=== PATIENT | female | born 1980 | race Caucasian/White ===

== ENCOUNTER 2016-09-07 13:48 | Outpatient (CLI) | payer BC, OTHER ==
[2016-09-07] VITALS (7 sets, daily range): BP systolic 140–147; BP diastolic 76–93
[~2016-09-07] VITALS: Ht 160 cm; Wt 82.0 kg
[~2016-09-07 13:48] MED LIST: BUSP10TA PO; CLAR10CA3 PO; FLON1SPR; FLUO40CA PO; MELO15TA4 PO; MINO50TA PO; MIRA3350 PO; MULT1TAB10 PO; OMEP40CA2 PO; ZOFR4TAB3 PO
[2016-09-07] MEDS ORDERED: PROT1TAB2 PO (13:59)
[2016-09-07] MEDS ORDERED: UNIS25TA2 PO (13:59)
[2016-09-07] MEDS ORDERED: BENT10CA PO (13:59)
[2016-09-07 16:31] LABS: MEAN CORPUSCULAR HEMOGLOBIN 29.3 pg (27.0-33.0); MEAN CORPUSCULAR HGB CONC 33.9 g/dl (32.0-36.5); MEAN CORPUSCULAR VOLUME 86.4 fl (80.0-96.0); RED CELL DISTRIBUTION WIDTH 13.1 % (11.5-14.5); WHITE BLOOD COUNT 10.4 K/mm3 (4.0-10.0)
[2016-09-07 16:55] LABS: ALT/SGPT 21 U/L (12-78); AST/SGOT 17 U/L (15-37); BILIRUBIN,TOTAL 0.3 MG/DL (0.2-1.0); CREATININE FOR GFR 0.52 MG/DL (0.55-1.02); GLOMERULAR FILTRATION RATE > 60.0 (>60); URIC ACID 4.6 MG/DL (2.6-6.0)
--- NOTE | 2016-09-07 21:02 | IPN ---
DATE: 09/07/2016 REASON FOR VISIT: Cramping and rash. HISTORY OF PRESENT ILLNESS: Ms. Hernandez is a 35-year-old 1 who presents at 32 weeks and two days estimated gestational age by mid-trimester ultrasound, as an unregistered patient. She [facility] at [facility] and has an estimated date of confinement (EDC) based on the 19-week ultrasound of 11/05/2016. She presents with complaints of cramping as well as a rash that she has had for several weeks now. course has been unremarkable. She appears to have initiated care in the first trimester. PAST MEDICAL HISTORY: History of gastroesophageal reflux, irritable bowel. PAST SURGICAL HISTORY: She has had oral surgery, bunionectomy, as well as cholecystectomy. MEDICATIONS: vitamins, Protonix, Unisom, and Claritin. ALLERGIES: SULFA MEDICATION. OBSTETRICAL HISTORY: She is 1. SOCIAL HISTORY: Denies any alcohol, tobacco or drug use during the . PHYSICAL EXAMINATION: She has an elevated blood pressure with serial repeats ranging 140s systolic and diastolic of 90s. She has category one heart tracing with irregular contractions on tocometer. GENERAL APPEARANCE: Is well appearing, no acute distress. LUNGS: Clear to auscultation bilaterally. CARDIOVASCULAR: Heart regular rate and rhythm. ABDOMEN: Soft, gravid, nontender. CERVICAL EXAM: Cervix is long and closed posterior. NEUROLOGIC: She is grossly intact. REVIEW OF SYSTEMS: She reports active movement. Denies any vagina bleed or leakage of fluid. Also denies any persistent headaches, severe pain, or visual changes. Routine and pre-eclamptic blood work showed platelets of 198. Hemoglobin and hematocrit 11.7 and 34.5. She had AST of 17, ALT 21. She had a creatinine of 0.5. Uric acid 4.6. Her spot urine protein-creatinine ratio is 0.167 equivocal. ASSESSMENT: 1. She is a 35-year-old 1 who presents at 32 weeks one day estimated gestational age with regular contractions on labor. 2. Reassuring status. 3. Gestational hypertension based on her current visit today. PLAN: 1. The patient was discharged home with strict cautions for labor, pre-eclampsia, and is also instructed on kick counts. 2. 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
== END 2016-09-07 17:55 | disposition home or self-care (01) ==
LOC: M LDO 13:48
PROVIDERS: ATTEND Obstetrics & Gynecology
DX: O47.03 False labor before 37 completed weeks of gestation, third trimester (principal); O13.3 Gestational [pregnancy-induced] hypertension without significant proteinuria, third trimester; O99.89 Other specified diseases and conditions complicating pregnancy, childbirth and the puerperium; R21 Rash and other nonspecific skin eruption; Z3A.32 32 weeks gestation of pregnancy

== ENCOUNTER → 2018-05-18 | Outpatient (REF) | payer BC, MEDICAID | LOC: M SFHCPLAZ 16:38 | DX: Z00.00 Encounter for general adult medical examination without abnormal findings (principal); E78.5 Hyperlipidemia, unspecified ==

== ENCOUNTER → 2018-12-07 | Outpatient (REF) | payer OTHER ==
[~2018-12-07] MED LIST changes: +BENT10CA PO; +MELO15TA28 PO; -MELO15TA4 PO; +PROT1TAB2 PO; +UNIS25TA3 PO; +ZOFR4TAB14 PO; -ZOFR4TAB3 PO
[2018-12-07 13:40] LABS: ALBUMIN 3.4 GM/DL (3.2-5.2); ALT/SGPT 37 U/L (12-78); BILIRUBIN,TOTAL 0.2 MG/DL (0.2-1.0); BLOOD UREA NITROGEN 8 MG/DL (7-18); CALCIUM LEVEL 8.7 MG/DL (8.5-10.1); CARBON DIOXIDE LEVEL 28 MEQ/L (21-32); CHLORIDE LEVEL 104 MEQ/L (98-107); CHOLESTEROL LEVEL 225 MG/DL (<200); CHOLESTEROL RISK RATIO 5.769 (<5); CREATININE FOR GFR 0.78 MG/DL (0.55-1.30); GLOMERULAR FILTRATION RATE > 60.0 (>60); GLUCOSE, FASTING 89 MG/DL (70-100); HDL CHOLESTEROL 39 MG/DL (>40); LDL CHOLESTEROL 150 MG/DL (<100); NON-HDL-C 186 MG/DL; POTASSIUM SERUM 3.8 MEQ/L (3.5-5.1); SODIUM LEVEL 139 MEQ/L (136-145); TOTAL PROTEIN 7.7 GM/DL (6.4-8.2); TRIGLYCERIDES LEVEL 180 MG/DL (<150)
== END ==
LOC: M SFHCPLAZ 10:53
PROVIDERS: ATTEND Nurse Practitioner Family
DX: Z00.00 Encounter for general adult medical examination without abnormal findings (principal); E78.5 Hyperlipidemia, unspecified

== ENCOUNTER → 2019-02-26 | Outpatient (REF) | payer OTHER | LOC: M SFHCPLAZ 10:21 | PROVIDERS: ATTEND Family Medicine | DX: L72.0 Epidermal cyst (principal) ==

== ENCOUNTER → 2019-09-21 | Outpatient (REF) | payer BC ==
[~2019-09-21] MED LIST changes: -OMEP40CA2 PO; +OMEP40CA97 PO
[2019-09-21 12:17] LABS: ALBUMIN 3.8 GM/DL (3.2-5.2); ALT/SGPT 25 U/L (12-78); BILIRUBIN,TOTAL 0.2 MG/DL (0.2-1.0); BLOOD UREA NITROGEN 17 MG/DL (7-18); CALCIUM LEVEL 9.3 MG/DL (8.5-10.1); CARBON DIOXIDE LEVEL 29 MEQ/L (21-32); CHLORIDE LEVEL 107 MEQ/L (98-107); CHOLESTEROL LEVEL 190 MG/DL (<200); CREATININE FOR GFR 0.75 MG/DL (0.55-1.30); FOLLICLE STIMULATING HORMONE 3.3 mIU/mL; FREE T4 0.87 NG/DL (0.76-1.46); GLOMERULAR FILTRATION RATE > 60.0 (>60); GLUCOSE, FASTING 85 MG/DL (70-100); HDL CHOLESTEROL 38 MG/DL (>40); LDL CHOLESTEROL 131 MG/DL (<100); LUTEINIZING HORMONE 3.5 mIU/mL; NON-HDL-C 152 MG/DL; POTASSIUM SERUM 4.7 MEQ/L (3.5-5.1); SODIUM LEVEL 139 MEQ/L (136-145); TESTOSTERONE 14 NG/DL (14-76); THYROID STIMULATING HORMONE 0.948 uIU/ML (0.358-3.740); TOTAL PROTEIN 7.8 GM/DL (6.4-8.2); TRIGLYCERIDES LEVEL 106 MG/DL (<150)
== END ==
LOC: M SFHCPLAZ 09:57
PROVIDERS: ATTEND Physician Assistant
DX: R68.82 Decreased libido (principal); K21.9 Gastro-esophageal reflux disease without esophagitis; E78.5 Hyperlipidemia, unspecified

== ENCOUNTER → 2020-03-15 | Outpatient (CLI) | payer BC ==
--- NOTE | 2020-03-31 07:33 | REP ---
RIGHT KNEE RADIOGRAPH SERIES CLINICAL: Right knee pain. TECHNIQUE: AP, lateral, bilateral oblique, and sunrise views of the right knee. FINDINGS: Osseous structures, joint spaces, and surrounding soft tissues appear normal. No acute fracture or dislocation. No arthritic changes. No definite effusion. IMPRESSION: Normal age appropriate right knee radiograph series. MTDD
== END ==
LOC: M WUC 13:25
PROVIDERS: ATTEND Physician Assistant
DX: M25.561 Pain in right knee (principal)

== ENCOUNTER → 2020-05-31 | Outpatient (CLI) | payer BC | LOC: M LABSMTC 10:54 | PROVIDERS: ATTEND Family Medicine | DX: Z20.828 Contact with and (suspected) exposure to other viral communicable diseases (principal) ==

== ENCOUNTER → 2020-07-11 | Outpatient (CLI) | payer OTHER | LOC: M LABSMTC 09:58 | PROVIDERS: ATTEND Family Medicine | DX: Z20.822 Contact with and (suspected) exposure to COVID-19 (principal) ==

== ENCOUNTER → 2020-07-31 | Outpatient (REF) | payer OTHER ==
[2020-07-31 12:27] LABS: HEMATOCRIT 44.3 % (36.0-47.0); HEMOGLOBIN 13.5 g/dl (12.0-15.5); MEAN CORPUSCULAR HEMOGLOBIN 26.3 pg (27.0-33.0); MEAN CORPUSCULAR HGB CONC 30.5 g/dl (32.0-36.5); MEAN CORPUSCULAR VOLUME 86.2 fl (80.0-96.0); PLATELET COUNT, AUTOMATED 212 10^3/uL (150-450); RED BLOOD COUNT 5.14 10^6/uL (4.00-5.40); WHITE BLOOD COUNT 6.8 10^3/uL (4.0-10.0)
[2020-07-31 13:15] LABS: ALBUMIN 3.7 GM/DL (3.2-5.2); ALT/SGPT 17 U/L (12-78); BILIRUBIN,TOTAL 0.1 MG/DL (0.2-1.0); BLOOD UREA NITROGEN 10 MG/DL (7-18); CALCIUM LEVEL 9.4 MG/DL (8.5-10.1); CARBON DIOXIDE LEVEL 30 MEQ/L (21-32); CHLORIDE LEVEL 107 MEQ/L (98-107); CHOLESTEROL LEVEL 205 MG/DL (<200); CHOLESTEROL RISK RATIO 6.833 (<5); CREATININE FOR GFR 0.77 MG/DL (0.55-1.30); FREE T4 0.79 NG/DL (0.76-1.46); GLOMERULAR FILTRATION RATE > 60.0 (>60); GLUCOSE, FASTING 91 MG/DL (70-100); HDL CHOLESTEROL 30 MG/DL (>40); LDL CHOLESTEROL 116 MG/DL (<100); NON-HDL-C 175 MG/DL; POTASSIUM SERUM 4.3 MEQ/L (3.5-5.1); SODIUM LEVEL 142 MEQ/L (136-145); TOTAL PROTEIN 7.4 GM/DL (6.4-8.2); TRIGLYCERIDES LEVEL 297 MG/DL (<150)
[2020-07-31 18:11] LABS: HEMOGLOBIN A1c 5.4 %
[2020-08-02 16:08] LABS: H PYLORI SERUM QUANT IGM <9.0 units (0.0-8.9); H PYLORI SERUM QUANT IgG ABY 0.79 (0.00-0.79)
== END ==
LOC: M SFHCPLAZ 10:13
PROVIDERS: ATTEND Physician Assistant
DX: K21.9 Gastro-esophageal reflux disease without esophagitis (principal); F41.9 Anxiety disorder, unspecified; R11.2 Nausea with vomiting, unspecified; R10.13 Epigastric pain; E78.5 Hyperlipidemia, unspecified

== ENCOUNTER → 2020-08-21 | Outpatient (CLI) | payer SELFPAY | LOC: M LABSMTC 10:58 | PROVIDERS: ATTEND Pediatrics | DX: Z20.828 Contact with and (suspected) exposure to other viral communicable diseases (principal) ==

== ENCOUNTER → 2020-08-31 | Outpatient (CLI) | payer SELFPAY | LOC: M LABSMTC 10:33 | PROVIDERS: ATTEND Pediatrics | DX: Z11.52 Encounter for screening for COVID-19 (principal) ==

== ENCOUNTER 2020-09-11 09:39 | Emergency (ER) | payer OTHER ==
[~2020-09-11] VITALS: Ht 160 cm; Wt 79.1 kg
[2020-09-11] MEDS ORDERED: CARV3.12 PO (09:57)
[2020-09-11] MEDS ORDERED: OMEP40CA97 PO (09:57)
[2020-09-11] MEDS ORDERED: PAXI30TA11 PO (09:57)
[2020-09-11] MEDS ORDERED: ONDA-83 PO (09:57)
[2020-09-11] MEDS ORDERED: GI COCKTAIL 50ML BTL(HYOSCYAMINE/MAALOX/LIDOCAINE VISCOUS)(1:3:1) PO ONE (10:50)
[2020-09-11] MEDS ORDERED: NS 1,000 ML IV ONE (10:50)
[2020-09-11 11:18] LABS: BILIRUBIN,DIRECT 0.1 MG/DL (0.0-0.2); BILIRUBIN,TOTAL 0.3 MG/DL (0.2-1.0); TOTAL PROTEIN 7.7 GM/DL (6.4-8.2)
[2020-09-11] MEDS ORDERED: REGL5TAB2 PO (12:09)
[2020-09-11 12:51] VITALS: BP 116/79
== END 2020-09-11 13:04 | disposition home or self-care (01) ==
LOC: M ED 09:39
DX: K29.70 Gastritis, unspecified, without bleeding (principal); K31.84 Gastroparesis; F41.9 Anxiety disorder, unspecified; K58.9 Irritable bowel syndrome, unspecified; K21.9 Gastro-esophageal reflux disease without esophagitis; Z79.899 Other long term (current) drug therapy; Z88.1 Allergy status to other antibiotic agents; Z87.891 Personal history of nicotine dependence; F12.20 Cannabis dependence, uncomplicated

== ENCOUNTER 2020-10-03 10:54 | Emergency (ER) | payer OTHER ==
[~2020-10-03] VITALS: Ht 160 cm; Wt 81.8 kg
[~2020-10-03 10:54] MED LIST changes: +CARV3.12 PO; +ONDA-83 PO; +PAXI30TA11 PO; +REGL5TAB2 PO
[2020-10-03] MEDS ORDERED: NS 1,000 ML IV ONE (11:15)
[2020-10-03] MEDS ORDERED: PROMETHAZINE INJ 25 MG/ML VIAL (J2550) IV ONE (11:35)
[2020-10-03] MEDS ORDERED: ONDANSETRON 4MG/2ML VIAL IV ONE (11:35)
[2020-10-03 11:41] LABS: BASO # 0.1 10^3/uL (0.0-0.2); BASO % 0.6 % (0.0-1.0); EOS # 0.1 10^3/uL (0.0-0.5); EOS % 0.6 % (0.0-3.0); HEMOGLOBIN 14.8 g/dl (12.0-15.5); LYMPH # 1.9 10^3/uL (1.5-5.0); LYMPH % 14.1 % (24.0-44.0); MEAN CORPUSCULAR HEMOGLOBIN 27.1 pg (27.0-33.0); MEAN CORPUSCULAR HGB CONC 32.2 g/dl (32.0-36.5); MEAN CORPUSCULAR VOLUME 84.2 fl (80.0-96.0); MONO # 0.4 10^3/uL (0.0-0.8); MONO % 2.8 % (2.0-8.0); NEUTROPHILS # 10.7 10^3/uL (1.5-8.5); NEUTROPHILS % 81.5 % (36.0-66.0); PLATELET COUNT, AUTOMATED 298 10^3/uL (150-450); RED BLOOD COUNT 5.46 10^6/uL (4.00-5.40); WHITE BLOOD COUNT 13.1 10^3/uL (4.0-10.0)
[2020-10-03] MEDS ORDERED: ISOVUE-370 76% 100ML VIAL As Ordered ONE (12:06)
[2020-10-03 12:09] LABS: ALBUMIN 4.5 GM/DL (3.2-5.2); BILIRUBIN,DIRECT 0.1 MG/DL (0.0-0.2); BILIRUBIN,TOTAL 0.4 MG/DL (0.2-1.0); TOTAL PROTEIN 8.6 GM/DL (6.4-8.2)
--- NOTE | 2020-10-03 12:48 | REP ---
INDICATION: abd pain COMPARISON: None. TECHNIQUE: CT Scan of the abdomen and pelvis was performed with intravenous administration of 100 cc of Isovue 370, without oral contrast. Sagittal and coronal reconstruction images are performed. FINDINGS: Lung bases: Unremarkable. Liver: Normal Gallbladder: Prior cholecystectomy. Spleen: Normal. Adrenals: Normal. Pancreas: Normal. Kidneys: Normal. Small and large bowel: Unremarkable. There is no free air or obstruction. Free fluid: None. Abdominal aorta: No aneurysm or dissection. Adenopathy: None. Appendix: Not inflamed. Osseous structures: Unremarkable. Pelvis: There is a right ovarian cyst approximately 4 cm in maximum diameter.. There is a bilobed umbilical hernia containing inflamed fat. The aperture of the hernia at this portion of the anterior abdominal wall is approximately 3.0 x 3.3 cm. IMPRESSION: There is a right ovarian cyst approximately 4 cm in maximum diameter.. No free fluid. No free air or obstruction. There is a bilobed umbilical hernia containing inflamed fat. The aperture of the hernia in the anterior abdominal wall is approximately 3.0 x 3.3 cm. No bowel loops within the hernia sac. Clinical evaluation necessary to evaluate for incarceration and strangulation. <Electronically signed by Clarke Mckeon > 10/03/20 [id number]
[2020-10-03] MEDS ORDERED: KETOROLAC 30 MG/ML 1ML VIAL IV ONE (13:50)
[2020-10-03] MEDS ORDERED: METOCLOPRAMIDE INJ 10MG/2ML VIAL (J2765 PER 1) IV ONE (14:00)
[2020-10-03] MEDS ORDERED: SUCRALFATE SUSP 1GM/10ML UD PO ONE (14:40)
[2020-10-03] MEDS ORDERED: GI COCKTAIL 50ML BTL(HYOSCYAMINE/MAALOX/LIDOCAINE VISCOUS)(1:3:1) PO ONE (15:35)
[2020-10-03 16:15] VITALS: BP 141/87
[2020-10-03] MEDS ORDERED: REGL10TA6 PO (16:25)
--- NOTE | 2020-10-04 17:49 | ED PDOC ---
Post-Departure Follow-Up mikel johnson faxed formal report of ct abd/p for fu Jose Miguel Nicolas MD Oct 04, 2020 17:49
== END 2020-10-03 16:36 | disposition home or self-care (01) ==
LOC: M ED 10:54 → EDBD 10:54 → M ED 16:36
DX: N83.201 Unspecified ovarian cyst, right side (principal); R11.10 Vomiting, unspecified; E78.5 Hyperlipidemia, unspecified; K21.9 Gastro-esophageal reflux disease without esophagitis; J45.909 Unspecified asthma, uncomplicated; F41.9 Anxiety disorder, unspecified; F32.9 Major depressive disorder, single episode, unspecified; Z87.891 Personal history of nicotine dependence; Z88.2 Allergy status to sulfonamides; Z88.8 Allergy status to other drugs, medicaments and biological substances; Z79.899 Other long term (current) drug therapy
CPT/HCPCS: 74177; 80047; 80076; 83690; 84702; 85025; 96361; 96374; 96375; 99285; J1885; J2405; J2765; Q9967

== ENCOUNTER 2020-10-05 01:54 | Emergency (ER) | payer OTHER ==
[~2020-10-05] VITALS: Ht 160 cm; Wt 77.8 kg
[~2020-10-05 01:54] MED LIST changes: +REGL10TA6 PO
[2020-10-05] MEDS ORDERED: BUSP1TAB (02:06)
[2020-10-05 04:15] VITALS: BP 167/89
== END 2020-10-05 05:00 | disposition left against medical advice (07) ==
LOC: M ED 01:54
DX: Z53.21 Procedure and treatment not carried out due to patient leaving prior to being seen by health care provider (principal)

== ENCOUNTER → 2020-11-16 | Outpatient (CLI) | payer OTHER ==
[~2020-11-16] MED LIST changes: +BUSP1TAB PO; +DICY20TA11 PO; +LISI-898 PO; +MM S100C PO
== END ==
LOC: M LABSMTC 11:25
PROVIDERS: ATTEND Anesthesiology
DX: Z01.818 Encounter for other preprocedural examination (principal); Z11.52 Encounter for screening for COVID-19

== ENCOUNTER → 2020-11-21 | Day surgery (SDC) | payer OTHER ==
[~2020-11-21] VITALS: Ht 160 cm; Wt 76.7 kg
[~2020-11-21] MED LIST changes: +LIDOCAINE 2% 100MG/5ML SDV (FOR ANES.) As Ordered ONE; +NS 1,000 ML IV ONE; +fentaNYL 100 MCG/2 ML INJECTION (J3010) As Ordered ONE; +propofoL 200 MG/20 ML VIAL As Ordered ONE
--- NOTE | 2020-11-21 14:20 | ROOR ---
Patient Name: Marika Hay Procedure Date: 11/21/2020 1:33 PM Date of : 1980 Age: 40 Room: [facility] Gender: Female Note Status: Finalized Procedure: Upper GI endoscopy Indications: Nausea with vomiting Providers: Jian Mckeon MD Referring MD: Maral Miguel Requesting Provider: Medicines: Monitored Anesthesia Care Complications: No immediate complications. Procedure: Pre-Anesthesia Assessment: - Prior to the procedure, a History and Physical was performed, and patient medications and allergies were reviewed. The patient is competent. The risks and benefits of the procedure and the sedation options and risks were discussed with the patient. All questions were answered and informed consent was obtained. Patient identification and proposed procedure were verified by the physician, the nurse and the anesthesiologist in the procedure room. Mental Status Examination: normal. Airway Examination: normal oropharyngeal airway and neck mobility. Respiratory Examination: clear to auscultation. CV Examination: normal. Prophylactic Antibiotics: The patient does not require prophylactic antibiotics. Prior Anticoagulants: The patient has taken no previous anticoagulant or antiplatelet agents. ASA Grade Assessment: II - A patient with mild systemic disease. After reviewing the risks and benefits, the patient was deemed in satisfactory condition to undergo the procedure. The anesthesia plan was to use monitored anesthesia care (MAC). Immediately prior to administration of medications, the patient was re-assessed for adequacy to receive sedatives. The heart rate, respiratory rate, oxygen saturations, blood pressure, adequacy of pulmonary ventilation, and response to care were monitored throughout the procedure. The physical status of the patient was re-assessed after the procedure. The Endoscope was introduced through the mouth, and advanced to the second part of duodenum. The upper GI endoscopy was accomplished without difficulty. The patient tolerated the procedure well. Findings: The examined esophagus was normal. Scattered mild inflammation characterized by erythema and granularity was found in the gastric antrum. Biopsies were taken with a cold forceps for Helicobacter pylori testing. Verification of patient identification for the specimen was done by the physician and nurse using the patient's name, date and medical record number. Estimated blood loss was minimal. The duodenal bulb and second portion of the duodenum were normal. Biopsies for histology were taken with a cold forceps for evaluation of celiac disease. Impression: - Normal esophagus. - Gastritis. Biopsied. - Normal duodenal bulb and second portion of the duodenum. Biopsied. Recommendation: - Patient has a contact number available for emergencies. The signs and symptoms of potential delayed complications were discussed with the patient. Return to normal activities tomorrow. Written discharge instructions were provided to the patient. - High fiber diet. - Continue present medications. - Await pathology results. - Telephone GI clinic for pathology results in 2 weeks. - Return to GI clinic if persistent symptoms or new symptoms. - Return to primary care physician. Procedure Code(s): --- Professional --- 71991, Esophagogastroduodenoscopy, flexible, transoral; with biopsy, single or multiple Diagnosis Code(s): --- Professional --- K29.70, Gastritis, unspecified, without bleeding R11.2, Nausea with vomiting, unspecified CPT copyright 2019 [employer]. All rights reserved. The codes documented in this report are preliminary and upon security associate review may be revised to meet current compliance requirements. Jian Mckeon MD Jian Mckeon MD 11/21/2020 2:19:48 PM Electronically signed by Jian Mckeon MD Number of Addenda: 0 Note Initiated On: 11/21/2020 1:33 PM Estimated Blood Loss: Estimated blood loss was minimal.
[2020-11-21 14:31] VITALS: BP 128/83
== END | disposition home or self-care (01) ==
LOC: M OPP 12:05
PROVIDERS: ATTEND Internal Medicine Gastroenterology
DX: K29.70 Gastritis, unspecified, without bleeding (principal); R11.2 Nausea with vomiting, unspecified; Z79.899 Other long term (current) drug therapy; Z88.2 Allergy status to sulfonamides; Z88.8 Allergy status to other drugs, medicaments and biological substances
CPT/HCPCS: 43239; 88305; J3010

== ENCOUNTER → 2020-12-25 | Outpatient (REF) | payer OTHER ==
[~2020-12-25] MED LIST changes: -LIDOCAINE 2% 100MG/5ML SDV (FOR ANES.) As Ordered ONE; -NS 1,000 ML IV ONE; +OMEP40CA4 PO; -OMEP40CA97 PO; -fentaNYL 100 MCG/2 ML INJECTION (J3010) As Ordered ONE; -propofoL 200 MG/20 ML VIAL As Ordered ONE
== END ==
LOC: M SFHCPLAZ 16:44
PROVIDERS: ATTEND Physician Assistant
DX: R09.81 Nasal congestion (principal)

== ENCOUNTER 2021-02-19 15:51 | Emergency (ER) | payer OTHER ==
[~2021-02-19] VITALS: Ht 160 cm; Wt 72.8 kg
[2021-02-19 15:52] VITALS: BP 122/79
[2021-02-19] MEDS ORDERED: KETOROLAC 30 MG/ML 1ML VIAL IV ONE (18:05)
[2021-02-19] MEDS ORDERED: NS 1,000 ML IV ONE (18:05)
[2021-02-19] MEDS ORDERED: FAMOTIDINE INJ 20MG/2ML VIAL (S0028 PER 1) IVP ONE (18:05)
[2021-02-19] MEDS ORDERED: METOCLOPRAMIDE INJ 10MG/2ML VIAL (J2765 PER 1) IV ONE (18:05)
[2021-02-19 18:52] LABS: BASO # 0.1 10^3/uL (0.0-0.2); BASO % 0.6 % (0.0-1.0); EOS # 0.1 10^3/uL (0.0-0.5); EOS % 1.1 % (0.0-3.0); HEMATOCRIT 40.2 % (36.0-47.0); HEMOGLOBIN 12.9 g/dl (12.0-15.5); LYMPH # 2.7 10^3/uL (1.5-5.0); LYMPH % 30.6 % (24.0-44.0); MEAN CORPUSCULAR HGB CONC 32.1 g/dl (32.0-36.5); MEAN CORPUSCULAR VOLUME 84.1 fl (80.0-96.0); MONO # 0.5 10^3/uL (0.0-0.8); MONO % 5.3 % (2.0-8.0); NEUTROPHILS # 5.4 10^3/uL (1.5-8.5); NEUTROPHILS % 62.2 % (36.0-66.0); PLATELET COUNT, AUTOMATED 207 10^3/uL (150-450); RED BLOOD COUNT 4.78 10^6/uL (4.00-5.40); WHITE BLOOD COUNT 8.8 10^3/uL (4.0-10.0)
[2021-02-19 19:17] LABS: ALBUMIN 3.7 GM/DL (3.2-5.2); ALT/SGPT 17 U/L (12-78); BILIRUBIN,DIRECT < 0.1 MG/DL (0.0-0.2); BILIRUBIN,TOTAL 0.3 MG/DL (0.2-1.0); LIPASE 570 U/L (73-393); TOTAL PROTEIN 7.4 GM/DL (6.4-8.2)
[2021-02-19] MEDS ORDERED: ISOVUE-370 76% 100ML VIAL As Ordered ONE (19:48)
--- NOTE | 2021-02-19 21:22 | REPVR ---
PROCEDURE INFORMATION: Exam: CT Abdomen And Pelvis With Contrast Exam date and time: 02/19/2021 7:57 PM Age: 40 years old Clinical indication: Abdominal pain; Localized; Upper; Additional info: Upper abd pain TECHNIQUE: Imaging protocol: Computed tomography of the abdomen and pelvis with contrast. Radiation optimization: All CT scans at this facility use at least one of these dose optimization techniques: automated exposure control; mA and/or kV adjustment per patient size (includes targeted exams where dose is matched to clinical indication); or iterative reconstruction. Contrast material: ISOVUE 370; Contrast volume: 100 ml; Contrast route: INTRAVENOUS (IV); COMPARISON: 1. CT ABD/PEL W/IV CONTRAST ONLY 10/03/2020 12:15 PM (The report from this study was not available for review at the time of this interpretation.) 2. CT ABD PELVIS W/O FOL BY WIT 09/22/2015 3:21:12 PM FINDINGS: Lungs: There is a 3 mm solid pulmonary nodule in the left lower lobe (image 14 of the axial series 204), which is unchanged compared to the CT abdomen and pelvis on 10/03/2020 and 09/22/2015 and for which follow-up imaging is not necessary. The lungs were not fully imaged. Heart: No cardiomegaly or pericardial effusion. Liver: The attenuation of the liver is more than 40 Hounsfield units lower in attenuation compared to the spleen, which is compatible with fatty liver infiltration. The contour of the liver is smooth. No hepatomegaly is noted. No liver lesion is identified. Gallbladder and bile ducts: There are calcified stones in the contracted or remnant gallbladder (images 32 and 33 of the coronal series 202). No dilation of bile ducts is noted. There are no calcified stones in the common bile duct. Pancreas: Normal. No dilation of the main pancreatic duct is noted. Spleen: There is a 3 mm low-attenuation lesion in the superior aspect of the spleen (image 50 of the coronal series 202), which is too small to characterize. No splenomegaly is noted. Adrenal glands: Normal. No adrenal mass is noted. Kidneys and ureters: The kidneys are normal in appearance. No renal lesion is noted. No stones are noted in the kidneys or ureters. There is no hydronephrosis or hydroureter. There are no wedge-shaped areas of low attenuation in the kidneys to suggest pyelonephritis. There is no renal abscess or perinephric fluid collection. Stomach and bowel: There is thickening of the wall of the stomach, which may be secondary to its decompressed state versus gastritis. There is thickening of the wall of the distal transverse colon, descending colon, and sigmoid colon, which may be secondary to the decompressed state of this portion of the bowel versus a colitis. No pericolonic inflammatory fat stranding is noted. There is liquid feces in the colon, which will lead to diarrhea. The small bowel is unremarkable. Appendix: Normal. There is no evidence for appendicitis. Intraperitoneal space: No free air. No ascites. No abscess. Retroperitoneal space: No fluid collection. No mass. Vasculature: The abdominal aorta is patent, normal in caliber, and there is no dissection. The iliac arteries, common femoral arteries, renal arteries, celiac artery, superior mesenteric artery, and inferior mesenteric artery are patent. Lymph nodes: No enlarged lymph nodes. Urinary bladder: The partially distended urinary bladder is unremarkable. No stones or masses are seen in the bladder. Reproductive: The uterus is unremarkable. There is a 3.2 cm right ovarian cyst with simple characteristics and a 1.9 cm left ovarian cyst with simple characteristics, which are stable compared to the CT abdomen and pelvis on 10/03/2020 and for which no further imaging is recommended. Bones/joints: There is no fracture or dislocation. No suspicious osteolytic or osteoblastic lesion. There are degenerative changes involving the lower lumbar spine. Soft tissues: There is a large fat containing periumbilical hernia that is similar in size compared to the CT abdomen and pelvis on 10/03/2020. There is mildly increased attenuation of the fat within the hernia and near the entrance to the hernia. IMPRESSION: 1. Large fat containing periumbilical hernia that is similar in size compared to the CT abdomen and pelvis on 10/03/2020 and there is mildly increased attenuation of the fat within the hernia and near the entrance to the hernia, which may indicate ischemia or inflammation of the omental fat. 2. Calcified stones in the contracted or remnant gallbladder. 3. Thickening of the wall of the stomach, which may be secondary to its decompressed state versus gastritis. 4. Thickening of the wall of the distal transverse colon, descending colon, and sigmoid colon, which may be secondary to the decompressed state of this portion of the bowel versus a colitis. 5. Liquid feces in the colon, which will lead to diarrhea. 6. Fatty liver. 7. 3.2 cm right ovarian cyst with simple characteristics and a 1.9 cm left ovarian cyst with simple characteristics, which are stable compared to the CT abdomen and pelvis on 10/03/2020 and for which no further imaging is recommended. Electronically signed by: Gerald Donald On 02/19/2021 21:22:01 PM
[2021-02-19] MEDS ORDERED: ONDANSETRON 4MG/2ML VIAL IV ONE (21:40)
[2021-02-19] MEDS ORDERED: metroNIDAZOLE (FLAGYL) 500MG TABLET PO ONE (21:40)
[2021-02-19] MEDS ORDERED: PANT40TA29 PO (21:42)
[2021-02-19] MEDS ORDERED: CARA1TAB6 PO (21:42)
[2021-02-19] MEDS ORDERED: PROM25TA12 PO (21:42)
[2021-02-19] MEDS ORDERED: CIPROFLOXACIN 500MG TABLET PO ONE (22:00)
== END 2021-02-20 02:37 | disposition home or self-care (01) ==
LOC: M ED 15:51
DX: K52.9 Noninfective gastroenteritis and colitis, unspecified (principal); K29.70 Gastritis, unspecified, without bleeding; K85.90 Acute pancreatitis without necrosis or infection, unspecified; K80.20 Calculus of gallbladder without cholecystitis without obstruction; K76.0 Fatty (change of) liver, not elsewhere classified; N83.291 Other ovarian cyst, right side; N83.292 Other ovarian cyst, left side; K42.9 Umbilical hernia without obstruction or gangrene; I10 Essential (primary) hypertension; K21.9 Gastro-esophageal reflux disease without esophagitis; F41.9 Anxiety disorder, unspecified; F32.9 Major depressive disorder, single episode, unspecified; Z88.2 Allergy status to sulfonamides; Z88.8 Allergy status to other drugs, medicaments and biological substances; Z79.899 Other long term (current) drug therapy
CPT/HCPCS: 74177; 80047; 80076; 81001; 83690; 84702; 85025; 96374; 96375; 99283; J1885; J2405; J2765; Q9967

== ENCOUNTER 2021-04-11 13:47 | Emergency (ER) | payer OTHER ==
[~2021-04-11] VITALS: Ht 160 cm; Wt 68.2 kg
[~2021-04-11 13:47] MED LIST changes: +CARA1TAB6 PO; +PANT40TA29 PO; +PROM25TA12 PO
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
--- OUTSIDE RECORDS SUMMARY | 2021-04-11 13:55 | CCD ---
Author Author [facility] Organization [facility] Address Unknown Phone Unavailable Care Team Providers Care Laborer [employer] Name Role Phone Maral Miguel Unavailable PROBLEMS Type Condition ICD9-CM Code [id number] Code Onset Dates Condition S tatus W/U Status Risk SNOMED Code Notes Problem Chronic allergic rhinitis J30.9 Active confirmed 92331392 Problem Non-seasonal allergic rhinitis, unspecified trigger J30.89 Active confirmed 33350781 Problem Hypertensive heart disease without congestive heart failur e I11.9 Active confirmed 60371388 Problem Hypertensive heart disease without heart failure I 11.9 Active confirmed 90816959 Problem Gastroesophageal reflux disease without esophagitis K21.9 Active confirmed 523743612 Problem Irritable bowel syndrome with both constipation and diarrh ea K58.2 Active confirmed 81128572 Problem Hyperlipidemia, unspecified hyperlipidemia type E7 8.5 Active confirmed 52252746 Problem Anxiety disorder, unspecified F41.9 Active confirm ed 200880066 ALLERGIES Allergen (clinical drug ingredient) Drug/Non Drug Allergy do cumented on EMR Reaction Allergy Type Onset Date Status miralax Nausea/Vomiting diarhea Non Drug Allergy Active sulfacetamide Sulfacetamide Sodium([facility] Code:[address]-19) Rash Drug Allergy Active BACTRIM RASH Non Drug Allergy Active Pumpkin Pumpkin Rash Non Drug Allergy Active Parsley Parsley Swelling Non Drug Allergy Active ENCOUNTERS from 1981 to 2021-03-23 Encounter Location Date Provider Diagnosis [address] [phone] [place] [address] Jan, Maral Lamont Gastroesophageal reflux dise ase without esophagitis K21.9 and Irritable bowel syndrome with both constipation and diarrhea K58.2 IMMUNIZATIONS Vaccine Route Administration Date Status COVID-19 dose #1 given elsewhere Unspecified Unknown Mar 2020 Administered SOCIAL HISTORY Tobacco Use: Social History Observation Description Date Details (start date - stop date) Former Smoker Sex Assigned At : Social History Observation Description Sex Assigned At Unknown Audit Question Answer Notes Total Score: 0 Interpretation: Alcohol Education Language: Question Answer Notes Languages spoken: Turkmen Mormon: Question Answer Notes Mormon 34 None Sexual Hx: Question Answer Notes [...] 5-10 years quit 2012 REASON FOR REFERRAL from 1981 to 2021-03-23 Reason 40y/o female with refractory GERD, upper abdominal pain, nausea and vomiting, please eval and treat Diagnosis 1 Gastroesophageal reflux dise ase without esophagitis (K21.9) Referral Organization [facility] [place] Referring Provider First Name Maral Referring Provider Last Name Lamont Referring Provider Specialty Family Medicine Referred Provider KARMEN BAH Referred Provider Specialty Gastroenterology Referral Priority Routine General Notes Angelina Moncada 03/23/2021 2:49:27 PM > referral was faxed to [phone] to [facility] SIGNS No information MEDICATIONS Medication SIG (Take, Route, Frequency, Duration) [...] for 30 Active PROCEDURES No Information RESULTS No Results REASON FOR VISIT Referral MEDICAL (GENERAL) HISTORY Type Description Date Medical [...] hammert oe repair 06/07/15 Surgical History Gall qqckxce-gdihlgrwuey[facility] Surgical History #2 - c sections, tubal /, 11/26/2017 Surgical History cyst on neck excision 2018 Surgical History endoscopy 11/21/2020 Hospitalization History childbirth Hospitalization History [facility] 1999 Hospitalization History severe abdominal pain/low potassium 10/07/20-10/09/20 Goals Section No Information Health Concerns No Information MEDICAL EQUIPMENT No Information MENTAL STATUS No Information FUNCTIONAL STATUS No Information ASSESSMENTS Encounter Date Diagnosis Assessment Notes Treatment Notes Treatm ent Clinical Notes Jan, Gastroesophageal reflux dise ase without esophagitis (ICD-10 - K21.9) Jan, Irritable bowel syndrome wit h both constipation and diarrhea (ICD- 10 - K58.2) PLAN OF TREATMENT Medication Medication Name Sig Start Date Stop Date busPIRone HCl 7.5 MG 1 tablet Orally Twice a day for 30 Referrals Referral Date Details 40y/o female with refractory GERD, upper abdominal pain, nausea and vomiting, please eval and treat Insurance Providers Payer Name Payer Address Payer Phone Insured Name Patient Relati onship to Insured Coverage Start Date Coverage End Date [employer] [address] [facility] [id number] [employer] [id number]
--- OUTSIDE RECORDS SUMMARY | 2021-04-11 13:55 | CCD ---
Author Author [facility] Organization [facility] Address Unknown Phone Unavailable Care Team Providers Care Interior Design Consultant Name Role Phone Maral Miguel Unavailable PROBLEMS Type Condition ICD9-CM Code RPE15-AH Code Onset Dates Condition S tatus W/U Status Risk SNOMED Code Notes Problem Chronic allergic rhinitis J30.9 Active confirmed 53122032 Problem Non-seasonal allergic rhinitis, unspecified trigger J30.89 Active confirmed 61194084 Problem Hypertensive heart disease without congestive heart failur e I11.9 Active confirmed 72244081 Problem Hypertensive heart disease without heart failure I 11.9 Active confirmed 62328082 Problem Gastroesophageal reflux disease without esophagitis K21.9 Active confirmed 468127682 Problem Irritable bowel syndrome with both constipation and diarrh ea K58.2 Active confirmed 42459337 Problem Hyperlipidemia, unspecified hyperlipidemia type E7 8.5 Active confirmed 23105633 Problem Anxiety disorder, unspecified F41.9 Active confirm ed 515625049 ALLERGIES Allergen (clinical drug ingredient) Drug/Non Drug Allergy do cumented on EMR Reaction Allergy Type Onset Date Status miralax Nausea/Vomiting diarhea Non Drug Allergy Active sulfacetamide Sulfacetamide Sodium([facility] Code:[address]-80) Rash Drug Allergy Active BACTRIM RASH Non Drug Allergy Active Pumpkin Pumpkin Rash Non Drug Allergy Active Parsley Parsley Swelling Non Drug Allergy Active ENCOUNTERS from 1981 to 2021-03-23 Encounter Location Date Provider Diagnosis [address] [phone] [place] [address] Nov, Maralrafaela Lipscombon IMMUNIZATIONS Vaccine Route Administration Date Status COVID-19 dose #1 given elsewhere Unspecified Unknown Aug Administered SOCIAL HISTORY Tobacco Use: Social History Observation Description Date Details (start date - stop date) Former Smoker Sex Assigned At : Social History Observation Description Sex Assigned At Unknown Audit Question Answer Notes Total Score: 0 Interpretation: Alcohol Education Language: Question Answer Notes Languages spoken: Korean Rastafarian: Question Answer Notes Rastafarian 34 None Sexual Hx: Question Answer Notes [...] REASON FOR REFERRAL No Information VITAL SIGNS No information MEDICATIONS Medication SIG (Take, [...] RESULTS No Results REASON FOR VISIT Referral to [facility] MEDICAL (GENERAL) HISTORY Type Description Date Medical [...] hammert oe repair 06/07/15 Surgical History Gall ftnkujw-gzlhgoghsqb[facility] Surgical History #2 - c sections, tubal , 11/26/2017 Surgical History cyst on neck excision 2018 Surgical History endoscopy 11/21/2020 Hospitalization History childbirth Hospitalization History [facility] 1999 Hospitalization History severe abdominal pain/low potassium 10/07/20-10/09/20 Goals Section No Information Health Concerns No Information MEDICAL EQUIPMENT No Information MENTAL STATUS No Information FUNCTIONAL STATUS No Information ASSESSMENTS No Information PLAN OF TREATMENT Medication Medication Name Sig Start Date Stop Date busPIRone HCl 7.5 MG 1 tablet Orally Twice a day for 30 Insurance Providers Payer Name Payer Address Payer Phone Insured Name Patient Relati onship to Insured Coverage Start Date Coverage End Date [facility] [address] [place] [address] [employer] [id number]
--- OUTSIDE RECORDS SUMMARY | 2021-04-11 13:57 | CCD ---
Author Author [facility] Address Unknown Phone Unavailable Care Team Providers Care Pool Table Operator Name Role Phone Brijesh Constantino Unavailable JENI MCDOWELL MD Unavailable Unavailable JENI MCDOWELL MD Unavailable Unavailable JENI MCDOWELL MD Unavailable Unavailable JENI MCDOWELL MD Unavailable Unavailable MCDOWELL, JENI MD Unavailable Unavailable MCDOWELL, JENI MD Unavailable Unavailable MCDOWELL, JENI MD Unavailable Unavailable MCDOWELL, JENI MD Unavailable Unavailable MCDOWELL, JENI MD Unavailable Unavailable MCDOWELL, JENI MD Unavailable Unavailable MCDOWELL, JENI MD Unavailable Unavailable MCDOWELL, JENI MD Unavailable Unavailable MCDOWELL, JENI MD Unavailable Unavailable MCDOWELL, JENI MD Unavailable Unavailable MCDOWELL, JENI MD Unavailable Unavailable MCDOWELL, JENI MD Unavailable Unavailable MCDOWELL, JENI MD Unavailable Unavailable MCDOWELL, JENI MD Unavailable Unavailable MCDOWELL, JENI MD Unavailable Unavailable MCDOWELL, JENI MD Unavailable Unavailable MCDOWELL, JENI MD Unavailable Unavailable MCDOWELL, JENI MD Unavailable Unavailable MCDOWELL, JENI MD Unavailable Unavailable MCDOWELL, JENI MD Unavailable Unavailable MCDOWELL, JENI MD Unavailable Unavailable MCDOWELL, JENI MD Unavailable Unavailable MCDOWELL, JENI MD Unavailable Unavailable MCDOWELL, JENI MD Unavailable Unavailable MCDOWELL, JENI MD Unavailable Unavailable MCDOWELL, JENI MD Unavailable Unavailable MCDOWELL, JENI MD Unavailable Unavailable MCDOWELL, JENI MD Unavailable Unavailable MCDOWELL, JENI MD Unavailable Unavailable MCDOWELL, JENI MD Unavailable Unavailable MCDOWELL, JENI MD Unavailable Unavailable MCDOWELL, JENI MD Unavailable Unavailable MCDOWELL, JENI MD Unavailable Unavailable MCDOWELL, JENI MD Unavailable Unavailable MCDOWELL, JENI MD Unavailable Unavailable MCDOWELL, JENI MD Unavailable Unavailable MCDOWELL, JENI MD Unavailable Unavailable MCDOWELL, JENI MD Unavailable Unavailable MCDOWELL, JENI MD Unavailable Unavailable MCDOWELL, JENI MD Unavailable Unavailable MCDOWELL, JENI MD Unavailable Unavailable MCDOWELL, JENI MD Unavailable Unavailable MCDOWELL, JENI MD Unavailable Unavailable MCDOWELL, JENI MD Unavailable Unavailable MCDOWELL, JENI MD Unavailable Unavailable MCDOWELL, JENI MD Unavailable Unavailable MCDOWELL, JENI MD Unavailable Unavailable MCDOWELL, JENI MD Unavailable Unavailable MCDOWELL, JENI MD Unavailable Unavailable MCDOWELL, JENI MD Unavailable Unavailable MCDOWELL, JENI MD Unavailable Unavailable MCDOWELL, JENI MD Unavailable Unavailable MCDOWELL, JENI MD Unavailable Unavailable MCDOWELL, JENI MD Unavailable Unavailable MCDOWELL, JENI MD Unavailable Unavailable MCDOWELL, JENI MD Unavailable Unavailable MCDOWELL, JENI MD Unavailable Unavailable MCDOWELL, JENI MD Unavailable Unavailable MCDOWELL, JENI MD Unavailable Unavailable MCDOWELL, JENI MD Unavailable Unavailable MCDOWELL, JENI MD Unavailable Unavailable MCDOWELL, JENI MD Unavailable Unavailable MCDOWELL, JENI MD Unavailable Unavailable MCDOWELL, JENI MD Unavailable Unavailable MCDOWELL, JENI MD Unavailable Unavailable JENI MCDOWELL MD Unavailable Unavailable JACQUIE, HEIKE PA Unavailable Unavailable JACQUIE, HEIKE PA Unavailable Unavailable JACQUIE, HEIKE PA Unavailable Unavailable JACQUIE, HEIKE PA Unavailable Unavailable JACQUIE, HEIKE PA Unavailable Unavailable JACQUIE, HEIKE PA Unavailable Unavailable JACQUIE, HEIKE PA Unavailable Unavailable JACQUIE, HEIKE PA Unavailable Unavailable JACQUIE, HEIKE PA Unavailable Unavailable JACQUIE, HEIKE PA Unavailable Unavailable JACQUIE, HEIKE PA Unavailable Unavailable JACQUIE, HEIKE PA Unavailable Unavailable JACQUIE, HEIKE PA Unavailable Unavailable JACQUIE, HEIKE PA Unavailable Unavailable JACQUIE, HEIKE PA Unavailable Unavailable JACQUIE, HEIKE PA Unavailable Unavailable JACQUIE, HEIKE PA Unavailable Unavailable JACQUIE, HEIKE PA Unavailable Unavailable JACQUIE, HEIKE PA Unavailable Unavailable JACQUIE, HEIKE PA Unavailable Unavailable JACQUIE, HEIKE PA Unavailable Unavailable JACQUIE, HEIKE PA Unavailable Unavailable JACQUIE, HEIKE PA Unavailable Unavailable JACQUIE, HEIKE PA Unavailable Unavailable JACQUIE, HEIKE PA Unavailable Unavailable JACQUIE, HEIKE PA Unavailable Unavailable JACQUIE, HEIKE PA Unavailable Unavailable JACQUIE, HEIKE PA Unavailable Unavailable JACQUIE, HEIKE PA Unavailable Unavailable JACQUIE, HEIKE PA Unavailable Unavailable JACQUIE, HEIKE PA Unavailable Unavailable JACQUIE, HEIKE PA Unavailable Unavailable JACQUIE, HEIKE PA Unavailable Unavailable JACQUIE, HEIKE PA Unavailable Unavailable JACQUIE, HEIKE PA Unavailable Unavailable JACQUIE, HEIKE PA Unavailable Unavailable Nino WEAVER MD Unavailable Unavailable Nino WEAVER MD Unavailable Unavailable Nino WEAVER MD Unavailable Unavailable Nino WEAVER MD Unavailable Unavailable Nino WEAVER MD Unavailable Unavailable Nino WEAVER MD Unavailable Unavailable Nino WEAVER MD Unavailable Unavailable Nino WEAVER MD Unavailable Unavailable Nino WEAVER MD Unavailable Unavailable Nino WEAVER MD Unavailable Unavailable Nino WEAVER MD Unavailable Unavailable Nino WEAVER MD Unavailable Unavailable Nino WEAVER MD Unavailable Unavailable Nino WEAVER MD Unavailable Unavailable Nino WEAVER MD Unavailable Unavailable Nino WEAVER MD Unavailable Unavailable Nino WEAVER MD Unavailable Unavailable Nino WEAVER MD Unavailable Unavailable Nino WEAVER MD Unavailable Unavailable Nino WEAVER MD Unavailable Unavailable Nino WEAVER MD Unavailable Unavailable Nino WEAVER MD Unavailable Unavailable Nino WEAVER MD Unavailable Unavailable Nino WEAVER MD Unavailable Unavailable Nino WEAVER MD Unavailable Unavailable Nino WEAVER MD Unavailable Unavailable Nino WEAVER MD Unavailable Unavailable Nino WEAVER MD Unavailable Unavailable Nino WEAVER MD Unavailable Unavailable Nino WEAVER MD Unavailable Unavailable Nino WEAVER MD Unavailable Unavailable Nino WEAVER MD Unavailable Unavailable Nino WEAVER MD Unavailable Unavailable Kamran Falanga, A Anahi SOLAR ENERGY INSTALLATION MANAGER Unavailable Unavailable Gloster Falanga, A Anahi SOLAR ENERGY INSTALLATION MANAGER Unavailable Unavailable Kamran Falanga, A Anahi SOLAR ENERGY INSTALLATION MANAGER Unavailable Unavailable Kamran Falanga, A Anahi SOLAR ENERGY INSTALLATION MANAGER Unavailable Unavailable Kamran Falanga, A Anahi SOLAR ENERGY INSTALLATION MANAGER Unavailable Unavailable Kamran Falanga, A Anahi SOLAR ENERGY INSTALLATION MANAGER Unavailable Unavailable Gloster Falanga, A Anahi SOLAR ENERGY INSTALLATION MANAGER Unavailable Unavailable Gloster Falanga, A Anahi SOLAR ENERGY INSTALLATION MANAGER Unavailable Unavailable Gloster Falanga, A Anahi SOLAR ENERGY INSTALLATION MANAGER Unavailable Unavailable Gloster Falanga, A Anahi SOLAR ENERGY INSTALLATION MANAGER Unavailable Unavailable Gloster Falanga, A Anahi SOLAR ENERGY INSTALLATION MANAGER Unavailable Unavailable Gloster Falanga, A Anahi SOLAR ENERGY INSTALLATION MANAGER Unavailable Unavailable Kamran Falanga, A Anahi SOLAR ENERGY INSTALLATION MANAGER Unavailable Unavailable Gloster Falanga, A Anahi SOLAR ENERGY INSTALLATION MANAGER Unavailable Unavailable Kamran Falanga, A Anahi SOLAR ENERGY INSTALLATION MANAGER Unavailable Unavailable Gloster Falanga, A Anahi SOLAR ENERGY INSTALLATION MANAGER Unavailable Unavailable Kamran Falanga, A Anahi SOLAR ENERGY INSTALLATION MANAGER Unavailable Unavailable Gloster Falanga, A Anahi SOLAR ENERGY INSTALLATION MANAGER Unavailable Unavailable Kamran Falanga, A Anahi SOLAR ENERGY INSTALLATION MANAGER Unavailable Unavailable Kamran Falanga, A Anahi SOLAR ENERGY INSTALLATION MANAGER Unavailable Unavailable Gloster Falanga, A Anahi SOLAR ENERGY INSTALLATION MANAGER Unavailable Unavailable Gloster Falanga, A Anahi SOLAR ENERGY INSTALLATION MANAGER Unavailable Unavailable Gloster Faljosea, A Anahi SOLAR ENERGY INSTALLATION MANAGER Unavailable Unavailable Gloster Faljosea, A Anahi SOLAR ENERGY INSTALLATION MANAGER Unavailable Unavailable Gloster Faljosea, A Anahi SOLAR ENERGY INSTALLATION MANAGER Unavailable Unavailable Gloster Faljosea, A Anahi SOLAR ENERGY INSTALLATION MANAGER Unavailable Unavailable Gloster Falsid, A Anahi SOLAR ENERGY INSTALLATION MANAGER Unavailable Unavailable Gloster Krzysztof, A Anahi SOLAR ENERGY INSTALLATION MANAGER Unavailable Unavailable Gloster Faljosea, A Anahi SOLAR ENERGY INSTALLATION MANAGER Unavailable [facility]available [facility] [place] Unavailable Unavailable Stefany Rosas PA Unavailable Unavailable YU PA-C, [id number]. GRACE PA Unavailable Unava ilable YU PA-C, [id number] A. GRACE PA Unavailable Unava ilable YU PA-C, [id number] A. GRACE PA Unavailable Unava ilable YU PA-C, [id number] A. GRACE PA Unavailable Unava ilable YU PA-C, [id number]. GRACE PA Unavailable Unava ilable YU PA-C, [id number] A. GRACE PA Unavailable Unava ilable YU PA-C, [id number]. GRACE PA Unavailable Unava ilable Brijesh CONSTANTINO Unavailable Unavailable Feola, T Deonna PA Unavailable Unavailable Feola, T Deonna PA Unavailable Unavailable Feola, T Deonna PA Unavailable Unavailable Feola, T Deonna PA Unavailable Unavailable Feola, T Deonna PA Unavailable Unavailable Feola, T Deonna PA Unavailable Unavailable Feola, T Deonna PA Unavailable Unavailable Feola, T Deonna PA Unavailable Unavailable Feola, T Deonna PA Unavailable Unavailable Feola, T Deonna PA Unavailable Unavailable Feola, T Deonna PA Unavailable Unavailable Feola, T Deonna PA Unavailable Unavailable Feola, T Deonna PA Unavailable Unavailable Feola, T Deonna PA Unavailable Unavailable Feola, T Deonna PA Unavailable Unavailable Feola, T Deonna PA Unavailable Unavailable Feola, T Deonna PA Unavailable Unavailable Feola, T Deonna PA Unavailable Unavailable Feola, T Deonna PA Unavailable Unavailable Feola, T Deonna PA Unavailable Unavailable Feola, T Deonna PA Unavailable Unavailable Feola, T Deonna PA Unavailable Unavailable Feola, T Deonna PA Unavailable Unavailable Feola, T Deonna PA Unavailable Unavailable Feola, T Deonna PA Unavailable Unavailable Feola, T Deonna PA Unavailable Unavailable Feola, T Deonna PA Unavailable Unavailable Feola, T Deonna PA Unavailable Unavailable Feola, T Deonna PA Unavailable Unavailable Feola, T Deonna PA Unavailable Unavailable Feola, T Deonna PA Unavailable Unavailable Feola, T Deonna PA Unavailable Unavailable Feola, T Deonna PA Unavailable Unavailable Feola, T Deonna PA Unavailable Unavailable Feola, T Deonna PA Unavailable Unavailable Feola, T Deonna PA Unavailable Unavailable Feola, T Deonna PA Unavailable Unavailable Feola, T Deonna PA Unavailable Unavailable Feola, T Deonna PA Unavailable Unavailable Feola, T Deonna PA Unavailable Unavailable Feola, T Deonna PA Unavailable Unavailable TERE KATZ MD Unavailable Unavailable TERE KATZ MD Unavailable Unavailable TERE KATZ MD Unavailable Unavailable TERE KATZ MD Unavailable Unavailable TERE KATZ MD Unavailable Unavailable TERE KATZ MD Unavailable Unavailable TERE KATZ MD Unavailable Unavailable TERE KATZ MD Unavailable Unavailable TERE KATZ MD Unavailable Unavailable TERE KATZ MD Unavailable Unavailable TERE KATZ MD Unavailable Unavailable TERE KATZ MD Unavailable Unavailable TERE KATZ MD Unavailable Unavailable TERE KATZ MD Unavailable Unavailable TERE KATZ MD Unavailable Unavailable TERE KAZT MD Unavailable Unavailable TERE KATZ MD Unavailable Unavailable TERE KATZ MD Unavailable Unavailable TERE KATZ MD Unavailable Unavailable TERE KATZ MD Unavailable Unavailable TERE KATZ MD Unavailable Unavailable TERE KATZ MD Unavailable Unavailable TERE KATZ MD Unavailable Unavailable TERE KATZ MD Unavailable Unavailable TERE KATZ MD Unavailable Unavailable TERE KATZ MD Unavailable Unavailable TERE KATZ MD Unavailable Unavailable TERE KATZ MD Unavailable Unavailable TERE KATZ MD Unavailable Unavailable TERE KATZ MD Unavailable Unavailable TERE KATZ MD Unavailable Unavailable TERE KATZ MD Unavailable Unavailable TERE KATZ MD Unavailable Unavailable TURRIN, DINESH Unavailable Unavailable TURRIN, DINESH Unavailable Unavailable TURRIN, DINESH Unavailable Unavailable SHAMARRIN, DINESH Unavailable Unavailable Marnie OTTO MD Unavailable Unavailable Marnie OTTO MD Unavailable Unavailable Marnie OTTO MD Unavailable Unavailable Marnie OTTO MD Unavailable Unavailable CLARITAMarnie Rangel MD Unavailable Unavailable CLARITA, F SIMRAN Unavailable Unavailable CLARITA, F SIMRAN Unavailable Unavailable CLARITA, F SIMRAN Unavailable Unavailable CLARITA, F SIMRAN Unavailable Unavailable CLARITA, F SIMRAN MD Unavailable Unavailable CLARITA, F SIMRAN MD Unavailable Unavailable CLARITA, F SIMRAN MD Unavailable Unavailable CLARITA, F SIMRAN Unavailable Unavailable CLARITA, F SIMRAN MD Unavailable Unavailable CLARITA, F SIMRAN Unavailable Unavailable CLARITA, F SIMRAN MD Unavailable Unavailable CLARITA, F SIMRAN MD Unavailable Unavailable CLARITA, F SIMRAN MD Unavailable Unavailable CLARITA, F SIMRAN MD Unavailable Unavailable CLARITA, F SIMRAN MD Unavailable Unavailable CLARITA, F SIMRAN Unavailable Unavailable CLARITA, F SIMRAN MD Unavailable Unavailable CLARITA, F SIMRAN Unavailable Unavailable CLARITA, F SIMRAN MD Unavailable Unavailable CLARITA, F SIMRAN Unavailable Unavailable CLARITA, F SIMRAN Unavailable Unavailable CLARITA, F SIMRAN MD Unavailable Unavailable CLARITA, F SIMRAN Unavailable Unavailable CLARITA, F SIMRAN MD Unavailable Unavailable CLARITA, F SIMRAN MD Unavailable Unavailable FONS, TIFFANY Unavailable Unavailable Aaron, RENAN STEFANY SOLAR ENERGY INSTALLATION MANAGER Unavailable Unavailabl e [place], RENAN STEFANY SOLAR ENERGY INSTALLATION MANAGER Unavailable Unavailabl e [place], RENAN STEFANY SOLAR ENERGY INSTALLATION MANAGER Unavailable Unavailabl e [place], RENAN STEFANY SOLAR ENERGY INSTALLATION MANAGER Unavailable Unavailabl e Aaron, RENAN STEFANY SOLAR ENERGY INSTALLATION MANAGER Unavailable Unavailabl e [place], RENAN STEFANY SOLAR ENERGY INSTALLATION MANAGER Unavailable Unavailabl e Aaron, RENAN STEFANY SOLAR ENERGY INSTALLATION MANAGER Unavailable Unavailabl e Aaron, RENAN STEFANY SOLAR ENERGY INSTALLATION MANAGER Unavailable Unavailabl e [place], RENAN STEFANY SOLAR ENERGY INSTALLATION MANAGER Unavailable Unavailabl e [place], RENAN STEFANY SOLAR ENERGY INSTALLATION MANAGER Unavailable Unavailabl e [place], RENAN STEFANY SOLAR ENERGY INSTALLATION MANAGER Unavailable Unavailabl e Aaron, RENAN STEFANY SOLAR ENERGY INSTALLATION MANAGER Unavailable Unavailabl e Aaron, RENAN STEFANY SOLAR ENERGY INSTALLATION MANAGER Unavailable Unavailabl e [place], RENAN STEFANY SOLAR ENERGY INSTALLATION MANAGER Unavailable Unavailabl e Aaron, RENAN STEFANY SOLAR ENERGY INSTALLATION MANAGER Unavailable Unavailabl e Aaron, RENAN STEFANY SOLAR ENERGY INSTALLATION MANAGER Unavailable Unavailabl e [place], RENAN STEFANY SOLAR ENERGY INSTALLATION MANAGER Unavailable Unavailabl e [place], RENAN SALAMANCA SOLAR ENERGY INSTALLATION MANAGER Unavailable Unavailabl e Rosario, M Christopher PA-C Unavailable Unavailable Rosario, M Christopher PA-C Unavailable Unavailable Rosario, M Christopher PA-C Unavailable Unavailable Rosario, M Christopher PA-C Unavailable Unavailable Rosario, M Christopher PA-C Unavailable Unavailable Rosario, M Christopher PA-C Unavailable Unavailable Rosario, M Christopher PA-C Unavailable Unavailable Rosario, M Christopher PA-C Unavailable Unavailable Rosario, M Christopher PA-C Unavailable Unavailable Rosario, M Christopher PA-C Unavailable Unavailable Rosario, M Christopher PA-C Unavailable Unavailable Rosario, M Christopher PA-C Unavailable Unavailable Rosario, M Christopher PA-C Unavailable Unavailable Rosario, M Christopher PA-C Unavailable Unavailable Rosario, M Christopher PA-C Unavailable Unavailable Rosario, M Christopher PA-C Unavailable Unavailable Rosario, M Christopher PA-C Unavailable Unavailable Rosario, M Christopher PA-C Unavailable Unavailable Rosario, M Christopher PA-C Unavailable Unavailable Rosario, M Christopher PA-C Unavailable Unavailable Rosario, M Christopher PA-C Unavailable Unavailable Rosario, M Christopher PA-C Unavailable Unavailable Rosario, M Christopher PA-C Unavailable Unavailable Rosario, M Christopher PA-C Unavailable Unavailable Rosario, M Christopher PA-C Unavailable Unavailable Rosario, M Christopher PA-C Unavailable Unavailable Gurjit ZAPIEN MD Unavailable Unavailable CHANLIECGABINO, Gurjit WITT MD Unavailable Unavailable CHANLIECGABINO, Gurjit WITT MD Unavailable Unavailable CHANLIECGABINO, Gurjit WITT MD Unavailable Unavailable CHANLIECCO, Gurjit WITT MD Unavailable Unavailable CHANLIECCO, Gurjit WITT MD Unavailable Unavailable CHANLIECGABINO, Gurjit WITT MD Unavailable Unavailable CHANLIECGABINO, Gurjit WITT MD Unavailable Unavailable CHANLIECGABINO, C EDUAR GARCIA Unavailable Unavailable CHANLIECGABINO, C EDUAR GARCIA Unavailable Unavailable CHANLIECCO, C EDUAR GARCIA Unavailable Unavailable Re-disclosure Warning The records that you are about to access may contain information from federally-assisted alcohol or drug abuse programs. If such information is present, then the following federally mandated warning applies: This information has been disclosed to you from records protected by federal confidentiality rules (42 CFR part 2). The federal rules prohibit you from making any further disclosure of this information unless further disclosure is expressly permitted by the written consent of the person to whom it pertains or as otherwise permitted by 42 CFR part 2. A general authorization for the release of medical or other information is NOT sufficient for this purpose. The Federal rules restrict any use of the information to criminally investigate or prosecute any alcohol or drug abuse patient.The records that you are about to access may contain highly sensitive health information, the redisclosure of which is protected by Article 27-F of the [facility] Public Health law. If you continue you may have access to information: Regarding HIV / AIDS; Provided by facilities licensed or operated by the [facility] Office of Mental Health; or Provided by the [facility] Office for People With Developmental Disabilities. If such information is present, then the following [facility] mandated warning applies: This information has been disclosed to you from confidential records which are protected by state law. State law prohibits you from making any further disclosure of this information without the specific written consent of the person to whom it pertains, or as otherwise permitted by law. Any unauthorized further disclosure in violation of state law may result in a fine or custodial sentence or both. A general authorization for the release of medical or other information is NOT sufficient authorization for further disc losure. Allergies and Adverse Reactions Type Description Substance Reaction Status Data Source(s ) Propensity to adverse reactions MIRALAX MIRALAX DIZZINESS [facility] Food allergy PARSLEY LEAF PARSLEY LEAF ITCHING; SWELLING [facility] Food allergy PUMPKIN SEED PUMPKIN SEED ITCHING; SWELLING [facility] Propensity to adverse reactions SULFA (sulfonamide) SULFA (sulfo namide) ABD PAIN; HIVES [facility] Family History Family Member Name Family Member Gender Family Member Status Date o f Status Description Data Source(s) Unknown Male Problem [facility]ENT ([facility]) () Encounters Encounter Providers Location Date Indications Data Source(s ) Emergency Attender: Heike Terry kaylyn: HEIKE CONSTANTINOReferrer: HEIKE CONSTANTINO [facility] 04/08/2021 03:15:00 PM EDT - 04/08/2021 05:50:00 PM EDT Stomach Pain, Chest Pain [facility] Stomach Pain, Chest Pain Patient discharged. Outpatient Attender: STEFANY Banuelos FNPAttender: DINESH ROMAConsultant: [id number] GRACE NICHOLAS PA-C 04/04/2021 01:05:00 PM EDT - 04/06/2021 12:30:[address] [facility] Patient discharged. Outpatient Attender: Ministerio LOVINGCAttender: Stefany Rosas PAAttender: Deonna ANDERS 02/19/2021 01:46:45 PM EDT - 02/19/2021 03:26:54 PM EDT [facility] ([facility] ) Unknown [address] [facility] [address] 02/01/2021 12:00:00 AM EDT eCW1 ([facility]) Outpatient [address] [facility] [address] 12/25/2020 12:00:00 AM EDT eCW1 ([facility]) Unknown [address] [facility] [address] 12/25/2020 12:00:00 AM EDT eCW1 ([facility]) Unknown [address] [facility] [address] 12/21/2020 12:00:00 AM EDT eCW1 ([facility]) Unknown [address] [facility] [address] 12/07/2020 12:00:00 AM EDT eCW1 ([facility]) Outpatient [address] [facility] [address] 12/05/2020 12:00:00 AM EDT eCW1 ([facility]) Unknown [address] [facility] [address] 11/30/2020 12:00:00 AM EDT eCW1 ([facility]) Outpatient Attender: SIMRAN OTTO MD 09/29 01:14:00 PM EDT - 10/26/2020 01:14:[address] [facility] Unknown [address] [facility] [address] 10/23/2020 12:00:00 AM EDT eCW1 ([facility]) Unknown [address] [facility] [address] 10/20/2020 12:00:00 AM EDT eCW1 ([facility]) Unknown [address] [facility] [address] 10/18/2020 12:00:00 AM EDT eCW1 ([facility]) Outpatient Attender: VICKEY Ansari/Harman/Jose anne/Reindl 10/16/2020 01:50:00 PM EDT [facility] ([facility]) Outpatient Attender: Ministerio Rosario PA-C 10/13/2020 05:18:33 PM EDT - 10/13/2020 06:23:56 PM EDT Luc[facility] ([facility]) Outpatient Attender: [facility] 10/07/2020 07:3 8:00 PM EDT [facility] Inpatient Attender: Anahi cam FNPAttender: JENI MCDOWELL MDAttender: EDUAR ZAPIEN MDConsultant: [id number] GRACE NICHOLAS PA-C 10/07/2020 12:46:00 PM EDT - 10/10/2020 12:35:[address] [facility] Patient discharged. Emergency Attender: DINESH Maher sultant: [phone] GRACE LOVING CConsultant: TIFFANY GARCIA 10/05/2020 05:16:00 AM EDT - 10:53:[address] [facility] Patient discharged. [place] [address] [facility] [address] 10/05/2020 12:00:00 AM EDT eCW1 ([facility]) Unknown [address] [facility] [address] 10/04/2020 12:00:00 AM EDT eCW1 ([facility]) Unknown [address] [facility] [address] 10/04/2020 12:00:00 AM EDT eCW1 ([facility]) Unknown [address] [facility] [place] [address] 10/04/2020 12:00:00 AM EDT eCW1 ([facility]) Unknown [address] [facility] [place] [address] 10/04/2020 12:00:00 AM EDT eCW1 ([facility]) Outpatient [address] [facility] [address] 09/12/2020 12:00:00 AM EDT eCW1 ([facility]) Outpatient [address] [facility] [address] 09/05/2020 12:00:00 AM EST eCW1 ([facility]) Unknown [address] [facility] [address] 08/20/2020 12:00:00 AM EST eCW1 ([facility]) Unknown [address] [facility] [place] [address] 08/06/2020 12:00:00 AM EST eCW1 ([facility]) Unknown [address] [facility] [place] [address] 08/01/2020 12:00:00 AM EST eCW1 ([facility]) Outpatient [address] [facility] [place] [address] 07/31/2020 12:00:00 AM EST eCW1 ([facility]) Unknown [address] [facility] [place] [address] 07/26/2020 12:00:00 AM EST eCW1 ([facility]) Outpatient [address] [place] [address] 07/19/2020 12:00:00 AM EST eCW1 ([facility]) Unknown [address] [place] [address] 07/11/2020 12:00:00 AM EST eCW1 ([facility]) Unknown [address] [facility] [place] [address] 07/10/2020 12:00:00 AM EST eCW1 ([facility]) Unknown [address] [facility] [place] [address] 07/10/2020 12:00:00 AM EST eCW1 ([facility]) Outpatient [address] [facility] [place] [address] 06/26/2020 12:00:00 AM EST eCW1 ([facility]) Unknown [address] [facility] [place] [address] 06/26/2020 12:00:00 AM EST eCW1 ([facility]) Outpatient Attender: TERE KATZ MD Physical Therapy 07:00:00 AM EST MEDENT ([facility]) Unknown [address] [facility] [place] [address] 05/01/2020 12:00:00 AM EST eCW1 ([facility]) [facility] [place] [address] [facility] [place] [address] 05/01/2020 12:00:00 AM EST eCW1 ([facility]) Outpatient Attender: TERE KATZ MD Physical Therapy 08:45:00 AM EDT MEDENT ([facility]) Outpatient Attender: HEIKE alex 03/15/2020 02:15:00 PM EDT MEDENT ([facility]) Outpatient Attender: SIMRAN OTTO [facility] onsultant: [phone] GRACE ANDERS- CConsultant: TIFFANY GARCIA 01/23/2018 02:49:[address] [facility] Immunizations Vaccine Date Status Description Data Source(s) COVID-19 dose #1 given elsewhere Unspecified 09/21/2020 03:5 0:00 PM EDT completed eCW1 ([facility]) COVID-19 dose #1 given elsewhere Unspecified 09/21/2020 03:5 0:00 PM EDT completed eCW1 ([facility]) COVID-19 dose #1 given elsewhere Unspecified 09/21/2020 03:5 0:00 PM EDT completed eCW1 ([facility]) COVID-19 dose #1 given elsewhere Unspecified 09/21/2020 03:5 0:00 PM EDT completed eCW1 ([facility]) COVID-19 dose #1 given elsewhere Unspecified 09/21/2020 03:5 0:00 PM EDT completed eCW1 ([facility]) COVID-19 dose #1 given elsewhere Unspecified 09/21/2020 03:5 0:00 PM EDT completed eCW1 ([facility]) COVID-19 VACCINE Moderna 09/21/2020 12:00:00 AM EDT completed NYSIIS Vaccine Series Complete: NOThis Data was Submitted to [facility] Via [email or web address]. Medications Medication Brand Name Start Date Product Form Dose Route Admi nistrative Instructions Pharmacy Instructions Status Indications Reaction Description Data Source(s) Ondansetron 4 MG Disintegrating Oral Tablet Ondansetron 10/16/2020 12:00:00 AM EDT ORAL active MEDENT ([facility]) carvedilol 3.125 MG Oral Tablet [Coreg] Coreg 3.125mg Coreg 3.125mg 09/05/2020 12:00:00 AM EST active Coreg 3. 125mg eCW1 (Counts Include [address] [facility]) carvedilol 3.125 MG Oral Tablet [Coreg] Coreg 3.125mg Coreg 3.125mg 09/05/2020 12:00:00 AM EST active Coreg 3. 125mg eCW1 (Counts Include [address] [facility]) carvedilol 3.125 MG Oral Tablet [Coreg] Coreg 3.125mg Coreg 3.125mg 09/05/2020 12:00:00 AM EST active Coreg 3. 125mg eCW1 (Counts Include [address] [facility]) carvedilol 3.125 MG Oral Tablet [Coreg] Coreg 3.125mg Coreg 3.125mg 09/05/2020 12:00:00 AM EST active Coreg 3. 125mg eCW1 (Counts Include [address] [facility]) carvedilol 3.125 MG Oral Tablet [Coreg] Coreg 3.125mg Coreg 3.125mg 09/05/2020 12:00:00 AM EST suspended Coreg 3.125mg eCW1 (Counts Include [address] [facility]) carvedilol 3.125 MG Oral Tablet [Coreg] Coreg 3.125mg Coreg 3.125mg 09/05/2020 12:00:00 AM EST active Coreg 3. 125mg eCW1 (Counts Include [address] [facility]) carvedilol 3.125 MG Oral Tablet [Coreg] Coreg 3.125mg Coreg 3.125mg 09/05/2020 12:00:00 AM EST active Coreg 3. 125mg eCW1 (Counts Include [address] [facility]) carvedilol 3.125 MG Oral Tablet [Coreg] Coreg 3.125mg Coreg 3.125mg 09/05/2020 12:00:00 AM EST active Coreg 3. 125mg eCW1 (Counts Include [address] [facility]) carvedilol 3.125 MG Oral Tablet [Coreg] Coreg 3.125mg Coreg 3.125mg 09/05/2020 12:00:00 AM EST active Coreg 3. 125mg eCW1 (Counts Include [address] [facility]) carvedilol 3.125 MG Oral Tablet [Coreg] Coreg 3.125mg Coreg 3.125mg 09/05/2020 12:00:00 AM EST active Coreg 3. 125mg eCW1 (Counts Include [address] [facility]) carvedilol 3.125 MG Oral Tablet [Coreg] Coreg 3.125mg Coreg 3.125mg 09/05/2020 12:00:00 AM EST suspended Coreg 3.125mg eCW1 (Counts Include [address] [facility]) carvedilol 3.125 MG Oral Tablet [Coreg] Coreg 3.125mg Coreg 3.125mg 09/05/2020 12:00:00 AM EST suspended Coreg 3.125mg eCW1 (Counts Include [address] [facility]) carvedilol 3.125 MG Oral Tablet [Coreg] Coreg 3.125mg Coreg 3.125mg 09/05/2020 12:00:00 AM EST suspended Coreg 3.125mg eCW1 (Counts Include [address] [facility]) carvedilol 3.125 MG Oral Tablet [Coreg] Coreg 3.125mg Coreg 3.125mg 09/05/2020 12:00:00 AM EST suspended Coreg 3.125mg eCW1 (Counts Include [address] [facility]) carvedilol 3.125 MG Oral Tablet [Coreg] Coreg 3.125mg Coreg 3.125mg 09/05/2020 12:00:00 AM EST suspended Coreg 3.125mg eCW1 (Counts Include [address] [facility]) carvedilol 3.125 MG Oral Tablet [Coreg] Coreg 3.125mg Coreg 3.125mg 09/05/2020 12:00:00 AM EST active Coreg 3. 125mg eCW1 (Counts Include [address] [facility]) carvedilol 3.125 MG Oral Tablet [Coreg] Coreg 3.125mg Coreg 3.125mg 09/05/2020 12:00:00 AM EST active Coreg 3. 125mg eCW1 (Counts Include [address] [facility]) Paroxetine 30 MG Oral Tablet [Paxil] Paxil 30 MG Paxil 30 MG 08/01/2020 12:00:00 AM EST 1.0 {tablet_in_the_morning} active Paxil 30 MG eCW1 (Counts Include [address] [facility]) Paroxetine 30 MG Oral Tablet [Paxil] Paxil 30 MG Paxil 30 MG 08/01/2020 12:00:00 AM EST 1.0 {tablet_in_the_morning} active Paxil 30 MG eCW1 (Counts Include [address] [facility]) Paroxetine 30 MG Oral Tablet [Paxil] Paxil 30 MG Paxil 30 MG 08/01/2020 12:00:00 AM EST 1.0 {tablet_in_the_morning} active Paxil 30 MG eCW1 (Counts Include [address] [facility]) Paroxetine 30 MG Oral Tablet [Paxil] Paxil 30 MG Paxil 30 MG 08/01/2020 12:00:00 AM EST 1.0 {tablet_in_the_morning} active Paxil 30 MG eCW1 (Counts Include [address] [facility]) buspirone hydrochloride 7.5 MG Oral Tablet busPIRone H Cl 7.5 MG busPIRone HCl 7.5 MG 08/01/2020 12:00:00 AM EST 1.0 {tablet} activ e busPIRone HCl 7.5 MG eCW1 (Counts Include [address] [facility]) Paroxetine 30 MG Oral Tablet [Paxil] Paxil 30 MG Paxil 30 MG 08/01/2020 12:00:00 AM EST 1.0 {tablet_in_the_morning} active Paxil 30 MG eCW1 (Counts Include [address] [facility]) Ondansetron 4 MG Oral Tablet [Zofran] Zofran 4 MG Zofran 4 M G 08/01/2020 12:00:00 AM EST 1.0 {tablet} active Zo cameron 4 MG eCW1 (Counts Include [address] [facility]) buspirone hydrochloride 7.5 MG Oral Tablet busPIRone H Cl 7.5 MG busPIRone HCl 7.5 MG 08/01/2020 12:00:00 AM EST 1.0 {tablet} activ e busPIRone HCl 7.5 MG eCW1 (Counts Include [address] [facility]) buspirone hydrochloride 7.5 MG Oral Tablet BusPIRone H Cl 7.5 MG BusPIRone HCl 7.5 MG 08/01/2020 12:00:00 AM EST 1.0 {tablet} activ e BusPIRone HCl 7.5 MG eCW1 (Counts Include [address] [facility]) buspirone hydrochloride 7.5 MG Oral Tablet BusPIRone H Cl 7.5 MG BusPIRone HCl 7.5 MG 08/01/2020 12:00:00 AM EST 1.0 {tablet} activ e BusPIRone HCl 7.5 MG eCW1 (Counts Include [address] [facility]) buspirone hydrochloride 7.5 MG Oral Tablet BusPIRone H Cl 7.5 MG BusPIRone HCl 7.5 MG 08/01/2020 12:00:00 AM EST 1.0 {tablet} activ e BusPIRone HCl 7.5 MG eCW1 (Counts Include [address] [facility]) Ondansetron 4 MG Oral Tablet [Zofran] Zofran 4 MG Zofran 4 M G 08/01/2020 12:00:00 AM EST 1.0 {tablet} active Zo camreon 4 MG eCW1 (Counts Include [address] [facility]) buspirone hydrochloride 7.5 MG Oral Tablet busPIRone H Cl 7.5 MG busPIRone HCl 7.5 MG 08/01/2020 12:00:00 AM EST 1.0 {tablet} activ e busPIRone HCl 7.5 MG eCW1 (Counts Include [address] [facility]) Paroxetine 30 MG Oral Tablet [Paxil] Paxil 30 MG Paxil 30 MG 08/01/2020 12:00:00 AM EST 1.0 {tablet_in_the_morning} active Paxil 30 MG eCW1 (Counts Include [address] [facility]) Paroxetine 20 MG Oral Tablet [Paxil] Paxil 20 MG Paxil 20 MG 08/01/2020 12:00:00 AM EST 1.0 {tablet_in_the_morning} active Paxil 20 MG eCW1 (Counts Include [address] [facility]) Ondansetron 4 MG Oral Tablet [Zofran] Zofran 4 MG Zofran 4 M G 08/01/2020 12:00:00 AM EST 1.0 {tablet} active Zo cameron 4 MG eCW1 (Counts Include [address] [facility]) buspirone hydrochloride 7.5 MG Oral Tablet BusPIRone H Cl 7.5 MG BusPIRone HCl 7.5 MG 08/01/2020 12:00:00 AM EST 1.0 {tablet} activ e BusPIRone HCl 7.5 MG eCW1 (Counts Include [address] [facility]) Ondansetron 4 MG Oral Tablet [Zofran] Zofran 4 MG Zofran 4 M G 08/01/2020 12:00:00 AM EST 1.0 {tablet} active Zo cameorn 4 MG eCW1 (Counts Include [address] [facility]) Paroxetine 20 MG Oral Tablet [Paxil] Paxil 20 MG Paxil 20 MG 08/01/2020 12:00:00 AM EST 1.0 {tablet_in_the_morning} active Paxil 20 MG eCW1 (Counts Include [address] [facility]) buspirone hydrochloride 7.5 MG Oral Tablet BusPIRone H Cl 7.5 MG BusPIRone HCl 7.5 MG 08/01/2020 12:00:00 AM EST 1.0 {tablet} activ e BusPIRone HCl 7.5 MG eCW1 (Counts Include [address] [facility]) Paroxetine 30 MG Oral Tablet [Paxil] Paxil 30 MG Paxil 30 MG 08/01/2020 12:00:00 AM EST 1.0 {tablet_in_the_morning} active Paxil 30 MG eCW1 (Counts Include [address] [facility]) Paroxetine 30 MG Oral Tablet [Paxil] Paxil 30 MG Paxil 30 MG 08/01/2020 12:00:00 AM EST 1.0 {tablet_in_the_morning} active Paxil 30 MG eCW1 (Counts Include [address] [facility]) Ondansetron 4 MG Oral Tablet [Zofran] Zofran 4 MG Zofran 4 M G 08/01/2020 12:00:00 AM EST 1.0 {tablet} active Zo cameron 4 MG eCW1 (Counts Include [address] [facility]) Ondansetron 4 MG Oral Tablet [Zofran] Zofran 4 MG Zofran 4 M G 08/01/2020 12:00:00 AM EST 1.0 {tablet} active Zo cameron 4 MG eCW1 (Counts Include [address] [facility]) buspirone hydrochloride 7.5 MG Oral Tablet BusPIRone H Cl 7.5 MG BusPIRone HCl 7.5 MG 08/01/2020 12:00:00 AM EST 1.0 {tablet} activ e BusPIRone HCl 7.5 MG eCW1 (Counts Include [address] [facility]) Paroxetine 30 MG Oral Tablet [Paxil] Paxil 30 MG Paxil 30 MG 08/01/2020 12:00:00 AM EST 1.0 {tablet_in_the_morning} active Paxil 30 MG eCW1 (Counts Include [address] [facility]) Paroxetine 30 MG Oral Tablet [Paxil] Paxil 30 MG Paxil 30 MG 08/01/2020 12:00:00 AM EST 1.0 {tablet_in_the_morning} active Paxil 30 MG eCW1 (Counts Include [address] [facility]) Paroxetine 20 MG Oral Tablet [Paxil] Paxil 20 MG Paxil 20 MG 08/01/2020 12:00:00 AM EST 1.0 {tablet_in_the_morning} active Paxil 20 MG eCW1 (Counts Include [address] [facility]) Paroxetine 30 MG Oral Tablet [Paxil] Paxil 30 MG Paxil 30 MG 08/01/2020 12:00:00 AM EST 1.0 {tablet_in_the_morning} active Paxil 30 MG eCW1 (Counts Include [address] [facility]) buspirone hydrochloride 7.5 MG Oral Tablet BusPIRone H Cl 7.5 MG BusPIRone HCl 7.5 MG 08/01/2020 12:00:00 AM EST 1.0 {tablet} activ e BusPIRone HCl 7.5 MG eCW1 (Counts Include [address] [facility]) Paroxetine 20 MG Oral Tablet [Paxil] Paxil 20 MG Paxil 20 MG 08/01/2020 12:00:00 AM EST 1.0 {tablet_in_the_morning} active Paxil 20 MG eCW1 (Counts Include [address] [facility]) Paroxetine 30 MG Oral Tablet [Paxil] Paxil 30 MG Paxil 30 MG 08/01/2020 12:00:00 AM EST 1.0 {tablet_in_the_morning} active Paxil 30 MG eCW1 (Counts Include [address] [facility]) Paroxetine 20 MG Oral Tablet [Paxil] Paxil 20 MG Paxil 20 MG 08/01/2020 12:00:00 AM EST 1.0 {tablet_in_the_morning} active Paxil 20 MG eCW1 (Counts Include [address] [facility]) Ondansetron 4 MG Oral Tablet [Zofran] Zofran 4 MG Zofran 4 M G 08/01/2020 12:00:00 AM EST 1.0 {tablet} active Zo cameron 4 MG eCW1 (Counts Include [address] [facility]) Paroxetine 30 MG Oral Tablet [Paxil] Paxil 30 MG Paxil 30 MG 08/01/2020 12:00:00 AM EST 1.0 {tablet_in_the_morning} active Paxil 30 MG eCW1 (Counts Include [address] [facility]) Paroxetine 30 MG Oral Tablet [Paxil] Paxil 30 MG Paxil 30 MG 08/01/2020 12:00:00 AM EST 1.0 {tablet_in_the_morning} active Paxil 30 MG eCW1 (Counts Include [address] [facility]) Paroxetine 30 MG Oral Tablet [Paxil] Paxil 30 MG Paxil 30 MG 08/01/2020 12:00:00 AM EST 1.0 {tablet_in_the_morning} active Paxil 30 MG eCW1 (Counts Include [address] [facility]) buspirone hydrochloride 7.5 MG Oral Tablet BusPIRone H Cl 7.5 MG BusPIRone HCl 7.5 MG 08/01/2020 12:00:00 AM EST 1.0 {tablet} activ e BusPIRone HCl 7.5 MG eCW1 (Counts Include [address] [facility]) Ondansetron 4 MG Oral Tablet [Zofran] Zofran 4 MG Zofran 4 M G 08/01/2020 12:00:00 AM EST 1.0 {tablet} active Zo cameron 4 MG eCW1 (Counts Include [address] [facility]) buspirone hydrochloride 7.5 MG Oral Tablet BusPIRone H Cl 7.5 MG BusPIRone HCl 7.5 MG 08/01/2020 12:00:00 AM EST 1.0 {tablet} activ e BusPIRone HCl 7.5 MG eCW1 (Counts Include [address] [facility]) buspirone hydrochloride 7.5 MG Oral Tablet BusPIRone H Cl 7.5 MG BusPIRone HCl 7.5 MG 08/01/2020 12:00:00 AM EST 1.0 {tablet} activ e BusPIRone HCl 7.5 MG eCW1 (Counts Include [address] [facility]) buspirone hydrochloride 7.5 MG Oral Tablet BusPIRone H Cl 7.5 MG BusPIRone HCl 7.5 MG 08/01/2020 12:00:00 AM EST 1.0 {tablet} activ e BusPIRone HCl 7.5 MG eCW1 (Counts Include [address] [facility]) buspirone hydrochloride 7.5 MG Oral Tablet BusPIRone H Cl 7.5 MG BusPIRone HCl 7.5 MG 08/01/2020 12:00:00 AM EST 1.0 {tablet} activ e BusPIRone HCl 7.5 MG eCW1 (Counts Include [address] [facility]) Ondansetron 4 MG Oral Tablet [Zofran] Zofran 4 MG Zofran 4 M G 08/01/2020 12:00:00 AM EST 1.0 {tablet} active Zo cameron 4 MG eCW1 (Counts Include [address] [facility]) buspirone hydrochloride 7.5 MG Oral Tablet BusPIRone H Cl 7.5 MG BusPIRone HCl 7.5 MG 08/01/2020 12:00:00 AM EST 1.0 {tablet} activ e BusPIRone HCl 7.5 MG eCW1 (Counts Include [address] [facility]) Paroxetine 30 MG Oral Tablet [Paxil] Paxil 30 MG Paxil 30 MG 08/01/2020 12:00:00 AM EST 1.0 {tablet_in_the_morning} active Paxil 30 MG eCW1 (Counts Include [address] [facility]) Ondansetron 4 MG Oral Tablet [Zofran] Zofran 4 MG Zofran 4 M G 08/01/2020 12:00:00 AM EST 1.0 {tablet} active Zo cameron 4 MG eCW1 (Counts Include [address] [facility]) buspirone hydrochloride 7.5 MG Oral Tablet BusPIRone H Cl 7.5 MG BusPIRone HCl 7.5 MG 08/01/2020 12:00:00 AM EST 1.0 {tablet} activ e BusPIRone HCl 7.5 MG eCW1 (Counts Include [address] [facility]) Paroxetine 30 MG Oral Tablet [Paxil] Paxil 30 MG Paxil 30 MG 08/01/2020 12:00:00 AM EST 1.0 {tablet_in_the_morning} active Paxil 30 MG eCW1 (Counts Include [address] [facility]) buspirone hydrochloride 7.5 MG Oral Tablet BusPIRone H Cl 7.5 MG BusPIRone HCl 7.5 MG 08/01/2020 12:00:00 AM EST 1.0 {tablet} activ e BusPIRone HCl 7.5 MG eCW1 (Counts Include [address] [facility]) buspirone hydrochloride 7.5 MG Oral Tablet BusPIRone H Cl 7.5 MG BusPIRone HCl 7.5 MG 08/01/2020 12:00:00 AM EST 1.0 {tablet} activ e BusPIRone HCl 7.5 MG eCW1 (Counts Include [address] [facility]) benzonatate 200 MG Oral Capsule Benzonatate 200 MG Benzonata te 200 MG 07/19/2020 12:00:00 AM EST 1.0 {capsule} suspended Benzonatate 200 MG eCW1 (Counts Include [address] [facility]) Fluconazole 150 MG Oral Tablet [Diflucan] Diflucan 150 MG Di flucan 150 MG 07/19/2020 12:00:00 AM EST 1.0 {tablet} suspended Diflucan 150 MG eCW1 (Counts Include [facility]) 200 ACTUAT Albuterol 0.09 MG/ACTUAT Mete red Dose Inhaler [ProAir] ProAir HFA 108 (90 Base) MCG/ACT ProAir HFA 108 (90 Base) MCG/ACT 07/19/2020 12:00:00 AM EST 2.0 {puffs_as_needed} active Pr oAir HFA 108 (90 Base) MCG/ACT eCW1 (Counts Include [facility]) Augmentin 875-125 MG UNK 07/19/2020 12:00:00 AM EST 1.0 {tab let} suspended Augmentin 875-125 MG eCW1 ([facility]) benzonatate 200 MG Oral Capsule Benzonatate 200 MG Benzonata te 200 MG 07/19/2020 12:00:00 AM EST 1.0 {capsule} suspended Benzonatate 200 MG eCW1 (Counts Include [address] [facility]) Augmentin 875-125 MG UNK 07/19/2020 12:00:00 AM EST 1.0 {tab let} suspended Augmentin 875-125 MG eCW1 ([facility]) benzonatate 200 MG Oral Capsule Benzonatate 200 MG Benzonata te 200 MG 07/19/2020 12:00:00 AM EST 1.0 {capsule} active Benzonatate 200 MG eCW1 (Counts Include [address] [facility]) benzonatate 200 MG Oral Capsule Benzonatate 200 MG Benzonata te 200 MG 07/19/2020 12:00:00 AM EST 1.0 {capsule} suspended Benzonatate 200 MG eCW1 (Counts Include [address] [facility]) 200 ACTUAT Albuterol 0.09 MG/ACTUAT Mete red Dose Inhaler [ProAir] ProAir HFA 108 (90 Base) MCG/ACT ProAir HFA 108 (90 Base) MCG/ACT 07/19/2020 12:00:00 AM EST 2.0 {puffs_as_needed} active Pr oAir HFA 108 (90 Base) MCG/ACT eCW1 (Counts Include [facility]) 200 ACTUAT Albuterol 0.09 MG/ACTUAT Mete red Dose Inhaler [ProAir] ProAir HFA 108 (90 Base) MCG/ACT ProAir HFA 108 (90 Base) MCG/ACT 07/19/2020 12:00:00 AM EST 2.0 {puffs_as_needed} active Pr oAir HFA 108 (90 Base) MCG/ACT eCW1 (Counts Include [facility]) 200 ACTUAT Albuterol 0.09 MG/ACTUAT Mete red Dose Inhaler [ProAir] ProAir HFA 108 (90 Base) MCG/ACT ProAir HFA 108 (90 Base) MCG/ACT 07/19/2020 12:00:00 AM EST 2.0 {puffs_as_needed} active Pr oAir HFA 108 (90 Base) MCG/ACT eCW1 (Counts Include [facility]) benzonatate 200 MG Oral Capsule Benzonatate 200 MG Benzonata te 200 MG 07/19/2020 12:00:00 AM EST 1.0 {capsule} suspended Benzonatate 200 MG eCW1 (Counts Include [address] [facility]) 200 ACTUAT Albuterol 0.09 MG/ACTUAT Mete red Dose Inhaler [ProAir] ProAir HFA 108 (90 Base) MCG/ACT ProAir HFA 108 (90 Base) MCG/ACT 07/19/2020 12:00:00 AM EST 2.0 {puffs_as_needed} active Pr oAir HFA 108 (90 Base) MCG/ACT eCW1 (Counts Include [address] [facility]) Augmentin 875-125 MG UNK 07/19/2020 12:00:00 AM EST 1.0 {tablet } active Augmentin 875-125 MG eCW1 ([facility]) Fluconazole 150 MG Oral Tablet [Diflucan] Diflucan 150 MG Di flucan 150 MG 07/19/2020 12:00:00 AM EST 1.0 {tablet} suspended Diflucan 150 MG eCW1 (Counts Include [address] [facility]) benzonatate 200 MG Oral Capsule Benzonatate 200 MG Benzonata te 200 MG 07/19/2020 12:00:00 AM EST 1.0 {capsule} suspended Benzonatate 200 MG eCW1 (Counts Include [address] [facility]) Augmentin 875-125 MG UNK 07/19/2020 12:00:00 AM EST 1.0 {tab let} suspended Augmentin 875-125 MG eCW1 ([facility]) Fluconazole 150 MG Oral Tablet [Diflucan] Diflucan 150 MG Di flucan 150 MG 07/19/2020 12:00:00 AM EST 1.0 {tablet} suspended Diflucan 150 MG eCW1 (Counts Include [address] [facility]) Fluconazole 150 MG Oral Tablet [Diflucan] Diflucan 150 MG Di flucan 150 MG 07/19/2020 12:00:00 AM EST 1.0 {tablet} suspended Diflucan 150 MG eCW1 (Counts Include [address] [facility]) Fluconazole 150 MG Oral Tablet [Diflucan] Diflucan 150 MG Di flucan 150 MG 07/19/2020 12:00:00 AM EST 1.0 {tablet} suspended Diflucan 150 MG eCW1 (Counts Include [address] [facility]) 200 ACTUAT Albuterol 0.09 MG/ACTUAT Mete red Dose Inhaler [ProAir] ProAir HFA 108 (90 Base) MCG/ACT ProAir HFA 108 (90 Base) MCG/ACT 07/19/2020 12:00:00 AM EST 2.0 {puffs_as_needed} active Pr oAir HFA 108 (90 Base) MCG/ACT eCW1 (Counts Include [facility]) Augmentin 875-125 MG UNK 07/19/2020 12:00:00 AM EST 1.0 {tab let} suspended Augmentin 875-125 MG eCW1 ([facility]) Augmentin 875-125 MG UNK 07/19/2020 12:00:00 AM EST 1.0 {tab let} suspended Augmentin 875-125 MG eCW1 ([facility]) 200 ACTUAT Albuterol 0.09 MG/ACTUAT Mete red Dose Inhaler [ProAir] ProAir HFA 108 (90 Base) MCG/ACT ProAir HFA 108 (90 Base) MCG/ACT 07/19/2020 12:00:00 AM EST 2.0 {puffs_as_needed} active Pr oAir HFA 108 (90 Base) MCG/ACT eCW1 (Counts Include [facility]) Fluconazole 150 MG Oral Tablet [Diflucan] Diflucan 150 MG Di flucan 150 MG 07/19/2020 12:00:00 AM EST 1.0 {tablet} active Diflucan 150 MG eCW1 (Counts Include [facility]) benzonatate 200 MG Oral Capsule Benzonatate 200 MG Benzonata te 200 MG 07/19/2020 12:00:00 AM EST 1.0 {capsule} suspended Benzonatate 200 MG eCW1 (Counts Include 234 Beds At [facility]) 200 ACTUAT Albuterol 0.09 MG/ACTUAT Mete red Dose Inhaler [ProAir] ProAir HFA 108 (90 Base) MCG/ACT ProAir HFA 108 (90 Base) MCG/ACT 07/19/2020 12:00:00 AM EST 2.0 {puffs_as_needed} active Pr oAir HFA 108 (90 Base) MCG/ACT eCW1 (Counts Include 234 Beds At [facility]) 200 ACTUAT Albuterol 0.09 MG/ACTUAT Mete red Dose Inhaler [ProAir] ProAir HFA 108 (90 Base) MCG/ACT ProAir HFA 108 (90 Base) MCG/ACT 07/19/2020 12:00:00 AM EST 2.0 {puffs_as_needed} active Pr oAir HFA 108 (90 Base) MCG/ACT eCW1 (Counts Include 234 Beds At [facility]) 200 ACTUAT Albuterol 0.09 MG/ACTUAT Mete red Dose Inhaler [ProAir] ProAir HFA 108 (90 Base) MCG/ACT ProAir HFA 108 (90 Base) MCG/ACT 07/19/2020 12:00:00 AM EST 2.0 {puffs_as_needed} active Pr oAir HFA 108 (90 Base) MCG/ACT eCW1 (Counts Include 234 Beds At [facility]) 200 ACTUAT Albuterol 0.09 MG/ACTUAT Mete red Dose Inhaler [ProAir] ProAir HFA 108 (90 Base) MCG/ACT ProAir HFA 108 (90 Base) MCG/ACT 07/19/2020 12:00:00 AM EST 2.0 {puffs_as_needed} active Pr oAir HFA 108 (90 Base) MCG/ACT eCW1 (Counts Include 234 Beds At [facility]) 200 ACTUAT Albuterol 0.09 MG/ACTUAT Mete red Dose Inhaler [ProAir] ProAir HFA 108 (90 Base) MCG/ACT ProAir HFA 108 (90 Base) MCG/ACT 07/19/2020 12:00:00 AM EST 2.0 {puffs_as_needed} active Pr oAir HFA 108 (90 Base) MCG/ACT eCW1 ([facility]s Include [facility]) 200 ACTUAT Albuterol 0.09 MG/ACTUAT Mete red Dose Inhaler [ProAir] ProAir HFA 108 (90 Base) MCG/ACT ProAir HFA 108 (90 Base) MCG/ACT 07/19/2020 12:00:00 AM EST 2.0 {puffs_as_needed} active Pr oAir HFA 108 (90 Base) MCG/ACT eCW1 (Counts Include [facility]) Augmentin 875-125 MG UNK 07/19/2020 12:00:00 AM EST 1.0 {tab let} suspended Augmentin 875-125 MG eCW1 ([facility]) Fluconazole 150 MG Oral Tablet [Diflucan] Diflucan 150 MG Di flucan 150 MG 07/19/2020 12:00:00 AM EST 1.0 {tablet} suspended Diflucan 150 MG eCW1 (Counts Include [facility]) Fluconazole 150 MG Oral Tablet [Diflucan] Diflucan 150 MG Di flucan 150 MG 07/19/2020 12:00:00 AM EST 1.0 {tablet} suspended Diflucan 150 MG eCW1 (Counts Include [facility]) Fluconazole 150 MG Oral Tablet [Diflucan] Diflucan 150 MG Di flucan 150 MG 07/19/2020 12:00:00 AM EST 1.0 {tablet} suspended Diflucan 150 MG eCW1 (Counts Include [facility]) 200 ACTUAT Albuterol 0.09 MG/ACTUAT Mete red Dose Inhaler [ProAir] ProAir HFA 108 (90 Base) MCG/ACT ProAir HFA 108 (90 Base) MCG/ACT 07/19/2020 12:00:00 AM EST 2.0 {puffs_as_needed} active Pr oAir HFA 108 (90 Base) MCG/ACT eCW1 (Counts Include [facility]) Augmentin 875-125 MG UNK 07/19/2020 12:00:00 AM EST 1.0 {tab let} suspended Augmentin 875-125 MG eCW1 ([facility]) benzonatate 200 MG Oral Capsule Benzonatate 200 MG Benzonata te 200 MG 07/19/2020 12:00:00 AM EST 1.0 {capsule} suspended Benzonatate 200 MG eCW1 (Counts Include [facility]) 200 ACTUAT Albuterol 0.09 MG/ACTUAT Mete red Dose Inhaler [ProAir] ProAir HFA 108 (90 Base) MCG/ACT ProAir HFA 108 (90 Base) MCG/ACT 07/19/2020 12:00:00 AM EST 2.0 {puffs_as_needed} active Pr oAir HFA 108 (90 Base) MCG/ACT eCW1 (Counts Include [facility]) Augmentin 875-125 MG UNK 07/19/2020 12:00:00 AM EST 1.0 {tab let} suspended Augmentin 875-125 MG eCW1 ([facility]) 200 ACTUAT Albuterol 0.09 MG/ACTUAT Mete red Dose Inhaler [ProAir] ProAir HFA 108 (90 Base) MCG/ACT ProAir HFA 108 (90 Base) MCG/ACT 07/19/2020 12:00:00 AM EST 2.0 {puffs_as_needed} active Pr oAir HFA 108 (90 Base) MCG/ACT eCW1 (Counts Include [facility]) benzonatate 200 MG Oral Capsule Benzonatate 200 MG Benzonata te 200 MG 07/19/2020 12:00:00 AM EST 1.0 {capsule} suspended Benzonatate 200 MG eCW1 (Counts Include [facility]) Fluconazole 150 MG Oral Tablet [Diflucan] Diflucan 150 MG Di flucan 150 MG 07/19/2020 12:00:00 AM EST 1.0 {tablet} suspended Diflucan 150 MG eCW1 (Counts Include [facility]) Fluconazole 150 MG Oral Tablet [Diflucan] Diflucan 150 MG Di flucan 150 MG 07/19/2020 12:00:00 AM EST 1.0 {tablet} suspended Diflucan 150 MG eCW1 (Counts Include [facility]) Fluconazole 150 MG Oral Tablet [Diflucan] Diflucan 150 MG Di flucan 150 MG 07/19/2020 12:00:00 AM EST 1.0 {tablet} suspended Diflucan 150 MG eCW1 (Counts Include [facility]) benzonatate 200 MG Oral Capsule Benzonatate 200 MG Benzonata te 200 MG 07/19/2020 12:00:00 AM EST 1.0 {capsule} suspended Benzonatate 200 MG eCW1 (Counts Include [facility]) Augmentin 875-125 MG UNK 07/19/2020 12:00:00 AM EST 1.0 {tab let} suspended Augmentin 875-125 MG eCW1 ([facility]) benzonatate 200 MG Oral Capsule Benzonatate 200 MG Benzonata te 200 MG 07/19/2020 12:00:00 AM EST 1.0 {capsule} suspended Benzonatate 200 MG eCW1 (Counts Include [facility]) 200 ACTUAT Albuterol 0.09 MG/ACTUAT Mete red Dose Inhaler [ProAir] ProAir HFA 108 (90 Base) MCG/ACT ProAir HFA 108 (90 Base) MCG/ACT 07/19/2020 12:00:00 AM EST 2.0 {puffs_as_needed} active Pr oAir HFA 108 (90 Base) MCG/ACT eCW1 (Counts Include [facility]) Fluconazole 150 MG Oral Tablet [Diflucan] Diflucan 150 MG Di flucan 150 MG 07/19/2020 12:00:00 AM EST 1.0 {tablet} suspended Diflucan 150 MG eCW1 (Counts Include [facility]) Augmentin 875-125 MG UNK 07/19/2020 12:00:00 AM EST 1.0 {tab let} suspended Augmentin 875-125 MG eCW1 ([facility]) Augmentin 875-125 MG UNK 07/19/2020 12:00:00 AM EST 1.0 {tab let} suspended Augmentin 875-125 MG eCW1 ([facility]) Fluconazole 150 MG Oral Tablet [Diflucan] Diflucan 150 MG Di flucan 150 MG 07/19/2020 12:00:00 AM EST 1.0 {tablet} suspended Diflucan 150 MG eCW1 (Counts Include [facility]) Augmentin 875-125 MG UNK 07/19/2020 12:00:00 AM EST 1.0 {tab let} suspended Augmentin 875-125 MG eCW1 ([facility]) benzonatate 200 MG Oral Capsule Benzonatate 200 MG Benzonata te 200 MG 07/19/2020 12:00:00 AM EST 1.0 {capsule} suspended Benzonatate 200 MG eCW1 (Counts Include [facility]) Augmentin 875-125 MG UNK 07/19/2020 12:00:00 AM EST 1.0 {tab let} suspended Augmentin 875-125 MG eCW1 ([facility]) Augmentin 875-125 MG UNK 07/19/2020 12:00:00 AM EST 1.0 {tab let} suspended Augmentin 875-125 MG eCW1 ([facility]) benzonatate 200 MG Oral Capsule Benzonatate 200 MG Benzonata te 200 MG 07/19/2020 12:00:00 AM EST 1.0 {capsule} suspended Benzonatate 200 MG eCW1 (Counts Include [facility]) benzonatate 200 MG Oral Capsule Benzonatate 200 MG Benzonata te 200 MG 07/19/2020 12:00:00 AM EST 1.0 {capsule} suspended Benzonatate 200 MG eCW1 (Counts Include [facility]) 200 ACTUAT Albuterol 0.09 MG/ACTUAT Mete red Dose Inhaler [ProAir] ProAir HFA 108 (90 Base) MCG/ACT ProAir HFA 108 (90 Base) MCG/ACT 07/19/2020 12:00:00 AM EST 2.0 {puffs_as_needed} active Pr oAir HFA 108 (90 Base) MCG/ACT eCW1 (Counts Include [facility]) Augmentin 875-125 MG UNK 07/19/2020 12:00:00 AM EST 1.0 {tab let} suspended Augmentin 875-125 MG eCW1 ([facility]) Fluconazole 150 MG Oral Tablet [Diflucan] Diflucan 150 MG Di flucan 150 MG 07/19/2020 12:00:00 AM EST 1.0 {tablet} suspended Diflucan 150 MG eCW1 (Counts Include [facility]) 200 ACTUAT Albuterol 0.09 MG/ACTUAT Mete red Dose Inhaler [ProAir] ProAir HFA 108 (90 Base) MCG/ACT ProAir HFA 108 (90 Base) MCG/ACT 07/19/2020 12:00:00 AM EST 2.0 {puffs_as_needed} active Pr oAir HFA 108 (90 Base) MCG/ACT eCW1 (Counts Include [facility]) 200 ACTUAT Albuterol 0.09 MG/ACTUAT Mete red Dose Inhaler [ProAir] ProAir HFA 108 (90 Base) MCG/ACT ProAir HFA 108 (90 Base) MCG/ACT 07/19/2020 12:00:00 AM EST 2.0 {puffs_as_needed} active Pr oAir HFA 108 (90 Base) MCG/ACT eCW1 (Counts Include [facility]) 200 ACTUAT Albuterol 0.09 MG/ACTUAT Mete red Dose Inhaler [ProAir] ProAir HFA 108 (90 Base) MCG/ACT ProAir HFA 108 (90 Base) MCG/ACT 07/19/2020 12:00:00 AM EST 2.0 {puffs_as_needed} active Pr oAir HFA 108 (90 Base) MCG/ACT eCW1 (Counts Include [facility]) 200 ACTUAT Albuterol 0.09 MG/ACTUAT Mete red Dose Inhaler [ProAir] ProAir HFA 108 (90 Base) MCG/ACT ProAir HFA 108 (90 Base) MCG/ACT 07/19/2020 12:00:00 AM EST 2.0 {puffs_as_needed} active Pr oAir HFA 108 (90 Base) MCG/ACT eCW1 (Counts Include [facility]) benzonatate 200 MG Oral Capsule Benzonatate 200 MG Benzonata te 200 MG 07/19/2020 12:00:00 AM EST 1.0 {capsule} suspended Benzonatate 200 MG eCW1 (Counts Include [facility]) 200 ACTUAT Albuterol 0.09 MG/ACTUAT Mete red Dose Inhaler [ProAir] ProAir HFA 108 (90 Base) MCG/ACT ProAir HFA 108 (90 Base) MCG/ACT 07/19/2020 12:00:00 AM EST 2.0 {puffs_as_needed} active Pr oAir HFA 108 (90 Base) MCG/ACT eCW1 (Counts Include [facility]) Augmentin 875-125 MG UNK 07/19/2020 12:00:00 AM EST 1.0 {tab let} suspended Augmentin 875-125 MG eCW1 ([facility]) benzonatate 200 MG Oral Capsule Benzonatate 200 MG Benzonata te 200 MG 07/19/2020 12:00:00 AM EST 1.0 {capsule} suspended Benzonatate 200 MG eCW1 (Counts Include [facility]) Fluconazole 150 MG Oral Tablet [Diflucan] Diflucan 150 MG Di flucan 150 MG 07/19/2020 12:00:00 AM EST 1.0 {tablet} suspended Diflucan 150 MG eCW1 (Counts Include [address] [facility]) benzonatate 200 MG Oral Capsule Benzonatate 200 MG Benzonata te 200 MG 07/19/2020 12:00:00 AM EST 1.0 {capsule} suspended Benzonatate 200 MG eCW1 (Counts Include [address] [facility]) Fluconazole 150 MG Oral Tablet [Diflucan] Diflucan 150 MG Di flucan 150 MG 07/19/2020 12:00:00 AM EST 1.0 {tablet} suspended Diflucan 150 MG eCW1 (Counts Include [facility]) valacyclovir 1000 MG Oral Tablet [Valtrex] Valtrex 1 GM Valt césar 1 GM 06/26/2020 12:00:00 AM EST 1.0 {tablet} suspended Valtrex 1 GM eCW1 (Counts Include [facility]) valacyclovir 1000 MG Oral Tablet [Valtrex] Valtrex 1 GM Valt césar 1 GM 06/26/2020 12:00:00 AM EST 1.0 {tablet} suspended Valtrex 1 GM eCW1 (Counts Include [facility]) valacyclovir 1000 MG Oral Tablet [Valtrex] Valtrex 1 GM Valt césar 1 GM 06/26/2020 12:00:00 AM EST 1.0 {tablet} active Va ltrex 1 GM eCW1 (Counts Include [facility]) valacyclovir 1000 MG Oral Tablet [Valtrex] Valtrex 1 GM Valt césar 1 GM 06/26/2020 12:00:00 AM EST 1.0 {tablet} suspended Valtrex 1 GM eCW1 (Counts Include [facility]) valacyclovir 1000 MG Oral Tablet [Valtrex] Valtrex 1 GM Valt césar 1 GM 06/26/2020 12:00:00 AM EST 1.0 {tablet} suspended Valtrex 1 GM eCW1 (Counts Include [facility]) valacyclovir 1000 MG Oral Tablet [Valtrex] Valtrex 1 GM Valt césar 1 GM 06/26/2020 12:00:00 AM EST 1.0 {tablet} suspended Valtrex 1 GM eCW1 (Counts Include [facility]) valacyclovir 1000 MG Oral Tablet [Valtrex] Valtrex 1 GM Valt césar 1 GM 06/26/2020 12:00:00 AM EST 1.0 {tablet} suspended Valtrex 1 GM eCW1 (Counts Include [facility]) valacyclovir 1000 MG Oral Tablet [Valtrex] Valtrex 1 GM Valt césar 1 GM 06/26/2020 12:00:00 AM EST 1.0 {tablet} suspended Valtrex 1 GM eCW1 (Counts Include [facility]) valacyclovir 1000 MG Oral Tablet [Valtrex] Valtrex 1 GM Valt césar 1 GM 06/26/2020 12:00:00 AM EST 1.0 {tablet} suspended Valtrex 1 GM eCW1 (Counts Include [facility]) valacyclovir 1000 MG Oral Tablet [Valtrex] Valtrex 1 GM Valt césar 1 GM 06/26/2020 12:00:00 AM EST 1.0 {tablet} active Va ltrex 1 GM eCW1 (Counts Include [facility]) valacyclovir 1000 MG Oral Tablet [Valtrex] Valtrex 1 GM Valt césar 1 GM 06/26/2020 12:00:00 AM EST 1.0 {tablet} suspended Valtrex 1 GM eCW1 (Counts Include [facility]) valacyclovir 1000 MG Oral Tablet [Valtrex] Valtrex 1 GM Valt césar 1 GM 06/26/2020 12:00:00 AM EST 1.0 {tablet} suspended Valtrex 1 GM eCW1 (Counts Include [facility]) valacyclovir 1000 MG Oral Tablet [Valtrex] Valtrex 1 GM Valt césra 1 GM 06/26/2020 12:00:00 AM EST 1.0 {tablet} suspended Valtrex 1 GM eCW1 (Counts Include [facility]) valacyclovir 1000 MG Oral Tablet [Valtrex] Valtrex 1 GM Valt césar 1 GM 06/26/2020 12:00:00 AM EST 1.0 {tablet} active Va ltrex 1 GM eCW1 (Counts Include [facility]) valacyclovir 1000 MG Oral Tablet [Valtrex] Valtrex 1 GM Valt césar 1 GM 06/26/2020 12:00:00 AM EST 1.0 {tablet} active Va ltrex 1 GM eCW1 (Counts Include [facility]) valacyclovir 1000 MG Oral Tablet [Valtrex] Valtrex 1 GM Valt césar 1 GM 06/26/2020 12:00:00 AM EST 1.0 {tablet} suspended Valtrex 1 GM eCW1 (Counts Include [facility]) valacyclovir 1000 MG Oral Tablet [Valtrex] Valtrex 1 GM Valt césar 1 GM 06/26/2020 12:00:00 AM EST 1.0 {tablet} active Va ltrex 1 GM eCW1 (Counts Include [facility]) valacyclovir 1000 MG Oral Tablet [Valtrex] Valtrex 1 GM Valt césar 1 GM 06/26/2020 12:00:00 AM EST 1.0 {tablet} suspended Valtrex 1 GM eCW1 (Counts Include [facility]) valacyclovir 1000 MG Oral Tablet [Valtrex] Valtrex 1 GM Valt césar 1 GM 06/26/2020 12:00:00 AM EST 1.0 {tablet} suspended Valtrex 1 GM eCW1 (Counts Include [facility]) valacyclovir 1000 MG Oral Tablet [Valtrex] Valtrex 1 GM Valt césar 1 GM 06/26/2020 12:00:00 AM EST 1.0 {tablet} suspended Valtrex 1 GM eCW1 (Counts Include [facility]) valacyclovir 1000 MG Oral Tablet [Valtrex] Valtrex 1 GM Valt césar 1 GM 06/26/2020 12:00:00 AM EST 1.0 {tablet} suspended Valtrex 1 GM eCW1 (Counts Include [address] [facility]) valacyclovir 1000 MG Oral Tablet [Valtrex] Valtrex 1 GM Valt césar 1 GM 06/26/2020 12:00:00 AM EST 1.0 {tablet} suspended Valtrex 1 GM eCW1 (Counts Include [facility]) Naproxen 500 MG Oral Tablet Naproxen 03/15/2020 12:00:00 AM EDT ORAL active MEDENT ([facility], [facility]) Insurance Providers Payer name Policy type / Coverage type Policy ID Covered alliance party ID Covered alliance party's relationship to nettles Policy Nettles Plan Information BCBS [place] PPO 302/307 [id number] SP [id number] [employer] BCBS Health Maintenance Organization (HMO) [id number] Self EXCELLUS H [id number] Self [id number] MVP [place] Maintenance Organization (HMO) [id number] Se lf MVP H [id number] Self [id number] MVP MDCD [id number] 18 [id number] [facility] XIX NA[place] -PHYSICIAN [id number] 18 [id number] MVP [id number] 18 [id number] Blue Cross Blue Shield CL Commercial [id number] Self VY [id number] Blue Cross Blue Shield CL Commercial [id number] Self VY [id number] Blue Cross Blue Shield CL Commercial [id number] Self VY [id number] Blue Cross Blue Shield CL Commercial [id number] Self VY [id number] Blue Cross Blue Shield CL Commercial [id number] Self VY [id number] Blue Cross Blue Shield CL Commercial [id number] Self VY [id number] EXCELLUS C [id number] Self [id number] [facility] Other 0 [id number] Se lf [address] [facility] Other 0 [id number] Se lf 0 BLUE CROSS BLUE SHIELD CL BS [id number] 18 [id number] Blue Cross Blue Shield CL Commercial [id number] Self VY [id number] Blue Cross Blue Shield CL Commercial [id number]9.510.8455.0 Self VY [id number] BLUE CROSS BLUE SHIELD -O/P BS [id number] [id number] [address] [facility] Other 0 [id number] Se lf 0 Blue Cross Blue Shield CL Commercial [id number] 2.840.1.967762.3.227.99.510.8455.0 Self VY [id number] Blue Cross Blue Shield CL Commercial [id number] 2.840.1.849080.3.227.99.510.8455.0 Self VY [id number] Blue Cross Blue Shield CL Commercial [id number] 2.840.1.104697.3.227.99.510.8455.0 Self VY [id number] Blue Cross Blue Shield CL Commercial [id number] 2.840.1.686341.3.227.99.510.8455.0 Self VY [id number] Blue Cross Blue Shield CL Commercial [id number].510.8455.0 Self VY [id number] Blue Cross Blue Shield CL Commercial [id number] 2.16840.1.347466.3.227.99.510.8455.0 Self VY [id number] Blue Cross Blue Shield CL Commercial [id number] 2.840.1.155426.3.227.99.510.8455.0 Self VY [id number] Medicaid [place] Medicaid [id number] 2.16.840.1.792761.3.227.99.510.8455.0 Self [id number] MEDICAID -PHYSICIAN [id number] [place] [id number] 2.16.840.1.218804.3.227.99.510.8455.0 Self [id number] [place] [id number] 2.16.840.1.608419.3.227.99.510.8455.0 Self [id number] [place] [id number] 2.16.840.1.547487.3.227.99.510.8455.0 Self [id number] MEDICAID [place] [id number] Medicaid [place] Medicaid [id number] 2.16.840.1.049172.3.227.99.510.8455.0 Self [id number] Medicaid [place] [id number] 2.16.840.1.195639.3.227.99.510.8455.0 Self [id number] Medicaid [place] [id number] 2.16.840.1.957939.3.227.99.510.8455.0 Self [id number] [place] [id number] 2.16.840.1.967140.3.227.99.510.8455.0 Self [id number] Medicaid [place] [id number] 2.16.840.1.412869.3.227.99.510.8455.0 Self [id number] [place] [id number] 2.16.840.1.370254.3.227.99.510.8455.0 Self [id number] [place] [id number] 2.16.840.1.247569.3.227.99.510.8455.0 Self [id number] [place] [id number] 2.16.840.1.066850.3.227.99.510.8455.0 Self [id number] [place] [id number] 2.16.840.1.889917.3.227.99.510.8455.0 Self [id number] [place] [id number] 2.16.840.1.653286.3.227.99.510.8455.0 Self [id number] [place] [id number] 2.16.840.1.676043.3.227.99.510.8455.0 Self [id number] [place] [id number] 2.16.840.1.448221.3.227.99.510.8455.0 Self [id number] [place] [id number] 2.16.840.1.855583.3.227.99.510.8455.0 Self [id number] [place] [id number] 2.16.840.1.803529.3.227.99.510.8455.0 Self [id number] MEDICAID M [id number] Self [id number] BCBS [place] PPO 302/307 [id number] [facility] H [id number] Self [id number] RPR- Needs Payer Match [id number] Spo use [id number] [facility] Health Care Commercial Insurance Co. [id number] Self [id number] [facility] Health Care Commercial Insurance Co. [id number] Self [id number] [facility] Health Care Commercial Insurance Co. [id number] Self [id number] RPR- Needs Payer Match [id number] Self [id number] BLUE CROSS BLUE SHIELD -I/P [id number] 18 [id number] BLUE CROSS BLUE SHIELD -O/P [id number] 18 [id number] MEDICAID -O/P [id number] 18 [id number] MEDICAID -O/P RAD ONLY [id number] 18 [id number] MEDICAID -PHYSICIAN [id number] Medicaid [facility] Other 0 [id number] Self 0 [facility] MEDICAID HMO -PHYSICIAN [id number] 18 [id number] [facility] [id number] 18 [id number] [facility] Health Maintenance [facility] [place] [id number] 0 2.16.840.1.225181.3.227.99.510.8455.0 Self [id number] [facility] [id number] 1 [id number] [facility] [id number] 0 2.16.840.1.525228.3.227.99.510.8455.0 Self [id number] [facility] [id number] 2.16.840.1.937385.3.227.99.510.8455.0 Self [id number] MEDICAID -I/P [id number] [facility] -O/P [id number] 18 [id number] MVP MEDICAID HMO -O/P [id number] 18 [id number] SELF PAY ONLY UNAVAILABLE UNAV AILABLE BCBS [place] O 302/307 [id number] SP [id number] [facility] [id number] SP [id number] [facility] MEDICAID O - CLINIC [id number] 18 [id number] [facility] HEALTH INSURANCE COMPANY-CLINIC [id number] 18 [id number] [facility] HE[facility] INSURANCE COMPANY-O/P [id number] 18 [id number] [facility] O [id number] S [id number] SELF PAY UNAVAILABLE SP UNAVAILA BLE BCBS [place] O 302/307 [id number] SP [id number] ESURANCE O [id number] S [id number] ESURANCE O [id number] S [id number] EXCELLUS BCBS B [id number] S [id number] ESURANCE [id number] SP [id number] MEDICAID [id number] SP [id number] [facility] [id number] SP [id number] Esurance Workers Compensation [id number] Self ESURANCE NF [id number] S [id number] ESURANCE NF UNAVAILABLE S UNAVAILA BLE [facility] MEDICAID LILY HMO [id number] S [id number] UN COMMUNITY PLAN MCDO [id number] SP [id number] SELF PAY SP [id number] S [id number] BLUE CROSS BLUE SHIELD -PHYSICIAN [id number] 18 [id number] [facility] HE[facility] INSURANCE COMPANY-O/P [id number] 18 [id number] [facility] [id number] HU2 82 [id number] [facility] [id number] SP [id number] [facility] [place] [id number] 01 [id number] [facility] [id number] 18 [id number] [facility] -I/P [id number] 18 [id number] [facility] HEALTH INSURANCE COMPANY-O [id number] 18 [id number] [facility] [place] [id number] 01 [id number] [facility] HEALTH INSURANCE COMPANY-O/P [id number] 18 [id number] [facility] HEALTH INSURANCE COMPANY-O [id number] 18 [id number] [facility] HE[facility] INSURANCE COMPANY-O [id number] 18 [id number] [facility] [id number] SELF PAY ONLY [id number] SP [id number] BCBS [place] PPO 302/307 [id number] [id number] BCBS [place] PPO 302/307 [id number] HU2 [id number] EXCELLUS BCBS B [id number] P [id number] MEDICAID M [id number] S [id number] EXCELLUS BCBS B [id number] S VYS [id number] [facility] [id number] SP [id number] ANSI-Not a Secondary Insurance [id number]-[id number] ANSI-Commercial [id number] ANSI-Medicaid [id number] ANSI-Commercial [id number]-[id number]-[id number]-[id number]-3r0z-[id number] ANSI-Not a Secondary Insurance [id number] ANSI-Medicaid [id number] ANSI-Commercial [id number] [id number] ANSI-Commercial [id number]-[id number] ANSI-Not a Secondary Insurance [id number]-[id number]-[id number] ANSI-Medicaid [id number] ANSI-Not a Secondary Insurance [id number] [id number] ANSI-Medicaid [id number] ANSI-Medicaid [id number] ANSI-Not a Secondary Insurance [id number]-[id number]-5402-[id number] ANSI-Commercial [id number]-238u-[id number]-92td-075d-7u5z-[id number] ANSI-Medicaid [id number] ANSI-Commercial [id number]-[id number]-[id number]-q598-6i61-0tk2-[id number] ANSI-Commercial [id number]-32cu-476n-6fj9-[id number]-85pe-668j-5up5-e74i70nj37c2 ANSI-Not a Secondary Insurance [id number]-8c71-7502-g48e5 [id number]-[id number] ANSI-Commercial [id number]-[id number]-[id number] ANSI-Medicaid [id number] ANSI-Medicaid [id number] [place] [employer]-BS PPO 306 [id number] SP [id number] MEDICAID [id number] ANSI-Commercial [id number]-[id number] ANSI-Not a Secondary Insurance [id number]-64o7-8tm7-z16u-43s6l [id number]-18f7-5up8-z93s-[id number] ANSI-Commercial [id number]-[id number] ANSI-Medicaid [id number] ANSI-Medicaid [id number] Medicaid [facility] Other 0 [id number] Self 0 ANSI-Medicaid [id number] ANSI-Commercial [id number] ANSI-Commercial [id number] ANSI-Not a Secondary Insurance [id number] [facility]-Medicaid [id number] Medicaid of [place] Other 0 [id number] Self 0 [facility] [id number] Problems, Conditions, and Diagnoses Code Display Name Description Problem Type Effective Dates Data Source(s) Stomach Pain, Chest Pain Stomach Pain, Chest Pain Diag nosis 04/08/2021 01:00:00 PM EDT [facility] K5900 Constipation, unspecified Constipation, unspecified Di agnosis 04/04/2021 01:05:[address] [facility] K2950 Unspecified chronic gastritis without bl eeding Unspecified chronic gastritis without bleeding Diagnosis 04/04/2021 01:05:00 PM EDT [facility] E876 Hypokalemia Hypokalemia Diagnosis 04/04/2021 01:05:[address] [facility] F1220 Cannabis dependence, uncomplicated Cannabis depe ndence, uncomplicated Diagnosis 04/04/2021 01:05:[address] [facility] [id number] Personal history of nicotine dependence Personal history of nicotine dependence Diagnosis 04/04/2021 01:05:[address] [facility] F419 Anxiety disorder, unspecified Anxiety disorder, unspec ified Diagnosis 04/04/2021 01:05:[address] [facility] K589 Irritable bowel syndrome without diarrhe a Irritable bowel syndrome without diarrhea Diagnosis 04/04/2021 01:05:[address] [facility] K219 Gastro-esophageal reflux disease without esophagitis Gastro-esophageal reflux disease without esophagitis Diagnosis 04/04/2021 01:05:[address] [facility] I10 Essential (primary) hypertension Essential (primary) h ypertension Diagnosis 04/04/2021 01:05:[address] [facility] [id number] Unspecified ovarian cyst, left side Unspecified ovarian cyst, left side Diagnosis 04/04/2021 01:05:[address] [facility] [id number] Unspecified ovarian cyst, right side Uns pecified ovarian cyst, right side Diagnosis 04/04/2021 01:05:[address] [facility] K429 Umbilical hernia without obstruction or gangrene Umbilical hernia without obstruction or gangrene Diagnosis 04/04/2021 01:05:[address] [facility] R1115 Cyclical vomiting syndrome unrelated to migraine Cyclical vomiting syndrome unrelated to migraine Diagnosis 04/04/2021 01:05:00 PM EDT [facility] Z09 Encounter for follow-up exam ination after completed treatment for conditions other than malignant neoplasm Encounter for follow-up examination afte r completed treatment for conditions other than malignant neoplasm Diagnosis 10/26/2020 01:14:[address] [facility] Z1152 ENCOUNTER FOR SCREENING FOR COVID-19 ENCOUNTER F OR SCREENING FOR COVID-19 Diagnosis [facility] Acquired absence of other specified part s of digestive tract Acquired absence of other specified parts of digestive tract Diagnosis 12:46:[address] [facility] R109 Unspecified abdominal pain Unspecified abdominal pain Diagnosis 10/07/2020 12:46:[address] [facility] R112 Nausea with vomiting, unspecified Nausea with vo miting, unspecified Diagnosis 10/07/2020 12:46:00 PM [facility] Z8719 Personal history of other diseases of th e digestive system Personal history of other diseases of the digestive system Diagnosis 01/2021 05:16:[address] [facility] [id number] Elevated white blood cell count, unspeci fied Elevated white blood cell count, unspecified Diagnosis 10/05/2020 05:16:[address] [facility] R1084 Generalized abdominal pain Generalized abdominal pain Diagnosis 10/05/2020 05:16:00 AM [facility] [id number] Essential hypertension Essential hypertension Problem 10/16/2020 12:00:00 AM EDT [facility] ([facility], ) I11.9 [id number] Hypertensive heart disease without heart failure Problem 09/05/2020 12:00:00 AM EST eCW1 (Counts Include [facility]) I11.9 [id number] Hypertensive heart disease witho ut congestive heart failure Problem 09/05/2020 12:00:00 AM EST eCW1 ([facility]) Surgeries/Procedures Procedure Description Date Indications Data Source(s) Endoscopy Upper GI Biopsy 11/21/2020 12:00:00 AM AYDE PERALES ([facility], ) Computerized Tomography (CT Scan) of Abdomen and Pelvi s using Other Contrast Computerized Tomography (CT Scan) of Abdomen and Pelvis using Other Contrast 10/09/2020 12:00:[address] [facility] Monitoring of Cardiac Electrical Activity, External Ap proach Monitoring of Cardiac Electrical Activity, External Approach 10/09/2020 12:00:[address] [facility] Introduction of Electrolytic and Water B alance Substance into Peripheral Vein, Percutaneous Approach Introduction of Electrolytic and Water B alance Substance into Peripheral Vein, Percutaneous Approach 10/09/2020 12:00:[address] [facility] MRI Lower Extremity Any Joint 04/27/2020 12:00:00 AM Eileen PERALES ([facility] ) Results ID Date Data Source [id number] 04/09/2021 07:55:20 AM EDT [facility] Name Value Range Interpretation Code Description Data Molly rce(s) Supporting Document(s) EKG [facility] AUUSUr4xSfJJBoGgo6TlMjXgQWWlMU6yuyb9R0X1fHNcK8GmmEGus1xkN3DmZ3DvIWVeUTYASU4UiIPj jb2 [file] bZxe2jhjp4LB77BB9HxHT8dB5KrSlSDHtsF1cMDNsKJDtKSylIWkRGSt4ivOtdMnLuYIdD4PeKBm4+LABORATORY MECHANIC HELPER dU8RaDO953UBKnB4LdkQINLPWPQNt1Os4esbgQjx5X7T+lGpiGHrjZP5CTbMPRHQ3PNdn2LULFb1lhtP 9SS4KPfRRRcmTbVhtN3PQCqtViNcdH2KFSskMyUcpT VkLfVPWwYh07w6F+WJRFRbiIYDqC6TpQ/BwsS408l8c+NPV+BETlWyZ03GCyNMuxyycfTjXGbUJqSW8T kMC2ccSunKlsc9CFxi+Rz8xZx+ABSRy3ljNxz9h3He+DTL3v+UTeNZ4dWN+RdTye+pudWcfjWbcex/Fl R72XtDqsDh6oQfEttPotA3Sbz6Gd0izVH0uIIst0wS j86MIM1Xg0CwhJBCYry8tK2euZ/puSqEoZP0+5up5ricSa5JbLPHd6Stj01nKK13eLgi+Qw2gNDxARbe w7XRm3A34ud6skrTvMN+2eEFxtbOh44SKVp53173GBbS2RlPrrUfCLoCmDW8FvPsRfmuFVLLewenUSwE cuFMOggoULgYULgYULgYULgYULgYULgYULgYULgYUL gYULgYULgYULgYULgYULgYULgYULgYULgYULgYULgYULgYULgYULgYULgYULgYULgYULgYULgYULgYUL [file] surgical nurse+NVh+VOFeu3p61xQ9g83RYgAhADT8XEFvC0vQgjxbmdtFtJvd2t4umvG65vC2aSrMvZSbX2hIhcwg uUs15fP+Pd/BhgnOE4b2xeb1n4p5kKD7++nXGwaG0n V875wqhxw1i9fQj67NY5lk0F9pjNd7R16l0sScsD63eDC705s0088/JnY3j7gkJeN4/OzRyEm3r1Q2Gs [file] z/alk4nTm8k5mB13sCdGo0WN5eetc6jiM29wwpnh8C5OZ7YHB5Nct3Kz6D1b+cell pourer+NeFu4qliG4qFK1X EZ9J4b9+1jO+1g4kjg9ZI+GP0239j1yRt0i2+TpvJx /j6lRaLwVnM4+l2qR94l/46mlDn/nY/C5vU6Q3yqe44kbxe9iF/YL+3XqFnwHQV01AKRpGxPUx+dj8b+ Xxov78JD/ysS3/u/Awov07r27BC3Iy1F/o59Gv+OppQy/Ri9cRKErTuSJ+WfFV+YlLC9hoh/1adua9hz IH4izUe/K+Z3yV/SHjq+pz54RBifSP9jODb6DLAvyD fXWc+QUfJx/r8+QhdR3Ya2hG52bknxY3jhn1tVG+ymd/nu99R/7Kkb/afaFwdydgL9jWO+YztIc6MP6o ftAxP+cCI0UIHxdoR0uidytII7i6Ltv6xR8hO+gNeofeoQ/oI/iprqNG76Ds87O56Dl5T/oJ/Rh6DF42 aalNpaQysRdvKLbD5tX96PA45TmlK2HiiA8IpDU7Vr CV0FMYa1ZDLw/KIwS2MfqO6fmfXtctgRknd0Uwhy2FwbT5KuuC3OydK8Yhrq4DmMnkuaJpf3p+bOjPhv 5s6M+G/mzoz4b+pOeXsh3sVF8LizQxze/QD+gD3ZD0zdZHbi86Rfh79Nij77Wqg37PfO65TbN57EPO11 DXYa/UGpf1mwhs0AIqeE/xHM0Pzff6uRc0xf7x5W+B /hzoz4H+EZsXkb7d3J+B/hzoz4H+FArGbn0d3Z+B/hzoz4H+8PF7Izw/Fm4rj50UivTI3ymO52Kfn49L 4diq90eSk5Q72uylYvz35E964N+G+1wqrorhw4n39zi/Haj3a40Dvqdk0pO9i80Ztdzn8ph/Hfe34/52 3N+O+9ucoldpz2y87ns/Nhq58F9R5O+B+tmo39G7Z/ au+IqgCzd6eAf0OovmVdNSShCl1rC/Ye/A/jW2PRB2DEV/EkKpOkUhwyCLzPzcXbDnk62A/kIHHn04i0 yvgsVSfPtiMDfE8iTH4AN3Fs7QxnPw22i21FMWS0L9iGkz/IA3uwtvwgtWte6f72f9Do3yBtxF/W3Xub 2l05gcW/QO/bm/OjZuKj00u7p03G+d2sBr4A/oB/QT +nn0GV/cSrOTxJBd3Ti6v47GP9jLK9p8w45z6SzA+Uh0I5FWN6yF6eyTv0WbvQUpR5c/XfnJ+u/KT67v mAayn95h+eygyfycPPui2H1eng+bb1qP1OYqvrT/UzRd+uw8f9x0vHJ3wmy/uXKSTVd+fe4LdUr+WguU XmgrL2vm4PTguJGjzn/O1N/5yfLPHV/d9TxX+85PWs qcr0RDqGmtoh3uR8nb+Eq75u/v/OS+tjs/OTV/v74HS7/68/oWa3a+e3dg2KpB4BHV+Xq8PsZXgr25+r TcXpw5q28afnY3adut1K0PS+098O81Ot04r4J/G/qzoT87+vBlRoj1o8J/O/qyfc4owEHe6Eh7Um5HL9 Dj+GF8n93q9/S6Bfs93Hxv98QuqM0JrZD9A/YG7A3Y G7A3YG/C3zS5UGqC9oxtJzwmdAywmoY+9m6a0gdLE79KfmJErt47iU4M+UvwyyzVvmeua0r9brS+au3E ta3iFXzBsCO+bO1p9zhT+Bb6o12h6gVeW0sLw/wt5pdr32Z+gbI4HvE6f3c6W17f+f3Wz/x+6wa9Q3/W e7d+5hdaP/O/rZ/9To7pC8tdh/h46KHmwE3kA9mw4H /mAk1eTLvGY+Nzzg/m+aKlH9R5Lnr/3itEC3Jd8tYekAnpXwx/9woYO1Iw1uEm19g9kr62UuMmyYA+Mv UiF6beVg5AC2x49vIug1GVkdzG0rn/8iOUZ5jeYN/V9xS7fskAmVvM5tJXH+U+iLbiqyvffSu+etpLn7 9Z+orcls5rV/nJVSmhrfjqaUPfoe/QD+zE6AT8Ot+K B/gDl0512PZ0IBtdQ58D6+wrvkrb+1nw5rq2XphFza53yH3OR+n/tvIliIw1sKt8jtcIcs50ChbcpCxg nx0hWu8qi6F69C1h1eStxr6GA63+2eXs1+gh6m86Ne874/xgtld/4fn2tS724gt3IGRWcZAc9Eo4O16n y4usi7VgY/Wfpx7x4vpyG47avqVnhqn1Tnm75i450I 8l48osd4s13Mm6Ya/QO/QBfUDfoG/Qd+m74PW3Ud2Q/qzn73a+N3bYDuN7SerL4jycRbrT0Wcj+we7wV 2DwDP4ZdVp3ZHZp0FPQT/EOtL3Fvxt0veryeiY9Ndi87365s90eI/qWH/Vsf6qY/1Vx/qrjvVXHeuvOt Zfday/6lh/1bH+eoX3Slt3h507Oq79W6uaa7ue9Xv6 If6Al2Qa3I29a+hbzw8NhsJP3S4CI+h65B88FJ+Z4wfuQ0m89Hl95q/tgl6gF+hIpeAjcRnnZQwK20Yu k21Q758bcmi8g27DN4Cy6GD7rtar0q44x+P+igrwakrynI718s/H/o53ub05dcg2OL9JR0z91X5qr7Xq Eap55B4af0XxPZvY0X7xt7QuZGky/qpj/VXH+quO9V cd66/9fS5C1m7HR1FknM8Q3r4YC6Ll0uh2vU7FiogrznU1gu7NS/YBfexofkR6ae1WjgrjjtF4ax1G4z x2e285TM0ayt2hcZ18incXRy31siZa3NRa68hqEk3Ik6cyfkzB/c2T53ga6moULETTi+64jD38oc/4/Z n/HRlfzdSf+PwpxkzGformn8NtIcBgJBBT2P/9sCPj z91MIwAT9E/7mea6saIhyw8L3lrQ0HSmm7v06UeCB033YLNbUzTbf5zw1++MEd5Vpw2wmk1G3s6tdb8c ffvA+xzA0m6Q25aG3lkSgW4hCB8+hM18HQ100CC+Z+jZjzOw/mro+o8pvv56Y26Wrts8yIrB3r9m+Cr3 hm3QA7bk40cI6tz2duvptdk0dkp2+RasXyg2vvlrex /3hUsUvh71Fh03jo39jj4q9hc/2srv5W/seH1s228dvpcsXsgj2i/I53GUt5i3oDGPV0Q+yEmlOa8KA9 k1oreLqeXdz6kl/fmab8ceiGKfxi833VFM8hx8adRu84nkE22BseMGxnAubGy+2rbk/tH97UEhp9X92X 27DY1m0dTQdf+R373zy2R3+E6TEAEm/HwvDD/j80B8 FffSl4FCXEt4Kn/guSOtxwjYuxCMj9XBOK/QK/AWbVSp9N/6OwSXsh7MZZ4TjsKjdZ/zKSPOerMRA/oJ /XucIavOAhouQr2ZH8Ri5Ih27Hakop6oIg2O29Rn+W0BfYO+Qd+w42RZ6Wb0O/cpkvKtfbPGqzyOAa6y yjxzMoS1Cin1Mj5oUbn4x8Tt17087F+O+9mmojapg7 t52QndK/pzR3/u6M8d/XmgPw/054H+PNCfB/jlQQ6w3/zeFN8zrS4X0ytW+GqMEz+Ajg1NehbOe+hPvD FBlCsPSYNPKEE6h14a13xqN/Ca20vKX5vJcJ0nVnSyCM7bfog2wfPZXCMhpVCzeZIA2I4w28EoOC/lWJ hxBhX0zDjjihe57Mk4k5v7+7tH5q/eFZXQnhD7dlZE 87qgP+sJZ+aukg8YJ/IFaFRw7C/93fM6+7vnFdDn/u78/QyOMG6gI0s9CZ+G4RB9whjf80ii1O95GW++ 28HQ1DZLHnv/OUWhP/g8zrXe4Axjd/nCOtYH7nyfdYbgupf98WzcmbpDw96xbetU4jgGJ1tJZ4B1+cell plasterer [file] 9PxWTgh8njVUDE2MlVGqTL2ehdqBINT2GBQjDOyIbB0c7U9R+wEL57+scientific illustrator+juM3xbK1HVMubqQkKYTNj [file] DyfeS1cgGxJyUtPEv5PxLhNE6K ID Date Data Source [id number] 04/08/2021 05:21:41 PM EDT [facility] Name Value Range Interpretation Code Description Data Molly rce(s) Supporting Document(s) ED Provider Note [facility] FUXDVy4yLkLRLyDj89/OVWfoJXZio4NaRMugCEq9JGixOIAkY9CeHGV3cU2zRPJ3IKtBXyLzNsDrPIJf lbm [file] LkZeCV4CUe2MNpZ5PCM2oKFxJs2ADOB2WgzRWbTvOX2TVTm= ID Date Data Source [id number] 04/08/2021 04:20:33 PM EDT [facility] Name Value Range Interpretation Code Description Data Molly e(s) Supporting Document(s) Leukocytes [#/volume] in Blood by Automated count 9.5 10*3/uL 4-10 [facility] Erythrocytes [#/volume] in Blood by Automated count 4.56 10*6/uL 4.1- 5.3 [facility] Hemoglobin [Mass/volume] in Blood 12.4 g/dL 11.5-15.5 [facility] Hematocrit [Volume Fraction] of Blood by Automated count 37.8 % 3 6-45 [facility] Erythrocyte mean corpuscular volume [Entitic volume] by Auto mated count 82.8 fL 80-96 [facility] Erythrocyte mean corpuscular hemoglobin [Entitic mass] by Automated count 27.3 pg 27-33 [facility] Erythrocyte mean corpuscular hemoglobin concentration [Mass/volume] by Automated count 32.9 g/dL 32.0-36.0 [facility] Erythrocyte distribution width [Ratio] by Automated count 14.4 % 11.5-14.5 [facility] Platelets [#/volume] in Blood by Automated count 204 10*3/uL 150-400 [facility] Differential cell count method - Blood [facility] Neutrophils/100 leukocytes in Blood by Automated count 72 % [facility] Lymphocytes/100 leukocytes in Blood by Automated count 22 % [facility] Monocytes/100 leukocytes in Blood by Automated count 5 % [facility] Eosinophils/100 leukocytes in Blood by Automated count 0 % [facility] Basophils/100 leukocytes in Blood by Automated count 1 % [facility] Neutrophils [#/volume] in Blood by Automated count 6.79 10*3/uL 1.8-7 .0 [facility] Lymphocytes [#/volume] in Blood by Automated count 2.04 10*3/uL 1.2-4 .0 [facility] Monocytes [#/volume] in Blood by Automated count 0.50 10*3/uL 0-0.8 [facility] Eosinophils [#/volume] in Blood by Automated count 0.03 10*3/uL 0-0.5 [facility] Basophils [#/volume] in Blood by Automated count 0.09 10*3/uL 0-0.2 [facility] Nucleated erythrocytes/100 leukocytes [Ratio] in Blood by Automated count 0 /100{WBCs} 0-0 [facility] ID Date Data Source [id number] 04/08/2021 04:53:49 PM [facility] Name Value Range Interpretation Code Description Data Molly rce(s) Supporting Document(s) Choriogonadotropin.beta subunit [Moles/volume] in Serum or Plasma <5 [facility] ID Date Data Source [id number] 04/08/2021 04:55:39 PM [facility] Name Value Range Interpretation Code Description Data Molly rce(s) Supporting Document(s) Albumin [Mass/volume] in Serum or Plasma by Bromocresol green (BCG) dye binding method 4.0 g/dL 3.5-5.2 [facility] Bilirubin.total [Mass/volume] in Serum or Plasma 0.5 mg/dL <1.2 [facility] Bilirubin.direct [Mass/volume] in Serum or Plasma <0.3 [facility] Alkaline phosphatase [Enzymatic activity/volume] in Serum or Plasma 70 U/L 35-104 [facility] Aspartate aminotransferase [Enzymatic activity/volume] in Serum or Plasma 14 U/L <32 [facility] Alanine aminotransferase [Enzymatic activity/volume] in Seru m or Plasma 6 U/L <33 [facility] Protein [Mass/volume] in Serum or Plasma 7.0 g/dL 6.4-8.3 [facility] ID Date Data Source [id number] 04/08/2021 04:55:39 PM [facility] Name Value Range Interpretation Code Description Data Molly rce(s) Supporting Document(s) Lipase [Enzymatic activity/volume] in Serum or Plasma 14 U/L 13-6 0 [facility] ID Date Data Source [id number] 04/08/2021 04:55:39 PM [facility] Value Range Interpretation Code Description Data Molly rce(s) Supporting Document(s) Magnesium [Mass/volume] in Serum or Plasma 1.8 mg/dL 1.6-2.6 [facility] ID Date Data Source [id number] 04/08/2021 04:55:39 PM [facility] Name Value Range Interpretation Code Description Data Molly rce(s) Supporting Document(s) Bicarbonate [Moles/volume] in Serum 27 mmol/L 22-29 [facility] Chloride [Moles/volume] in Serum or Plasma 97 mmol/L 98-107 L [facility] Creatinine [Mass/volume] in Serum or Plasma 0.79 mg/dL 0.50-0.90 [facility] Glucose [Mass/volume] in Serum or Plasma 80 mg/dL 70-140 [facility] Potassium [Moles/volume] in Serum or Plasma 3.1 mmol/L 3.4-5.1 L [facility] Sodium [Moles/volume] in Serum or Plasma 137 mmol/L 136-145 [facility] Urea nitrogen [Mass/volume] in Serum or Plasma 9 mg/dL 6-20 [facility] Anion gap 3 in Serum or Plasma 13 mmol/L 8-15 [facility] Osmolality of Serum or Plasma by calculation 282 mosm/kg 275-300 [facility] Creatinine/Urea nitrogen [Mass Ratio] in Serum or Plasma 11 [facility] Calcium [Mass/volume] in Serum or Plasma 9.6 mg/dL 8.6-10.0 [facility] Glomerular filtration rate/1.73 sq M pre dicted among non-blacks [Volume Rate/Area] in Serum or Plasma by Creatinine-based formula (MDRD) >6 0 [facility] Glomerular filtration rate/1.73 sq M pre dicted among blacks [Volume Rate/Area] in Serum or Plasma by Creatinine-based formula (MDRD) >60 [facility] ID Date Data Source [id number] 04/06/2021 06:35:[address] [facility] Name Value Range Interpretation Code Description Data Molly rce(s) Supporting Document(s) COMPREHENSIVE METABOLIC PANEL [facility] COMPREHENSIVE METABOLIC PANEL Sodium [Moles/volume] in Serum or Plasma 139 mEq/L 134 - 153 [facility] Potassium [Moles/volume] in Serum or Plasma 3.6 mEq/L 3.6 - 5.0 [facility] Chloride [Moles/volume] in Serum or Plasma 105 mEq/L 98 - 107 [facility] Carbon dioxide, total [Moles/volume] in Serum or Plasma 25 MEQ/L 22 - 30 [facility] Glucose [Mass/volume] in Serum or Plasma 117 MG/DL 70 - [address] [facility] BUN 3 MG/DL 7 - [facility] Creatinine [Mass/volume] in Serum or Plasma 0.7 MG/DL 0.7 - 1.5 [facility] BUN/CREAT 4 8 - 27 L [facility] Protein [Mass/volume] in Serum or Plasma 6.0 G/DL 6.3 - 8.[address] [facility] Albumin [Mass/volume] in Serum or Plasma 3.7 G/DL 3.9 - 5.[address] [facility] Globulin [Mass/volume] in Serum by calculation 2.3 GM/DL 2.4 - 3.[address] [facility] A/G RATIO 1.6 0.8 - 2.0 [facility] Calcium [Mass/volume] in Serum or Plasma 8.9 MG/DL 8.4 - 10.2 [facility] Bilirubin.total [Mass/volume] in Serum or Plasma <0.7 MG/DL 0.2 - 1.3 [facility] Alkaline phosphatase [Enzymatic activity/volume] in Serum or Plasma 57 U/L 38 - 126 [facility] Aspartate aminotransferase [Enzymatic activity/volume] in Serum or Plasma 10 U/L 5 - 40 [facility] Alanine aminotransferase [Enzymatic activity/volume] in Seru m or Plasma 5 U/L 7 - [address] [facility] Anion gap 3 in Serum or Plasma 9.0 mmol/L 8.0 - 16.0 [facility] AGE 40 yrs [facility] NON-AA GFR >60 mL/min [facility] AFR AMER GFR >60 mL/min [facility] Male GFR In terprentation 20-49 yrs >60 mL/min Normal 50-59 yrs >56 mL/min Normal 60-69 yrs >49 mL/min Normal 70-79yrs >42 mL/min Normal 80 and above >35 mL/min Normal Female GFR Interpretation 20-39 yrs >60 mL/min Normal 40-49 yrs >58 mL/min Normal 50-59 yrs >51 mL/min Normal 60-69 yrs >45 mL/min Normal 70-79 yrs >39 mL/min Normal 80 and above >32 mL/min Normal ID Date Data Source [id number] 04/06/2021 06:01:[address] [facility] Name Value Range Interpretation Code Description Data Molly rce(s) Supporting Document(s) CBC W/AUTOMATED DIFF [facility] COMPLETE BLOOD COUNT Leukocytes [#/volume] in Blood by Automated count 9.2 10^3/uL 4.2 - [address] [facility] Erythrocytes [#/volume] in Blood by Automated count 4.27 10^6/uL 4. 20 - 5.40 [facility] Hemoglobin [Mass/volume] in Blood 11.7 g/dL 12.0 - 16.[address] [facility] Hematocrit [Volume Fraction] of Blood by Automated count 35.8 % 3 7.0 - 47.[address] [facility] Erythrocyte mean corpuscular volume [Entitic volume] by Auto mated count 83.8 fL 81.0 - 101 [facility] Erythrocyte mean corpuscular hemoglobin [Entitic mass] by Automated count 27.4 pg 27.0 - 34.0 [facility] Erythrocyte mean corpuscular hemoglobin concentration [Mass/volume] by Automated count 32.7 g/dL 31.0 - 36.0 [facility] Erythrocyte distribution width [Ratio] by Automated count 14.1 % 11.5 - 14.5 [facility] Platelets [#/volume] in Blood by Automated count 185 10^3/uL 150 - [address] [facility] Platelet mean volume [Entitic volume] in Blood by Automated count 11.0 fL 7.4 - 10.[address] [facility] Neutrophils/100 leukocytes in Blood by Automated count 75.5 % 37. 0 - 80.0 [facility] Lymphocytes/100 leukocytes in Blood by Manual count 17.6 % 25.0 - 40.[address] [facility] Monocytes/100 leukocytes in Blood by Automated count 6.1 % 3.0 - 8.0 [facility] Eosinophils/100 leukocytes in Blood by Automated count 0.2 % 0.0 - 7.0 [facility] Basophils/100 leukocytes in Blood by Automated count 0.3 % 0.0 - 2.5 [facility] %IG 0.3 % 0.0 - [facility] % 0[facility] - 0.[facility] Neutrophils [#/volume] in Blood by Automated count 6.91 10^3/uL 2.00 - 6.[address] [facility] Lymphocytes [#/volume] in Blood by Automated count 1.61 10^3/uL 0.60 - 3.40 [facility] Monocytes [#/volume] in Blood by Automated count 0.56 10^3/uL 0.00 - 0.90 [facility] Eosinophils [#/volume] in Blood by Automated count 0.02 10^3/uL 0.00 - 0.70 [facility] Basophils [#/volume] in Blood by Automated count 0.03 10^3/uL 0.00 - 0.20 [facility] #IG 0.03 10^3/uL 0.00 - 0.10 [facility] #NRBC 0.00 10^3/uL 0.00 - 0.00 [facility] MANUAL DIFF NOT INDICATED [facility] RBC MORPH NOT INDICATED [facility] spital ID Date Data Source [id number] 04/05/2021 08:42:00 AM EDT [facility] [address] [place] [address] PHONE: [phone] FAX: [phone] Name .................. : SERA Cagle Acct Number.................. : [id number] ROOM. ................. : 109-1 MR Number ................... : [id number] Stay type ............. : O/P Discharge Date......... ... : Admit Date ......... : 04/04/21 Admit Phys .................... : AARON Cox Date of ....... : 1980 Family Phys ................... : LAURA NICHOLAS Phone .................. : [phone] Age ................................ : 40 Film# .................. .:[id number] Sex ................................. : F Unsigned transcriptions are preliminary reports and do not represent a medical or legal document CT ABD & PELVIS W/ IV ONLY [id number] COMPLETE:04/04/21 18:59 MAGDA [id number] Reason(s): epigastric pain, vomiting, x [address] ABDOMEN AND PELVIS WITH IV CONTRAST INDICATION: Epigastric pain, vomiting 24 hours COMPARISON: 10/09/2020 IV CONTRAST: 75 cc [id number] One or more of the following dose reduction techniques were utilized in effectively lowering the radiation dose for this examination: Automated Exposure Control, Adjustment of the mA and/or kV according to patient size, or Iterative reconstruction. FINDINGS: LUNG BASES: No pulmonary nodules or masses. No pleural effusions. LIVER/BILIARY: No lesions are seen in the liver. Gallbladder is absent. Bile ducts are not dilated. SPLEEN: Normal. PANCREAS: Normal. ADRENALS: Normal bilaterally. RIGHT KIDNEY: No hydronephrosis, stones or masses. LEFT KIDNEY: No hydronephrosis, stones or masses. OTHER : No abnormalities seen in the urinary bladder. Uterus is unremarkable. Right ovarian cyst 4.1 cm. Left ovarian cyst 1.8 cm. BOWEL/GI: Umbilical hernia containing fat. The hernia sac has a lobulated margin. It Page 1 of 2 [place] [address] PHONE: [phone] FAX: [phone] Name .................. : [facility] : [id number] ROOM. ................. : 109-1 Number ................... : [id number] Stay type ............. : O/P Discharge Date......... ... : Admit Date ......... : 04/04/21 Admit Phys .................... : AARON J Date of ....... : 1980 Family Phys ................... : LAURA NICHOLAS Phone .................. : [phone] Age ................................ : 40 Film# .................. .:[id number] Sex ................................. : F Unsigned transcriptions are preliminary reports and do not represent a medical or legal document CT ABD & PELVIS W/ IV ONLY [id number] COMPLETE:04/04/21 18:59 MAGDA [id number] Reason(s): epigastric pain, vomiting, x 24 hrs measures approximately 2.5 x 5.7 x 5.6 cm. Size is unchanged. However, what is new is the wall of the hernia shows mild thickening. There is mild infiltration of the fat within the hernia and moderate infiltration of the adjacent fat still inside the abdomen. These are new findings compared to previous CT. The neck of the hernia measures 3.1 cm. No herniated bowel is identified. No dilated bowel or obstruction. No bowel wall thickening. PERITONEUM: No free fluid, focal fluid collection or free air. NODES/RETROPERITONEUM: No adenopathy. No AAA. SKELETAL: Within normal limits. IMPRESSION: 1. Umbilical hernia containing fat as described above. The size the hernia is unchanged but there is now mild thickening of the hernia sac wall and inflammation of the fat in the hernia and in the adjacent omentum inside the abdomen. This raises the possibility of an incarcerated hernia. Arguing against this is the fact that the neck of the hernia is still fairly wide measuring up to 3.1 cm. No herniated bowel is seen. No bowel obstruction. 2. Bilateral ovarian cysts. Right cyst measures up to 4.1 cm. These findings were discussed with in the emergency Department at 6:26 PM Electronically Reviewed and Signed By Trevon Spencer MD , 04/05/21 08:42, YASEMIN Transcribe Initials: MICHELLE , Transcribe Date: 04/05/21 01:36, Dictation Date: Copy for: EMERGENCY DEPT via modem Copy for: [address] [place] [address] REC Page 2 of 2 Name Value Range Interpretation Code Description Data Molly rce(s) Supporting Document(s) ID Date Data Source [id number] 04/05/2021 07:52:[address] [facility] Name Value Range Interpretation Code Description Data Molly rce(s) Supporting Document(s) CBC W/AUTOMATED DIFF [facility] COMPLETE BLOOD COUNT Leukocytes [#/volume] in Blood by Automated count 10.2 10^3/uL 4.2 - 11.0 [facility] Erythrocytes [#/volume] in Blood by Automated count 4.65 10^6/uL 4. 20 - 5.40 [facility] Hemoglobin [Mass/volume] in Blood 12.3 g/dL 12.0 - 16.0 [facility] Hematocrit [Volume Fraction] of Blood by Automated count 39.0 % 3 7.0 - 47.0 [facility] Erythrocyte mean corpuscular volume [Entitic volume] by Auto mated count 83.9 fL 81.0 - 101 [facility] Erythrocyte mean corpuscular hemoglobin [Entitic mass] by Automated count 26.5 pg 27.0 - 34.[address] [facility] Erythrocyte mean corpuscular hemoglobin concentration [Mass/volume] by Automated count 31.5 g/dL 31.0 - 36.0 [facility] Erythrocyte distribution width [Ratio] by Automated count 14.5 % 11.5 - 14.5 [facility] Platelets [#/volume] in Blood by Automated count 193 10^3/uL 150 - [address] [facility] Platelet mean volume [Entitic volume] in Blood by Automated count 11.7 fL 7.4 - 10.[address] [facility] Neutrophils/100 leukocytes in Blood by Automated count 78.0 % 37. 0 - 80.0 [facility] Lymphocytes/100 leukocytes in Blood by Manual count 14.4 % 25.0 - 40.[address] [facility] Monocytes/100 leukocytes in Blood by Automated count 6.8 % 3.0 - 8.0 [facility] Eosinophils/100 leukocytes in Blood by Automated count 0.1 % 0.0 - 7.0 [facility] Basophils/100 leukocytes in Blood by Automated count 0.4 % 0.0 - 2.5 [facility] %IG 0.3 % 0.0 - 0.0 [facility] 0.[facility] % 0.0 - 0.0 [facility] al Neutrophils [#/volume] in Blood by Automated count 7.94 10^3/uL 2.00 - 6.[address] [facility] Lymphocytes [#/volume] in Blood by Automated count 1.47 10^3/uL 0.60 - 3.40 [facility] Monocytes [#/volume] in Blood by Automated count 0.69 10^3/uL 0.00 - 0.90 [facility] Eosinophils [#/volume] in Blood by Automated count 0.01 10^3/uL 0.00 - 0.70 [facility] Basophils [#/volume] in Blood by Automated count 0.04 10^3/uL 0.00 - 0.20 [facility] #IG 0.03 10^3/uL 0.00 - 0.10 [facility] ospital #NRBC 0.00 10^3/uL 0.00 - 0.00 [facility] ospital MANUAL DIFF NOT INDICATED [facility] RBC MORPH NOT INDICATED [facility] spital ID Date Data Source [id number] 04/05/2021 07:20:[address] [facility] Name Value Range Interpretation Code Description Data Molly rce(s) Supporting Document(s) COMPREHENSIVE METABOLIC PANEL [facility] COMPREHENSIVE METABOLIC PANEL Sodium [Moles/volume] in Serum or Plasma 144 mEq/L 134 - 153 [facility] Potassium [Moles/volume] in Serum or Plasma 3.6 mEq/L 3.6 - 5.0 [facility] Chloride [Moles/volume] in Serum or Plasma 109 mEq/L 98 - [address] [facility] Carbon dioxide, total [Moles/volume] in Serum or Plasma 25 MEQ/L 22 - 30 [facility] Glucose [Mass/volume] in Serum or Plasma 113 MG/DL 70 - [address] [facility] BUN 4 MG/DL 7 - 21 L [facility] Creatinine [Mass/volume] in Serum or Plasma 0.7 MG/DL 0.7 - 1.5 [facility] BUN/CREAT 6 8 - 27 L [facility] al Protein [Mass/volume] in Serum or Plasma 6.4 G/DL 6.3 - 8.2 [facility] Albumin [Mass/volume] in Serum or Plasma 3.9 G/DL 3.9 - 5.0 [facility] Globulin [Mass/volume] in Serum by calculation 2.5 GM/DL 2.4 - 3.2 [facility] A/G RATIO 1.6 0.8 - 2.0 [facility] Calcium [Mass/volume] in Serum or Plasma 9.0 MG/DL 8.4 - 10.2 [facility] Bilirubin.total [Mass/volume] in Serum or Plasma <0.7 MG/DL 0.2 - 1.3 [facility] Alkaline phosphatase [Enzymatic activity/volume] in Serum or Plasma 65 U/L 38 - 126 [facility] Aspartate aminotransferase [Enzymatic activity/volume] in Serum or Plasma 11 U/L 5 - 40 [facility] Alanine aminotransferase [Enzymatic activity/volume] in Seru m or Plasma 8 U/L 7 - 56 [facility] Anion gap 3 in Serum or Plasma 10.0 mmol/L 8.0 - 16.0 [facility] AGE 40 yrs [facility] al NON-AA GFR >60 mL/min [facility] ital AFR AMER GFR >60 mL/min [facility] spital Male GFR In terprentation 20-49 yrs >60 mL/min Normal 50-59 yrs >56 mL/min Normal 60-69 yrs >49 mL/min Normal 70-79yrs >42 mL/min Normal 80 and above >35 mL/min Normal Female GFR Interpretation 20-39 yrs >60 mL/min Normal 40-49 yrs >58 mL/min Normal 50-59 yrs >51 mL/min Normal 60-69 yrs >45 mL/min Normal 70-79 yrs >39 mL/min Normal 80 and above >32 mL/min Normal ID Date Data Source [id number] 04/05/2021 07:03:[address] [facility] Name Value Range Interpretation Code Description Data Molly rce(s) Supporting Document(s) Magnesium [Mass/volume] in Serum or Plasma 1.7 MG/DL 1.7 - 2.2 [facility] ID Date Data Source [id number] 04/04/2021 01:05:[address] [facility] [address] [facility] Emergency Department [address] [place] [address] Phone #: ext- [phone] 04/04/2021 12:57 Patient: LIA HAY Sex: F : 1980 Age: 40yWEIGHT:72.1 kg HEIGHT:63 inches BMI:28.2 STATUS:UnknownALLERGIES: MiraLax, Sulfa AntibioticsCHIEF COMPLAINT: vomiting, abdominal pain, nauseaDIAGNOSIS: Vomiting, Hernia of abdominal cavity, Gastroesophageal reflux disease, GastritisLAB ORDERSOrder Description Priority Entered Acknowledged InitialedHCG Urine Qual STAT 13:12 04/04/2021 Initialed: 13:53 Zayra Alberto R.N. Zayra Alberto R.N.; Cancelled: Other 13:57 Zayra Alberto R.N. Verbal order per; Dinesh Laureano M.D.Urinalysis (Clean STAT 13:12 04/04/2021 Initialed: 13:53 Zayra Alberto R.N.Catch) Zayra Alberto R.N.; Cancelled: Other 13:57 Zayra Alberto R.N. Verbal order per; Dinesh Laureano M.D.CMP STAT 13:12 04/04/2021 Initialed: 13:52 June Padron R.N., April R.N.; Cancelled: Other 13:57 Zayra Alberto R.N. Verbal order per; Dinesh Laureano M.D.CBC w Diff STAT 13:12 04/04/2021 Initialed: 13:52 June Padron R.N., April R.N.; Cancelled: Other 13:56 Zayra Alberto R.N. Verbal order per; Dinesh Laureano M.D.Lipase STAT 14:49 04/04/2021 14:50 Dinesh Blair RN, M.D.;UA Reflex to UA 14:49 04/04/2021 14:50 TerryCulture Dinesh Laureano RN, M.D.;Beta-HCG, Qual STAT 14:49 04/04/2021 14:50 Ambrocioerum Dinesh Laureano RN, M.D.;Lactic Acid STAT 14:49 04/04/2021 14:50 Dinesh Blair RN, M.D.; [address] [facility] Emergency Department [address] [place] [address] Phone #: ext- [phone] 04/04/2021 12:57 Patient: LIA HAY Sex: F : 1980 Age: 40yDIAGNOSTIC STUDY ORDERSOrder Description Priority Entered Acknowledged InitialedCT Abd PEL W/ IV STAT 17:31 04/04/2021 17:55 TerryContrast Only Dinesh Laureano RN(Oxygen?(No)) M.DTricia;(IV?(Yes)) Reason for Study: epigastric pain, vomiting, x 24 hrsMEDICATION/IV/DRIP/FLUID ORDERSOrder Description Priority Entered Acknowledged InitialedNS IV 1000 mL 14:56 04/04/2021 15:27 TerryBolus: : Bolus 1000 Dinesh Laureano RNmL (X1) M.D.;Phenergan IV 25mg 14:56 04/04/2021 15:29 Terryin 50mL NS, give Dinesh Laureano RNwide open: 25 mg M.D.;(NOW x1, HIGHALERTMEDICATION)Protonix IV Push 40 14:56 04/04/2021 15:28 Terrymg (in 10 mL FELICITY, Dinesh Laureano RNadminister over at M.D.;least 2 minutes,NOW x1)Pepcid IVPB 20 14:56 04/04/2021 15:57 Terrymg/50mL (NOW x1, Dinesh Laureano RNInfuse over 30 M.D.;minutes.)Potassium Chloride 15:55 04/04/2021 Cancelled: Duplicate Order 16:19 Roma,Liquid PO 40 meq Dinesh Laureano M.D., M.D.;Potassium Chloride 16:19 04/04/2021 16:27 TerryIVPB 10 Dinesh Laureano RNmeq/100mL M.DTricia;Morphine IVP 4 mg 17:33 04/04/2021 18:10 Javier(HIGH ALERT Dinesh Laureano RNMEDICATION) Salena;LR IV : Bolus 750 18:40 04/04/2021 19:11 Chelsy,mL, then 150 mL/hr Dinesh Laureano R.N., M.D.;GENERAL ORDERS [address] [facility] Emergency Department [address] [place] [address] Phone #: ext- [phone] 04/04/2021 12:57 Patient: LIA HAY Sex: F : 1980 Age: 40yOrder Description Priority Entered Acknowledged InitialedNPO 14:49 04/04/2021 14:50 Dinesh Blair RN, M.D.;Saline Lock 14:49 04/04/2021 14:50 Dinesh Blair RN, M.D.;Consult - General 18:49 04/04/2021 19:49 StevenSurgery Dinesh Laureano RN, M.D.;Consult - 18:49 04/04/2021 19:49 StevenHospitalist Dinesh Laureano RN, M.D.;[Electronically signed by Merly Valetnino R.N. (21:02 04/04/2021)][Electronically signed by Dinesh Laureano M.D. (21:06 04/04/2021)][Electronically locked by Merly Valentino R.N. (21:02 04/04/2021)] Name Value Range Interpretation Code Description Data Molly rce(s) Supporting Document(s) ID Date Data Source [id number] 04/04/2021 01:05:[address] [facility] [address] [facility] Emergency Department [address] [place] [address] Phone #: ext- [phone] 04/04/2021 12:57 Patient: LIA HAY Sex: F : 1980 Age: 40yWeight: 72.1 kgHeight/Length: 63 in.BMI: 28.2ALLERGIES: MiraLax, Sulfa AntibioticsThe patient's Home Medications are listed below:THE FOLLOWING MEDICATIONS NEED TO BE RECONCILED: busPIRone HCl Oral (7.5 mg) Dicyclomine HCl Oral 20 mg Dulcolax Oral Esomeprazole Magnesium Oral Sucralfate Oral (1 gm) Zofran ODT OralThe source(s) of the original Home Medication information:Not obtained.The following Medications were given to the patient in the Emergency Department:NS [IV] IV Fluids bolus 1000 mL over 1 hour(s), administered: 15:15 1PROTONIX [IVP] IVP 40 mg, administered: 15:16 1Phenergan [IVPB] IVPB bolus 0, then 25 mg 100 mL/hr, administered: 15:18 1Pepcid [IVPB] IVPB bolus 0, then 20 mg 100 mL/hr, administered: 15:55 1Potassium Chloride [IVPB] IVPB bolus 0, then 10 meq 100 mL/hr, administered: 16:27 04/04/2021Morphine [IVP] IVP 4 mg, administered: 18:10 04/04/[address] [facility] Emergency Department [address] [place] [address] Phone #: ext- [phone] 04/04/2021 12:57 Patient: LIA HAY Sex: F : 1980 Age: 40yLR [IV] IV Fluids bolus 0, then 750 mL/hr, administered: 19:11 04/04/2021The following Medications were prescribed to the patient:None. Name Value Range Interpretation Code Description Data Molly rce(s) Supporting Document(s) ID Date Data Source [id number] 04/04/2021 01:05:[address] [facility] [address] [facility] Emergency Department [address] [place] [address] Phone #: ext- [phone] 04/04/2021 12:57 Patient: LIA HAY Sex: F : 1980 Age: 40yWeight: 72.1 kgHeight/Length: 63 inBMI: 28.2ALLERGIES: MiraLax, Sulfa Antibiotics Date/Time Medication Administered Medication OrderedStart NS [IV] NS IV 1000 mL Bolus: : Bolus 839909:15 04/04/2021 Dose: IV Fluids mL (X1)Javier Amador RN Bolus: 1000 mL over 1 hour(s)---- Dispensed: 1000 mL bagStop Site: #1 left AC17:45 04/04/2021TerNic Paniagua PHENERGAN [IVPB] Phenergan IV 25mg in 50mL NS,15:18 04/04/2021 Dose: 25 mg IVPB give wide open: 25 mg (NOW x1,Javier Amador RN Rate: 100 mL/hr over 30 minute(s) HIGH ALERT MEDICATION)---- Dispensed: 50 mL bagStop Site: #1 left AC15:50 04/04/2021Javier Amador RNGiven PROTONIX [IVP] (PANTOPRAZOLE Protonix IV Push 40 mg (in 10 mL15:16 04/04/2021 SODIUM) NS, administer over at least 2Terabi Amador RN Dose: 40 mg IVP minutes, NOW x1) Site: #1 left ACStart PEPCID [IVPB] Pepcid IVPB 20 mg/50mL (NOW15:55 04/04/2021 Dose: 20 mg IVPB x1, Infuse over 30 minutes.)Javier Amador RN Rate: 100 mL/hr over 30 minute(s)---- Dispensed: 50 mL bagStop Site: #1 left AC16:25 04/04/2021Nic Calle POTASSIUM CHLORIDE [IVPB] Potassium Chloride IVPB 1016:27 04/04/2021 Dose: 10 meq IVPB meq/100mLJavier Amador RN Rate: 100 mL/hr over 1 hour(s)---- Dispensed: 100 mL bagStop Site: #1 left AC17:45 04/04/2021Rolando Calle MORPHINE [IVP] Morphine IVP 4 mg (HIGH ALERT18:10 04/04/2021 Dose: 4 mg IVP MEDICATION)Javier Amador RN Site: #1 left ACStart LR [IV] LR IV : Bolus 750 mL, then 69437:11 04/04/2021 Dose: IV Fluids mL/hrMerly Valentino, R.NTricia Rate: 750 mL/hr over 2 hour(s)---- Dispensed: 1000 mL bagContinued Upon Admission Site: #1 left AC20:58 04/04/2021ofMerly puente RTriciaNTricia Name Value Range Interpretation Code Description Data Molly rce(s) Supporting Document(s) ID Date Data Source [id number] 04/04/2021 01:05:[address] [facility] [address] [facility] Emergency Department [address] [place] [address] Phone #: ext- [phone] 04/04/2021 12:57 Patient: LIA HAY Sex: F : 1980 Age: 40yIntractable vomiting with nausea.Gastroesophageal reflux disease. No esophagitis.Chronic gastritis. No alcoholic gastritis or hemorrhagic gastritis.Umbilical hernia. No obstruction or gangrene.Cyclic Vomiting Syndrome.(Electronically signed by Dinesh Laureano M.D. 04/04/2021 21:06) Name Value Range Interpretation Code Description Data Molly rce(s) Supporting Document(s) ID Date Data Source [id number] 04/04/2021 01:05:[address] [facility] 1 Clinical Report - Nurses [facility] Emergency Department [address] [place] [address] Phone #: ext- [phone] 04/04/2021 12:57 Patient: LIA HAY Sex: F : 1980 Age: 40yTRIAGEArrived by private vehicle. Historian: patient.Acuity: LEVEL 3.Chief Complaint: ABDOMINAL PAIN, NAUSEA and VOMITING.13:03 04/04/21. Alert. No acute distress.This started today. ( Pt reports generalized abdominal pain, worse in epigastric area since 0800. States she has vomited several times today. Denies diarrhea or fevers. Pt actively vomiting in triage.). Last oralintake by patient was dinner last night.Treatment PAEDIATRICIAN:None.SEPSIS SCREEN: SIRS SCREEN NEGATIVE: respiratory rate greater than 20. SEPSIS SCREENNEGATIVE. No suspected or confirmed signs of infection present. --13:03 10/6/21 June Padron R.N.13:03 04/04/2021 BP: 151/88. HR: 69. RR: 22. O2 saturation: 100%. Temp: 98.3 F. Pain level now 04/08.--13:03 04/04/21 June Padron R.N.Weight: 72.1 kg. Height/Length: 63 inches. BMI: 28.2. --13:02 04/04/21 June Padron R.N.MedicationsEsomeprazole Magnesium Oral. --15:15 04/04/21 June Padron R.N. Sucralfate Oral (Tablet 1 gm). --15:15 04/04/21 June Padron R.N. Dulcolax Oral. --15:15 04/04/21 June Padron R.N. Zofran ODT Oral. --15:15 04/04/21 June Padron R.N. Dicyclomine HCl Oral 20 mg. --15:15 04/04/21 June Padron R.N. busPIRone HCl Oral (Tablet 7.5 mg). --15:16 04/04/21 June Padron R.N.AllergiesSulfa Antibiotics. --13:01 04/04/21 June Padron R.N.M iraLax. --13:01 04/04/21 June Padron R.N.PROBLEMS:IBS. --13:01 04/04/21 June Padron R.N.Gastroesophageal Reflux Disease. --15:07 04/04/21 Dinesh Laureano M.D.The following entry was modified by Dinesh Laureano M.D., 15:07 04/04/21Gastroesophageal Reflux Disease. --13:00 04/04/21 June Padron R.N.. 2 Clinical Report - Nurses [facility] Emergency Department [address] [place] [address] Phone #: ext- [phone] 04/04/2021 12:57 [id number] Sex: F : 1980 Age: 40y ADDITIONAL SURGERIES: C section. Cholecystectomy. Jaw surgery. --13:04/04/21 June Padron R.N. Bunion. --13:04/04/21 June Padron R.N. History 13:04/04/21. PAST MEDICAL HX: Last normal menstrual period- Mar 09. SOCIAL HX: Never smoker. No alcohol use or drug use. She was offered HIV testing but declined and hepatitis C testing but declined. She has not traveled outside the [place] Infectious disease exposure: The patient was not exposed to C-diff, MRSA or Coronavirus. SELF HARM ASSESSMENT: Self harm assessment was performed. The patient answered "no" to the question(s) "Have you recently felt down, depressed, or hopeless?", "Do you have thoughts of harming or killing yourself?", "Do you have a plan for harming or killing yourself?" and "Have you recently had thoughts about harming or killing others?". ABUSE ASSESSMENT: No report of abuse. NUTRITIONAL RISK ASSESSMENT: The nutritional risk assessment revealed no deficiencies. FUNCTIONAL ASSESSMENT: Functional assessment: no impairments noted. LEARNING NEEDS ASSESSMENT: The learning needs assessment revealed no barriers. SKIN INTEGRITY ASSESSMENT: Skin integrity risk assessment completed. No skin integrity risk identified. --13:04/04/21 June Padron R.N. FALL RISK ASSESSMENT: Fall risk assessment completed. No risk factors identified. --21:04/04/21 Merly Valentino R.N. Interventions 13:03 04/04/21. Identification and allergy band on patient. To waiting room. --13:04/04/21 June Padron R.N.PHYSICAL [id number]:49 04/04/21. Ambulatory to room.GENERAL / NEURO / PSYCH: Alert. Oriented X 4. Appears in pain and anxious.RESPIRATORY: Respirations not labored. Breath sounds within normal limits.CVS: Capillary refill less than 2 seconds.GI / : Abdomen soft. Abdominal tenderness in the epigastric area. Bowel sounds within normal limits. 3 Clinical Report - Nurses [facility] Emergency Department [address] [place] [address] Phone #: ext- [phone] 04/04/2021 12:57 Patient: LIA HAY Sex: F : 1980 Age: 40y SKIN: Skin is warm and dry. --14:49 04/04/21 Javier Amador RN.NURSING PROGRESS NOTESPatient gowned. Head of bed elevated 45 degrees. Warming measures: blanket applied. Two patientidentifiers checked. Call light placed in reach. Bed placed in lowest position. Brakes of bed on. Patientready for evaluation- ED physician notified. --14:49 04/04/21 Javier Amador RN 15:04 04/04/2021 Site #1 started via IV in the left antecubital space with an 20g angiocath; one attempt. Blood drawn: tiger tube(s). --15:04 04/04/21 Javier Amador RN 15:00 04/04/21. BP: 126/80. MAP: 95. HR: 67. RR: 20. O2 saturation: 100%. --15:27 04/04/21 [facility] 15:15 04/04/2021 Started bag #1 1000 mL IV Fluids NS; bolus of 1000 mL over 1 hour(s) via site #1 via IV pump. Allergies verified and confirmed 5 rights. IV patency established. IV site checked: no pain, redness, or swelling. IV flushed thoroughly pre- and post-medication administration. Information reviewed with patient. --15:27 04/04/21 Javier Amador RN 15:16 04/04/2021 PROTONIX (Pantoprazole Sodium) IVP 40 mg given over 4 minute(s) via site #1. Allergies verified and confirmed 5 rights. IV patency established. IV site checked: no pain, redness, or swelling. IV flushed thoroughly pre- and post-medication administration. IVP given by RN. Information reviewed with patient. --15:28 04/04/21 Javier Amador RN 15:18 04/04/2021 Started 25 mg of Phenergan IVPB in bag #1 50 mL; at 100 mL/hr over 30 minute(s) via site #1. via IV pump. Allergies verified and confirmed 5 rights. IV patency established. IV site checked: no pain, redness, or swelling. IV flushed thoroughly pre- and post-medication administration. Information reviewed with patient. --15:29 04/04/21 Javier Amador RN 15:50 04/04/2021 Phenergan IVPB via IV site #1 Discontinued: bag #1 infused. Total amount infused: 50 mL. --15:56 04/04/21 Javier Amador RN 15:55 04/04/2021 Started 20 mg of Pepcid IVPB in bag #1 50 mL; at 100 mL/hr over 30 minute(s) via site #1. via IV pump. Allergies verified and confirmed 5 rights. IV patency established. IV site checked: no pain, redness, or swelling. IV flushed thoroughly pre- and post-medication administration. Information reviewed with patient. --15:57 04/04/21 Javier Amador RN 16:00 04/04/21. BP: 128/77. MAP: 94. HR: 79. RR: 16. O2 saturation: 100%. --16:14 04/04/21 [facility] 16:25 04/04/2021 Pepcid IVPB via IV site #1 Discontinued: bag #1 infused. Total amount infused: 50 mL. --16:26 04/04/21 Javier Amador RN 16:26 04/04/2021 IV Fluids NS via IV site #1 Bag Change: bag #1 infused. Total amount infused: 1000. STARTED bag #2 (1000 mL) at 1000 mL/hr via IV pump. Confirmed 5 rights. IV patency established. IV 4 Clinical Report - Nurses [facility] Emergency Department [address] [place] [address] Phone #: ext- [phone] 04/04/2021 12:57 Patient: LIA HAY Sex: F : 1980 Age: 40ysite checked: no pain, redness, or swelling. IV flushed thoroughly. --16:26 04/04/21 Javier Amador RN16:27 04/04/2021 Started 10 meq of Potassium Chloride IVPB in bag #1 100 mL; at 100 mL/hr over 1hour(s) via site #1. via IV pump. Allergies verified and confirmed 5 rights. IV patency established. IV sitechecked: no pain, redness, or swelling. IV flushed thoroughly pre- and post- medication administration.Information reviewed with patient. --16:27 04/04/21 Javier Amador RN17:00 04/04/21. BP: 131/86. MAP: 101. --17:10 04/04/21 [facility] 04/[facility]2021 IV Fluids NS via IV site #1 Discontinued: bag #2 infused. Total amount infused: 1000 mL.IV patency established. IV site checked: no pain, redness, or swelling. IV flushed thoroughly. --17: Javier rust RN17:45 04/04/2021 Potassium Chloride IVPB via IV site #1 Discontinued: bag #1 infused. Total amountinfused: 100 mL. IV patency established. IV site checked: no pain, redness, or swelling. IV flushedthoroughly. --17:56 04/04/21 MARC Calleatient transported to OR by wheelchair with mask and food science technician. ([id number]). --17:57 04/04/21 TRINA Arvizu18:06 04/04/21. BP: 132/63. HR: 72. RR: 12. O2 saturation: 100%. --18:07 04/04/21 [facility] delivery rnCarline Akins18:10 04/04/2021 Morphine IVP 4 mg given over 1 minute(s) via site #1. Allergies verified and confirmed 5rights. IV patency established. IV site checked: no pain, redness, or swelling. IV flushed thoroughly pre-and post- medication administration. IVP given by RN. Information reviewed including sedative warning (b/p132/63). --18:10 04/04/21 MARC Calleatient returned from CT by wheelchair with mask and food science technician. ([id number]). --18:10 04/04/21 TRINA Arvizu19:11 04/04/2021 Started bag #1 1000 mL IV Fluids LR; at 750 mL/hr over 2 hour(s) via site #1 via IVpump. IV patency established. IV site checked: no pain, redness, or swelling. IV flushed thoroughly pre-and post- medication administration. Information reviewed with patient. --19:11 04/04/21 Merly Valentino R.N.Rounding: Pain: assessed pain level. Position: states comfortable. Personal care / toileting: denies toiletingneeds. Proximity of possessions / care items: call light within easy reach. Plug ins: assured IV pumpplugged in; checked status of equipment in use; located all cords, tubes, and lines to prevent fall hazard.Set expectations: advised patient of rounding protocol timing and asked if they needed anything else at thistime. Reassessment after medication administered. Vomiting still present but improving. Overall patientstatus is improved. --19:13 04/04/21 Merly Valentino R.N.19:00 04/04/21. BP: 102/51. MAP: 68. HR: 70. RR: 12. O2 saturation: 100%. --19:35 04/04/21 [facility] ED 5 Clinical Report - Nurses [facility] Emergency Department [address] [place] [address] Phone #: ext- [phone] 04/04/2021 12:57 Patient: LIA HAY Sex: F : 1980 Age: 40y Fredy Akinsie 20:00 04/04/21. BP: 98/54. MAP: 68. HR: 52. RR: 12. O2 saturation: 100%. --20:18 04/04/21 [facility] reports no complaints and she is resting quietly. Patient waiting for admit bed. --20:54 04/04/21 Merly Valentino R.N. 20:57 04/04/21. BP: 118/68. MAP: 84. HR: 56. RR: 16. O2 saturation: 100%. Temp: 98.8 F (oral). Pain level now: 0/10. --20:58 04/04/21 Merly Valentino R.N. 20:58 04/04/2021 IV Fluids LR via IV site #1 Continued: upon admission at the rate of 150 mL/hr. 700 mL remaining bag #1. IV patency established. IV site checked: no pain, redness, or swelling. IV flushed thoroughly. --20:58 04/04/21 Merly Valentino R.N. 20:59 04/04/2021 Site #[address] upon admission; patent, no pain and no signs of infection or infiltration. Good blood return present. --20:59 04/04/21 Merly Valentino R.N.DISPOSITION / DISCHARGE Admitted to the Acute Inpatient Unit. Report was given to a nurse in person. Report included information regarding patient's care, allergies and condition, vital signs and labs. Report included treatment information regarding medications; type and amount of IV fluids and medications infusing. All questions were answered. Report was acknowledged and care was transferred. (GINETTE MENA). Patient's personal items; items were placed in belongings bag, given to the patient and transported with the patient. --21:04/04/21 Merly Valentino R.N. Departure time: 21:00 04/04/2021. --21:01 04/04/21 Merly Valentino R.N.Locked/Released at 04/04/2021 21:02 by Merly Valentino R.N. Name Value Range Interpretation Code Description Data Molly rce(s) Supporting Document(s) ID Date Data Source [id number] 04/04/2021 01:05:[address] [facility] 1 Clinical Report - Physicians/Mid Levels [facility] Emergency Department [address] [place] [address] Phone #: ext- [phone] 04/04/2021 12:57 Patient: LIA HAY Sex: F : 1980 Age: 40y Time Seen: 14:47 04/04/2021; initial patient contact. Arrived- By private vehicle. Historian- patient. Disposition decision: 18:47 04/04/2021.HISTORY OF PRESENT ILLNESS Chief Complaint: VOMITING. ABDOMINAL PAIN and NAUSEA. No recent travel. She has had severe nausea and moderate, intermittent abdominal pain. The pain is described as located in the upper abdomen and epigastrium and associated with nausea and vomiting. She has had severe vomiting. The vomiting has occurred several times. No blood-tinged emesis or frankly bloody emesis. No diarrhea, black stools, bloody stools, constipation or flank pain. No history of possible bad food exposure, known contact with a sick individual or change in routine. Has not recently been camping or on antibiotics. This started today and is still present. The illness is described as severe. Similar symptoms previously. Patient has had similar symptoms frequently. ( was here in 09/2020 for same, cyclic vomiting syndrome probably 2nd to Cannabis, which she reduced to 1x/week; pt saw GI 10/2020 and had nml upper endoscopy). Recent medical care: Not recently seen/assessed.REVIEW OF SYSTEMSNo fever, muscle aches, difficulty with urination, dark urine or headache. No dizziness, sore throat, cough,chest pain or difficulty breathing. No excessive urination, skin rash, jaundice, back pain or faintingepisodes. No blurred vision. All other systems reviewed and are negative.PAST HISTORYSee nurses notes. Problems: Hypertension. Irritable bowel syndrome (disorder). Gastroesophageal Reflux Disease. Anxiety Reaction. Depression. Chronic abdominal pain. Additional Surgeries: Cholecystectomy. . (X 2) Foot surgery. Jaw surgery. 2 Clinical Report - Physicians/Mid Levels [facility] Emergency Department [address] [place] [address] Phone #: ext- [phone] 04/04/2021 12:57 Patient: LIA HAY Sex: F : 1980 Age: 40y Tubal Ligation. Medications: busPIRone HCl Oral (Tablet 7.5 mg). Dicyclomine HCl Oral 20 mg. Zofran ODT Oral. Dulcolax Oral. Sucralfate Oral (Tablet 1 gm). Esomeprazole Magnesium Oral. Allergies: MiraLax. Sulfa Antibiotics.SOCIAL HISTORYNever smoker. No alcohol use or drug use. No recent travel.ADDITIONAL NOTESThe nursing notes have been reviewed with agreement regarding the chief complaint, HPI, ROS, PMH andpatient medications and allergies.PHYSICAL EXAMVital Signs: 04/04/2021 13:03 BP: 151/88. MAP: 109. HR: 69. RR: 22. O2 saturation: 100%. Temp: 98.3F. Have been reviewed. Oxygen saturation normal.Appearance: Alert. Oriented X3. Anxious. Appears to be in pain. Patient in moderate distress.Distress appears due to pain.Eyes: Pupils equal, round and reactive to light. Eyes normal inspection.ENT: Nose normal. Pharynx normal.Neck: Normal inspection. Neck supple.CVS: Normal heart rate and rhythm. Heart sounds normal. Pulses normal.Respiratory: No respiratory distress. Painless inspiration. Breath sounds normal.Abdomen: Soft. Moderate tenderness in the epigastric area with guarding present. No reboundtenderness or Resendez's sign present. Bowel sounds normal. No organomegaly. No mass. Femoralpulses equal.Back: Normal inspection. No CVA tenderness.Skin: Skin warm and dry. Normal skin color. No rash. Normal skin turgor.Extremities: Extremities exhibit normal ROM. No lower extremity edema.Neuro: Oriented X 3. No motor deficit. No sensory deficit.LABS, X-RAYS, AND EKGAbdominal CT: see report; no epigastric findings, increased size of fat containing umbilical hernia wincreased inflammation, no herniated bowel, neck of hernia fairly wide, no bowel obstruction, r/oincarcerated hernia? Study type: abdomen and pelvis. Abdominal CT performed with IV contrast. Thestudy was interpreted by the radiologist. Interpretation time: 18:27 04/04/2021.Laboratory Tests: Laboratory tests have been ordered, with results reviewed and considered in the 3 Clinical Report - Physicians/Mid Levels [facility] Emergency Department [address] [place] [address] Phone #: ext- [phone] 04/04/2021 12:57 Patient: LIA HAY Sex: F : 1980 Age: 40ymedical decision making process.Lipase: (CHERI: 04/04/2021 13:22) ( MsgRcvd 04/04/2021 15:11) Final results Test Result Flag Units (Reference) LIPASE 17 U/L (13 - 60)Beta-HCG, Qual Serum: (CHERI: 04/04/2021 13:22) ( MsgRcvd 04/04/2021 15:06) Final results Test Result Flag Units (Reference) HCG SERUM QUAL NEGATIVE (NORMAL: NEGAT HCG SERUM QL REENTER NEGATIVE (NORMAL: NEGAT { KIT LOT # [id number] ){ KIT EXP DATE06/29/22 ){ PROCEDURAL CONTROL VALID)Lactic Acid: (CHERI: 04/04/2021 15:00) ( MsgRcvd 04/04/2021 15:12) Final results Test Result Flag Units (Reference) LACTIC ACID 2.2 MMOL/L (0.2 - 2.2)CBC w Diff: (CHERI: 04/04/2021 13:22) ( MsgRcvd 04/04/2021 15:13) Final results Test Result Flag Units (Reference) CBC W/AUTOMATED DIFF COMPLETE BLOOD COUNT WBC 12.1 H 10/uL (4.2 - 11.0) RBC 5.24 10/uL (4.20 - 5.40) HEMOGLOBIN 14.3 g/dL (12.0 - 16.0) HEMATOCRIT 44.8 % (37.0 - 47.0) MCV 85.5 fL (81.0 - 101) MCH 27.3 pg (27.0 - 34.0) MCHC 31.9 g/dL (31.0 - 36.0) RDW 14.4 % (11.5 - 14.5) PLATELETS 172 10/uL (150 - 450) MPV 11.5 H fL (7.4 - 10.4) NEUT 77.6 % (37.0 - 80.0) LYMPH 17.1 L % (25.0 - 40.0) MONO 4.1 % (3.0 - 8.0) EOS 0.3 % (0.0 - 7.0) BASO 0.7 % (0.0 - 2.5) %IG 0.2 H % (0.0 - 0.0) %NRBC 0.0 % (0.0 - 0.0) #NEUT 9.41 H 10/uL (2.00 - 6.90) #LYMPH 2.07 10/uL (0.60 - 3.40) #MONO 0.50 10/uL (0.00 - 0.90) #EOS 0.04 10/uL (0.00 - 0.70) #BASO 0.08 10/uL (0.00 - 0.20) #IG 0.03 10/uL (0.00 - 0.10) #NRBC 0.00 10/uL (0.00 - 0.00) MANUAL DIFF SEE BELOW SEGS 79 % (37 - 80) %LYMPH 14 L % (25 - 40) %MONO 6 % (3 - 8) %EOS 1 % (0 - 7) RBC MORPH SEE BELOW ANISO 1+ A (NORMAL: NONE { SICKLE CELL (NORMAL: NONE SEEN ) TARGET CELLS 1+ A (NORMAL: NONE 4 Clinical Report - Physicians/Mid Levels [facility] Emergency Department [address] [place] [address] Phone #: ext- [phone] 04/04/2021 12:57 Patient: LIA HAY Sex: F : 1980 Age: 40y PLT EST NORMAL (NORMAL: JUDY COMMENT: _Few_large_platelets_observed. 04/04/21.1511.MRW.. . __CMP: (CHERI: 04/04/2021 13:22) ( MsgRcvd 04/04/2021 15:32) Final results Test Result Flag Units (Reference) COMPREHENSIVE METABOLIC PANEL COMPREHENSIVE METABOLIC PANEL SODIUM 143 mEq/L (134 - 153) POTASSIUM 3.5 L mEq/L (3.6 - 5.0) CHLORIDE 103 mEq/L (98 - 107) CO2 23 MEQ/L (22 - 30) GLUCOSE 114 H MG/DL (70 - 99) BUN 5 L MG/DL (7 - 21) CREATININE 0.8 MG/DL (0.7 - 1.5) BUN/CREAT 6 L (8 - 27) TOTAL PROTEIN 7.6 G/DL (6.3 - 8.2) ALBUMIN 4.7 G/DL (3.9 - 5.0) GLOBULIN 2.9 GM/DL (2.4 - 3.2) A/G RATIO 1.6 (0.8 - 2.0) CALCIUM 10.2 MG/DL (8.4 - 10.2) TOTAL BILI <0.7 MG/DL (0.2 - 1.3) ALKALINE PHOS 79 U/L (38 - 126) SGOT/AST 14 U/L (5 - 40) SGPT/ALT 10 U/L (7 - 56) ANION GAP 17.0 H mmol/L (8.0 - 16.0) AGE 40 yrs NON-AA GFR >60 mL/min AFR AMER GFR >60 mL/min Male GFR Interprentation 20-49 yrs >60 mL/min Xnbpeq96-75 yrs >56 mL/min Normal 60-69 yrs >49 mL/min Normal 70-79yrs>42 mL/min Normal 80 and above >35 mL/min Normal Female GFRInterpretation 20-39 yrs >60 mL/min Normal 40-49 yrs >58 mL/minNormal 50-59 yrs >51 mL/min Normal 60-69 yrs >45 mL/min Eelewh24-85 yrs >39 mL/min Normal 80 and above >32 mL/min NormalBeta-HCG, Qual Urine: (CHERI: 04/04/2021 13:12) ( MsgRcvd 04/04/2021 13:57) CanceledUrinalysis: (CHERI: 04/04/2021 13:12) ( MsgRcvd 04/04/2021 13:57) CanceledSOURCE: Clean CatchCMP: (CHERI: 04/04/2021 13:22) ( MsgRcvd 04/04/2021 15:32) Final results Test Result Flag Units (Reference) COMPREHENSIVE METABOLIC PANEL COMPREHENSIVE METABOLIC PANEL SODIUM 143 mEq/L (134 - 153) POTASSIUM 3.5 L mEq/L (3.6 - 5.0) CHLORIDE 103 mEq/L (98 - 107) CO2 23 MEQ/L (22 - 30) GLUCOSE 114 H MG/DL (70 - 99) BUN 5 L MG/DL (7 - 21) CREATININE 0.8 MG/DL (0.7 - 1.5) 5 Clinical Report - Physicians/Mid Levels [facility] Emergency Department [address] [place] [address] Phone #: ext- [phone] 04/04/2021 12:57 Patient: LIA HAY Sex: F : 1980 Age: 40y BUN/CREAT 6 L (8 - 27) TOTAL PROTEIN 7.6 G/DL (6.3 - 8.2) ALBUMIN 4.7 G/DL (3.9 - 5.0) GLOBULIN 2.9 GM/DL (2.4 - 3.2) A/G RATIO 1.6 (0.8 - 2.0) CALCIUM 10.2 MG/DL (8.4 - 10.2) TOTAL BILI <0.7 MG/DL (0.2 - 1.3) ALKALINE PHOS 79 U/L (38 - 126) SGOT/AST 14 U/L (5 - 40) SGPT/ALT 10 U/L (7 - 56) ANION GAP 17.0 H mmol/L (8.0 - 16.0) AGE 40 yrs NON-AA GFR >60 mL/min AFR AMER GFR >60 mL/min Male GFR Interprentation 20-49 yrs >60 mL/min Mfxolm06-64 yrs >56 mL/min Normal 60-69 yrs >49 mL/min Normal 70-79yrs>42 mL/min Normal 80 and above >35 mL/min Normal Female GFRInterpretation 20-39 yrs >60 mL/min Normal 40-49 yrs >58 mL/minNormal 50-59 yrs >51 mL/min Normal 60-69 yrs >45 mL/min Ysaoog08-47 yrs >39 mL/min Normal 80 and above >32 mL/min NormalCBC w Diff: (CHERI: 04/04/2021 13:22) ( MsgRcvd 04/04/2021 13:57) Can celed Test Result Flag Units (Reference) CBC W/AUTOMATED DIFF COMPLETE BLOOD COUNT WBC 12.1 H 10/uL (4.2 - 11.0) RBC 5.24 10/uL (4.20 - 5.40) HEMOGLOBIN 14.3 g/dL (12.0 - 16.0) HEMATOCRIT 44.8 % (37.0 - 47.0) MCV 85.5 fL (81.0 - 101) MCH 27.3 pg (27.0 - 34.0) MCHC 31.9 g/dL (31.0 - 36.0) RDW 14.4 % (11.5 - 14.5) PLATELETS 172 10/uL (150 - 450) MPV 11.5 H fL (7.4 - 10.4) NEUT 77.6 % (37.0 - 80.0) LYMPH 17.1 L % (25.0 - 40.0) MONO 4.1 % (3.0 - 8.0) EOS 0.3 % (0.0 - 7.0) BASO 0.7 % (0.0 - 2.5) %IG 0.2 H % (0.0 - 0.0) %NRBC 0.0 % (0.0 - 0.0) #NEUT 9.41 H 10/uL (2.00 - 6.90) #LYMPH 2.07 10/uL (0.60 - 3.40) #MONO 0.50 10/uL (0.00 - 0.90) #EOS 0.04 10/uL (0.00 - 0.70) #BASO 0.08 10/uL (0.00 - 0.20) #IG 0.03 10/uL (0.00 - 0.10) #NRBC 0.00 10/uL (0.00 - 0.00) MANUAL DIFF SEE BELOW SEGS 79 % (37 - 80) %LYMPH 14 L % (25 - 40) %MONO 6 % (3 - 8) %EOS 1 % (0 - 7) RBC MORPH SEE BELOW ANISO 1+ A (NORMAL: NONE { SICKLE CELL (NORMAL: NONE SEEN ) TARGET CELLS 1+ A (NORMAL: NONE 6 Clinical Report - Physicians/Mid Levels [facility] Emergency Department [address] [place] [address] Phone #: ext- [phone] 04/04/2021 12:57 Patient: LIA HAY Sex: F : 1980 Age: 40y PLT EST NORMAL (NORMAL: JUDY COMMENT: _Few_large_platelets_observed. 04/04/21.1334.MRW. . . .PROGRESS AND PROCEDURESCourse of Care: 15:56 04/04/21. workup all in and reviewed; WBC 39729, K 3.5, rest is nml, incl. lipase,lactic, will reassess soon, will give some IV KCL 16:28 04/04/21. vomiting has stopped, sleeping comfortably 17:31 04/04/21. still has epigastric pain to palpation, no vomiting, will do CTAP w IV, and probably admit afterwards 18:44 04/04/21. CTAP w IV results in and reviewed, discussed w radiologist then findings discussed w Dr. Cole, surgeon on-call; pt has NO umbilical pain, just high epigastric pain; after discussion, we doubt that there is an incarcerated hernia; he will see pt in the am as a consult since she will be admitted; case discussed w Stefany Hill, LABORATORY MECHANIC HELPER hospitalist, who will admit. Critical care performed (60 minutes). Time is exclusive of separately billable procedures. Time includes: direct patient care, patient reassessment, coordination of patient care, interpretation of data (laboratory data), medical consultation and documentation of patient care- see progress notes. Patient counseled in person regarding the patient's stable condition, test results, diagnosis and need for admission. Patient agrees with plan of care. Disposition: Condition: good and stable. Admit decision based on need for further evaluation, observation, IV therapy, hydration and medications, pain control and stabilization of condition.CLINICAL IMPRESSION Intractable vomiting with nausea. Gastroesophageal reflux disease. No esophagitis. Chronic gastritis. No alcoholic gastritis or hemorrhagic gastritis. Umbilical hernia. No obstruction or gangrene. Cyclic Vomiting Syndrome.(Electronically signed by Dinesh Laureano M.D. 04/04/2021 21:06) 7Clinical Report - Physicians/Mid Levels [facility] Emergency Department [address] [place] [address] Phone #: ext- [phone] 04/04/2021 12:57 Patient: LIA HAY Sex: F : 1980 Age: 40y Name Value Range Interpretation Code Description Data Molly rce(s) Supporting Document(s) ID Date Data Source [id number] 04/04/2021 01:05:[address] [facility] Addenda LIA Morton VisitID: [id number] Date: 20:41FAXED OVERVIEW AND MED REC TO [facility] AND OVERVIEW TO [facility] AT 2009(Electronically signed by Alice Lopez - 04/04/2021 20:41)04/04/2021 20:41AT THIS TIME WE ARE AWAITING A BED ASSIGNMENT(Electronically signed by Alice Lopez - 04/04/2021 20:41) Name Value Range Interpretation Code Description Data Molly rce(s) Supporting Document(s) ID Date Data Source [id number] 04/04/2021 03:12:[address] [facility] Name Value Range Interpretation Code Description Data Molly rce(s) Supporting Document(s) Lactate [Moles/volume] in Serum or Plasma 2.2 MMOL/L 0.2 - 2.2 [facility] ID Date Data Source [id number] 04/04/2021 03:32:[address] [facility] Name Value Range Interpretation Code Description Data Molly rce(s) Supporting Document(s) COMPREHENSIVE METABOLIC PANEL [facility] COMPREHENSIVE METABOLIC PANEL Sodium [Moles/volume] in Serum or Plasma 143 mEq/L 134 - 153 [facility] Potassium [Moles/volume] in Serum or Plasma 3.5 mEq/L 3.6 - 5.[address] [facility] Chloride [Moles/volume] in Serum or Plasma 103 mEq/L 98 - 107 [facility] Carbon dioxide, total [Moles/volume] in Serum or Plasma 23 MEQ/L 22 - 30 [facility] Glucose [Mass/volume] in Serum or Plasma 114 MG/DL 70 - [address] [facility] BUN 5 MG/DL 7 - 21 L [facility] Creatinine [Mass/volume] in Serum or Plasma 0.8 MG/DL 0.7 - 1.5 [facility] BUN/CREAT 6 8 - 27 L [facility] Protein [Mass/volume] in Serum or Plasma 7.6 G/DL 6.3 - 8.2 [facility] Albumin [Mass/volume] in Serum or Plasma 4.7 G/DL 3.9 - 5.0 [facility] Globulin [Mass/volume] in Serum by calculation 2.9 GM/DL 2.4 - 3.2 [facility] A/G RATIO 1.6 0.8 - 2.0 [facility] Calcium [Mass/volume] in Serum or Plasma 10.2 MG/DL 8.4 - 10.2 [facility] Bilirubin.total [Mass/volume] in Serum or Plasma <0.7 MG/DL 0.2 - 1.3 [facility] Alkaline phosphatase [Enzymatic activity/volume] in Serum or Plasma 79 U/L 38 - 126 [facility] Aspartate aminotransferase [Enzymatic activity/volume] in Serum or Plasma 14 U/L 5 - 40 [facility] Alanine aminotransferase [Enzymatic activity/volume] in Seru m or Plasma 10 U/L 7 - 56 [facility] Anion gap 3 in Serum or Plasma 17.0 mmol/L 8.0 - 16.[address] [facility] AGE 40 yrs [facility] al NON-AA GFR >60 mL/min [facility] ital AFR AMER GFR >60 mL/min [facility] Male GFR In terprentation 20-49 yrs >60 mL/min Normal 50-59 yrs >56 mL/min Normal 60-69 yrs >49 mL/min Normal 70-79yrs >42 mL/min Normal 80 and above >35 mL/min Normal Female GFR Interpretation 20-39 yrs >60 mL/min Normal 40-49 yrs >58 mL/min Normal 50-59 yrs >51 mL/min Normal 60-69 yrs >45 mL/min Normal 70-79 yrs >39 mL/min Normal 80 and above >32 mL/min Normal ID Date Data Source [id number] 04/04/2021 03:32:[address] [facility] Name Value Range Interpretation Code Description Data Molly rce(s) Supporting Document(s) COMPREHENSIVE METABOLIC PANEL [facility] COMPREHENSIVE METABOLIC PANEL Sodium [Moles/volume] in Serum or Plasma 143 mEq/L 134 - 153 [facility] Potassium [Moles/volume] in Serum or Plasma 3.5 mEq/L 3.6 - 5.[address] [facility] Chloride [Moles/volume] in Serum or Plasma 103 mEq/L 98 - 107 [facility] Carbon dioxide, total [Moles/volume] in Serum or Plasma 23 MEQ/L 22 - 30 [facility] Glucose [Mass/volume] in Serum or Plasma 114 MG/DL 70 - [address] [facility] BUN 5 MG/DL 7 - 21 L [facility] Creatinine [Mass/volume] in Serum or Plasma 0.8 MG/DL 0.7 - 1.5 [facility] BUN/CREAT 6 8 - 27 L [facility] Protein [Mass/volume] in Serum or Plasma 7.6 G/DL 6.3 - 8.2 [facility] Albumin [Mass/volume] in Serum or Plasma 4.7 G/DL 3.9 - 5.0 [facility] Globulin [Mass/volume] in Serum by calculation 2.9 GM/DL 2.4 - 3.2 [facility] A/G RATIO 1.6 0.8 - 2.0 [facility] Calcium [Mass/volume] in Serum or Plasma 10.2 MG/DL 8.4 - 10.2 [facility] Bilirubin.total [Mass/volume] in Serum or Plasma <0.7 MG/DL 0.2 - 1.3 [facility] Alkaline phosphatase [Enzymatic activity/volume] in Serum or Plasma 79 U/L 38 - 126 [facility] Aspartate aminotransferase [Enzymatic activity/volume] in Serum or Plasma 14 U/L 5 - 40 [facility] Alanine aminotransferase [Enzymatic activity/volume] in Seru m or Plasma 10 U/L 7 - 56 [facility] Anion gap 3 in Serum or Plasma 17.0 mmol/L 8.0 - 16.[address] [facility] 40 [facility] >60 mL/min [facility] ital AFR AMER GFR >60 mL/min [facility] sp[facility] Male GFR In terprentation 20-49 yrs >60 mL/min Normal 50-59 yrs >56 mL/min Normal 60-69 yrs >49 mL/min Normal 70-79yrs >42 mL/min Normal 80 and above >35 mL/min Normal Female GFR Interpretation 20-39 yrs >60 mL/min Normal 40-49 yrs >58 mL/min Normal 50-59 yrs >51 mL/min Normal 60-69 yrs >45 mL/min Normal 70-79 yrs >39 mL/min Normal 80 and above >32 mL/min Normal ID Date Data Source [id number] 04/04/2021 03:11:[address] [facility] Name Value Range Interpretation Code Description Data Molly rce(s) Supporting Document(s) CBC W/AUTOMATED DIFF [facility] COMPLETE BLOOD COUNT Leukocytes [#/volume] in Blood by Automated count 12.1 10^3/uL 4.2 - 11.[address] [facility] Erythrocytes [#/volume] in Blood by Automated count 5.24 10^6/uL 4. 20 - 5.40 [facility] Hemoglobin [Mass/volume] in Blood 14.3 g/dL 12.0 - 16.0 [facility] Hematocrit [Volume Fraction] of Blood by Automated count 44.8 % 3 7.0 - 47.0 [facility] Erythrocyte mean corpuscular volume [Entitic volume] by Auto mated count 85.5 fL 81.0 - 101 [facility] Erythrocyte mean corpuscular hemoglobin [Entitic mass] by Automated count 27.3 pg 27.0 - 34.0 [facility] Erythrocyte mean corpuscular hemoglobin concentration [Mass/volume] by Automated count 31.9 g/dL 31.0 - 36.0 [facility] Erythrocyte distribution width [Ratio] by Automated count 14.4 % 11.5 - 14.5 [facility] Platelets [#/volume] in Blood by Automated count 172 10^3/uL 150 - [address] [facility] Platelet mean volume [Entitic volume] in Blood by Automated count 11.5 fL 7.4 - 10.[address] [facility] Neutrophils/100 leukocytes in Blood by Automated count 77.6 % 37. 0 - 80.0 [facility] Lymphocytes/100 leukocytes in Blood by Manual count 17.1 % 25.0 - 40.[address] [facility] Monocytes/100 leukocytes in Blood by Automated count 4.1 % 3.0 - 8.0 [facility] Eosinophils/100 leukocytes in Blood by Automated count 0.3 % 0.0 - 7.0 [facility] Basophils/100 leukocytes in Blood by Automated count 0.7 % 0.0 - 2.5 [facility] %IG 0.2 % 0.0 - 0.0 H [facility] al %NRBC 0.0 % 0.0 - 0.0 [facility] Neutrophils [#/volume] in Blood by Automated count 9.41 10^3/uL 2.00 - 6.[address] [facility] Lymphocytes [#/volume] in Blood by Automated count 2.07 10^3/uL 0.60 - 3.40 [facility] [facility] Monocytes [#/volume] in Blood by Automated count 0.50 10^3/uL 0.00 - 0.90 [facility] Eosinophils [#/volume] in Blood by Automated count 0.04 10^3/uL 0.00 - 0.70 [facility] Basophils [#/volume] in Blood by Automated count 0.08 10^3/uL 0.00 - 0.20 [facility] #IG 0.03 10^3/uL 0.00 - 0.10 [facility] #NRBC 0.00 10^3/uL 0.00 - 0.00 [facility] ospital MANUAL DIFF SEE BELOW [facility] ital Segmented neutrophils/100 leukocytes in Blood by Manual count 79 % 37 - 80 [facility] %LYMPH 14 % 25 - 40 L [facility] al %MONO 6 % 3 - 8 [facility] %EOS 1 % 0 - 7 [facility] RBC MORPH SEE BELOW [facility] Anisocytosis [Presence] in Blood by Light microscopy 1+ JUDY L: NONE SEEN A [facility] { SICKLE CELL (NORMAL: NONE SEEN ) Target cells [Presence] in Blood by Light microscopy 1+ JUDY L: NONE SEEN A [facility] Platelet adequacy [Presence] in Blood by Light microscopy NORMAL NORMAL: NORMAL [facility] COMMENT: _Few_large_platelets_observ ed. 04/04/21.MRW. . . ___ ID Date Data Source [id number] 04/04/2021 03:11:[address] [facility] Name Value Range Interpretation Code Description Data Molly rce(s) Supporting Document(s) Lipase [Enzymatic activity/volume] in Serum or Plasma 17 U/L 13 - 60 [facility] ID Date Data Source [id number] 04/04/2021 03:06:[address] [facility] Name Value Range Interpretation Code Description Data Molly rce(s) Supporting Document(s) HCG SERUM QUAL NEGATIVE NORMAL: NEGATIVE [facility] HCG SERUM QL REENTER NEGATIVE NORMAL: NEGATIVE Ca [facility] { KIT LOT # [id number] ){ KIT EXP DATE 06/29/22 ){ PROCEDURAL CONTROL VALID ) ID Date Data Source [id number] 04/04/2021 01:34:[address] [facility] Name Value Range Interpretation Code Description Data Molly rce(s) Supporting Document(s) CBC W/AUTOMATED DIFF [facility] COMPLETE BLOOD COUNT Leukocytes [#/volume] in Blood by Automated count 12.1 10^3/uL 4.2 - 11.[address] [facility] Erythrocytes [#/volume] in Blood by Automated count 5.24 10^6/uL 4. 20 - 5.40 [facility] Hemoglobin [Mass/volume] in Blood 14.3 g/dL 12.0 - 16.0 [facility] Hematocrit [Volume Fraction] of Blood by Automated count 44.8 % 3 7.0 - 47.0 [facility] Erythrocyte mean corpuscular volume [Entitic volume] by Auto mated count 85.5 fL 81.0 - 101 [facility] Erythrocyte mean corpuscular hemoglobin [Entitic mass] by Automated count 27.3 pg 27.0 - 34.0 [facility] Erythrocyte mean corpuscular hemoglobin concentration [Mass/volume] by Automated count 31.9 g/dL 31.0 - 36.0 [facility] Erythrocyte distribution width [Ratio] by Automated count 14.4 % 11.5 - 14.5 [facility] Platelets [#/volume] in Blood by Automated count 172 10^3/uL 150 - [address] [facility] Platelet mean volume [Entitic volume] in Blood by Automated count 11.5 fL 7.4 - 10.[address] [facility] Neutrophils/100 leukocytes in Blood by Automated count 77.6 % 37. 0 - 80.0 [facility] Lymphocytes/100 leukocytes in Blood by Manual count 17.1 % 25.0 - 40.[address] [facility] Monocytes/100 leukocytes in Blood by Automated count 4.1 % 3.0 - 8.0 [facility] Eosinophils/100 leukocytes in Blood by Automated count 0.3 % 0.0 - 7.0 [facility] Basophils/100 leukocytes in Blood by Automated count 0.7 % 0.0 - 2.5 [facility] %IG 0.2 % 0.0 - 0.0 [facility] %[facility] 0.0 % 0.0 - 0.0 [facility] Neutrophils [#/volume] in Blood by Automated count 9.41 10^3/uL 2.00 - 6.[address] [facility] Lymphocytes [#/volume] in Blood by Automated count 2.07 10^3/uL 0.60 - 3.40 [facility] Monocytes [#/volume] in Blood by Automated count 0.50 10^3/uL 0.00 - 0.90 [facility] Eosinophils [#/volume] in Blood by Automated count 0.04 10^3/uL 0.00 - 0.70 [facility] Basophils [#/volume] in Blood by Automated count 0.08 10^3/uL 0.00 - 0.20 [facility] #IG 0.03 10^3/uL 0.00 - 0.10 [facility] #NRBC 0.00 10^3/uL 0.00 - 0.00 [facility] MANUAL DIFF SEE BELOW [facility]osp ital Segmented neutrophils/100 leukocytes in Blood by Manual count 79 % 37 - 80 [facility] %LYMPH 14 % 25 - 40 L [facility] al %MONO 6 % 3 - 8 [facility] al %EOS 1 % 0 - 7 [facility] al RBC MORPH SEE BELOW [facility] al Anisocytosis [Presence] in Blood by Light microscopy 1+ JUDY L: NONE SEEN A [facility] { SICKLE CELL (NORMAL: NONE SEEN ) Target cells [Presence] in Blood by Light microscopy 1+ JUDY L: NONE SEEN A [facility] Platelet adequacy [Presence] in Blood by Light microscopy NORMAL NORMAL: NORMAL [facility] COMMENT: _Few_large_platelets_observ ed. 04/04/21.1334.MRW. . . ___ ID Date Data Source [id number] 12/25/2020 01:46:00 PM EDT [facility] Name Value Range Interpretation Code Description Data Molly rce(s) Supporting Document(s) SARS COVID ANTIGEN NEGATIVE [facility] This lab was ordered by MATT rangel nd reported by [facility]. ID Date Data Source Coronavirus 2019 Nasopharygeal (Send Out) COVID 12/25/2020 1 2:00:00 AM EDT eCW1 ([facility]) Name Value Range Interpretation Code Description Data Molly rce(s) Supporting Document(s) Coronavirus 2019 Nasophar ygeal (Send Out) COVID eCW1 ([facility]) ID Date Data Source KELLEE COVID AG (Point of Care) 12/25/2020 12:00:00 AM EDT eC W1 ([facility]) Name Value Range Interpretation Code Description Data Molly rce(s) Supporting Document(s) NEGATIVE NEGATIVE [facility] COVID ANTIGEN eCW1 ([facility]) ID Date Data Source [id number] 11/16/2020 11:25:00 AM EDT [facility] Name Value Range Interpretation Code Description Data Molly rce(s) Supporting Document(s) SARS-CoV-2 (COVID-19) RNA [Presence] in Respiratory specimen by PRITI with probe detection Not Detected [facility] This lab was ordered by [facility] and reported by [employer]. ID Date Data Source [id number] 10/18/2020 06:30:00 AM EDT [facility] Name Value Range Interpretation Code Description Data Molly rce(s) Supporting Document(s) COVID-19 RT-PCR NASAL SWAB Not Detected Not Detected [facility] A not detected (negative) test result fo r this test means that SARS-CoV-2 RNA was not present in the specimen above the limit ofdetection. Laboratory test results should always be considered in thecontext of clinical observations and epidemiological data in making afinal diagnosis and patient management decisions. Results will bereported to government agencies as required.This test has received Emergency Use Authorization (EUA). We will continue to follow federal and state requirements for COVID-19 reporting. This test has been authorized only for the detection of RNAfrom SARS-CoV-2 virus and diagnosis of SARS-CoV-2 virus infection, notfor any other viruses or pathogens. This test is only authorized for the duration of the declaration that circumstances exist justifying the authorization of the emergency use of in vitro diagnostic tests for detection of SARS-CoV-2 virus and/or diagnosis of SARS-CoV-2 virusinfection under section 564(b)(1) of the Act, 21 U.S.C. section 360bbb-3(b)(1), unless the authorization is terminated or revoked sooner. We will continue to follow federal and state requirements for both notification of results and any confirmatory testing that is required by another agency. This test was developed and its performance characteristics determined by [employer] and verified at [employer]. It has not been cleared or approved by the U.S. Food and Drug Administration for diagnostic use. This test has been authorized by FDA under an EUA for use by authorized laboratories. Results should be used in conjunction with clinical findings, and should not form the sole basis for a diagnosis or treatment decision. Methods: SARS-CoV-2 Multiplex RT-PCR Assay ID Date Data Source [id number] 10/13/2020 05:30:00 PM EDT [facility] Name Value Range Interpretation Code Description Data Molly rce(s) Supporting Document(s) SARS-CoV-2 (COVID-19) N gene [Presence] in Respiratory specimen by PRITI with probe detection NEGATIVE [facility] This lab was ordered by Yordan Cagle [facility] and reported by [employer]. ID Date Data Source [id number] 10/13/2020 12:00:00 AM EDT [facility] Name Value Range Interpretation Code Description Data Molly rce(s) Supporting Document(s) Carestart Rapid COVID Antigen Test Negative [facility] This lab was reported by Yordan [facility]. ID Date Data Source [id number] 10/09/2020 01:20:00 [place] [address] CONSULTATIONNAME: SERA Cagle ROOM#: 100-1DATE OF : 1980 MR#: [id number] PHYS: WILI Hughes DATE: 10/07/20DATE OF CONSULTATION: 10/09/2020HIEF COMPLAINT: Intractable vomiting.HISTORY OF PRESENT ILLNESS:The patient is a 39-year-old woman who presented to [facility] and was admitted because ofintractable nausea and vomiting. She had presented to the emergency room with associated worseningabdominal pain along with the nausea and vomiting. This has been going on for approximately a week. [facility] [place] [facility] sent her to [facility] there and had a CT scan done.This was performed on 10/03/20 and was essentially normal except for an umbilical hernia. The patient tellsme that she has been having episodes of vomit ing since May 2020. According to the chart, she has hadsome history of nausea and vomiting since 2015. Because of this, her gallbladder was removed. I inquired ofher medications, and she has had no changes in her medications except for the addition of a beta-kym givento her approximately a month ago with some increased dosage recently. She also seems to correlate the nauseaand vomiting with the second COVID shot she received. She is unable to keep anything down. Right now shetells me she has some abdominal pain, but it is minimal and it is okay in her epigastrium. She denies any fever,chills. She was passing flatus up until last night. She has not moved her bowels in approximately a week.REVIEW OF SYSTEMS:All systems evaluated with the patient denying neuro, dermatologic, cardiac, respiratory, , ormusculoskeletal abnormalities.PAST MEDICAL HISTORY:Hypertension, irritable bowel syndrome.PAST SURGICAL HISTORY:Laparoscopic cholecystectomy, two sections, podiatric surgery, jaw surgery, and also a tuballigation.FAMILY HISTORY:Unremarkable.SOCIAL HISTORY:Patient does not use alcohol or tobacco. She does use occasional marijuana.MEDICATIONS:Reglan, buspirone, carvedilol, Claritin, Bentyl, omeprazole, Paxil, and Zofran on a prn basis. [address] [place] [address] CONSULTATIONNAME: SERA FITZGERALD Gurjit ROOM#: 100- 1DATE OF : 1980 MR#: [id number] PHYS: WIIL Hughes DATE: 10/07/20ALLERGIES:None.PHYSICAL EXAM:GENERAL: Patient is awake, alert, in no acute distress. She does not appear ill nor septic.VITAL SIGNS: Have been stable.HEENT: Normocephalic, atraumatic. Pupils are equal and round. She has non-icteric sclera. There is no ear ornasal discharge.NECK: Supple, no adenopathy, no JVD. Trachea midline.HEART: Regular rhythm, no discernible murmurs.LUNGS: Clear to auscultation. No rales, no rhonchi.ABDOMEN: No visible surgical scars. No distention. Bowel sounds are present and normal. On palpation, thepatient does have some mild epigastric tenderness, however there is no guarding, rebound, or palpable masses.EXTREMITIES: Good range of motion. Good muscle strength.NEURO EXAM: No notable deficits.LABORATORY DATA:Patient has a normal lipase of 22. Electrolytes from today noted sodium 143, potassium 4.1, chloride of 112,bicarb 25, BUN of 4, creatinine of 0.6. Total protein of 5.5. Albumin 3.2, globulin of 2.3, all of which are low.Total bilirubin is 0.7. Alkaline phosphatase 57. AST and ALT 9 and 15, both of which are normal. CBC fromtoday a normal white count of 5,900, hemoglobin and hematocrit of 11 and 34%, respectively.IMPRESSION/RECOMMENDATIONS:I do not think that this patient has an acute surgical problem. However, as far as her etiology for nausea andvomiting go, I do not have a reason for this. The only medication that has been changed was her beta-kym,which was started and increased, but that was done in the month of August and will not t account for t hisnausea and vomiting, which has been ongoing for a long time, but worsened since May, and thenworsened more after injection with her second COVID vaccine. As we discussed, I agree with your plans for arepeat CT scan of her abdomen with GI contrast. I will be curious to see the results of this, and especially tosee whether or not the oral contrast proceeds distally in her gut. We can discuss her after the above CT scan.Thank you very much for asking me to see your patient. [address] [place] [address] CONSULTATIONNAME: SERA Cagle ROOM#: 100-1DATE OF : 1980 MR#: [id number] PHYS: WILI Hughes DATE: 10/07/20DD: Carlos Naidu MD 10/09/20 12:30DT: SSR 10/09/20 13:03DS: Carlos Naidu MD 10/11/20 08:05 3 Name Value Range Interpretation Code Description Data Molly rce(s) Supporting Document(s) ID Date Data Source [id number] 10/10/2020 11:24:00 [place] [address] PHONE: [phone] FAX: [phone] Name .................. : SERA Cagle Acct Number.................. : [id number] ROOM. ................. : 100-1 MR Number ................... : [id number] Stay type ............. : I/P Discharge Date......... ... : Admit Date ......... : 10/07/20 Admit Phys .................... : DONN Date of ....... : 1980 Family Phys ................... : LAURA NICHOLAS Phone .................. : [phone] Age ................................ : 39 Film# .................. .:[id number] Sex ................................. : F Unsigned transcriptions are preliminary reports and do not represent a medical or legal document CT ABD & PELV W/ORAL/IV CONTR [id number] COMPLETE:10/09/20 19:20 [facility] 8553 Reason for Exam: intractable vomiting/abd CT OF THE ABDOMEN AND PELVIS WITH CONTRAST: INDICATION: Vomiting, pain. FINDINGS: The visualized lower lungs are clear. No enhancing liver lesions. The gallbladder is contracted or absent. The pancreas and spleen are within normal limits. The bilateral adrenal glands are unremarkable. The kidneys are within normal limits. No renal stones or hydronephrosis. The ureters are unremarkable. No aneurysmal dilatation to the aorta. No retroperitoneal adenopathy. The urinary bladder is unremarkable. The uterus is unremarkable. There is a right ovarian cyst measuring 3.2 cm. No bow el obstruction. Oral contrast to the rectum. Normal appendix. Fat-containing umbilical hernia. No free air or free fluid. The osseous structures are unremarkable. IMPRESSION: No obstruction. Oral contrast to the rectum. Normal appendix. Fat-containing umbilical hernia. 3.2 cm right ovarian cyst. No free air or free fluid. Gallbladder not visualized. Page 1 of 2 [place] [address] PHONE: [phone] FAX: [phone] Name .................. : SERA Cagle Acct Number.................. : [id number] ROOM. ................. : 100 MR Number ................... : [id number] Stay type ............. : I/P Discharge Date......... ... : Admit Date ......... : 10/07/20 Admit Phys .................... : DONN Date of ....... : 1980 Family Phys ................... : LAURA NICHOLAS Phone .................. : [phone] Age ................................ : 39 Film# .................. .:[id number] Sex ................................. : F Unsigned transcriptions are preliminary reports and do not represent a medical or legal document CT ABD & PELV W/ORAL/IV CONTR [id number] COMPLETE:10/09/20 19:20 [facility] 8553 Reason for Exam: intractable vomiting/abd While performing the above CT examination, radiation dose reduction was accomplished utilizing automated exposure control, adjusting of the mA and kV based on the patient's body size and/or the use of imperative reconstructive techniques. CT dose: 827.2 mGycm Contrast agent in mL: 75 Isovue 370 Method of administration: Intravenous Electronically Reviewed and Signed By Morteza Layton DO , 10/10/20 11:24, MORIS Transcribe Initials: DZ , Transcribe Date: 10/10/20 01:44, Dictation Date: Copy for: 002 [facility] Copy for: 710 [facility] Page 2 of 2 Name Value Range Interpretation Code Description Data Molly rce(s) Supporting Document(s) ID Date Data Source [id number] 10/10/2020 07:20:[address] [facility] Name Value Range Interpretation Code Description Data Molly rce(s) Supporting Document(s) COMPREHENSIVE METABOLIC PANEL [facility] COMPREHENSIVE METABOLIC PANEL Sodium [Moles/volume] in Serum or Plasma 143 mEq/L 134 - 153 [facility] Potassium [Moles/volume] in Serum or Plasma 3.8 mEq/L 3.6 - 5.0 [facility] Chloride [Moles/volume] in Serum or Plasma 107 mEq/L 98 - 107 [facility] Carbon dioxide, total [Moles/volume] in Serum or Plasma 30 MEQ/L 22 - 30 [facility] Glucose [Mass/volume] in Serum or Plasma 88 MG/DL 70 - 99 [facility] BUN 4 MG/DL 7 - 21 L [facility] Creatinine [Mass/volume] in Serum or Plasma 0.6 MG/DL 0.7 - 1.[address] [facility] BUN/CREAT 7 8 - 27 L [facility] Protein [Mass/volume] in Serum or Plasma 5.9 G/DL 6.3 - 8.[address] [facility] Albumin [Mass/volume] in Serum or Plasma 3.7 G/DL 3.9 - 5.[address] [facility] Globulin [Mass/volume] in Serum by calculation 2.2 GM/DL 2.4 - 3.[address] [facility] A/G RATIO 1.7 0.8 - 2.0 [facility] Calcium [Mass/volume] in Serum or Plasma 9.0 MG/DL 8.4 - 10.2 [facility] Bilirubin.total [Mass/volume] in Serum or Plasma <0.7 MG/DL 0.2 - 1.3 [facility] Alkaline phosphatase [Enzymatic activity/volume] in Serum or Plasma 69 U/L 38 - 126 [facility] Aspartate aminotransferase [Enzymatic activity/volume] in Serum or Plasma 13 U/L 5 - 40 [facility] Alanine aminotransferase [Enzymatic activity/volume] in Seru m or Plasma 19 U/L 7 - 56 [facility] Anion gap 3 in Serum or Plasma 6.0 mmol/L 8.0 - 16.[address] [facility] AGE 39 yrs [facility] al NON-AA GFR >60 mL/min [facility] ital AFR AMER GFR >60 mL/min [facility] Male GFR In terprentation 20-49 yrs >60 mL/min Normal 50-59 yrs >56 mL/min Normal 60-69 yrs >49 mL/min Normal 70-79yrs >42 mL/min Normal 80 and above >35 mL/min Normal Female GFR Interpretation 20-39 yrs >60 mL/min Normal 40-49 yrs >58 mL/min Normal 50-59 yrs >51 mL/min Normal 60-69 yrs >45 mL/min Normal 70-79 yrs >39 mL/min Normal 80 and above >32 mL/min Normal ID Date Data Source [id number] 10/10/2020 06:57:[address] [facility] Name Value Range Interpretation Code Description Data Molly rce(s) Supporting Document(s) CBC W/AUTOMATED DIFF [facility] COMPLETE BLOOD COUNT Leukocytes [#/volume] in Blood by Automated count 6.1 10^3/uL 4.2 - [address] [facility] Erythrocytes [#/volume] in Blood by Automated count 4.33 10^6/uL 4. 20 - 5.40 [facility] Hemoglobin [Mass/volume] in Blood 12.0 g/dL 12.0 - 16.0 [facility] Hematocrit [Volume Fraction] of Blood by Automated count 36.4 % 3 7.0 - 47.[address] [facility] Erythrocyte mean corpuscular volume [Entitic volume] by Auto mated count 84.1 fL 81.0 - 101 [facility] Erythrocyte mean corpuscular hemoglobin [Entitic mass] by Automated count 27.7 pg 27.0 - 34.0 [facility] Erythrocyte mean corpuscular hemoglobin concentration [Mass/volume] by Automated count 33.0 g/dL 31.0 - 36.0 [facility] Erythrocyte distribution width [Ratio] by Automated count 13.9 % 11.5 - 14.5 [facility] Platelets [#/volume] in Blood by Automated count 207 10^3/uL 150 - [address] [facility] Platelet mean volume [Entitic volume] in Blood by Automated count 10.1 fL 7.4 - 10.4 [facility] Neutrophils/100 leukocytes in Blood by Automated count 58.4 % 37. 0 - 80.0 [facility] Lymphocytes/100 leukocytes in Blood by Manual count 32.2 % 25.0 - 40.0 [facility] Monocytes/100 leukocytes in Blood by Automated count 6.4 % 3.0 - 8.0 [facility] Eosinophils/100 leukocytes in Blood by Automated count 2.0 % 0.0 - 7.0 [facility] Basophils/100 leukocytes in Blood by Automated count 0.7 % 0.0 - 2.5 [facility] %IG 0.3 % 0.0 - 0.0 H [facility] al %NRBC 0.0 % 0.0 - 0.0 [facility] Neutrophils [#/volume] in Blood by Automated count 3.55 10^3/uL 2.00 - 6.90 [facility] Lymphocytes [#/volume] in Blood by Automated count 1.96 10^3/uL 0.60 - 3.40 [facility] Monocytes [#/volume] in Blood by Automated count 0.39 10^3/uL 0.00 - 0.90 [facility] Eosinophils [#/volume] in Blood by Automated count 0.12 10^3/uL 0.00 - 0.70 [facility] Basophils [#/volume] in Blood by Automated count 0.04 10^3/uL 0.00 - 0.20 [facility] #IG 0.02 10^3/uL 0.00 - 0.10 [facility] #NRBC 0.00 10^3/uL 0.00 - 0.00 [facility] MANUAL DIFF NOT INDICATED [facility] RBC MORPH NOT INDICATED [facility] spital ID Date Data Source [id number] 10/09/2020 09:12:00 AM EDT [facility] [address] [place] [address] PHONE: [phone] FAX: [phone] Name .................. : SERA FITZGERALD Gurjit Acct Number.................. : [id number] ROOM. ................. : 100-1 Number ................... : [id number] Stay type ............. : O/P Discharge Date......... ... : Admit Date ......... : 10/07/20 Admit Phys .................... : JULY ESCUDERO Date of ....... : 1980 Family Phys ................... : LAURA NICHOLAS Phone .................. : [phone] Age ................................ : 39 Film# .................. .:[id number] Sex ................................. : F Unsigned transcriptions are preliminary reports and do not represent a medical or legal document CHEST 2 VIEWS 57930 COMPLETE:10/08/20 13:29 8489 Reason for Exam: chest pain CHEST X-RAY: 2-VIEWS CLINICAL HISTORY: Chest pain. COMPARISON: None. FINDINGS: The cardiac and mediastinal silhouettes appear normal and the lungs are clear. The bones and soft tissues are normal. The upper abdomen is unremarkable. IMPRESSION: No acute disease identifiable. Electronically Reviewed and Signed By Edgar Coronado MD , 10/09/20 09:12, KGG Transcribe Initials: MICHELLE , Transcribe Date: 10/08/20 13:48, Dictation Date: Copy for: EMERGENCY DEPT via modem Copy for: 710 MED REC Page 1 of 1 Name Value Range Interpretation Code Description Data Molly rce(s) Supporting Document(s) ID Date Data Source [id number] 10/05/2020 05:16:[address] [facility] [address] [facility] Emergency Department [address] [place] [address] Phone #: ext- [phone] 10/05/2020 05:14 Patient: LIA HAY Sex: F : 1980 Age: 39yWEIGHT:71.4 kg (S)ALLERGIES: Sulfa AntibioticsCHIEF COMPLAINT: abdominal pain, abdominal painDIAGNOSIS: Abdominal pain, VomitingLAB ORDERSOrder Description Priority Entered Acknowledged InitialedCBC w Diff STAT 05:52 10/05/2020 05:54 Dinesh Buck R.N. M.D.;CMP STAT 05:52 10/05/2020 05:54 Nellie Dinesh Bowie R.N. M.D.;Lipase STAT 05:52 10/05/2020 05:54 Nellie Brian Laureano, Dinesh Urias.N. M.D.;Urinalysis (Clean STAT 05:52 10/05/2020 05:54 Dinesh Francis R.N. M.D.;Lactic Acid STAT 05:52 10/05/2020 05:54 Nellie Dinesh Bowie R.N. M.D.;Beta-HCG, Qual STAT 05:52 10/05/2020 05:54 Nellie Dinesh Kay R.N. M.D.;Culture, Urine STAT 07:00 10/05/2020 07:30 Javier(Urine, Clean Dinesh Laureano RNCat) [place];DIAGNOSTIC STUDY ORDERSOrder Description Priority Entered Acknowledged InitialedMEDICATION/IV/DRIP/FLUID ORDERSOrder Description Priority Entered Acknowledged InitialedNS IV 1000 mL 05:53 10/05/2020 Ack'd: 05:54 Nellie 06:10 Nellie TorresBolus: : Bolus 1000 Shamarrin, Dinesh Virk R.NTricia Virk R.N.mL (X1) [place];Phenergan IV 25mg 05:53 10/05/2020 Ack'd: 05:54 Nellie 06:12 Nellie Brian [address] [facility] Emergency Department [address] [place] [address] Phone #: ext- [phone] 10/05/2020 05:14 Patient: LIA HAY Sex: F : 1980 Age: 39yin 50mL NS, give Roma, Dinesh Virk RTriciaNTricia Virk R.N.wide open: 25 mg M.D.;(NOW x1, HIGHALERTMEDICATION)Protonix IV Push 40 05:53 10/05/2020 Ack'd: 05:54 Nellie 06:11 Nellie Blairmg (in 10 mL NS, Roma, Dinesh Virk R.N. Sully R.N.administer over at M.D.;least 2 minutes,NOW x1)Pepcid IVPB 20 07:25 10/05/2020 07:48 Terrymg/50mL (NOW x1, Dinesh Laureano RNInfuse over 30 M.D.;minutes.)Zofran 4 mg IVP X 1 07:25 10/05/2020 07:48 Terrydose: 4 mg (NOW Dinesh Laureano RNx1) M.D.;Ativan IVP 2 mg 07:25 10/05/2020 07:49 Javier(HIGH ALERT Dinesh Laureano RNMEDICATION) M.D.;NS IV 1000 mL 07:25 10/05/2020 07:49 TerryBolus: : Bolus 1000 Dinesh Laureano RNmL (X1) M.D.;GENERAL ORDERSOrder Description Priority Entered Acknowledged InitialedNPO 05:52 10/05/2020 05:54 Dinesh Buck R.N., M.D.;Saline Lock 05:52 10/05/2020 05:54 Dinesh Buck R.N. MKarthik.;[Electronically signed by Eduar Zapien (11:16 10/05/2020)][Electronically signed by Javier Amador RN (12:12 10/05/2020)][Electronically signed by Dinesh Laureano M.D. (07:21 10/09/2020)][Electronically locked by Javier Amador RN (12:12 10/05/2020)] Name Value Range Interpretation Code Description Data Molly rce(s) Supporting Document(s) ID Date Data Source [id number] 10/05/2020 05:16:[address] [facility] [address] [facility] Emergency Department [address] [place] [address] Phone #: ext- [phone] 10/05/2020 05:14 Patient: LIA HAY Sex: F : 1980 Age: 39yWeight: 71.4 kgHeight/Length: 63 in.BMI: 27.9ALLERGIES: Sulfa AntibioticsThe patient's Home Medications are listed below:CONTINUE TAKING THE FOLLOWING MEDICATIONS: busPIRone HCl Oral 7.5 mg po, 2x a day, prn Carvedilol Oral (3.125 mg) 1 tablet, 2x a day Claritin Oral 10 mg, daily Dicyclomine HCl Oral 20 mg, 4x a day Omeprazole Oral 20 mg, 2x a day Paxil Oral 30 mg, daily Reglan Oral 10 mg, 2x a day, prn Zofran Oral 4 mg, 4x a day, prnThe source(s) of the original Home Medication information:Not obtained.The following Medications were given to the patient in the Emergency Department:IV NS IV Fluids bolus 0, then 999 mL/hr, administered: 06:00 1PROTONIX [IVP] IVP 40 mg, administered: 06:06 1Phenergan [IVPB] IVPB bolus 0, then 25 mg 400 mL/hr, administered: 06:11 10/05/2020epcid [IVPB] IVPB bolus 0, then 20 mg 100 mL/hr, administered: 07:44 10/05/[address] [facility] Emergency Department [address] [place] [address] Phone #: ext- [phone] 10/05/2020 05:14 Patient: LIA HAY Sex: F : 1980 Age: 39yZofran [IVP] IVP 4 mg, administered: 07:44 10/05/2020tivan [IVP] IVP 2 mg, administered: 07:46 10/05/2020NS [IV] IV Fluids bolus 1000 mL over 1 hour(s), administered: 08:15 10/05/2020The following Medications were prescribed to the patient:None. Name Value Range Interpretation Code Description Data Molly rce(s) Supporting Document(s) ID Date Data Source [id number] 10/05/2020 05:16:[address] [facility] [address] [facility] Emergency Department [address] [place] [address] Phone #: ext [phone] 10/05/2020 05:14 Patient: LIA HAY Sex: F : 1980 Age: 39yWeight: 71.4 kgHeight/Length: 63 inBMI: 27.9ALLERGIES: Sulfa Antibiotics Date/Time Medication Administered Medication OrderedStart IV NS NS IV 1000 mL Bolus: : Bolus 719935:00 10/05/2020 Dose: IV Fluids mL (X1)Nellie Virk R.NTricia Rate: 999 mL/hr---- Dispensed: 1000 mL bagStop Site: #1 right AC07:09 10/05/2020Nellie Virk R.N.Start PHENERGAN [IVPB] Phenergan IV 25mg in 50mL NS,06:11 10/05/2020 Dose: 25 mg IVPB give wide open: 25 mg (NOW x1,Nellie Virk, R.NTricia Rate: 400 mL/hr HIGH ALERT MEDICATION)---- Dispensed: 50 mL bagStop Site: #1 right AC06:26 10/05/2020Aliyah OwusuNTriciaGiven PROTONIX [IVP] (PANTOPRAZOLE Protonix IV Push 40 mg (in 10 mL06:06 10/05/2020 SODIUM) NS, administer over at least 2Tina Bridgett Redmond.NTricia Dose: 40 mg IVP minutes, NOW x1) Site: #1 right ACStart PEPCID [IVPB] Pepcid IVPB 20 mg/50mL (NOW07:44 10/05/2020 Dose: 20 mg IVPB x1, Infuse over 30 minutes.)Javier Amador RN Rate: 100 mL/hr over 30 minute(s)---- Dispensed: 50 mL bagStop Site: #1 right AC08:15 10/05/2020Javier Amador RNGiven ZOFRAN [IVP] (ONDANSETRON HCL) Zofran 4 mg IVP X 1 dose: 4 mg07:44 10/05/2020 Dose: 4 mg IVP (NOW x1)Javier Amador RN Site: #1 right ACGiven ATIVAN [IVP] (LORAZEPAM) Ativan IVP 2 mg (HIGH ALERT07:46 10/05/2020 Dose: 2 mg IVP MEDICATION)Javier Amador RN Site: #1 right ACStart NS [IV] NS IV 1000 mL Bolus: : Bolus [id number]:15 10/05/2020 Dose: IV Fluids mL (X1)Javier Amador RN Bolus: 1000 mL over 1 hour(s)---- Dispensed: 1000 mL bagStop Site: #1 right AC09:19 10/05/2020Javier Amador RN Name Value Range Interpretation Code Description Data Molly rce(s) Supporting Document(s) ID Date Data Source [id number] 10/05/2020 05:16:[address] [facility] [address] [facility] Emergency Department [address] [place] [address] Phone #: ext- [phone] 10/05/2020 05:14 Patient: LIA HAY Sex: F : 1980 Age: 39y(Electronically signed by Dinesh Laureano M.D. 10/09/2020 07:21)Acute generalized abdominal pain.Vomiting with nausea.INSTRUCTIONSDo not work today.(eat lightly x 12 hours then advance as tolerated . take the zofran or reglan for vomiting and follow up withyour GI doc tor in am).Your Current Medications: Your current home medications have been reviewed.CONTINUE TAKING THE FOLLOWING MEDICATIONS:busPIRone HCl Oral : 7.5 mg po 2x a day, prn.Carvedilol Oral : Tablet 3.125 mg, 1 tablet 2x a day.Claritin Oral : 10 mg daily.Dicyclomine HCl Oral : 20 mg 4x a day.Omeprazole Oral : 20 mg 2x a day.Paxil Oral : 30 mg daily.Reglan Oral : 10 mg 2x a day, prn.Zofran Oral : 4 mg 4x a day, prn.Follow-up:Follow up with your healthcare provider tomorrow. Reason for referral: evaluation. Summary of careprovided to patient via paper. [address] [facility] Emergency Department [address] [place] [address] Phone #: ext- [phone] 10/05/2020 05:14 Patient: LIA HAY Sex: Marnie : 1980 Age: 39y ADDITIONAL INFORMATIONUnknown Causes of Abdominal Pain (Female)The exact cause of your belly (abdominal) pain is not clear. This does not mean that this is somethingto worry about. Everyone likes to know the exact cause of the problem. But sometimes with bellypain, there is no clear-cut cause, and this could be a good thing. The good news is that yoursymptoms can be treated, and you will feel better.Your condition does not seem serious now. But sometimes the signs of a serious problem may takemore time to appear. For this reason, it is important for you to watch for any new symptoms,problems, or worsening of your condition.Over the next few days, the abdominal pain may come and go. Or it may be constant. Other commonsymptoms can include nausea and vomiting. Sometimes it can be difficult to tell if you feel nauseous.You may just feel bad and not connect that feeling to nausea. Constipation, diarrhea, and a fever maygo along with the pain.The pain may continue even if treated correctly over the following days. Depending on how things go,sometimes the cause can become clear and may need more or different treatment. Additionalevaluations, medicines, or tests may also be needed. [address] [facility] Emergency Department [address] [place] [address] Phone #: ext- [phone] 10/05/2020 05:14 Patient: LIA HAY Sex: F : 1980 Age: 39yHome careYo healthcare provider may prescribe medicine for pain, symptoms, or an infection. Follow thehealthcare provider's instructions for taking these medicines.General care Rest as much as you can until your next exam. No strenuous activities. Try to find positions that ease discomfort. A small pillow placed on the abdomen may help relieve pain. Something warm on your abdomen (such as a heating pad) may help, but be careful not to burn yourself.Diet Don't force yourself to eat, especially if having cramps, vomiting, or diarrhea. Water is important so you don't get dehydrated. Soup may also be good. Sports drinks may also help, especially if they are not too acidic. Don't drink sugary drinks as this can make things worse. Take liquids in small amounts. Don't guzzle them. Caffeine sometimes makes the pain and cramping worse. Don't take dairy products if you have vomiting or diarrhea. Don't eat large amounts at a time. Wait a few minutes between bites. Eat a diet low in fiber (called a low-residue diet). Foods allowed include refined breads, white rice, fruit and vegetable juices without pulp, tender meats. These foods will pass more easily through the intestine. Don 't have whole-grain foods, whole fruits and vegetables, meats, seeds and nuts, fried or fatty foods, dairy, alcohol and spicy foods until your symptoms go away.Follow-up careFollow up with your healthcare provider, or as advised, if your pain does not begin to improve in thenext 24 hours.Call [phone] if any of these occur: Trouble breathing Confusion [address] [facility] Emergency Department [address] [place] [address] Phone #: ext- [phone] 10/05/2020 05:14 Patient: LIA HAY Sex: F : 1980 Age: 39y Fainting or loss of consciousness Rapid heart rate SeizureWhen to seek medical adviceCall your healthcare provider right away if any of these occur: Pain gets worse or moves to the right lower abdomen New or worsening vomiting or diarrhea Swelling of the abdomen Unable to pass stool for more than 3 days Fever of 100.4F (38C) or higher, or as directed by your healthcare provider. Blood in vomit or bowel movements (dark red or black color) Yellow color of eyes and skin (jaundice) Weakness, dizziness Chest, arm, back, neck, or jaw pain Unexpected vaginal bleeding or missed period Can't keep down liquids or water and you are getting dehydrated [id number] [employer]. [address] [place] [address], [place] [address]. All rights reserved. This information is not intended as asubstitute for professional medical care. Always follow your healthcare professional's instructions. You have been given the following additional information: Abdominal Pain, Unknown Cause, (Female) Do not work today.(Electronically signed by Eduar Zapien 10/05/2020 11:16) Name Value Range Interpretation Code Description Data Molly rce(s) Supporting Document(s) ID Date Data Source [id number] 10/05/2020 05:16:[address] [facility] 1 Clinical Report - Nurses [facility] Emergency Department [address] [place] [address] Phone #: ext- [phone] 10/05/2020 05:14 Patient: LIA HAY Sex: F : 1980 Age: 39yTRIAGEArrived by private vehicle. Historian: patient. Accompanied by family.Triage time: 05:15 10/05/2020. Acuity: LEVEL 3.Chief Complaint: ABDOMINAL PAIN and VOMITING.SEPSIS SCREEN: SEPSIS SCREEN NEGATIVE. No suspected or confirmed signs of infection present.--05:17 10/05/20 Nellie Virk R.N.05:15 10/05/20. BP: 156/86. MAP: 109. HR: 62. RR: 16. O2 saturation: 100%. Temp: 98.4 F. Pain levelnow: 04/08. --05:17 10/05/20 Nellie Virk R.N.This is a recurrent problem. (midnight). Last oral intake by patient was (chicken broth).Treatment PAEDIATRICIAN:Recently seen at another facility; seen for similar symptoms; CT done; labs done. (Friday at [facility]).--05:18 10/05/20 Nellie Virk R.N.The patient has had abdominal pain ("like someone is grabbing her"). The pain is described as located inthe upper abdomen.Treatment PAEDIATRICIAN:(zofran and reglan around midnight, has not helped). --05:19 10/05/20 Nellie Virk R.N.Weight: 71.4 kg stated. Height/Length: 63 inches Per Patient. BMI: 27.9. --05:14 10/05/20 Nellie Virk R.N.MedicationsClaritin Oral 10 mg, daily. Reglan Oral 10 mg, 2x a day as needed. --05:35 10/05/20 Nellie Virk R.N. Paxil Oral 30 mg, daily. --05:35 10/05/20 Nellie Virk R.N. Carvedilol Oral (Tablet 3.125 mg) 1 tablet, 2x a day. --05:35 10/05/20 Nellie Virk R.N. Dicyclomine HCl Oral 20 mg, 4x a day. --05:35 10/05/20 Nellie Virk R.N. busPIRone HCl Oral 7.5 mg po, 2x a day as needed. --05:36 10/05/20 Nellie Virk R.N. Zofran Oral 4 mg, 4x a day as needed. --05:37 10/05/20 Nellie Virk R.N. Omeprazole Oral 20 mg, 2x a day. --05:37 10/05/20 Nellie Virk R.N.AllergiesSulfa Antibiotics.(rash) --05:35 10/05/20 Nellie Virk R.N. 2 Clinical Report - Nurses [facility] Emergency Department [address] [place] [address] Phone #: ext- [phone] 10/05/2020 05:14 Patient: LIA HAY Sex: F : 1980 Age: 39y PROBLEMS: Hypertension. Depression. Anxiety Reaction. Pharyngitis. Irritable bowel syndrome (disorder). --05:38 10/05/20 Nellie Virk R.N. ADDITIONAL SURGERIES: Cholecystectomy. (X 2). Foot surgery. Jaw surgery. Tubal Ligation. --05:10/05/20 Nellie Virk R.N. History PAST MEDICAL HX: Gastroesophageal reflux disease. Gallstones (2016 had Lap [facility] via [facility]). No history of diabetes mellitus. No history of peptic ulcer disease. Last normal menstrual period unknown- bleeding on and off for 2 weeks or so. 2. Para 2. Sexual history - sexually active. No contraception. --0510/05/20 Nellie Virk R.N. SOCIAL HX: Former smoker, end date 2012. Alcohol use. (once a month). Drug use: marijuana. ("once in a while" took one hit last night to calm her stomach and it did not help out). No recent travel. She was offered HIV testing but declined and hepatitis C testing but declined. She has not traveled outside the [place] Infectious disease exposure: No infectious disease exposure. The patient was not exposed to C-diff, MRSA, VRE or CRE. SELF HARM ASSESSMENT: Self harm assessment was performed. The patient answered "no" to the question(s) "Do you have thoughts of harming or killing yourself?" and "Have you recently had thoughts about harming or killing others?". ABUSE ASSESSMENT: No report of abuse. FALL RISK ASSESSMENT: Fall risk assessment completed. Risk factors identified include severe pain and nausea. Fall interventions initiated. Bed in low position. Brakes on. Call light in reach of patient. --05:10/05/20 Nellie Virk R.N.PHYSICAL ASSESSMENTAmbulatory to room.GENERAL / NEURO / PSYCH: Alert. Oriented X 4.HEENT: Mucous membranes are pink.RESPIRATORY: Respirations not labored.CVS: Capillary refill less than 2 seconds. 3 Clinical Report - Nurses [facility] Emergency Department [address] [place] [address] Phone #: ext- [phone] 10/05/2020 05:14 Patient: LIA HAY Sex: F : 1980 Age: 39y GI / : Abdomen soft. Abdominal tenderness. Guarding present. ( Denies any frequency, urgency painful urination, or vaginal discharge). SKIN: Skin is warm and dry. --05:34 10/05/20 Nellie Virk R.N.NURSING PROGRESS NOTESReassurance given to the patient. --05:23 10/05/20 Nellie Virk R.N. 05:23 10/05/2020 Site #1 started via IV in the right antecubital space with an 20g angiocath, with aseptic technique; one attempt. Blood drawn: rainbow set. Labeled in the presence of the patient. Saline lock flushed with 10 mL saline (By JODY, RN). --05:23 10/05/20 Nellie Virk R.N. Head of bed elevated. Call light placed in reach. Bed placed in lowest position. Brakes of bed on. --05:24 10/05/20 Nellie Virk R.N. Checked patient name and birthdate: patient confirmed. Instructions provided to collect clean catch urine and patient verbalized understanding. Clean catch urine collected; sample sent to lab for urinalysis. Specimen labeled in the presence of the patient. ( release of information obtained and faxed to [facility].). --05:39 10/05/20 Nellie Virk R.N. 06:00 10/05/2020 Started bag #1 1000 mL IV Fluids IV NS; at 999 mL/hr via site #1 via IV pump. Allergies verified and confirmed 5 rights. IV patency established. IV site checked: no pain, redness, or swelling. IV flushed thoroughly pre- and post-medication administration. Information reviewed with patient including reason for taking this medication. Verbalizes understanding. --06:11 10/05/20 Nellie Virk R.N. 06:06 10/05/2020 PROTONIX (Pantoprazole Sodium) IVP 40 mg given over 5 minute(s) via site #1. Allergies verified and confirmed 5 rights. IV patency established. IV site checked: no pain, redness, or swelling. IV flushed thoroughly pre- and post-medication administration. IVP given by RN. Information reviewed with patient including reason for taking this medication. Verbalizes understanding. --06:11 10/05/20 Nellie Virk R.N. 06:11 10/05/2020 Started 25 mg of Phenergan IVPB in bag #1 50 mL; at 400 mL/hr via site #1. via IV pump. Allergies verified and confirmed 5 rights. IV patency established. IV site checked: no pain, redness, or swelling. IV flushed thoroughly pre- and post-medication administration. Information reviewed with patient including reason for taking this medication. Verbalizes understanding. --06:12 10/05/20 Nellie Virk R.N. The patient is calm and resting quietly. --06:23 10/05/20 Nellie Virk R.N. ( Call placed to [facility] to check status of records that were requested.). --06:24 10/05/20 Nellie Virk R.N. 06:35 10/05/20. BP: 143/90. MAP: 107. HR: 91. RR: 16. O2 saturation: 100%. Temp: 97.1 F. --06:35 10/05/20 Nellie Virk R.N. 4 Clinical Report - Nurses [facility] Emergency Department [address] [place] [address] Phone #: ext- [phone] 10/05/2020 05:14 Patient: LIA HAY Sex: F : 1980 Age: 39yThe patient is resting quietly. ( No further vomiting noted.). --06:35 10/05/20 Nellie Virk R.N.06:26 10/05/2020 Phenergan IVPB via IV site #1 Discontinued: completed. Total amount infused: 50 mL.IV patency established. IV site checked: no pain, redness, or swelling. IV flushed thoroughly. --07: Nellie Virk R.N.07:09 10/05/2020 IV Fluids IV NS via IV site #1 Discontinued: completed. Total amount infused: 1000 mL.IV patency established. IV site checked: no pain, redness, or swelling. IV flushed thoroughly. --07: Nellie Virk R.N.07:44 10/05/2020 Started 20 mg of Pepcid IVPB in bag #1 50 mL; at 100 mL/hr over 30 minute(s) via site#1 via IV pump. Allergies verified. IV patency established. IV site checked: no pain, redness, or swelling. IVflushed thoroughly pre- and post-medication administration. --07:48 10/05/20 Javier Amador RN07:44 10/05/2020 Zofran (Ondansetron HCl) IVP 4 mg given over 30 second(s) via site #1. Allergiesverified and confirmed 5 rights. IV patency established. IV site checked: no pain, redness, or swelling. IVflushed thoroughly pre- and post-medication administration. IVP given by RN. Information reviewed withpatient. --07:48 10/05/20 Javier Amador RN07:46 10/05/2020 Ativan (LORazepam) IVP 2 mg given over 2 minute(s) via site #1. Allergies verified andconfirmed 5 rights. IV patency established. IV site checked: no pain, redness, or swelling. IV flushedthoroughly pre- and post- medication administration. IVP given by RN. Information reviewed with patientincluding sedative warning. --07:49 10/05/20 Javier Amador RN07:49 10/05/2020 Started bag #1 1000 mL IV Fluids NS; bolus of 1000 mL over 1 hour(s) via site #1 via IVpump. Allergies verified and confirmed 5 rights. IV patency established. IV site checked: no pain, redness,or swelling. IV flushed thoroughly pre- and post-medication administration. Information reviewed withpatient. --07:49 10/05/20 Javier Amador RN Correction. --08:10/05/20 Javier Amador RN08:15 10/05/2020 Started bag #1 1000 IV Fluids NS; bolus of 1000 mL over 1 hour(s) via site #1 via IVpump. Allergies verified and confirmed 5 rights. IV patency established. IV site checked: no pain, redness,or swelling. IV flushed thoroughly pre- and post-medication administration. Information reviewed withpatient. --08:10/05/20 Javier Amador RN08:15 10/05/2020 Pepcid IVPB via IV site #1 Discontinued: bag #1 infused. Total amount infused: 50 mL.--08:20 10/05/20 Javier Amador RN09:19 10/05/2020 IV Fluids NS via IV site #1 Discontinued: bag #1 infused. Total amount infused: 999 mL.IV patency established. IV site checked: no pain, redness, or swelling. IV flushed thoroughly. --09: Javier Amador RN( 1005 pt resting 45 degree on right side not disturbed). --10:10 10/05/20 Javier Amador RN10:10/05/20. BP: 135/86. MAP: 102. HR: 87. RR: 1. O2 saturation: 100% on room air. --10:10 10/05/20 5 Clinical Report - Nurses [facility] Emergency Department [address] [place] [address] Phone #: ext- [phone] 10/05/2020 05:14 Patient: LIA HAY Sex: F : 1980 Age: 39y Javier Amador RN.DISPOSITION / DISCHARGE 07:15 10/05/2020 PROTONIX IVP Response: symptoms are the same. The patient feels the same. --10:52 10/05/20 Javier Amador RN 08:52 10/05/2020 Zofran IVP Response: symptoms have improved the patient feels better. --10:52 10/05/20 Javier Amador RN 08:53 10/05/2020 Ativan IVP Response: symptoms have improved the patient feels better. --10:53 10/05/20 Javier Amador RN 10:45 10/05/2020 Site #1 removed upon discharge. Catheter intact. Bandaid applied. --10:50 10/05/20 Javier Amador RN 10:46 10/05/20. Departure time: 10:46 10/05/2020. Condition at departure: unchanged. Discharge instructions provided and reviewed with the patient and spouse. Reviewed medication(s) (no changes). Reviewed rest in structions (increase fluids). Reviewed referrals. Provided to follow-up provider. Patient and spouse verbalized understanding. Written instructions provided in Occitan. The patient was discharged by the physician. She was discharged home and accompanied by spouse. She left ambulatory and via private vehicle. Spouse driving. --10:51 10/05/20 Javier Amador RN 10:49 10/05/20. BP: 135/86. MAP: 102. HR: 88. RR: 18. O2 saturation: 100% on room air. Temp: 97.9 F (oral). Pain level now: 03/09. --10:51 10/05/20 Javier Amador RN.Locked/Released at 10/05/2020 12:12 by Javier Amador RN Name Value Range Interpretation Code Description Data Molly rce(s) Supporting Document(s) ID Date Data Source [id number] 10/05/2020 05:16:[address] [facility] 1 Clinical Report - Physicians/Mid Levels [facility] Emergency Department [address] [place] [address] Phone #: ext- [phone] 10/05/2020 05:14 Patient: LIA HAY Sex: F : 1980 Age: 39y Time Seen: 05:44 10/05/2020. Arrived- By private vehicle. Historian- patient.HISTORY OF PRESENT ILLNESS Chief Complaint: ABDOMINAL PAIN. This started for years; worse in last 2 days and is still present. It was gradual in onset and has been constant. It is described as "pain" and sharp and it is described as located in the epigastric area and in the upper abdomen. At its maximum, severity described as severe and 10 / 10. When seen in the E.D., severity described as severe and 10 / 10. Modifying factors- worsened by movement and food. Not relieved by anything. The patient has had moderate associated nausea. She has had loss of appetite. She has had vomiting. The vomiting has occurred several times. No blood-tinged emesis or frankly bloody emesis. She has had mild diarrhea. No bloody diarrhea. (pt has Hx of IBS and recurrent, chronic epiga stric pain w N/V; pt has seen GI in the past, last 2015, and has been scoped for this, pt has appt this afternoon w GI; pt smokes marijuana nightly; Sx's worse in last 2 days so went to [facility] ER on 4-6, had workup and CTAP and Tx; Sx's not better so came here today). No recent travel. Similar symptoms previously. Patient has had similar symptoms many times, chronically. Worse from previously. Recent medical care: The patient was seen recently at another facility in the emergency department. ( [facility] ER 10-03-20).REVIEW OF SYSTEMSNo constipation, black stools, hematemesis, difficulty with urination or pain with urination. No urinaryfrequency, bloody stools, fever, headache or sore throat. No blurred vision, chest pain, difficulty breathing,cough or joint pain. No skin rash, chills or back pain. Denies current . The patient has nothad weight loss. All other systems reviewed and are negative.PAST HISTORYSee nurses notes. Problems: Chronic abdominal pain. Hypertension. Depression. Anxiety Reaction. Pharyngitis. Irritable bowel syndrome (disorder). Gallstone(s). 2 Clinical Report - Physicians/Mid Levels [facility] Emergency Department [address] [place] [address] Phone #: ext- [phone] 10/05/2020 05:14 Patient: LIA HAY Sex: F : 1980 Age: 39y Gastroesophageal Reflux Disease. Additional Surgeries: Cholecystectomy. . (X 2) Foot surgery. Jaw surgery. Tubal Ligation. Medications: Omeprazole Oral 20 mg, 2x a day. Zofran Oral 4 mg, 4x a day as needed. busPIRone HCl Oral 7.5 mg po, 2x a day as needed. Dicyclomine HCl Oral 20 mg, 4x a day. Carvedilol Oral (Tablet 3.125 mg) 1 tablet, 2x a day. Paxil Oral 30 mg, daily. Claritin Oral 10 mg, daily. Reglan Oral 10 mg, 2x a day as needed. Allergies: Sulfa Antibiotics.(rash).SOCIAL HISTORYFormer smoker, end date 2012. Occasional alcohol use. Heavy drug use: nightly: marijuana.ADDITIONAL NOTESThe nursing notes have been reviewed with agreement regarding the chief complaint, HPI, ROS, PMH andpatient medications and allergies.PHYSICAL EXAMVital Signs: 10/05/2020 05:15 BP: 156/86. MAP: 109. HR: 62. RR: 16. O2 saturation: 100%. Temp: 98.4F. Pain level now: 04/08. Have been reviewed. Oxygen saturation normal.Appearance: Alert. Oriented X3. Anxious. Appears to be in pain. Patient in moderate distress.Distress appears due to pain and anxiety.Eyes: Pupils equal, round and reactive to light. Eyes normal inspection.ENT: Nose normal. Pharynx normal.Neck: Normal inspection. Neck supple.CVS: Normal heart rate and rhythm. Heart sounds normal. Pulses normal.Respiratory: No respiratory distress. Painless inspiration. Breath sounds normal. Chest nontender.Abdomen: Soft. Moderate tenderness in the upper abdomen and epigastric area with guarding present.No rebound tenderness or Resendez's sign present. Bowel sounds normal. No organomegaly. No mass.Femoral pulses equal.Back: Normal inspection. No CVA tenderness.Skin: Skin warm and dry. Normal skin color. No rash. Normal skin turgor.Extremities: Extremities exhibit normal ROM. No lower extremity edema. 3 Clinical Report - Physicians/Mid [facility] Emergency Department [address] [place] [address] Phone #: ext- [phone] 10/05/2020 05:14 Patient: LIA HAY Sex: F : 1980 Age: 39y Neuro: Oriented X 3. No motor deficit. No sensory defic it.LABS, X-RAYS, AND EKGLaboratory Tests: Laboratory tests have been ordered, with results reviewed and considered in themedical decision making process. Culture, Urine: (CHERI: 10/05/2020 07:00) ( MsgRcvd 10/05/2020 07:04) Canceled SOURCE: Urine, Clean Catch CBC w Diff: (CHERI: 10/05/2020 05:22) ( MsgRcvd 10/05/2020 06:03) Final results Test Result Flag Units (Reference) CBC W/AUTOMATED DIFF COMPLETE BLOOD COUNT WBC 13.3 H 10/uL (4.2 - 11.0) RBC 5.27 10/uL (4.20 - 5.40) HEMOGLOBIN 14.4 g/dL (12.0 - 16.0) HEMATOCRIT 43.7 % (37.0 - 47.0) MCV 82.9 fL (81.0 - 101) MCH 27.3 pg (27.0 - 34.0) MCHC 33.0 g/dL (31.0 - 36.0) RDW 14.4 % (11.5 - 14.5) PLATELETS 288 10/uL (150 - 450) MPV 10.2 fL (7.4 - 10.4) NEUT 85.4 H % (37.0 - 80.0) LYMPH 10.6 L % (25.0 - 40.0) MONO 2.2 L % (3.0 - 8.0) EOS 1.1 % (0.0 - 7.0) BASO 0.4 % (0.0 - 2.5) %IG 0.3 H % (0.0 - 0.0) %NRBC 0.0 % (0.0 - 0.0) #NEUT 11.38 H 10/uL (2.00 - 6.90) #LYMPH 1.42 10/uL (0.60 - 3.40) #MONO 0.30 10/uL (0.00 - 0.90) #EOS 0.15 10/uL (0.00 - 0.70) #BASO 0.05 10/uL (0.00 - 0.20) #IG 0.04 10/uL (0.00 - 0.10) #NRBC 0.00 10/uL (0.00 - 0.00) MANUAL DIFF NOT INDICATED RBC MORPH NOT INDICATED CMP: (CHERI: 10/05/2020 05:22) ( MsgRcvd 10/06/19 21 07:20) Final results Test Result Flag Units (Reference) COMPREHENSIVE METABOLIC PANEL COMPREHENSIVE METABOLIC PANEL SODIUM 139 mEq/L (134 - 153) POTASSIUM 3.3 L mEq/L (3.6 - 5.0) CHLORIDE 103 mEq/L (98 - 107) CO2 22 MEQ/L (22 - 30) GLUCOSE 113 H MG/DL (70 - 99) BUN 12 MG/DL (7 - 21) CREATININE 0.6 L MG/DL (0.7 - 1.5) BUN/CREAT 20 (8 - 27) TOTAL PROTEIN 7.7 G/DL (6.3 - 8.2) ALBUMIN 4.4 G/DL (3.9 - 5.0) GLOBULIN 3.3 H GM/DL (2.4 - 3.2) 4 Clinical Report - Physicians/Mid Levels [facility] Emergency Department [address] [place] [address] Phone #: ext- [phone] 10/05/2020 05:14 Patient: LIA HAY Sex: F : 1980 Age: 39y A/G RATIO 1.3 (0.8 - 2.0) CALCIUM 9.2 MG/DL (8.4 - 10.2) TOTAL BILI <0.7 MG/DL (0.2 - 1.3) ALKALINE PHOS 85 U/L (38 - 126) SGOT/AST 14 U/L (5 - 40) SGPT/ALT 14 U/L (7 - 56) ANION GAP 14.0 mmol/L (8.0 - 16.0) AGE 39 yrs NON-AA GFR >60 mL/min AFR AMER GFR >60 mL/min Male GFR Interprentation 20-49 yrs >60 mL/min Dpjywi15-62 yrs >56 mL/min Normal 60-69 yrs >49 mL/min Normal 70-79yrs>42 mL/min Normal 80 and above >35 mL/min Normal Female GFRInterpretation 20-39 yrs >60 mL/min Normal 40-49 yrs >58 mL/minNormal 50-59 yrs >51 mL/min Normal 60-69 yrs >45 mL/min Kuszvm32-81 yrs >39 mL/min Normal 80 and above >32 mL/min NormalLipase: (CHERI: 10/05/2020 05:22) ( [facility] 10/05/2020 06:15) Final results Test Result Flag Units (Reference) LIPASE 16 U/L (13 - 60)Urinalysis: (CHERI: 10/05/2020 05:22) ( [facility] 10/05/2020 06:08) Final results Test Result Flag Units (Reference) URINALYSIS URINALYSIS SOURCE Clean Catch COLOR yellow (NORMAL: Yello CLARITY hazy (NORMAL: Clear SPEC GRAVI TY 1.030 (1.001 - 1.030 pH 5 (5 - 9) GLUCOSE NORM (NORMAL: Negat BILIRUBIN NEG (NORMAL: Negat KETONE 150 A (NORMAL: Negat PROTEIN 100 A (NORMAL: Negat NITRITE NEG (NORMAL: Negat BLOOD 150 A (NORMAL: Negat LEUK EST 25 (NORMAL: Negat UROBILINOGEN 1 (less than 1.0 MICROSCOPIC See Below WBC 3 - 5 (NORMAL: NONE RBC 0 - 1 (NORMAL: NONE EPITHELIAL MODERATE A (NORMAL: NONE BACTERIA 2+ MOD A (NORMAL: NONE MUCOUS None Seen (NORMAL: NONELactic Acid: (CHERI: 10/05/2020 05:22) ( [facility] 10/05/2020 06:03) Final results Test Result Flag Units (Reference) LACTIC ACID 2.2 MMOL/L (0.2 - 2.2)Beta-HCG, Qual Serum: (CHERI: 10/05/2020 05:22) ( [facility] 10/05/2020 06:04) Final results Test Result Flag Units (Reference) HCG SERUM QUAL NEGATIVE (NORMAL: NEGAT HCG SERUM QL REENTER NEGATIVE (NORMAL: NEGAT { KIT LOT # [id number] ){ KIT EXP [id number] ){ PROCEDURAL CONTROL VALID) 5 Clinical Report - Physicians/Mid Levels [facility] Emergency Department [address] [place] [address] Phone #: ext- [phone] 10/05/2020 05:14 Patient: LIA HAY Sex: F : 1980 Age: 39y.PROGRESS AND PROCEDURESCourse of Care: 07:11 10/05/20. workup pending, CBC, UA results in, will do urine culture, casetransferred Dr. Zapien at shift change 07:25 10/05/20. pt slightly better, but still nauseous and w epigastric pain; will add another liter of fluid, zofran iv, pepcid iv, ativan iv; Dr. Zapien will take over. ED care transferred. Case discussed with Dr. Zapien. Brief hx: as per H. Pending items: lab. Tentative impression: GERD, Gastritis, Cannabis Hyperemesis. Expected disposition: discharge from ED.(Electronically signed by Dinesh Laureano M.D. 10/09/2020 07:21) Time Seen: 05:44 10/05/2020. Arrived- By private vehicle. Historian- patient. Disposition decision: 10:33 10/05/2020.HISTORY OF PRESENT ILLNESS Chief Complaint: ABDOMINAL PAIN. This started for years; worse in last 2 days and is still present. It was gradual in onset and has been constant. It is described as "pain" and sharp and it is described as located in the epigastric area and in the upper abdomen. At its maximum, severity described as severe and 10 / 10. When seen in the E.D., severity described as severe and 10 / 10. Modifying factors- worsened by movement and food. Not relieved by anything. The patient has had moderate associated nausea. She has had loss of appetite. She has had vomiting. The vomiting has occurred several times. No blood-tinged emesi s or frankly bloody emesis. She has had mild diarrhea. No bloody diarrhea. (pt has Hx of IBS and recurrent, chronic epigastric pain w N/V; pt has seen GI in the past, last 2015, and has been scoped for this, pt has appt this afternoon w GI; pt smokes marijuana nightly; Sx's worse in last 2 days so went to [facility] ER on 10-03, had workup and CTAP and Tx; Sx's not better so came here today). No recent travel. Similar symptoms previously. Patient has had similar symptoms many times, chronically. Worse from previously. 6 Clinical Report - Physicians/Mid Levels [facility] Emergency Department [address] [place] [address] Phone #: ext- [phone] 10/05/2020 05:14 Patient: LIA HAY Sex: F : 1980 Age: 39y Recent medical care: The patient was seen recently at another facility in the emergency department. ( [facility] ER 10-03-20).REVIEW OF SYSTEMSNo constipation, black stools, hematemesis, difficulty with urination or pain with urination. No urinaryfrequency, bloody stools, fever, headache or sore throat. No blurred vision, chest pain, difficulty breathing,cough or joint pain. No skin rash, chills or back pain. Denies current . The patient has nothad weight loss. All other systems reviewed and are negative.PAST HISTORYSee nurses notes. Problems: Chronic abdominal pain. Hypertension. Depression. Anxiety Reaction. Pharyngitis. Irritable bowel syndrome (disorder). Gallstone(s). Gastroesophageal Reflux Disease. Additional Surgeries: Cholecystectomy. . (X 2) Foot surgery. Jaw surgery. Tubal Ligation. Medications: Omeprazole Oral 20 mg, 2x a day. Zofran Oral 4 mg, 4x a day as needed. busPIRone HCl Oral 7.5 mg po, 2x a day as needed. Dicyclomine HCl Oral 20 mg, 4x a day. Carvedilol Oral (Tablet 3.125 mg) 1 tablet, 2x a day. Paxil Oral 30 mg, daily. Claritin Oral 10 mg, daily. Reglan Oral 10 mg, 2x a day as needed. Allergies: Sulfa Antibiotics.(rash).SOCIAL HISTORYFormer smoker, end date 2012. Occasional alcohol use. Heavy drug use: nightly: marijuana. 7 Clinical Report - Physicians/Mid Levels [facility] Emergency Department [address] [place] [address] Phone #: ext- [phone] 10/05/2020 05:14 Patient: LIA HAY Sex: F : 1980 Age: 39yADDITIONAL NOTESThe nursing notes have been reviewed with agreement regarding the chief complaint, HPI, ROS, PMH andpatient medications and allergies.PHYSICAL EXAMVital Signs: 10/05/2020 05:15 BP: 156/86. MAP: 109. HR: 62. RR: 16. O2 saturation: 100%. Temp: 98.4F. Pain level now: 10. Have been reviewed. Oxygen saturation normal.Appearance: Alert. Oriented X3. Anxious. Appears to be in pain. Patient in moderate distress.Distress appears due to pain and anxiety.Eyes: Pupils equal, round and reactive to light. Eyes normal inspection.ENT: Nose normal. Pharynx normal.Neck: Normal inspection. Neck supple.CVS: Normal heart rate and rhythm. Heart sounds normal. Pulses normal.Respiratory: No respiratory distress. Painless inspiration. Breath sounds normal. Chest nontender.Abdomen: Soft. Moderate tenderness in the upper abdomen and epigastric area with guarding present.No rebound tenderness or Resendez's sign present. Bowel sounds normal. No organomegaly. No mass.Femoral pulses equal.Back: Normal inspection. No CVA tenderness.Skin: Skin warm and dry. Normal skin color. No rash. Normal skin turgor.Extremities: Extremities exhibit normal ROM. No lower extremity edema.Neuro: Oriented X 3. No motor deficit. No sensory deficit.LABS, X-RAYS, AND EKGLaboratory Tests: Laboratory tests have been ordered, with results reviewed and considered in themedical decision making process. Culture, Urine: (CHERI: 10/05/2020 07:00) ( MsgRcvd 10/05/2020 07:04) Canceled SOURCE: Urine, Clean Catch CBC w Diff: (CHERI: 10/05/2020 05:22) ( MsgRcvd 10/05/2020 06:03) Final results Test Result Flag Units (Reference) CBC W/AUTOMATED DIFF COMPLETE BLOOD COUNT WBC 13.3 H 10/uL (4.2 - 11.0) RBC 5.27 10/uL (4.20 - 5.40) HEMOGLOBIN 14.4 g/dL (12.0 - 16.0) HEMATOCRIT 43.7 % (37.0 - 47.0) MCV 82.9 fL (81.0 - 101) MCH 27.3 pg (27.0 - 34.0) MCHC 33.0 g/dL (31.0 - 36.0) RDW 14.4 % (11.5 - 14.5) PLATELETS 288 10/uL (150 - 450) MPV 10.2 fL (7.4 - 10.4) NEUT 85.4 H % (37.0 - 80.0) LYMPH 10.6 L % (25.0 - 40.0) MONO 2.2 L % (3.0 - 8.0) EOS 1.1 % (0.0 - 7.0) BASO 0.4 % (0.0 - 2.5) %IG 0.3 H % (0.0 - 0.0) 8 Clinical Report - Physicians/Mid Levels [facility] Emergency Department [address] [place] [address] Phone #: ext- [phone] 10/05/2020 05:14 Patient: LIA HAY Sex: F : 1980 Age: 39y %NRBC 0.0 % (0.0 - 0.0) #NEUT 11.38 H 10/uL (2.00 - 6.90) #LYMPH 1.42 10/uL (0.60 - 3.40) #MONO 0.30 10/uL (0.00 - 0.90) #EOS 0.15 10/uL (0.00 - 0.70) #BASO 0.05 10/uL (0.00 - 0.20) #IG 0.04 10/uL (0.00 - 0.10) #NRBC 0.00 10/uL (0.00 - 0.00) MANUAL DIFF NOT INDICATED RBC MORPH NOT INDICATEDCMP: (CHERI: 10/05/2020 05:22) ( MsgRcvd 10/05/2020 07:20) Final results Test Result Flag Units (Reference) COMPREHENSIVE METABOLIC PANEL COMPREHENSIVE METABOLIC PANEL SODIUM 139 mEq/L (134 - 153) POTASSIUM 3.3 L mEq/L (3.6 - 5.0) CHLORIDE 103 mEq/L (98 - 107) CO2 22 MEQ/L (22 - 30) GLUCOSE 113 H MG/DL (70 - 99) BUN 12 MG/DL (7 - 21) CREATININE 0.6 L MG/DL (0.7 - 1.5) BUN/CREAT 20 (8 - 27) TOTAL PROTEIN 7.7 G/DL (6.3 - 8.2) ALBUMIN 4.4 G/DL (3.9 - 5.0) GLOBULIN 3.3 H GM/DL (2.4 - 3.2) A/G RATIO 1.3 (0.8 - 2.0) CALCIUM 9.2 MG/DL (8.4 - 10.2) TOTAL BILI <0.7 MG/DL (0.2 - 1.3) ALKALINE PHOS 85 U/L (38 - 126) SGOT/AST 14 U/L (5 - 40) SGPT/ALT 14 U/L (7 - 56) ANION GAP 14.0 mmol/L (8.0 - 16.0) AGE 39 yrs NON-AA GFR >60 mL/min AFR AMER GFR >60 mL/min Male GFR Interprentation 20-49 yrs >60 mL/min Ojrzir97-33 yrs >56 mL/min Normal 60-69 yrs >49 mL/min Normal 70-79yrs>42 mL/min Normal 80 and above >35 mL/min Normal Female GFRInterpretation 20-39 yrs >60 mL/min Normal 40-49 yrs >58 mL/minNormal 50-59 yrs >51 mL/min Normal 60-69 yrs >45 mL/min Mzqeic25-07 yrs >39 mL/min Normal 80 and above >32 mL/min NormalLipase: (CHERI: 10/05/2020 05:22) ( MsgRcvd 10/05/2020 06:15) Final results Test Result Flag Units (Reference) LIPASE 16 U/L (13 - 60)Urinalysis: (CHERI: 10/05/2020 05:22) ( MsgRcvd 10/05/2020 06:08) Final results Test Result Flag Units (Reference) URINALYSIS URINALYSIS SOURCE Clean Catch COLOR yellow (NORMAL: Yello CLARITY hazy (NORMAL: Clear SPEC GRAVITY 1.030 (1.001 - 1.030 pH 5 (5 - 9) 9 Clinical Report - Physicians/Mid Levels [facility] Emergency Department [address] [place] [address] Phone #: ext- [phone] 10/05/2020 05:14 Patient: LIA HAY Sex: F : 1980 Age: 39y GLUCOSE NORM (NORMAL: Negat BILIRUBIN NEG (NORMAL: Negat KETONE 150 A (NORMAL: Negat PROTEIN 100 A (NORMAL: Negat NITRITE NEG (NORMAL: Negat BLOOD 150 A (NORMAL: Negat LEUK EST 25 (NORMAL: Negat UROBILINOGEN 1 (less than 1.0 MICROSCOPIC See Below WBC 3 - 5 (NORMAL: NONE RBC 0 - 1 (NORMAL: NONE EPITHELIAL MODERATE A (NORMAL: NONE BACTERIA 2+ MOD A (NORMAL: NONE MUCOUS None Seen (NORMAL: NONE Lactic Acid: (CHERI: 10/05/2020 05:22) ( MsgRcvd 10/05/2020 06:03) Final results Test Result Flag Units (Reference) LACTIC ACID 2.2 MMOL/L (0.2 - 2.2) Beta-HCG, Qual Serum: (CHERI: 10/05/2020 05:22) ( MsgRcvd 10/05/2020 06:04) Final results Test Result Flag Units (Reference) HCG SERUM QUAL NEGATIVE (NORMAL: NEGAT HCG SERUM QL REENTER NEGATIVE (NORMAL: NEGAT { KIT LOT # [id number] ){ KIT EXP DATE [id number] ){ PROCEDURAL CONTROL VALID ).PROGRESS AND PROCEDURESCourse of Care: 07:11 10/05/20. workup pending, CBC, UA results in, will do urine culture, casetransferred Dr. Zapien at shift change 07:25 10/05/20. pt slightly better, but still nauseous and w epigastric pain; will add another liter of fluid, zofran iv, pepcid iv, ativan iv; Dr. Zapien will take over 08:27 10/05/20. Patient re evaluated and feels more comfortable. she is less nauseous. Blood work showed mildly elevated wbc which maybe secondary to vomiting. Potassium is slightly low. will given Potassium chloride PO. she has a dirty urine but has a lot of epithelial cells. culture ordered by DR Laureano. patient takes marijuana. there may be a component of cannabis induced vomiting 10:26 10/05/20. obtained the CT scan results done at [facility] on 10/03/20 which showed umbilical hernia and a right ovarian cyst that is 4 cm without fluid on the cul de sac 10:30 10/05/20. patient has not vomited since she got the Zofran and IV fluids. she is suppose to see her GI doctor today. she already has bentyl. zofran and reglan at home. advised clear liquids x 12 hours and advance as tolerated and to follow up with GI this week. ED care transferred. Case discussed with Dr. Zpaien. Brief hx: as per H. Pending items: lab. Tentative impression: GERD, Gastritis, Cannabis Hyperemesis. Expected disposition: discharge from ED. 10 Clinical Report - Physicians/Mid Levels [facility] Emergency Department [address] [place] [address] Phone #: ext- [phone] 10/05/2020 05:14 Patient: LIA HAY Sex: F : 1980 Age: 39y Patient and spouse counseled in person regarding the patient's stable condition, test results, diagnosis and need for follow-up. Patient and spouse agrees with plan of care. 10:31. Disposition: Discharged home in good and improved condition (10:34). Condition: good and stable. Discharge decision based on the following: patient's condition is stable; patient's exam is stable; no abnormal test results; minimally abnormal test results; stable condition on multiple repeat evaluations; social support is adequate; transportation is available; follow-up is available; clinical impression is consistent with outpatient treatment.CLINICAL IMPRESSION Acute generalized abdominal pain. Vomiting with nausea.INSTRUCTIONS Do not work today. (eat lightly x 12 hours then advance as tolerated . take the zofran or reglan for vomiting and follow up with your GI doctor in am). Your Current Medications: Your current home medications have been reviewed. CONTINUE TAKING THE FOLLOWING MEDICATIONS: busPIRone HCl Oral : 7.5 mg po 2x a day, prn. Carvedilol Oral : Tablet 3.125 mg, 1 tablet 2x a day. Claritin Oral : 10 mg daily. Dicyclomine HCl Oral : 20 mg 4x a day. Omeprazole Oral : 20 mg 2x a day. Paxil Oral : 30 mg daily. Reglan Oral : 10 mg 2x a day, prn. Zofran Oral : 4 mg 4x a day, prn. Follow-up: Follow up with your healthcare provider tomorrow. Reason for referral: evaluation. Summary of care provided to patient via paper.(Electronically signed by Eduar Zapien 10/05/2020 11:16) 11Clinical Report - Physicians/Mid Levels [facility] Emergency Department [address] [place] [address] Phone #: ext- [phone] 10/05/2020 05:14 Patient: LIA HAY Sex: F : 1980 Age: 39y Name Value Range Interpretation Code Description Data Molly rce(s) Supporting Document(s) ID Date Data Source [id number] 10/08/2020 10:06:00 [place] [address] HISTORY AND PHYSICALNAME: SERA Cagle ROOM#: 100-1DATE OF : 1980 MR#: [id number] PHYS: Jeni Mcdowell MD DATE: 10/07/20CHIEF COMPLAINT: Intractable nausea and vomiting, abdominal pain.HISTORY OF PRESENT ILLNESS:This is a pleasant 39-year-old female who has a history of nausea and vomiting in the past who presented tot emergency room with worsening abdominal pain, nausea and vomiting over the past one week. [facility] [place] and presented herself to [facility] twice and she wassent home twice per patient. She did not get better and got worse. She claims that CT was done in [facility] emergency room and showed that she had some sort of umbilical hernia and was told that shehas an ovarian cyst, otherwise it was normal, per patient. She claims that this nausea and vomiting started aftershe had a second COVID vaccine and it just has not stopped. She claims that she is unable to keep anythingdown and is not drinking well. She has a history of IBS in the past. She had nausea and vomiting in the past [id number]. She had the last episode, then she had gallbladder surgery and since then, she was doing okay, but nowit started again. She does have IBS. She is on Bentyl and she is on Reglan and other medications. She startedeating eggs and toast this morning and it started hurting with epigastric pain. She states that possiblypreviously she may have had a little bit of blood in her vomit, but she was retching quite a bit as well. Thistime, she did not have any blood. She is moving her bowels well and denies having any diarrhea. Shecomplains of epigastric pain however. Denies any upper respiratory symptoms. Denies fever or chills. Deniesany back pain. Denies any pelvic pain at this time. She just feels dehydrated and is not feeling well and strongas she could not keep anything down. In the emergency room, blood work was fairly benign except potassiumwas low. She was given replacement potassium there. She was given some fluids. An imaging study was notcompleted as patient recently had a [facility] scan at [facility]. I do not have the report to review atthis point.At this point, the hospitalist was called for the admission due to intractable nausea, vomiting, abdominal pain,hypokalemia and need to admit for fluids as she cannot keep anything down at home.REVIEW OF SYSTEMS:Negative except as mentioned above in the HPI.PAST MEDICAL HISTORY: 1. Hypertension 2. GERD 3. Irritable bowel syn drome 4. History of vomiting and nausea and vomiting in the past 5. History of chronic abdominal painPAST SURGICAL HISTORY: 1. Status post cholecystectomy 1 [place] [address] HISTORY AND PHYSICALNAME: SERA Cagle ROOM#: [id number] OF : 1980 MR#: [id number] PHYS: Jeni Mcdowell MD DATE: 10/07/20 2. Status post section x2 3. Status post some sort of foot surgery 4. Status post jaw surgery 5. Tubal ligationFAMILY HISTORY:No significant family history.SOCIAL HISTORY:She used to smoke in the past. She quite many years ago. Occasionally she uses marijuana. Denies any druguse.ALLERGIES:No known drug allergies.HOME MEDICATIONS: 1. Reglan 10 mg 4x a day 2. Buspirone 7.5 mg b.i.d. 3. Carvedilol 3.125 mg 1 tab p.o. b.i.d. 4. Claritin 10 mg on a daily basis 5. Dicyclomine 20 mg 4x a day 6. Omeprazole 20 mg b.i.d. 7. Paxil 30 mg daily 8. Zofran 4 mg 4x a dayPHYSICAL EXAMINATION:VITAL SIGNS: Temperature is 99. Pulse 75. Respiratory rate is 18. Blood pressure is 145/93. O2 saturation is100% on room air. She is 170 pounds. Height is 63 inches. BMI is 30.22.HEENT: Head is normocephalic, atraumatic. Eyes: PERRL. Extraocular movements are intact. Mouth: Oralmucosa is pink and moist.NECK: Supple. No cervical lymphadenopathy.EARS: Tympanic membranes visualized and within normal limits. Good cone of light.HEART: S1, S2, regular rate and rhythm. No murmur or gallop.LUNGS: Clear to auscultation, no rhonchi, no rub.ABDOMEN: Soft. Hyperactive bowel sounds. Positive tenderness in the epigastric region. Minimaltenderness in the left lower quadrant but no rebound or guarding.BACK: No CVA tenderness appreciated.: Deferred. [address] [place] [address] HISTORY AND PHYSICALNAME: SERA Cagle ROOM#: [id number] OF : 1980 MR#: [id number] PHYS: Jeni Mcdowell MD DATE: 10/07/20EXTREMITIES: No pitting edema. Good capillary refill appreciated. Power seems to be 5/5 upper and lowerextremities. Sensation intact to all extremities.NEURO/PSYCH: Cranial nerves II-XII grossly intact. Alert and oriented x3. No focal neurological findingsappreciated.IMAGING:CT scan of the abdomen and pelvis was done at [facility]. We will try to obtain the results.LABORATORY DATA:WBC is 13. H&H is 13.6/40.1 with platelets of 267. Sodium is 143, potassium 3.0, chloride 104, bicarb 26,glucose 102, BUN 8, creatinine 0.8, calcium is 9.3. AST is 16. ALT is 22. Lipase 15. GFR is greater 60.Urinalysis is positive for ketones, blood 250, moderate epithelium, 1+ bacteria, trace mucus. Lactic acid 1.5.ASSESSMENT:39-year-old female with intractable nausea, vomiting, abdominal pain.PLAN: 1. Intractable nausea, vomiting with abdominal pain. Unknown etiology at this time. Patient does smoke marijuana. Will check her urine for toxicology. Education was given. Patient has a questionable history of chronic nausea, vomiting and abdominal pain. We will obtain a CT scan of the abdomen and pelvis which was done at [facility] to review. If not, we will t ry to obtain our own. For now, will treat her with IV fluids at 125 cc/hr, Zofran for nausea and vomiting and Phenergan, if needed. Tylenol and Toradol for pain control for now. N.p.o. Will attempt to feed her tomorrow depending on how she does in the next 12 hours. Will follow patient closely. 2. Hypokalemia. Replaced in the emergency room. Will get fluids with 20 of potassium. Will check her potassium tomorrow morning. If need to, will replace. 3. Hypertension. She is on Carvedilol 3.125 mg 1 tab p.o. b.i.d. Will continue current therapy. 4. Irritable bowel syndrome. She is on Reglan. She is on Bentyl. Will continue current therapy. 5. Anxiety. She is on buspirone as well as Paxil. Will continue current home therapy. 6. GERD. She is on omeprazole 20 mg b.i.d. Will continue current therapy. 7. Allergies, seasonal. Will continue Claritin 10 once a day. 8. DVT prophylaxis. Will put her on Lovenox 40 once a day. 9. GI prophylaxis. Will put her on Protonix 20 [address]i.d. 10. Code st atus: She is a full code. 11. Discharge planning: Patient will be discharged home when stable. She is admitted as observation for now.DD: Jeni Mcdowell MD 10/07/20 19:38 [address] [place] [address] HISTORY AND PHYSICALNAME: SERA Cagle ROOM#: 100-1DATE OF : 1980 MR#: [id number] PHYS: Jen[facility]cdowell [facility] [id number] DATE: 10/07/20DT: SHELBY 10/08/20 09:45DS: Jeni Mcdowell MD 10/09/20 06:28 4 Name Value Range Interpretation Code Description Data Molly rce(s) Supporting Document(s) ID Date Data Source [id number] 10/09/2020 11:36:[address] [facility] Name Value Range Interpretation Code Description Data Molly rce(s) Supporting Document(s) Lipase [Enzymatic activity/volume] in Serum or Plasma 22 U/L 13 - 60 [facility] ID Date Data Source [id number] 10/09/2020 07:41:[address] [facility] Name Value Range Interpretation Code Description Data [facility] rce(s) Supporting Document(s) COMPREHENSIVE METABOLIC PANEL [facility] COMPREHENSIVE METABOLIC PANEL Sodium [Moles/volume] in Serum or Plasma 143 mEq/L 134 - 153 [facility] Potassium [Moles/volume] in Serum or Plasma 4.1 mEq/L 3.6 - 5.0 [facility] Chloride [Moles/volume] in Serum or Plasma 112 mEq/L 98 - [address] [facility] Carbon dioxide, total [Moles/volume] in Serum or Plasma 25 MEQ/L 22 - 30 [facility] Glucose [Mass/volume] in Serum or Plasma 88 MG/DL 70 - 99 [facility] BUN 4 MG/DL 7 - [facility] Creatinine [Mass/volume] in Serum or Plasma 0.6 MG/DL 0.7 - 1.[address] [facility] BUN/CREAT 7 8 - 27 L [facility] al Protein [Mass/volume] in Serum or Plasma 5.5 G/DL 6.3 - 8.[address] [facility] Albumin [Mass/volume] in Serum or Plasma 3.2 G/DL 3.9 - 5.[address] [facility] Globulin [Mass/volume] in Serum by calculation 2.3 GM/DL 2.4 - 3.[address] [facility] A/G RATIO 1.4 0.8 - 2.0 [facility] Calcium [Mass/volume] in Serum or Plasma 8.6 MG/DL 8.4 - 10.2 [facility] Bilirubin.total [Mass/volume] in Serum or Plasma <0.7 MG/DL 0.2 - 1.3 [facility] Alkaline phosphatase [Enzymatic activity/volume] in Serum or Plasma 57 U/L 38 - 126 [facility] Aspartate aminotransferase [Enzymatic activity/volume] in Se rum or Plasma 9 U/L 5 - 40 [facility] Alanine aminotransferase [Enzymatic activity/volume] in Seru m or Plasma 15 U/L 7 - 56 [facility] Anion gap 3 in Serum or Plasma 6.0 mmol/L 8.0 - 16.[address] [facility] 39 [facility] >60 mL/min [facility] ital AFR AMER GFR >60 mL/min [facility] Ho spital Male GFR In terprentation 20-49 yrs >60 mL/min Normal 50-59 yrs >56 mL/min Normal 60-69 yrs >49 mL/min Normal 70-79yrs >42 mL/min Normal 80 and above >35 mL/min Normal Female GFR Interpretation 20-39 yrs >60 mL/min Normal 40-49 yrs >58 mL/min Normal 50-59 yrs >51 mL/min Normal 60-69 yrs >45 mL/min Normal 70-79 yrs >39 mL/min Normal 80 and above >32 mL/min Normal ID Date Data Source [id number] 10/09/2020 07:18:[address] [facility] Name Value Range Interpretation Code Description Data Molly rce(s) Supporting Document(s) CBC W/AUTOMATED DIFF [facility] COMPLETE BLOOD COUNT Leukocytes [#/volume] in Blood by Automated count 5.9 10^3/uL 4.2 - [address] [facility] Erythrocytes [#/volume] in Blood by Automated count 3.98 10^6/uL 4. 20 - 5.[address] [facility] Hemoglobin [Mass/volume] in Blood 11.0 g/dL 12.0 - 16.[address] [facility] Hematocrit [Volume Fraction] of Blood by Automated count 33.7 % 3 7.0 - 47.[address] [facility] Erythrocyte mean corpuscular volume [Entitic volume] by Auto mated count 84.7 fL 81.0 - 101 [facility] Erythrocyte mean corpuscular hemoglobin [Entitic mass] by Automated count 27.6 pg 27.0 - 34.0 [facility] Erythrocyte mean corpuscular hemoglobin concentration [Mass/volume] by Automated count 32.6 g/dL 31.0 - 36.0 [facility] Erythrocyte distribution width [Ratio] by Automated count 14.0 % 11.5 - 14.5 [facility] Platelets [#/volume] in Blood by Automated count 194 10^3/uL 150 - [address] [facility] Platelet mean volume [Entitic volume] in Blood by Automated count 10.6 fL 7.4 - 10.[address] [facility] Neutrophils/100 leukocytes in Blood by Automated count 55.2 % 37. 0 - 80.0 [facility] Lymphocytes/100 leukocytes in Blood by Manual count 36.7 % 25.0 - 40.0 [facility] Monocytes/100 leukocytes in Blood by Automated count 5.7 % 3.0 - 8.0 [facility] Eosinophils/100 leukocytes in Blood by Automated count 1.2 % 0.0 - 7.0 [facility] Basophils/100 leukocytes in Blood by Automated count 1.0 % 0.0 - 2.5 [facility] %IG 0.2 % 0.0 - 0.0 H [facility] al %NRBC 0.0 % 0.0 - 0.0 [facility] al Neutrophils [#/volume] in Blood by Automated count 3.27 10^3/uL 2.00 - 6.90 [facility] Lymphocytes [#/volume] in Blood by Automated count 2.17 10^3/uL 0.60 - 3.40 [facility] Monocytes [#/volume] in Blood by Automated count 0.34 10^3/uL 0.00 - 0.90 [facility] Eosinophils [#/volume] in Blood by Automated count 0.07 10^3/uL 0.00 - 0.70 [facility] Basophils [#/volume] in Blood by Automated count 0.06 10^3/uL 0.00 - 0.20 [facility] #IG 0.01 10^3/uL 0.00 - 0.10 [facility] H ospital #NRBC 0.00 10^3/uL 0.00 - 0.00 [facility] ospital MANUAL DIFF NOT INDICATED [facility] RBC MORPH NOT INDICATED [facility] Ho spital ID Date Data Source [id number] 10/08/2020 11:08:00 PM EDT [facility] [address] [place] [address] RESPIRATORY CARE REPORT ==== ---------NAME------- NUMBER SEX AGE ADMIT DISC. XRAY# F/C TYPEDAMIO FITZGERALD C [id number] F [id number] 10/07/20 [id number] O/P DATE OF : 1980 M/R# [id number] #: [id number] 100-1 LOCATION: EMERGENCY DEPT [facility] [id number] COMP LETE:10/08/20 12:45 [facility] [address] PHYSICIAN: JULY ESCUDERO Name Value Range Interpretation Code Description Data Molly rce(s) Supporting Document(s) ID Date Data Source [id number] 10/08/2020 01:31:[address] [facility] Name Value Range Interpretation Code Description Data Molly rce(s) Supporting Document(s) TROPONIN T <0.01 NG/ML 0.00 - 0.10 [facility] ospital TROPONIN T0.1 ng/ml Recommended as the c linical threshold value forTroponin T. ID Date Data Source [id number] 10/08/2020 07:44:[address] [facility] Name Value Range Interpretation Code Description Data Molly rce(s) Supporting Document(s) CBC W/AUTOMATED DIFF [facility] COMPLETE BLOOD COUNT Leukocytes [#/volume] in Blood by Automated count 8.7 10^3/uL 4.2 - [address] [facility] Erythrocytes [#/volume] in Blood by Automated count 4.30 10^6/uL 4. 20 - 5.40 [facility] Hemoglobin [Mass/volume] in Blood 12.0 g/dL 12.0 - 16.0 [facility] Hematocrit [Volume Fraction] of Blood by Automated count 35.4 % 3 7.0 - 47.[address] [facility] Erythrocyte mean corpuscular volume [Entitic volume] by Auto mated count 82.3 fL 81.0 - 101 [facility] Erythrocyte mean corpuscular hemoglobin [Entitic mass] by Automated count 27.9 pg 27.0 - 34.0 [facility] Erythrocyte mean corpuscular hemoglobin concentration [Mass/volume] by Automated count 33.9 g/dL 31.0 - 36.0 [facility] Erythrocyte distribution width [Ratio] by Automated count 13.6 % 11.5 - 14.5 [facility] Platelets [#/volume] in Blood by Automated count 228 10^3/uL 150 - [address] [facility] Platelet mean volume [Entitic volume] in Blood by Automated count 10.2 fL 7.4 - 10.4 [facility] Neutrophils/100 leukocytes in Blood by Automated count 71.5 % 37. 0 - 80.0 [facility] Lymphocytes/100 leukocytes in Blood by Manual count 21.8 % 25.0 - 40.[address] [facility] Monocytes/100 leukocytes in Blood by Automated count 5.4 % 3.0 - 8.0 [facility] Eosinophils/100 leukocytes in Blood by Automated count 0.6 % 0.0 - 7.0 [facility] Basophils/100 leukocytes in Blood by Automated count 0.5 % 0.0 - 2.5 [facility] %IG 0.2 % 0.0 - 0.0 [facility] %NRBC 0.0 % 0.0 - 0.0 [facility] al Neutrophils [#/volume] in Blood by Automated count 6.20 10^3/uL 2.00 - 6.90 [facility] Lymphocytes [#/volume] in Blood by Automated count 1.89 10^3/uL 0.60 - 3.40 [facility] Monocytes [#/volume] in Blood by Automated count 0.47 10^3/uL 0.00 - 0.90 [facility] Eosinophils [#/volume] in Blood by Automated count 0.05 10^3/uL 0.00 - 0.70 [facility] Basophils [#/volume] in Blood by Automated count 0.04 10^3/uL 0.00 - 0.20 [facility] #IG 0.02 10^3/uL 0.00 - 0.10 [facility] ospital #NRBC 0.00 10^3/uL 0.00 - 0.00 [facility] ospital MANUAL DIFF NOT INDICATED [facility] RBC MORPH NOT INDICATED [facility] spital ID Date Data Source [id number] 10/08/2020 07:50:[address] [facility] Name Value Range Interpretation Code Description Data Molly rce(s) Supporting Document(s) COMPREHENSIVE METABOLIC PANEL [facility] COMPREHENSIVE METABOLIC PANEL Sodium [Moles/volume] in Serum or Plasma 140 mEq/L 134 - 153 [facility] Potassium [Moles/volume] in Serum or Plasma 3.5 mEq/L 3.6 - 5.[address] [facility] Chloride [Moles/volume] in Serum or Plasma 108 mEq/L 98 - [address] [facility] Carbon dioxide, total [Moles/volume] in Serum or Plasma 25 MEQ/L 22 - 30 [facility] Glucose [Mass/volume] in Serum or Plasma 89 MG/DL 70 - 99 [facility] BUN 5 MG/DL 7 - 21 L [facility] Creatinine [Mass/volume] in Serum or Plasma 0.6 MG/DL 0.7 - 1.[address] [facility] BUN/CREAT 8 8 - 27 [facility] Protein [Mass/volume] in Serum or Plasma 5.8 G/DL 6.3 - 8.[address] [facility] Albumin [Mass/volume] in Serum or Plasma 3.5 G/DL 3.9 - 5.[address] [facility] Globulin [Mass/volume] in Serum by calculation 2.3 GM/DL 2.4 - 3.[address] [facility] A/G RATIO 1.5 0.8 - 2.0 [facility] al Calcium [Mass/volume] in Serum or Plasma 8.6 MG/DL 8.4 - 10.2 [facility] Bilirubin.total [Mass/volume] in Serum or Plasma <0.7 MG/DL 0.2 - 1.3 [facility] Alkaline phosphatase [Enzymatic activity/volume] in Serum or Plasma 67 U/L 38 - 126 [facility] Aspartate aminotransferase [Enzymatic activity/volume] in Serum or Plasma 10 U/L 5 - 40 [facility] Alanine aminotransferase [Enzymatic activity/volume] in Seru m or Plasma 17 U/L 7 - 56 [facility] Anion gap 3 in Serum or Plasma 7.0 mmol/L 8.0 - 16.[address] [facility] AGE 39 yrs [facility] al NON-AA GFR >60 mL/min [facility] ital AFR AMER GFR >60 mL/min [facility] Ho spital Male GFR In terprentation 20-49 yrs >60 mL/min Normal 50-59 yrs >56 mL/min Normal 60-69 yrs >49 mL/min Normal 70-79yrs >42 mL/min Normal 80 and above >35 mL/min Normal Female GFR Interpretation 20-39 yrs >60 mL/min Normal 40-49 yrs >58 mL/min Normal 50-59 yrs >51 mL/min Normal 60-69 yrs >45 mL/min Normal 70-79 yrs >39 mL/min Normal 80 and above >32 mL/min Normal ID Date Data Source [id number] 10/08/2020 07:48:[address] [facility] Name Value Range Interpretation Code Description Data Molly rce(s) Supporting Document(s) Magnesium [Mass/volume] in Serum or Plasma 1.7 MG/DL 1.7 - 2.2 [facility] ID Date Data Source [id number] 10/08/2020 07:48:[address] [facility] Name Value Range Interpretation Code Description Data Molly rce(s) Supporting Document(s) Lipase [Enzymatic activity/volume] in Serum or Plasma 17 U/L 13 - 60 [facility] ID Date Data Source [id number] 10/08/2020 07:48:[address] [facility] Name Value Range Interpretation Code Description Data Molly rce(s) Supporting Document(s) Amylase [Enzymatic activity/volume] in Serum or Plasma 36 U/L 30 - 110 [facility] ID Date Data Source [id number] 10/08/2020 12:54:[address] [facility] Name Value Range Interpretation Code Description Data Molly rce(s) Supporting Document(s) TROPONIN T <0.01 NG/ML 0.00 - 0.10 [facility] ospital TROPONIN T0.1 ng/ml Recommended as the c linical threshold value forTroponin T. ID Date Data Source [id number] 10/07/2020 12:46:[address] [facility] [address] [facility] Emergency Department [address] [place] [address] Phone #: ext- [phone] 10/07/2020 12:43 Patient: LIA HAY Sex: F : 1980 Age: 39yWEIGHT:76.6 kg (S) HEIGHT:63 inches (S) BMI:29.9ALLERGIES: Sulfa AntibioticsCHIEF COMPLAINT: abdominal pain, vomiting, nauseaDIAGNOSIS: Problem, VomitingLAB ORDERSOrder Description Priority Entered Acknowledged InitialedCBC w Diff STAT 13:11 10/07/2020 13:13 Reilly Jha R.N.;CMP STAT 13:11 10/07/2020 13:13 Reilly Jha R.N.;Lipase STAT 13:11 10/07/2020 13:13 Reilly Jha R.N.;Urinalysis (Clean STAT 13:11 10/07/2020 Ack'd: 13:13 15:03 Álvaro Jha) Aletha Robles R.N.; R.N.Lactic Acid STAT 13:11 10/07/2020 13:13 Reilly Jha R.N.;COVID-19 CAH (Not STAT 16:01 10/07/2020 16:02 Yudelka,Symptomatic as Reilly Pompa R.N.Defined by [facility]) MARTITA;(10/03/2020) (FirstTest) (Hospitalized)(Not ) (NotResident inCongregate CareSetting) (NotEmployed inHealthcare Setting)DIAGNOSTIC STUDY ORDERSOrder Description Priority Entered Acknowledged InitialedMEDICATION/IV/DRIP/FLUID ORDERS [address] [facility] Emergency Department [address] [place] [address] Phone #: ext- [phone] 10/07/2020 12:43 Patient: LIA HAY Sex: F : 1980 Age: 39yOrder Description Priority Entered Acknowledged InitialedPromethazine IV 13:11 10/07/2020 Ack'd: 13:13 13:23 Yudelka,25mg in 50mL NS, Aletha Robles R.N.give wide open: 25 PA; R.N.mg (NOW x1, HIGHALERTMEDICATION)NS IV 1000 mL 13:11 10/07/2020 Ack'd: 13:13 13:22 Yudelka,Bolus: : Bolus 1000 Aletha Robles R.N.mL (X1) PA; R.N.Ofirmev IV 1000 mg 13:11 10/07/2020 Ack'd: 13:13 13:40 Yudelka,(NOW x1, Infuse Aletha Robles R.N.over 15 minutes) PA; R.N.KCl Liquid PO 40 13:59 10/07/2020 Ack'd: 14:06 14:17 YudelkaAletha Licea R.N. PA; R.N.KCl IVPB 10 13:59 10/07/2020 Ack'd: 14:06 14:17 Yudelka,meq/100mL Aletha Robles R.N.; R.N.Zofran IVP 8 mg 14:55 10/07/2020 Ack'd: 14:57 15:10 Reilly Jha Amber Amber R.N. PA; R.N.Ativan IVP 2 mg 14:55 10/07/2020 Ack'd: 14:57 15:11 Yudelka,(HIGH ALERT Aletha Robles R.N.MEDICATION) PA; R.NTriciaGENERAL ORDERSOrder Description Priority Entered Acknowledged InitialedNPO 13:11 10/07/2020 13:13 Reilly Jha R.N.;Saline Lock 13:11 10/07/2020 13:13 Reilly Jha R.N.;[Electronically signed by Aletha Jha R.N. (17:08 10/07/2020)][Electronically signed by Reilly Leblanc (21:41 10/07/2020)][Electronically locked by Aletha Jha R.N. (17:08 10/07/2020)] [address] [facility] Emergency Department [address] [place] [address] Phone #: ext- [phone] 10/07/2020 12:43 Patient: LIA HAY Sex: F : 1980 Age: 39y Name Value Range Interpretation Code Description Data Molly rce(s) Supporting Document(s) ID Date Data Source [id number] 10/07/2020 12:46:[address] [facility] [address] [facility] Emergency Department [address] [place] [address] Phone #: ext- [phone] 10/07/2020 12:43 Patient: LIA HAY Sex: F : 1980 Age: 39yWeight: 76.6 kgHeight/Length: 63 in.BMI: 29.9ALLERGIES: Sulfa AntibioticsThe patient's Home Medications are listed below:THE FOLLOWING MEDICATIONS NEED TO BE RECONCILED: busPIRone HCl Oral 7.5 mg po, 2x a day, prn Carvedilol Oral (3.125 mg) 1 tablet, 2x a day Claritin Oral 10 mg, daily Dicyclomine HCl Oral 20 mg, 4x a day Omeprazole Oral 20 mg, 2x a day Paxil Oral 30 mg, daily Reglan Oral 10 mg, 4x a day, prn Zofran Oral 4 mg, 4x a day, prnThe source(s) of the original Home Medication information:patientThe following Medications were given to the patient in the Emergency Department:NS [IV] IV Fluids bolus 1000 mL wide open, administered: 13:22 021Promethazine [IVPB] IVPB bolus 25 mg wide open, then 25 mg, administered: 13:23 10/07/2020Ofirmev IV bolus 0, then 1000mg, administered: 13:40 10/07/2020KCL LIQUID PO PO 40 meq, administered: 14:17 10/07/[address] [facility] Emergency Department [address] [place] [address] Phone #: ext- [phone] 10/07/2020 12:43 Patient: LIA HAY Sex: F : 1980 Age: 39yKCL [IVPB] IVPB bolus 0, then 10 meq 100 mL/hr, administered: 14:17 10/07/2020Zofran [IVP] IVP 8 mg, administered: 15:05 10/07/2020tivan [IVP] IVP 2 mg diluted in NS 10 mL, administered: 15:10 10/07/2020The following Medications were prescribed to the patient:None. Name Value Range Interpretation Code Description Data Molly rce(s) Supporting Document(s) ID Date Data Source [id number] 10/07/2020 12:46:[address] [facility] [address] [facility] Emergency Department [address] [place] [address] Phone #: ext- [phone] 10/07/2020 12:43 Patient: LIA HAY Sex: F : 1980 Age: 39yWeight: 76.6 kgHeight/Length: 63 inBMI: 29.9ALLERGIES: Sulfa Antibiotics Date/Time Medication Administered Medication OrderedStart PROMETHAZINE [IVPB] Promethazine IV 25mg in 50mL13:23 10/07/2020 Dose: 25 mg IVPB NS, give wide open: 25 mg (Aletha Lynn, R.N. Bolus: 25 mg wide open x1, HIGH ALERT MEDICATION)---- Dispensed: 50 mL bagStop Site: #1 left AC13:40 10/07/2020Aletha Jha, R.N.Start NS [IV] NS IV 1000 mL Bolus: : Bolus [id number] 10/07/2020 Dose: IV Fluids mL (X1)Aletha Jha, R.N. Bolus: 1000 mL wide open---- Dispensed: 1000 mL bagContinued Upon Admission Site: #1 left AC16:43 10/07/2020Aletha Jha R.N.Start Ofirmev * Ofirmev IV 1000 mg (NOW x1,13:40 10/07/2020 Dose: 1000mg * IV Infuse over 15 minutes)Aletha hJa R.N.----Stop13:55 10/07/2020Aletha Jha R.N.Given KCL LIQUID PO KCl Liquid PO 40 meq14:17 10/07/2020 Dose: 40 meq Oral Suspension Aletha East R.N.Start KCL [IVPB] KCl IVPB 10 meq/152gT07:17 10/07/2020 Dose: 10 meq IVPBAletha Jha R.N. Rate: 100 mL/hr---- Dispensed: 100 mL bagStop Site: #1 left AC15:25 10/07/2020Aletha Jha R.N.Given ZOFRAN [IVP] (ONDANSETRON HCL) Zofran IVP 8 mg15:05 10/07/2020 Dose: 8 mg IVPAletha Jha R.N. Site: #1 left ACGiven ATIVAN [IVP] (LORAZEPAM) Ativan IVP 2 mg (HIGH ALERT15:10 10/07/2020 Dose: 2 mg IVP MEDICATION)Aletha Jha R.N. In: NS 10 mL Site: #1 left AC Name Value Range Interpretation Code Description Data Molly rce(s) Supporting Document(s) ID Date Data Source [id number] 10/07/2020 12:46:[address] [facility] [address] [facility] Emergency Department [address] [place] [address] Phone #: ext- [phone] 10/07/2020 12:43 Patient: LIA HAY Sex: F : 1980 Age: 39yIntractable vomiting with nausea and dehydration.Hypokalemia.(Electronically signed by MARTITA Maldonado 10/07/2020 21:41) Name Value Range Interpretation Code Description Data Molly rce(s) Supporting Document(s) ID Date Data Source [id number] 10/07/2020 12:46:[address] [facility] 1 Clinical Report - Nurses [facility] Emergency Department [address] [place] [address] Phone #: ext- [phone] 10/07/2020 12:43 Patient: LIA HAY Sex: F : 1980 Age: 39yTRIAGEArrived by private vehicle. Historian: patient. Accompanied by spouse.Triage time: late entry - 12:45 10/07/2020. Acuity: LEVEL 3.Chief Complaint: ABDOMINAL PAIN, NAUSEA and VOMITING and (Dizzy).Alert.Onset. (Friday). ( Pt states on 10/03/2020 she started having severe epigastric abdominal pain, statesknown hernia. Pt has had vomiting with this. Pt states she has had bouts of this in the past and wasattributed to IBS. Pt states today is her 3rd ER visit, 2 previous at [facility], completed labs and CT, foundumbilical hernia, and ovarian cyst, everything else was normal. Pt was D/C on Reglan which helps a little.Pt states her symptoms goes in cycles, yesterday was slightly better but still had not eaten. Pt statestoday at 0900 she attempted to eat eggs and toast and at 1000 "it started all over again", epigastric painwith vomiting.). She has had nausea. She has had vomiting (12 episodes so far today). ( Last BM justprior to arrival and was "bright yellow and possibly some orange stuff in it"). No diarrhea.Treatment PAEDIATRICIAN:Symptoms did not improve after treat ment. (Reglan last dose 1030; Bentyl last dose 1030, zofran last doseat 1030).SEPSIS SCREEN: SIRS SCREEN NEGATIVE. SEPSIS SCREEN NEGATIVE. No suspected or confirmedsigns of infection present. (12:59 10/07/2020). --13:00 10/07/20 Stefany Hidalgo R.N.12:52 10/07/20. BP: 153/95. MAP: 114. HR: 67. RR: 18. O2 saturation: 96% on room air. Temp: 98.9 F(oral). Pain level now: 04/08. --13:00 10/07/20 Stefany Hidalgo R.N.Weight: 76.6 kg stated. Height/Length: 63 inches Per Patient. BMI: 29.9. --12:45 10/07/20 Stefany Hidalgo R.N.MedicationsbusPIRone HCl Oral 7.5 mg po, 2x a day as needed. Carvedilol Oral (Tablet 3.125 mg) 1 tablet, 2x a day. Claritin Oral 10 mg, daily. Dicyclomine HCl Oral 20 mg, 4x a day. Omeprazole Oral 20 mg, 2x a day. Paxil Oral 30 mg, daily. Zofran Oral 4 mg, 4x a day as needed. --12:57 10/07/20 Stefany Hidalgo R.N. Reglan Oral 10 mg, 4x a day as needed. --12:57 10/07/20 Stefany Hidalgo R.N.Allergies 2 Clinical Report - Nurses [facility] Emergency Department [address] [place] [address] Phone #: ext- [phone] 10/07/2020 12:43 ----- Patient: LIA HAY Sex: F : 1980 Age: 39ySulfa Antibiotics.(rash) --12:57 10/07/20 Hinton, Stefany, R.N.PROBLEMS:Hypertension.Gastroesophageal Reflux Disease.Irritable bowel syndrome (disorder).Vomiting.Chronic abdominal pain. --12:58 10/07/20 Stefany Hidalgo R.N.Medication/allergy information source: the patient. --13:00 10/07/20 Stefany Hidalgo R.N.ADDITIONAL SURGERIES:Cholecystectomy. (X 2).Foot surgery.Jaw surgery.Tubal Ligation. --12:58 10/07/20 Stefany Hidalgo R.N.HistoryPAST MEDICAL HX: Immunizations: up-to-date. Last normal menstrual period- Pt states "i don't knowwhen my last one was because it keeps coming on and off". Pt states had some bleeding yesterday, nonetoday.SOCIAL HX: Former smoker. No alcohol use or drug use. No recent travel. No known contact with asick individual. She was offered HIV testing but declined. Patient education was provided. She wasoffered hepatitis C testing but declined. Patient education was provided. ( COVID screen negative). Tavo not traveled outside the [place]Infectious disease exposure: No infectious disease exposure. The patient was not exposed to Coronavirus.Mask placed on patient. Patient is not a known carrier of tuberculosis, hepatitis, HIV, MRSA or VRE.Patient is not a known carrier of CRE.SELF HARM ASSESSMENT: Self harm assessment was performed. The patient answered "no" to thequestion(s) "Do you have thoughts of harming or killing yourself?" and "Do you have a plan for harming orkilling yourself?".ABUSE ASSESSMENT: Abuse assessment. The patient had positive responses to the question(s) "Do youfeel safe in your home?". Abuse denied. No suspicion of abuse. No report of abuse.NUTRITIONAL RISK ASSESSMENT: The nutritional risk assessment revealed no deficiencies.FUNCTIONAL ASSESSMENT: Functional assessment: no impairments noted.LEARNING NEEDS ASSESSMENT: The learning needs assessment revealed no barriers.FALL RISK ASSESSMENT: Fall risk assessment completed. No risk factors identified. 3 Clinical Report - Nurses [facility] Emergency Department [address] [place] [address] Phone #: ext- [phone] 10/07/2020 12:43 [id number] Sex: F : 1980 Age: 39y SKIN INTEGRITY ASSESSMENT: Skin integrity risk assessment completed. No skin integrity risk identified. --13:00 10/07/20 Stefany Hidalgo R.N. Interventions Identification band on patient. --13:00 10/07/20 Stefany Hidalgo R.N.PHYSICAL ASSESSMENTTo room via wheelchair.GENERAL / NEURO / PSYCH: Alert. Oriented X 4. Appears in no acute distress.HEENT: Mucous membranes are pink.RESPIRATORY: Respirations not labored. Breath sounds within normal limits.CVS: Normal sinus rhythm noted. Capillary refill less than 2 seconds.GI / : The patient has had nausea. Emesis noted. Abdomen soft. Abdominal tenderness in theepigastric area. Bowel sounds within normal limits. Yellow stool (per pt earlier today).SKIN: Skin is warm and dry. --13:07 10/07/20 Aletha Jha R.N.NURSING PROGRESS NOTESNIBP monitor and pulse oximeter placed on patient; monitor alarms on. Patient gowned. Reassurancegiven. Three patient identifiers checked. Call light placed in reach. Side rails up x 2. Bed placed inlowest position. Brakes of bed on. Patient ready for evaluation- PA notified. --13:00 10/07/20 Stefany Hidalgo R.N. 13:12 10/07/2020 Site #1 started via IV in the left antecubital space with an 20g angiocath, with aseptic technique and good blood return; one attempt. Saline lock flushed with 10 mL saline. --13:22 10/07/20 Aletha Jha R.N. 13:22 10/07/2020 Started bag #1 1000 mL IV Fluids NS; bolus of 1000 mL wide open via site #1 via IV pump. Allergies verified and confirmed 5 rights. IV patency established. IV site checked: no pain, redness, or swelling. IV flushed thoroughly pre- and post-medication administration. Information reviewed with patient including reason for taking this medication, signs of allergic reaction and precautions. Verbalizes understanding. --13:22 10/07/20 Aletha Jha R.N. 13:23 10/07/2020 Started 25 mg of Promethazine IVPB in bag #1 50 mL; bolus of 25 mg wide open via site #1. via IV pump. Allergies verified and confirmed 5 rights. IV patency established. IV site checked: no pain, redness, or swelling. IV flushed thoroughly pre- and post-medication admi nistration. Information reviewed with patient including reason for taking this medication, signs of allergic reaction, precautions and sedative warnings. Verbalizes understanding. --13:23 10/07/20 Aletha Jha R.N. 13:40 10/07/2020 Ofirmev * IV 1000mg --13:40 10/07/20 Aletha Jha R.N. 13:40 10/07/2020 Promethazine IVPB via IV site #1 Discontinued: bag #1 infused. Total amount infused: 50ml mL. IV patency established. IV site checked: no pain, redness, or swelling. IV flushed thoroughly. --13:40 10/07/20 Aletha Jha R.N. 4 Clinical Report - Nurses [facility] Emergency Department [address] [place] [address] Phone #: ext- [phone] 10/07/2020 12:43 Patient: LIA HAY Sex: F : 1980 Age: 39y13:55 10/07/2020 Ofirmev IV Discontinued: bag #1 infused. Total amount infused: 100ml mL. IV patencyestablished. IV site checked: no pain, redness, or swelling. IV flushed thoroughly. --14:35 10/07/20Aletha Jha R.N.late entry - 14:00 10/07/20. monitoring manager, NIBP monitor and pulse oximeter placed on patient; monitoralarms on. Patient gowned. Reassurance given.Rounding: Position: states comfortable. Proximity of possessions / care items: call light within easy reach.Plug ins: assured IV pump plugged in; checked status of equipment in use; located all cords, tubes, andlines to prevent fall hazard. Set expectations: advised patient of rounding protocol timing and asked if theyneeded anything else at this time. Patient waiting for lab results. --14:34 10/07/20 Aletha Jha R.N.14:17 10/07/2020 KCL LIQUID PO PO Oral Suspension 40 meq given. Allergies verified and confirmed 5rights. Information reviewed with patient including reason for taking this medication, signs of allergicreaction and precautions. Verbalizes understanding. --14:17 10/07/20 Aletha Jha R.N.14:17 10/07/2020 Started 10 meq of KCL IVPB in bag #1 100 mL; at 100 mL/hr via site #1 . via IV pump.Allergies verified and confirmed 5 rights. IV patency established. IV site checked: no pain, redness, orswelling. IV flushed thoroughly pre- and post-medication administration. Information reviewed with patientincluding reason for taking this medication, signs of allergic reaction and precautions. Verbalizesunderstanding. --14:17 10/07/20 Aletha Jha R.N.Patient ID band checked for patient name and birthdate: patient confirmed urine collected; sample sent tolab for urinalysis. Specimen labeled in the presence of the patient. --15:04 10/07/20 Aletha Jha R.NTricia15:05 10/07/2020 Zofran (Ondansetron HCl) IVP 8 mg given over 2 minute(s) via site #1. Allergies verifiedand confirmed 5 rights. IV patency established. IV site checked: no pain, redness, or swelling. IV flushedthoroughly pre- and post-medication administration. IVP given by RN. Information reviewed with patientincluding reason for taking this medication, signs of allergic reaction and precautions. Verbalizesunderstanding. --15:10 10/07/20 Aletha Jha R.N.15:10 10/07/2020 Ativan (LORazepam) IVP 2 mg given diluted in NS 10mL over 5 minute(s) via site #1.Allergies verified and confirmed 5 rights. IV patency established. IV site checked: no pain, redness, orswelling. IV flushed thoroughly pre- and post-medication administration. IVP given by RN. Informationreviewed with patient including reason for taking this medication, signs of allergic reaction, precautions andsedative warning. Verbalizes understanding. --15:11 10/07/20 Alteha Jha R.N.Monitoring of patient in place. Patient gowned. Reassurance given. The patient is calm, resting quietlyand sleeping. Patient waiting for disposition. --15:34 10/07/20 Aletha Jha R.N.15:25 10/07/2020 KCL IVPB via IV site #1 Discontinued: bag #1 infused. Total amount infused: 100ml mL.IV patency established. IV site checked: no pain, redness, or swelling. IV flushed thoroughly. --15: Aletha Jha R.N. 5 Clinical Report - Nurses [facility] Emergency Department [address] [place] [address] Phone #: ext- [phone] 10/07/2020 12:43 Patient: LIA HAY Sex: F : 1980 Age: 39y 16:02 10/07/2020 IV Fluids NS via IV site #1 Bag Change: bag #1 infused. Total amount infused: 1000ml at 150 mL/hr via IV pump. Confirmed 5 rights. IV patency established. IV site checked: no pain, redness, or swelling. IV flushed thoroughly. --16:02 10/07/20 Aletha Jha R.N. Patient ID band checked for patient name and birthdate: patient confirmed. COVID-19 specimen obtained by RN via nasopharyngeal swab. Labeled in the presence of the patient and sent to lab. --16:03 10/07/20 Aletha Jha RTriciaNTricia 14:38 10/07/20. BP: 172/103. MAP: 126. HR: 75. RR: 11. O2 saturation: 99% on room air. --16:57 10/07/20 Aletha Jha RTriciaNTrciia 15:03 10/07/20. BP: 152/96. MAP: 114. HR: 65. RR: 16. O2 saturation: 99% on room air. --16:58 10/07/20 Aletha Jha R.NTricia 15:45 10/07/20. BP: 147/93. MAP: 111. HR: 72. RR: 16. O2 saturation: 100% on room air. --16:59 10/07/20 Aletha Jha R.NTricia 16:15 10/07/20. BP: 150/101. MAP: 117. HR: 76. RR: 16. O2 saturation: 99% on room air. --16:59 10/07/20 Aletha Jha R.NTricia 16:43 10/07/2020 IV Fluids NS via IV site #1 Continued: upon admission at the rate of 125 mL/hr. 800ml mL remaining. IV patency established. IV site checked: no pain, redness, or swelling. IV flushed thoroughly. --17:08 10/07/20 Aletha Jha RWellingtonDISPOSITION / DISCHARGE 16:50 10/07/20. Departure time: 16:50 10/07/2020. Condition at [place]: improved and stable. Disposition: observation. Transported via wheelchair by nurse with mask. Report was given to a nurse in person. Report included information regarding patient's care, treatment, allergies and condition including: recent changes, current and abnormal vital signs and abnormal labs. Report included treatment information regarding medications given or pending and home medications; type and amount of IV fluids and medications infusing and total volume infused. All questions were answered. Report was acknowledged and care was transferred. ([facility]). --17:01 10/07/20 Aletha Jha R.N. 16:45 10/07/20. BP: 151/96. MAP: 114. HR: 74. RR: 13. O2 saturation: 99% on room air. --17:01 10/07/20 Aletha Jha R.N. 16:45 10/07/20. Temp: 97.9 F (oral). Pain level now: 08/09. --17:08 10/07/20 Aletha Jha R.N.Locked/Released at 10/07/2020 17:08 by Aletha Jha R.N. 6 Clinical Report - Nurses [facility] Emergency Department [address] [place] [address] Phone #: ext- [phone] 10/07/2020 12:43 Patient: LIA HAY Sex: F : 1980 Age: 39y Name Value Range Interpretation Code Description Data Molly rce(s) Supporting Document(s) ID Date Data Source [id number] 10/07/2020 12:46:[address] [facility] 1 Clinical Report - Physicians/Mid Levels [facility] Emergency Department [address] [place] [address] Phone #: ext- [phone] 10/07/2020 12:43 Patient: LIA HAY Sex: F : 1980 Age: 39y Time Seen: 13:00 10/07/2020. Arrived- By private vehicle. Historian- patient.HISTORY OF PRESENT ILLNESS Chief Complaint: ABDOMINAL PAIN and VOMITING and NAUSEA. This started since October 03; Pt states on 10/03/2020 she started having severe epigastric abdominal pain, states known hernia. Pt has had vomiting with this. Pt states she has had bouts of this in the past and was attributed to IBS. Pt states today is her 3rd ER visit, 2 previous at [facility], completed labs and CT, found umbilical hernia, and ovarian cyst, everything else was normal. Pt was D/C on Reglan which helps a little. Pt states her symptoms goes in cycles, yesterday was slightly better but still had not eaten. Pt states today at 0900 she attempted to eat eggs and toast and at 1000 "it started all over again", epigastric pain with vomiting.). She has had nausea. She has had vomiting (12 episodes so far today). ( Last BM just prior to arrival and was "bright yellow and possibly some orange stuff in it"). No diarrhea. and is still present. It was abrupt in onset and has been constant. It is described as "pain", sharp and stabbing and it is described as located in the epigastric area. At its maximum, severity described as severe. When seen in the E.D., severity described as severe. The patient has had nausea and vomiting. No loss of appetite or diarrhea. Similar symptoms previously. Patient has had similar symptoms several times. Recent medical care: The patient was seen recently at this facility and another facility in the emergency department.REVIEW OF SYSTEMSNo constipation, black stools, hematemesis, difficulty with urination or pain with urination. No urinaryfrequency, bloody stools, fever, headache or sore throat. No blurred vision, chest pain, difficulty breathing,joint pain or skin rash. No chills or back pain. The patient has not had weight loss.PAST HISTORYProblems:Hypertension.Gastroesophageal Reflux Disease.Irritable bowel syndrome (disorder).Vomiting.Chronic abdominal pain. Additional Surgeries: Cholecystectomy. . (X 2) Foot surgery. Jaw surgery. Tubal Ligation. 2 Clinical Report - Physicians/Mid Levels [facility] Emergency Department [address] [place] [address] Phone #: ext- [phone] 10/07/2020 12:43 Patient: LIA HAY Sex: F : 1980 Age: 39y Medications: Reglan Oral 10 mg, 4x a day as needed. busPIRone HCl Oral 7.5 mg po, 2x a day as needed. Carvedilol Oral (Tablet 3.125 mg) 1 tablet, 2x a day. Claritin Oral 10 mg, daily. Dicyclomine HCl Oral 20 mg, 4x a day. Omeprazole Oral 20 mg, 2x a day. Paxil Oral 30 mg, daily. Zofran Oral 4 mg, 4x a day as needed. Allergies: Sulfa Antibiotics.(rash).SOCIAL HISTORYFormer smoker. Occasional drug use: marijuana. No alcohol use.PHYSICAL EXAMVital Signs: 10/07/2020 12:52 BP: 153/95. MAP: 114. HR: 67. RR: 18. O2 saturation: 96% on room air.Temp: 98.9 F. Pain level now: 04/08. Have been revi ewed as abnormal. Hypertensive. Oxygensaturation normal.Appearance: Alert. Oriented X3. No acute distress. Anxious. Appears to be in pain.Eyes: Pupils equal, round and reactive to light. Eyes normal inspection.ENT: Ears normal. Nose normal. Pharynx normal.Neck: Normal inspection.CVS: Normal heart rate and rhythm. Heart sounds normal.Respiratory: No respiratory distress. Breath sounds normal.Abdomen: Soft. Mild tenderness in the epigastric area. Bowel sounds normal. No organomegaly. [place].Back: No CVA tenderness.Skin: Skin warm and dry. Normal skin color. No rash. Normal skin turgor.Extremities: Extremities exhibit normal ROM. No lower extremity edema.Neuro: Oriented X 3.LABS, X-RAYS, AND EKGLaboratory Tests: Laboratory tests have been ordered, with results reviewed and considered in themedical decision making process. CBC w Diff: (CHERI: 10/07/2020 13:17) ( MsgRcvd 10/07/2020 13:52) Final results Test Result Flag Units (Reference) CBC W/AUTOMATED DIFF COMPLETE BLOOD COUNT WBC 13.0 H 10/uL (4.2 - 11.0) RBC 4.90 10/uL (4.20 - 5.40) HEMOGLOBIN 13.6 g/dL (12.0 - 16.0) HEMATOCRIT 40.1 % (37.0 - 47.0) MCV 81.8 fL (81.0 - 101) 3 Clinical Report - Physicians/Mid Levels [facility] Emergency Department [address] [place] [address] Phone #: ext- [phone] 10/07/2020 12:43 Patient: LIA HAY Sex: F : 1980 Age: 39y MCH 27.8 pg (27.0 - 34.0) MCHC 33.9 g/dL (31.0 - 36.0) RDW 13.7 % (11.5 - 14.5) PLATELETS 267 10/uL (150 - 450) MPV 10.3 fL (7.4 - 10.4) NEUT 84.6 H % (37.0 - 80.0) LYMPH 10.9 L % (25.0 - 40.0) MONO 3.1 % (3.0 - 8.0) EOS 0.5 % (0.0 - 7.0) BASO 0.5 % (0.0 - 2.5) %IG 0.4 H % (0.0 - 0.0) %NRBC 0.0 % (0.0 - 0.0) #NEUT 11.03 H 10/uL (2.00 - 6.90) #LYMPH 1.42 10/uL (0.60 - 3.40) #MONO 0.40 10/uL (0.00 - 0.90) #EOS 0.07 10/uL (0.00 - 0.70) #BASO 0.06 10/uL (0.00 - 0.20) #IG 0.05 10/uL (0.00 - 0.10) #NRBC 0.00 10/uL (0.00 - 0.00) MANUAL DIFF NOT INDICATED RBC MORPH NOT INDICATEDCMP: (CHERI: 10/07/2020 13:17) ( MsgRcvd 10/07/2020 13:55) Final results Test Result Flag Units (Reference) COMPREHENSIVE METABOLIC PANEL COMPREHENSIVE METABOLIC PANEL SODIUM 143 mEq/L (134 - 153) POTASSIUM 3.0 L mEq/L (3.6 - 5.0) CHLORIDE 104 mEq/L (98 - 107) CO2 26 MEQ/L (22 - 30) GLUCOSE 102 H MG/DL (70 - 99) BUN 8 MG/DL (7 - 21) CREATININE 0.8 MG/DL (0.7 - 1.5) BUN/CREAT 10 (8 - 27) TOTAL PROTEIN 6.8 G/DL (6.3 - 8.2) ALBUMIN 4.2 G/DL (3.9 - 5.0) GLOBULIN 2.6 GM/DL (2.4 - 3.2) A/G RATIO 1.6 (0.8 - 2.0) CALCIUM 9.3 MG/DL (8.4 - 10.2) TOTAL BILI <0.7 MG/DL (0.2 - 1.3) ALKALINE PHOS 79 U/L (38 - 126) SGOT/AST 16 U/L (5 - 40) SGPT/ALT 22 U/L (7 - 56) ANION GAP 13.0 mmol/L (8.0 - 16.0) AGE 39 yrs NON-AA GFR >60 mL/min AFR AMER GFR >60 mL/min Male GFR Interprentation 20-49 yrs >60 mL/min Oakzqa71-30 yrs >56 mL/min Normal 60-69 yrs >49 mL/min Normal 70-79yrs>42 mL/min Normal 80 and above >35 mL/min Normal Female GFRInterpretation 20-39 yrs >60 mL/min Normal 40-49 yrs >58 mL/minNormal 50-59 yrs >51 mL/min Normal 60-69 yrs >45 mL/min Rxabpk25-24 yrs >39 mL/min Normal 80 and above >32 mL/min NormalLipase: (CHERI: 10/07/2020 13:17) ( MsgRcvd 10/07/2020 13:52) Final results Test Result Flag Units (Reference) LIPASE 15 U/L (13 - 60) 4 Clinical Report - Physicians/Mid Levels [facility] Emergency Department [address] [place] [address] Phone #: ext- [phone] 10/07/2020 12:43 Patient: LIA HAY Sex: F : 1980 Age: 39y Urinalysis: (CHERI: 10/07/2020 14:50) ( [facility] 10/07/2020 15:19) Final results Test Result Flag Units (Reference) URINALYSIS URINALYSIS SOURCE Clean Catch COLOR yellow (NORMAL: Yello CLARITY hazy (NORMAL: Clear SPEC GRAVITY 1.010 (1.001 - 1.030 pH 7 (5 - 9) GLUCOSE NORM (NORMAL: Negat BILIRUBIN NEG (NORMAL: Negat KETONE 50 A (NORMAL: Negat PROTEIN NEG (NORMAL: Negat NITRITE NEG (NORMAL: Negat BLOOD 250 A (NORMAL: Negat LEUK EST 25 (NORMAL: Negat UROBILINOGEN NOR (less than 1.0 MICROSCOPIC See Below WBC 3 - 5 (NORMAL: NONE RBC 1 - 3 (NORMAL: NONE EPITHELIAL MODERATE A (NORMAL: NONE BACTERIA 1+ SMALL (NORMAL: NONE MUCOUS Trace (NORMAL: NONE Lactic Acid: (CHERI: 10/07/2020 13:17) ( [facility] 10/07/2020 13:37) Final results Test Result Flag Units (Reference) LACTIC ACID 1.5 MMOL/L (0.2 - 2.2).PROGRESS AND UT OCEDURESCourse of Care: 15:54 Apr 10 2020. Evaluation after observation and results of tests back. (Discussed w/Dr Mcdowell and he will obs her for cyclic vomiting and hypokalemia, pt is agreeable with dx and tx plan.). Patient counseled in person regarding the patient's stable condition, test results, diagnosis and need for admission. Patient agrees with plan of care. 15:54 Oct 07 2020. Disposition: Observation in the Acute Inpatient Unit. 15:55 Oct 07 2020. UTI (catheter associated) was not present prior to being placed in observation. Pressure ulcer was not present prior to being placed in obse rvation. Vascular infection (catheter associated)n was not present prior to being placed in observation. Surgical site infection was not present prior to being placed in observation. An object left in surgery was not present prior to being placed in observation. Blood incompatibility was not present prior to being placed in observation. Air embolism was not present prior to being placed in observation.CLINICAL IMPRESSION Intractable vomiting with nausea and dehydration. Hypokalemia. 5 Clinical Report - Physicians/Mid Levels [facility] Emergency Department [address] [place] [address] Phone #: ext- [phone] 10/07/2020 12:43 Patient: LIA HAY Sex: F : 1980 Age: 39y(Electronically signed by MARTITA Maldonado 10/07/2020 21:41) Name Value Range Interpretation Code Description Data Molly rce(s) Supporting Document(s) ID Date Data Source [id number] 10/14/2020 07:37:[address] [facility] Name Value Range Interpretation Code Description Data Molly rce(s) Supporting Document(s) CULTURE BLOOD [facility] _CULTURE BLOOD_{ PRELIM TEST PERFORMED AT [facility] [address] [place] [address] CLIA# [id number] SEE SCANNED REPORT ID Date Data Source [id number] 10/13/2020 11:55:00 AM EDT [facility] [id number] Name Value Range Interpretation Code Description Data Molly rce(s) Supporting Document(s) Bacteria identified in Blood by Culture [facility] NO GROWTH AFTER 5 DAYS ID Date Data Source [id number] 10/14/2020 07:37:[address] [facility] Name Value Range Interpretation Code Description Data Molly rce(s) Supporting Document(s) CULTURE BLOOD [facility] _CULTURE BLOOD_{ PRELIM [place] [address] CLIA# [id number] SEE SCANNED REPORT ID Date Data Source [id number] 10/07/2020 04:00:00 PM EDT [facility] Name Value Range Interpretation Code Description Data Molly rce(s) Supporting Document(s) COVID19 Case rprt NOT DETECTED [facility] This lab was ordered by [facility] and reported by [facility]. ID Date Data Source [id number] 10/07/2020 04:44:[address] [facility] NOT DETECTEDNOT DETECTED{ PROC EDURAL CONTROL VALID KIT LOT # _[id number] 10/07/20.1643.DW . KIT EXP DATE _52-31-45 10/07/20.1643.DW . NORMAL RANGE IS NOT DETECTEDNEGATIVE RESULTS SHOULD BE TREATED PRESUMPTIVE AND, IF INCONSISTENT WITHCLINICAL SIGNS AND SYMPTOMS OR NECESSARY FOR PATIENT MANAGEMENT, SHOULD BETESTED WITH DIFFERENT AUTHORIZED OR CLEARED MOLECULAR TESTS. NEGATIVE RESULTSDO NOT PRECLUDE SARS-CoV-2 INFECTION AND SHOULD NOT BE USED THE SOLE BASISFOR PATIENT MANAGEMENT DECISIONS. Name Value Range Interpretation Code Description Data Molly rce(s) Supporting Document(s) ID Date Data Source [id number] 10/07/2020 03:18:[address] [facility] Name Value Range Interpretation Code Description Data Molly rce(s) Supporting Document(s) URINALYSIS [facility] guerita URINALYSIS SOURCE Clean Catch [facility] ital COLOR yellow NORMAL: Yellow [facility] CLARITY hazy NORMAL: Clear [facility] sp[facility] Specific gravity of Urine by Test strip 1.010 1.001 - 1.030 [facility] pH 7 5 - 9 [facility] Gl[facility] [Mass/volume] in Urine by Test strip NORM NORMAL: Negat roland [facility] Bilirubin.total [Presence] in Urine by Test strip NEG NORMAL: Negative [facility] Ketones [Presence] in Urine by Test strip 50 NORMAL: Negative [facility] Protein [Mass/volume] in Urine by Test strip NEG NORMAL: Negat [facility] Nitrite [Presence] in Urine by Test strip NEG NORMAL: Negative [facility] BLOOD 250 NORMAL: Negative [facility] Leukocyte esterase [Presence] in Urine by Test strip 25 JUDY L: Negative [facility] Urobilinogen [Mass/volume] in Urine by Test strip NOR less yusuf n 1.0 mg/dL [facility] MICROSCOPIC See Below [facility] ital WBC 3 - 5 NORMAL: NONE SEEN [facility] Erythrocytes [#/volume] in Urine by Test strip 1 - 3 NORMAL: NON E SEEN [facility] EPITHELIAL MODERATE NORMAL: NONE SEEN [facility] Bacteria [Presence] in Urine sediment by Light microscopy 1+ SMALL NORMAL: NONE SEEN [facility] Mucus [Presence] in Urine sediment by Light microscopy Trace NORMAL: NONE SEEN [facility] ID Date Data Source [id number] 10/07/2020 01:55:[address] [facility] Name Value Range Interpretation Code Description Data Molly rce(s) Supporting Document(s) COMPREHENSIVE METABOLIC PANEL [facility] COMPREHENSIVE METABOLIC PANEL Sodium [Moles/volume] in Serum or Plasma 143 mEq/L 134 - 153 [facility] Potassium [Moles/volume] in Serum or Plasma 3.0 mEq/L 3.6 - 5.[address] [facility] Chloride [Moles/volume] in Serum or Plasma 104 mEq/L 98 - 107 [facility] Carbon dioxide, total [Moles/volume] in Serum or Plasma 26 MEQ/L 22 - 30 [facility] Glucose [Mass/volume] in Serum or Plasma 102 MG/DL 70 - [address] [facility] BUN 8 MG/DL 7 - 21 [facility] Creatinine [Mass/volume] in Serum or Plasma 0.8 MG/DL 0.7 - 1.5 [facility] BUN/CREAT 10 8 - 27 [facility] Protein [Mass/volume] in Serum or Plasma 6.8 G/DL 6.3 - 8.2 [facility] Albumin [Mass/volume] in Serum or Plasma 4.2 G/DL 3.9 - 5.0 [facility] Globulin [Mass/volume] in Serum by calculation 2.6 GM/DL 2.4 - 3.2 [facility] A/G RATIO 1.6 0.8 - 2.0 [facility] Calcium [Mass/volume] in Serum or Plasma 9.3 MG/DL 8.4 - 10.2 [facility] Bilirubin.total [Mass/volume] in Serum or Plasma <0.7 MG/DL 0.2 - 1.3 [facility] Alkaline phosphatase [Enzymatic activity/volume] in Serum or Plasma 79 U/L 38 - 126 [facility] Aspartate aminotransferase [Enzymatic activity/volume] in Serum or Plasma 16 U/L 5 - 40 [facility] Alanine aminotransferase [Enzymatic activity/volume] in Seru m or Plasma 22 U/L 7 - 56 [facility] Anion gap 3 in Serum or Plasma 13.0 mmol/L 8.0 - 16.0 [facility] AGE 39 yrs [facility] al NON-AA GFR >60 mL/min [facility] ital AFR AMER GFR >60 mL/min [facility] sp[facility] Male GFR In terprentation 20-49 yrs >60 mL/min Normal 50-59 yrs >56 mL/min Normal 60-69 yrs >49 mL/min Normal 70-79yrs >42 mL/min Normal 80 and above >35 mL/min Normal Female GFR Interpretation 20-39 yrs >60 mL/min Normal 40-49 yrs >58 mL/min Normal 50-59 yrs >51 mL/min Normal 60-69 yrs >45 mL/min Normal 70-79 yrs >39 mL/min Normal 80 and above >32 mL/min Normal ID Date Data Source [id number] 10/07/2020 01:52:[address] [facility] Name Value Range Interpretation Code Description Data Molly rce(s) Supporting Document(s) Lipase [Enzymatic activity/volume] in Serum or Plasma 15 U/L 13 - 60 [facility] ID Date Data Source [id number] 10/07/2020 01:52:[address] [facility] Name Value Range Interpretation Code Description Data Molly rce(s) Supporting Document(s) CBC W/AUTOMATED DIFF [facility] COMPLETE BLOOD COUNT Leukocytes [#/volume] in Blood by Automated count 13.0 10^3/uL 4.2 - 11.[address] [facility] Erythrocytes [#/volume] in Blood by Automated count 4.90 10^6/uL 4. 20 - 5.40 [facility] Hemoglobin [Mass/volume] in Blood 13.6 g/dL 12.0 - 16.0 [facility] Hematocrit [Volume Fraction] of Blood by Automated count 40.1 % 3 7.0 - 47.0 [facility] Erythrocyte mean corpuscular volume [Entitic volume] by Auto mated count 81.8 fL 81.0 - 101 [facility] Erythrocyte mean corpuscular hemoglobin [Entitic mass] by Automated count 27.8 pg 27.0 - 34.0 [facility] Erythrocyte mean corpuscular hemoglobin concentration [Mass/volume] by Automated count 33.9 g/dL 31.0 - 36.0 [facility] Erythrocyte distribution width [Ratio] by Automated count 13.7 % 11.5 - 14.5 [facility] Platelets [#/volume] in Blood by Automated count 267 10^3/uL 150 - [address] [facility] Platelet mean volume [Entitic volume] in Blood by Automated count 10.3 fL 7.4 - 10.4 [facility] Neutrophils/100 leukocytes in Blood by Automated count 84.6 % 37. 0 - 80.[address] [facility] Lymphocytes/100 leukocytes in Blood by Manual count 10.9 % 25.0 - 40.[address] [facility] Monocytes/100 leukocytes in Blood by Automated count 3.1 % 3.0 - 8.0 [facility] Eosinophils/100 leukocytes in Blood by Automated count 0.5 % 0.0 - 7.0 [facility] Basophils/100 leukocytes in Blood by Automated count 0.5 % 0.0 - 2.5 [facility] %IG 0.4 % 0.0 - 0.0 H [facility] %NRBC 0.0 % 0.0 - 0.0 [facility] Neutrophils [#/volume] in Blood by Automated count 11.03 10^3/uL 2. 00 - 6.[address] [facility] Lymphocytes [#/volume] in Blood by Automated count 1.42 10^3/uL 0.60 - 3.40 [facility] Monocytes [#/volume] in Blood by Automated count 0.40 10^3/uL 0.00 - 0.90 [facility] Eosinophils [#/volume] in Blood by Automated count 0.07 10^3/uL 0.00 - 0.70 [facility] Basophils [#/volume] in Blood by Automated count 0.06 10^3/uL 0.00 - 0.20 [facility] #IG 0.05 10^3/uL 0.00 - 0.10 [facility] ospital #NRBC 0.00 10^3/uL 0.00 - 0.00 [facility] MANUAL DIFF NOT INDICATED [facility] RBC MORPH NOT INDICATED [facility] spital ID Date Data Source [id number] 10/07/2020 01:37:[address] [facility] Name Value Range Interpretation Code Description Data Molly rce(s) Supporting Document(s) Lactate [Moles/volume] in Serum or Plasma 1.5 MMOL/L 0.2 - 2.2 [facility] ID Date Data Source [id number] 10/08/2020 10:19:[address] [facility] Name Value Range Interpretation Code Description Data Molly rce(s) Supporting Document(s) CULTURE URINE [facility] _CULTURE URINE_$$[id number]$$[id number]$$[id number]$$[id number]$$[id number]$$[id number]$$[id number]$$[id number]$$[id number]$$ [id number]$$[id number]$$[id number]$$[id number]$$[id number]$$[id number]$$[id number]$$[id number]$$[id number]$$[id number]$$ 830347$$690885$$[id number]$$[id number]$$[id number]$$[id number]$$[id number]$$[id number] -- Continued on next page --Patient: SERA Cagle Order: [id number] Page 2Culture: CULTURE URINE Status: Final ====$$[id number]$$[id number] DATE/TIME: 10/08/2020 08:06Culture: CULTURE URINE Status: FinalUrine Culture,Comprehensive: F1Jsrha urogenital flora10,000-25,000 colony forming units per mLP1 Test performed by: [facility] #: [id number] [address] [place] [address] [id number] [facility] [id number] Director : Erwin Coley MD NPI #:Personal Lines Agent : [email or web address] REF ID Date Data Source [id number] 10/05/2020 07:20:[address] [facility] Name Value Range Interpretation Code Description Data Molly rce(s) Supporting Document(s) COMPREHENSIVE METABOLIC PANEL [facility] COMPREHENSIVE METABOLIC PANEL Sodium [Moles/volume] in Serum or Plasma 139 mEq/L 134 - 153 [facility] Potassium [Moles/volume] in Serum or Plasma 3.3 mEq/L 3.6 - 5.[address] [facility] Chloride [Moles/volume] in Serum or Plasma 103 mEq/L 98 - 107 [facility] Carbon dioxide, total [Moles/volume] in Serum or Plasma 22 MEQ/L 22 - 30 [facility] Glucose [Mass/volume] in Serum or Plasma 113 MG/DL 70 - [address] [facility] BUN 12 MG/DL 7 - 21 [facility] Creatinine [Mass/volume] in Serum or Plasma 0.6 MG/DL 0.7 - 1.[address] [facility] BUN/CREAT 20 8 - 27 [facility] al Protein [Mass/volume] in Serum or Plasma 7.7 G/DL 6.3 - 8.2 [facility] Albumin [Mass/volume] in Serum or Plasma 4.4 G/DL 3.9 - 5.0 [facility] Globulin [Mass/volume] in Serum by calculation 3.3 GM/DL 2.4 - 3.[address] [facility] A/G RATIO 1.3 0.8 - 2.0 [facility] Calcium [Mass/volume] in Serum or Plasma 9.2 MG/DL 8.4 - 10.2 [facility] Bilirubin.total [Mass/volume] in Serum or Plasma <0.7 MG/DL 0.2 - 1.3 [facility] Alkaline phosphatase [Enzymatic activity/volume] in Serum or Plasma 85 U/L 38 - 126 [facility] Aspartate aminotransferase [Enzymatic activity/volume] in Serum or Plasma 14 U/L 5 - 40 [facility] Alanine aminotransferase [Enzymatic activity/volume] in Seru m or Plasma 14 U/L 7 - 56 [facility] Anion gap 3 in Serum or Plasma 14.0 mmol/L 8.0 - 16.0 [facility] AGE 39 yrs [facility] al NON-AA GFR >60 mL/min [facility] ital AFR AMER GFR >60 mL/min [facility] Male GFR In terprentation 20-49 yrs >60 mL/min Normal 50-59 yrs >56 mL/min Normal 60-69 yrs >49 mL/min Normal 70-79yrs >42 mL/min Normal 80 and above >35 mL/min Normal Female GFR Interpretation 20-39 yrs >60 mL/min Normal 40-49 yrs >58 mL/min Normal 50-59 yrs >51 mL/min Normal 60-69 yrs >45 mL/min Normal 70-79 yrs >39 mL/min Normal 80 and above >32 mL/min Normal ID Date Data Source [id number] 10/05/2020 06:15:[address] [facility] Name Value Range Interpretation Code Description Data Molly rce(s) Supporting Document(s) Lipase [Enzymatic activity/volume] in Serum or Plasma 16 U/L 13 - 60 [facility] ID Date Data Source [id number] 10/05/2020 06:07:[address] [facility] Name Value Range Interpretation Code Description Data Molly rce(s) Supporting Document(s) URINALYSIS [facility] guerita URINALYSIS SOURCE Clean Catch [facility] ital COLOR yellow NORMAL: Yellow [facility] CLARITY hazy NORMAL: Clear [facility] sp[facility] Specific gravity of Urine by Test strip 1.030 1.001 - 1.030 [facility] pH 5 5 - 9 [facility] Glucose [Mass/volume] in Urine by Test strip NORM NORMAL: Negat roland [facility] Bilirubin.total [Presence] in Urine by Test strip NEG NORMAL: Negative [facility] Ketones [Presence] in Urine by Test strip 150 NORMAL: Negative [facility] Protein [Mass/volume] in Urine by Test strip 100 NORMAL: Negat roland [facility] Nitrite [Presence] in Urine by Test strip NEG NORMAL: Negative [facility] BLOOD 150 NORMAL: Negative [facility] Leukocyte esterase [Presence] in Urine by Test strip 25 JUDY L: Negative [facility] Urobilinogen [Mass/volume] in Urine by Test strip 1 less yusuf n 1.0 mg/dL [facility] MICROSCOPIC See Below [facility] ital WBC 3 - 5 NORMAL: NONE SEEN [facility] Erythrocytes [#/volume] in Urine by Test strip 0 - 1 NORMAL: NON E SEEN [facility] EPITHELIAL MODERATE NORMAL: NONE SEEN A [facility] Bacteria [Presence] in Urine sediment by Light microscopy 2+ MOD NORMAL: NONE SEEN [facility] Mucus [Presence] in Urine sediment by Light microscopy None Seen NORMAL: NONE SEEN [facility] ID Date Data Source [id number] 10/05/2020 06:04:[address] [facility] Name Value Range Interpretation Code Description Data Molly rce(s) Supporting Document(s) HCG SERUM QUAL NEGATIVE NORMAL: NEGATIVE [facility] HCG SERUM QL REENTER NEGATIVE NORMAL: NEGATIVE [facility] # [id number] ){ KIT EXP DATE [id number] ){ PROCEDURAL CONTROL VALID ) ID Date Data Source [id number] 10/05/2020 06:03:[address] [facility] Name Value Range Interpretation Code Description Data Molly rce(s) Supporting Document(s) Lactate [Moles/volume] in Serum or Plasma 2.2 MMOL/L 0.2 - 2.2 [facility] ID Date Data Source [id number] 10/05/2020 06:02:[address] [facility] Name Value Range Interpretation Code Description Data Molly rce(s) Supporting Document(s) CBC W/AUTOMATED DIFF [facility] COMPLETE BLOOD COUNT Leukocytes [#/volume] in Blood by Automated count 13.3 10^3/uL 4.2 - 11.[address] [facility] Erythrocytes [#/volume] in Blood by Automated count 5.27 10^6/uL 4. 20 - 5.40 [facility] Hemoglobin [Mass/volume] in Blood 14.4 g/dL 12.0 - 16.0 [facility] Hematocrit [Volume Fraction] of Blood by Automated count 43.7 % 3 7.0 - 47.0 [facility] Erythrocyte mean corpuscular volume [Entitic volume] by Auto mated count 82.9 fL 81.0 - 101 [facility] Erythrocyte mean corpuscular hemoglobin [Entitic mass] by Automated count 27.3 pg 27.0 - 34.0 [facility] Erythrocyte mean corpuscular hemoglobin concentration [Mass/volume] by Automated count 33.0 g/dL 31.0 - 36.0 [facility] Erythrocyte distribution width [Ratio] by Automated count 14.4 % 11.5 - 14.5 [facility] Platelets [#/volume] in Blood by Automated count 288 10^3/uL 150 - [address] [facility] Platelet mean volume [Entitic volume] in Blood by Automated count 10.2 fL 7.4 - 10.4 [facility] Neutrophils/100 leukocytes in Blood by Automated count 85.4 % 37. 0 - 80.[address] [facility] Lymphocytes/100 leukocytes in Blood by Manual count 10.6 % 25.0 - 40.[address] [facility] Monocytes/100 leukocytes in Blood by Automated count 2.2 % 3.0 - 8.[address] [facility] Eosinophils/100 leukocytes in Blood by Automated count 1.1 % 0.0 - 7.0 [facility] Basophils/100 leukocytes in Blood by Automated count 0.4 % 0.0 - 2.5 [facility] %IG 0.3 % 0.0 - 0.0 H [facility] al %NRBC 0.0 % 0.0 - 0.0 [facility] Neutrophils [#/volume] in Blood by Automated count 11.38 10^3/uL 2. 00 - 6.[address] [facility] Lymphocytes [#/volume] in Blood by Automated count 1.42 10^3/uL 0.60 - 3.40 [facility] Monocytes [#/volume] in Blood by Automated count 0.30 10^3/uL 0.00 - 0.90 [facility] Eosinophils [#/volume] in Blood by Automated count 0.15 10^3/uL 0.00 - 0.70 [facility] Basophils [#/volume] in Blood by Automated count 0.05 10^3/uL 0.00 - 0.20 [facility] #IG 0.04 10^3/uL 0.00 - 0.10 [facility] #NRBC 0.00 10^3/uL 0.00 - 0.00 [facility] MANUAL DIFF NOT INDICATED [facility] RBC MORPH NOT INDICATED [facility] sp[facility] ID Date Data Source H PYLORI SERUM QUANT IgG MYNOR 07/31/2020 12:00:00 AM EST eCW1 (Counts Include [facility]) Name Value Range Interpretation Code Description Data Molly rce(s) Supporting Document(s) 0.79 0.00-0.79 eCW1 ([facility]) ID Date Data Source H PYLORI SERUM QUANT IGM 07/31/2020 12:00:00 AM EST eCW1 ([facility]) Name Value Range Interpretation Code Description Data Molly rce(s) Supporting Document(s) <9.0 0.0-8.9 eCW1 ([facility]) ID Date Data Source LIPID PANEL (CARDIAC RISK) 07/31/2020 12:00:00 AM EST eCW1 ( Counts Include [facility]) Name Value Range Interpretation Code Description Data Molly rce(s) Supporting Document(s) Triglyceride [Mass/volume] in Serum or Plasma by calculation 297 <150 TRIGLYCERIDES LEVEL eCW1 (Counts Include [facility]) Cholesterol in HDL [Moles/volume] in Serum or Plasma 30 >40 HDL CHOLESTEROL eCW1 (Counts Include [facility]) Cholesterol [Moles/volume] in Serum or Plasma 205 <200 CHOLESTEROL LEVEL eCW1 (Counts Include [facility]) Cholesterol in LDL [Mass/volume] in Serum or Plasma by calculation 116 <100 LDL CHOLESTEROL eCW1 (Counts Include [facility]) 6.833 <5 CHOLESTEROL RISK RATIO eCW1 ([facility]) 175 NON-HDL-C eCW1 ([facility]) ID Date Data Source [id number] 07/31/2020 12:00:00 AM EST eCW1 ([facility]) Name Value Range Interpretation Code Description Data Molly rce(s) Supporting Document(s) Hemoglobin A1c/Hemoglobin.total in Blood 5.4 eCW1 (Counts Include [facility]) ID Date Data Source FREE T4 & TSH PANEL 07/31/2020 12:00:00 AM EST eCW1 ([facility]) Name Value Range Interpretation Code Description Data Molly rce(s) Supporting Document(s) 1.520 0.358-3.740 THYROID STIMULATING HORM ONE eCW1 (Counts Include [facility]) 0.79 0.76-1.46 FREE T4 eCW1 ([facility]) ID Date Data Source Comprehensive Metabolic Profile (CMP) 07/31/2020 12:00:00 AM EST eCW1 (Counts Include [facility]) Name Value Range Interpretation Code Description Data Molly rce(s) Supporting Document(s) 10 7-18 BLOOD UREA NITROGEN eCW1 ([facility]) 91 70-100 GLUCOSE, FASTING eCW1 ([facility]) 0.77 0.55-1.30 CREATININE FOR GFR eCW1 ([facility]) 142 136-145 SODIUM LEVEL eCW1 ([facility]) > 60.0 >60 GLOMERULAR FILTRATION RATE eCW 1 (Counts Include [facility]) 4.3 3.5-5.1 POTASSIUM SERUM eCW1 ([facility]) 9.4 8.5-10.1 CALCIUM LEVEL eCW1 (Counts Include [facility]) 30 21-32 CARBON DIOXIDE LEVEL eCW1 ([facility]) 107 98-107 CHLORIDE LEVEL eCW1 (Counts Include [facility]) 12 7-37 AST/SGOT eCW1 ([facility]) 17 12-78 ALT/SGPT eCW1 ([facility]) 84 45-117 ALKALINE PHOSPHATASE eCW1 ([facility]) 0.1 0.2-1.0 BILIRUBIN,TOTAL eCW1 ([facility]) 7.4 6.4-8.2 TOTAL PROTEIN eCW1 (Counts Include [facility]) 3.7 3.2-5.2 ALBUMIN eCW1 ([facility]) 1.0 1.2-2.2 ALBUMIN/GLOBULIN RATIO eCW1 ([facility]) ID Date Data Source CBC - Complete Blood Count 07/31/2020 12:00:00 AM EST eCW1 ( Counts Include [facility]) Name Value Range Interpretation Code Description Data Molly rce(s) Supporting Document(s) 5.14 4.00-5.40 eCW1 ([facility]) 6.8 4.0-10.0 eCW1 ([facility]) 13.5 12.0-15.5 eCW1 ([facility]) 26.3 27.0-33.0 eCW1 ([facility]) 30.5 32.0-36.5 eCW1 ([facility]) 86.2 80.0-96.0 eCW1 ([facility]) 44.3 36.0-47.0 eCW1 ([facility]) 212 150-450 eCW1 ([facility]) 14.0 11.5-14.5 eCW1 ([facility]) ID Date Data Source [id number] 07/11/2020 10:00:00 AM EST [facility] Name Value Range Interpretation Code Description Data Molly rce(s) Supporting Document(s) SARS coronavirus 2 RNA Not Detected [facility] [place] This lab was ordered by [facility] and reported by [facility]. ID Date Data Source [id number] 05/31/2020 11:15:00 AM EST [facility] Name Value Range Interpretation Code Description Data Molly rce(s) Supporting Document(s) SARS coronavirus 2 RNA [facility] This lab was ordered by [facility] and reported by [facility]. Procedure Social History Code Duration Value Status Description Data Source(s ) Smoking 12/25/2020 12:00:00 AM EDT Former Smoker completed Former Smoker eCW1 (Counts Include [facility]) Smoking 12/25/2020 12:00:00 AM EDT Former Smoker completed Former Smoker eCW1 (Counts Include [facility]) Smoking 12/25/2020 12:00:00 AM EDT Former Smoker completed Former Smoker eCW1 (Counts Include [facility]) Smoking 12/25/2020 12:00:00 AM EDT Former Smoker completed Former Smoker eCW1 (Counts Include [facility]) Smoking 12/25/2020 12:00:00 AM EDT Former Smoker completed Former Smoker eCW1 (Counts Include [facility]) Smoking 12/05/2020 12:00:00 AM EDT Former Smoker completed Former Smoker eCW1 (Counts Include [facility]) Smoking 09/12/2020 12:00:00 AM EDT Former Smoker completed Former Smoker eCW1 (Counts Include [facility]) Smoking 09/12/2020 12:00:00 AM EDT Former Smoker completed Former Smoker eCW1 (Counts Include [facility]) Smoking 09/12/2020 12:00:00 AM EDT Former Smoker completed Former Smoker eCW1 (Counts Include [facility]) Smoking 09/12/2020 12:00:00 AM EDT Former Smoker completed Former Smoker eCW1 (Counts Include [facility]) Smoking 09/12/2020 12:00:00 AM EDT Former Smoker completed Former Smoker eCW1 (Counts Include [facility]) Smoking 09/12/2020 12:00:00 AM EDT Former Smoker completed Former Smoker eCW1 (Counts Include [facility]) Smoking 09/12/2020 12:00:00 AM EDT Former Smoker completed Former Smoker eCW1 (Counts Include [facility]) Smoking 09/12/2020 12:00:00 AM EDT Former Smoker completed Former Smoker eCW1 (Counts Include [facility]) Smoking 09/12/2020 12:00:00 AM EDT Former Smoker completed Former Smoker eCW1 (Counts Include [facility]) Smoking 09/12/2020 12:00:00 AM EDT Former Smoker completed Former Smoker eCW1 (Counts Include [facility]) Smoking 09/12/2020 12:00:00 AM EDT Former Smoker completed Former Smoker eCW1 (Counts Include [facility]) Smoking 07/31/2020 12:00:00 AM EST Former Smoker completed Former Smoker eCW1 (Counts Include [facility]) Smoking 07/31/2020 12:00:00 AM EST Former Smoker completed Former Smoker eCW1 (Counts Include [facility]) Smoking 07/31/2020 12:00:00 AM EST Former Smoker completed Former Smoker eCW1 (Counts Include [facility]) Smoking 07/31/2020 12:00:00 AM EST Former Smoker completed Former Smoker eCW1 (Counts Include [facility]) Smoking 07/31/2020 12:00:00 AM EST Former Smoker completed Former Smoker eCW1 (Counts Include [facility]) Smoking 07/19/2020 12:00:00 AM EST Former Smoker completed Former Smoker eCW1 (Counts Include [facility]) Smoking 06/26/2020 12:00:00 AM EST Former Smoker completed Former Smoker eCW1 (Counts Include [facility]) Smoking 06/26/2020 12:00:00 AM EST Former Smoker completed Former Smoker eCW1 (Counts Include [facility]) Smoking 06/26/2020 12:00:00 AM EST Former Smoker completed Former Smoker eCW1 (Counts Include [facility]) Smoking 06/26/2020 12:00:00 AM EST Former Smoker completed Former Smoker eCW1 (Counts Include [facility]) Smoking 06/26/2020 12:00:00 AM EST Former Smoker completed Former Smoker eCW1 (Counts Include [facility]) Smoking 04/24/2020 12:00:00 AM EDT Patient is a former smoker completed Patient is a former smoker MEDENT ([facility]) Smoking 03/15/2020 12:00:00 AM EDT Patient is a former smoker completed Patient is a former smoker MEDENT ([facility]) Vital Signs ID Date Data Source UNK Name Value Range Interpretation Code Description Data Source(s) Body mass index (BMI) [Ratio] 29.64 kg/m2 29.64 kg/m2 eCW1 (Counts Include [facility]) Body weight 170 [lb_av] 170 [lb_av] eCW1 ([facility]) Body height 63.5 [in_i] 63.5 [in_i] eCW1 ([facility]) Heart rate 74 /min 74 /min eCW1 ([facility]) Respiratory rate 18 /min 18 /min eCW1 ([facility]) Body temperature 99.9 [degF] 99.9 [degF] eCW1 ( Counts Include [address] [facility]) Systolic blood pressure 124 mm[Hg] 124 mm[Hg] e CW1 (Counts Include [facility]) Diastolic blood pressure 82 mm[Hg] 82 mm[Hg] eCW1 (Counts Include [facility]) Body weight 170.8 [lb_av] 170.8 [lb_av] eCW1 ([facility]) Body height 63.5 [in_i] 63.5 [in_i] eCW1 ([facility]) Body mass index (BMI) [Ratio] 29.78 kg/m2 29.78 kg/m2 eCW1 (Counts Include [facility]) Respiratory rate 18 /min 18 /min eCW1 ([facility]) Body temperature 97.5 [degF] 97.5 [degF] eCW1 ( Counts Include [facility]) Systolic blood pressure 120 mm[Hg] 120 mm[Hg] e CW1 (Counts Include [address] [facility]) Diastolic blood pressure 74 mm[Hg] 74 mm[Hg] eCW1 (Counts Include [address] [facility]) Heart rate 95 /min 95 /min eCW1 ([facility]) Body mass index (BMI) [Ratio] 30.1 kg/m2 30.1 k g/m2 MEDENT ([facility]) Systolic blood pressure 118 mm[Hg] 118 mm[Hg] M EDENT ([facility]) Body weight 77.112 kg 77.112 kg MEDENT ([facility]) Body weight 170.00 [lb_av] 170.00 [lb_av] MEDEN T ([facility]) [place] body weight 115 [lb_av] 115 [lb_av] MEDEN T ([facility]) Diastolic blood pressure 64 mm[Hg] 64 mm[Hg] MEDENT ([facility]) Body height 63 [in_i] 63 [in_i] MEDENT ([facility]) 5'3" Body surface area Derived from formula 1.80 m2 1.[address] [facility] ([facility]) Body weight 173 [lb_av] 173 [lb_av] eCW1 ([facility]) Body height 63.5 [in_i] 63.5 [in_i] eCW1 ([facility]) Body mass index (BMI) [Ratio] 30.16 kg/m2 30.16 kg/m2 W1 (Counts Include [address] [facility]) Heart rate 92 /min 92 /min eCW1 ([facility]) Respiratory rate 18 /min 18 /min W1 ([facility]) Body temperature 96.6 [degF] 96.6 [degF] eCW1 ( Counts Include [facility]) Systolic blood pressure 128 mm[Hg] 128 mm[Hg] e CW1 (Counts Include [address] [facility]) Diastolic blood pressure 82 mm[Hg] 82 mm[Hg] eCW1 (Counts Include [address] [facility]) Body weight 180.0 [lb_av] 180.0 [lb_av] eCW1 ([facility]) Body height 63.5 [in_i] 63.5 [in_i] eCW1 ([facility]) Body mass index (BMI) [Ratio] 31.38 kg/m2 31.38 kg/m2 eCW1 (Counts Include [address] [facility]) Heart rate 103 /min 103 /min eCW1 ([facility]) Respiratory rate 18 /min 18 /min eCW1 ([facility]) Body temperature 97.4 [degF] 97.4 [degF] eCW1 ( Counts Include [address] [facility]) Systolic blood pressure 138 mm[Hg] 138 mm[Hg] e CW1 (Counts Include [address] [facility]) Diastolic blood pressure 90 mm[Hg] 90 mm[Hg] eCW1 (Counts Include [address] [facility]) Body weight 189 [lb_av] 189 [lb_av] eCW1 ([facility]) Body height 63.5 [in_i] 63.5 [in_i] eCW1 ([facility]) Body mass index (BMI) [Ratio] 32.95 kg/m2 32.95 kg/m2 eCW1 (Counts Include [address] [facility]) Heart rate 92 /min 92 /min eCW1 ([facility]) Respiratory rate 18 /min 18 /min eCW1 ([facility]) Body temperature 96.7 [degF] 96.7 [degF] eCW1 ( Counts Include [address] [facility]) Systolic blood pressure 138 mm[Hg] 138 mm[Hg] e CW1 (Counts Include [address] [facility]) Diastolic blood pressure 80 mm[Hg] 80 mm[Hg] eCW1 (Counts Include [address] [facility]) Body weight 190.2 [lb_av] 190.2 [lb_av] eCW1 ([facility]) Body height 63.5 [in_i] 63.5 [in_i] eCW1 ([facility]) Body mass index (BMI) [Ratio] 33.16 kg/m2 33.16 kg/m2 eCW1 (Counts Include [address] [facility]) Heart rate 112 /min 112 /min eCW1 ([facility]) Respiratory rate 18 /min 18 /min eCW1 ([facility]) Body temperature 98 [degF] 98 [degF] eCW1 ([facility]) Systolic blood pressure 144 mm[Hg] 144 mm[Hg] e CW1 (Counts Include [address] [facility]) Diastolic blood pressure 88 mm[Hg] 88 mm[Hg] eCW1 (Counts Include [address] [facility]) Body weight 199 [lb_av] 199 [lb_av] eCW1 ([facility]) Body height 63.5 [in_i] 63.5 [in_i] eCW1 ([facility]) Body mass index (BMI) [Ratio] 34.69 kg/m2 34.69 kg/m2 eCW1 (Counts Include [address] [facility]) Heart rate 85 /min 85 /min eCW1 ([facility]) Respiratory rate 18 /min 18 /min eCW1 ([facility]) Body temperature 96.1 [degF] 96.1 [degF] eCW1 ( Counts Include [address] [facility]) Systolic blood pressure 142 mm[Hg] 142 mm[Hg] e CW1 (Counts Include [address] [facility]) Diastolic blood pressure 80 mm[Hg] 80 mm[Hg] eCW1 (Counts Include [address] [facility]) Body temperature 97.0 [degF] 97.0 [degF] MEDENT ([facility] ) Body height 63 [in_i] 63 [in_i] MEDENT ([facility] ) 5'3" Body weight 197.50 [lb_av] 197.50 [lb_av] MEDEN T ([facility] ) Body mass index (BMI) [Ratio] 35.0 kg/m2 35.0 k g/m2 MEDENT ([facility] ) Systolic blood pressure 130 mm[Hg] 130 mm[Hg] M EDENT ([facility], [facility]) Diastolic blood pressure 91 mm[Hg] 91 mm[Hg] MEDENT ([facility], [facility]) Heart rate 74 /min 74 /min MEDENT ([facility], [facility]) Respiratory rate 14 /min 14 /min MEDENT ( [facility], [facility]) Oxygen saturation in Arterial blood by Pulse oximetry 99 % 99 % MEDENT ([facility], [facility]) Body temperature 98.7 [degF] 98.7 [degF] MEDENT ([facility], [facility]) Body weight 200.00 [lb_av] 200.00 [lb_av] LB T ([facility], [facility]) Body height 63 [in_i] 63 [in_i] ANGELLA ([facility]) 5'3" Body mass index (BMI) [Ratio] 35.4 kg/m2 35.4 k g/m2 ANGELLA ([facility]) ID Date Data Source [id number] 04/09/2021 07:55:20 AM EDT [facility] Name Value Range Interpretation Code Description Data Source(s) WEIGHT RECORDED 155 lb 155 lb [facility] Body height Measured [address] [facility] ID Date Data Source [id number] 04/11/2021 10:55:[address] [facility] Name Value Range Interpretation Code Description Data Source(s) WEIGHT RECORDED 156.00 pounds 156.00 pounds [facility] Height [address] [facility] ID Date Data Source [id number] 10/27/2020 12:42:[address] [facility] Name Value Range Interpretation Code Description Data Source(s) WEIGHT RECORDED 172.20 pounds 172.20 pounds [facility] Height [address] [facility] Patient Treatment Plan of Care Planned Activity Planned Date Details Description Data Source (s) Ondansetron 4 MG Oral Tablet [Zofran] 08/01/2020 12:00:00 AM EST eCW1 (Counts Include [facility]) buspirone hydrochloride 7.5 MG Oral Tablet 08/01/2020 12:00:[address] eCW1 (Counts Include [facility]) Paroxetine 20 MG Oral Tablet [Paxil] 08/01/2020 12:00:00 AM EST eCW1 (Counts Include [facility]) Ondansetron 4 MG Oral Tablet [Zofran] 08/01/2020 12:00:00 AM EST eCW1 (Counts Include [facility]) buspirone hydrochloride 7.5 MG Oral Tablet 08/01/2020 12:00:[address] eCW1 (Counts Include [facility]) Paroxetine 20 MG Oral Tablet [Paxil] 08/01/2020 12:00:00 AM EST eCW1 (Counts Include [facility]) Ondansetron 4 MG Oral Tablet [Zofran] 08/01/2020 12:00:00 AM EST eCW1 (Counts Include [facility]) buspirone hydrochloride 7.5 MG Oral Tablet 08/01/2020 12:00:[address] eCW1 (Counts Include [facility]) Paroxetine 20 MG Oral Tablet [Paxil] 08/01/2020 12:00:00 AM EST eCW1 (Counts Include [facility]) Ondansetron 4 MG Oral Tablet [Zofran] 08/01/2020 12:00:00 AM EST eCW1 (Counts Include [facility]) buspirone hydrochloride 7.5 MG Oral Tablet 08/01/2020 12:00:[address] eCW1 (Counts Include [facility]) Paroxetine 20 MG Oral Tablet [Paxil] 08/01/2020 12:00:00 AM EST eCW1 (Counts Include [facility]) Ondansetron 4 MG Oral Tablet [Zofran] 08/01/2020 12:00:00 AM EST eCW1 (Counts Include [facility]) buspirone hydrochloride 7.5 MG Oral Tablet 08/01/2020 12:00:[address] eCW1 (Counts Include [facility]) Ondansetron 4 MG Oral Tablet [Zofran] 08/01/2020 12:00:00 AM EST eCW1 (Counts Include [facility]) Ondansetron 4 MG Oral Tablet [Zofran] 08/01/2020 12:00:00 AM EST eCW1 (Counts Include [facility]) Paroxetine 20 MG Oral Tablet [Paxil] 08/01/2020 12:00:00 AM EST eCW1 (Counts Include [facility]) Ondansetron 4 MG Oral Tablet [Zofran] 08/01/2020 12:00:00 AM EST eCW1 (Counts Include [facility]) 200 ACTUAT Albuterol 0.09 MG/ACTUAT Metered Dose Inhal er [ProAir] 07/19/2020 12:00:00 AM EST eCW1 ([facility]) Fluconazole 150 MG Oral Tablet [Diflucan] 07/19/2020 12:00:00 AM ES T eCW1 (Counts Include [facility]) Augmentin 875-125 MG 07/19/2020 12:00:00 AM EST eCW1 (Counts Include [facility]) benzonatate 200 MG Oral Capsule 07/19/2020 12:00:00 AM EST eCW1 (Counts Include [facility]) valacyclovir 1000 MG Oral Tablet [Valtrex] 06/26/2020 12:00:[address] eCW1 (Counts Include [facility]) valacyclovir 1000 MG Oral Tablet [Valtrex] 06/26/2020 12:00:[address] eCW1 (Counts Include [facility]) valacyclovir 1000 MG Oral Tablet [Valtrex] 06/26/2020 12:00:[address] eCW1 (Counts Include [facility]) valacyclovir 1000 MG Oral Tablet [Valtrex] 06/26/2020 12:00:[address] eCW1 (Counts Include [facility]) valacyclovir 1000 MG Oral Tablet [Valtrex] 06/26/2020 12:00:[address] eCW1 (Counts Include [facility])
[2021-04-11] MEDS ORDERED: ALBU8.5H (14:43)
[2021-04-11] MEDS ORDERED: NEXI40CA PO (14:43)
--- OUTSIDE RECORDS SUMMARY | 2021-04-11 15:22 | CCD ---
Author Author [facility] Address Unknown Phone Unavailable Care Team Providers Care [facility] Lab[facility] Name Role Phone Brijesh Constantino Unavailable JENI [...] MD Unavailable Unavailable Kamran Falanga, A Anahi TASSEL MAKING MACHINE OPERATOR Unavailable Unavailable [place] Falanga, A Anahi TASSEL MAKING MACHINE OPERATOR Unavailable Unavailable Kamran Falanga, A Anahi TASSEL MAKING MACHINE OPERATOR Unavailable Unavailable Kamran Falanga, A Anahi TASSEL MAKING MACHINE OPERATOR Unavailable Unavailable Kamran Falanga, A Anahi TASSEL MAKING MACHINE OPERATOR Unavailable Unavailable Kamran Falanga, A Anahi TASSEL MAKING MACHINE OPERATOR Unavailable Unavailable [place] Falanga, A Anahi TASSEL MAKING MACHINE OPERATOR Unavailable Unavailable [place] Falanga, A Anahi TASSEL MAKING MACHINE OPERATOR Unavailable Unavailable [place] Falanga, A Anahi TASSEL MAKING MACHINE OPERATOR Unavailable Unavailable [place] Falanga, A Anahi TASSEL MAKING MACHINE OPERATOR Unavailable Unavailable [place] Falanga, A Anahi TASSEL MAKING MACHINE OPERATOR Unavailable Unavailable [place] Falanga, A Anahi TASSEL MAKING MACHINE OPERATOR Unavailable Unavailable Kamran Falanga, A Anahi TASSEL MAKING MACHINE OPERATOR Unavailable Unavailable [place] Falanga, A Anahi TASSEL MAKING MACHINE OPERATOR Unavailable Unavailable Kamran Falanga, A Anahi TASSEL MAKING MACHINE OPERATOR Unavailable Unavailable [place] Falanga, A Anahi TASSEL MAKING MACHINE OPERATOR Unavailable Unavailable Kamran Falanga, A Anahi TASSEL MAKING MACHINE OPERATOR Unavailable Unavailable [place] Falanga, A Anahi TASSEL MAKING MACHINE OPERATOR Unavailable Unavailable Kamran Falanga, A Anahi TASSEL MAKING MACHINE OPERATOR Unavailable Unavailable Kamran Falanga, A Anahi TASSEL MAKING MACHINE OPERATOR Unavailable Unavailable [place] Falanga, A Anahi TASSEL MAKING MACHINE OPERATOR Unavailable Unavailable [place] Falanga, A Anahi TASSEL MAKING MACHINE OPERATOR Unavailable Unavailable [place] Faljosea, A Anahi TASSEL MAKING MACHINE OPERATOR Unavailable Unavailable [place] Faljosea, A Anahi TASSEL MAKING MACHINE OPERATOR Unavailable Unavailable [place] Faljosea, A Anahi TASSEL MAKING MACHINE OPERATOR Unavailable Unavailable [place] Faljosea, A Anahi TASSEL MAKING MACHINE OPERATOR Unavailable Unavailable [place] Faljosea, A Anahi TASSEL MAKING MACHINE OPERATOR Unavailable Unavailable [place] Krzysztof, A Anahi TASSEL MAKING MACHINE OPERATOR Unavailable Unavailable [place] Faljosea, A Anahi TASSEL MAKING MACHINE OPERATOR Unavailable Unavailable [facility] [place] Unavailable Unavailable Stefany Rosas PA Unavailable Unavailable YU PA-C, [id number] A. GRACE PA Unavailable Unava ilable YU PA-C, [id number] A. GRACE PA Unavailable Unava ilable YU PA-C, [id number] A. GRACE PA Unavailable Unava ilable YU PA-C, [id number] A. GRACE PA Unavailable Unava ilable YU PA-C, [id number] A. GRACE PA Unavailable Unava ilable YU PA-C, [id number] A. GRACE PA Unavailable Unava ilable YU PA-C, [id number] A. GRACE PA Unavailable Unava ilable Brijesh [...] T Deonna PA Unavailable Unavailable Feola, T Denona PA Unavailable Unavailable Feola, T Deonna PA [...] Unavailable Unavailable CLARITAMarnie Rangel MD Unavailable Unavailable CLARITAMarnie Rangel MD Unavailable Unavailable CLARITA F SIMRAN Unavailable Unavailable CLARITA, F SIMRAN Unavailable Unavailable CLARITA, F SIMRAN Unavailable Unavailable CLARITA, F SIMRAN Unavailable Unavailable CLARITA, F SIMRAN MD Unavailable Unavailable CLARITA, F SIMRAN MD Unavailable Unavailable CLARITA, F SIMRAN MD Unavailable Unavailable CLARITA, F SIMRAN MD Unavailable Unavailable CLARITA, F SIMRAN MD Unavailable Unavailable LCARITA, F SIMRAN Unavailable Unavailable CLARITA, F SIMRAN [...] FONS, TIFFANY Unavailable Unavailable Aaron, RENAN STEFANY TASSEL MAKING MACHINE OPERATOR Unavailable Unavailabl e Revere, RENAN STEFANY TASSEL MAKING MACHINE OPERATOR Unavailable Unavailabl e Revere, RENAN STEFNAY TASSEL MAKING MACHINE OPERATOR Unavailable Unavailabl e Revere, RENAN STEFANY TASSEL MAKING MACHINE OPERATOR Unavailable Unavailabl e Aaron, RENAN STEFANY TASSEL MAKING MACHINE OPERATOR Unavailable Unavailabl e Revere, RENAN STEFANY TASSEL MAKING MACHINE OPERATOR Unavailable Unavailabl e Aaron, RENAN STEFANY TASSEL MAKING MACHINE OPERATOR Unavailable Unavailabl e Aaron, RENAN STEFANY TASSEL MAKING MACHINE OPERATOR Unavailable Unavailabl e Revere, RENAN STEFANY TASSEL MAKING MACHINE OPERATOR Unavailable Unavailabl e Revere, RENAN STEFANY TASSEL MAKING MACHINE OPERATOR Unavailable Unavailabl e Revere, RENAN STEFANY TASSEL MAKING MACHINE OPERATOR Unavailable Unavailabl e Aaron, RENAN STEFANY TASSEL MAKING MACHINE OPERATOR Unavailable Unavailabl e Aaron, RENAN STEFANY TASSEL MAKING MACHINE OPERATOR Unavailable Unavailabl e Revere, RENAN STEFANY TASSEL MAKING MACHINE OPERATOR Unavailable Unavailabl e Aaron, RENAN STEFANY TASSEL MAKING MACHINE OPERATOR Unavailable Unavailabl e Aaron, RENAN STEFANY TASSEL MAKING MACHINE OPERATOR Unavailable Unavailabl e Revere, RENAN STEFANY TASSEL MAKING MACHINE OPERATOR Unavailable Unavailabl e Revere, RENAN SALAMANCA TASSEL MAKING MACHINE OPERATOR Unavailable Unavailabl e Rsoario, M Christopher PA-C Unavailable Unavailable Rosario, M [...] Unavailable Unavailable Gurjit ZAPIEN MD Unavailable Unavailable CHANLIFABRICIO, Gurjit WITT MD Unavailable Unavailable CHANLIECGABINO, Gurjit [...] is protected by Article 27-F of the [facility] Public Health law. If you continue you may have access to information: Regarding HIV / AIDS; Provided by facilities licensed or operated by the [facility] Office of Mental Health; or Provided by the [facility] Office for People With Developmental Disabilities. If such information is present, then the following [facility] mandated warning applies: This information has been [...] law may result in a fine or longterm sentence or both. A general authorization for the release of medical or other information is NOT sufficient authorization for further disc losure. Allergies and Adverse Reactions Type Description Substance Reaction Status Data Source(s ) Propensity to adverse reactions MIRALAX MIRALAX DIZZINESS [facility] Food allergy PARSLEY LEAF PARSLEY LEAF ITCHING; SWELLING [facility] Food allergy PUMPKIN SEED PUMPKIN SEED ITCHING; SWELLING [facility] Propensity to adverse reactions SULFA (sulfonamide) SULFA (sulfo namide) ABD PAIN; HIVES [facility] Family History Family Member Name Family Member Gender Family Member Status Date o f Status Description Data Source(s) Unknown Male Problem MEDENT ([facility]) () Encounters Encounter Providers Location Date Indications Data Source(s ) Emergency Attender: Heike garnetter: HEIKE CONSTANTINOReferrer: HEIKE CONSTANTINO [facility] 04/08/2021 03:15:00 PM EDT - 04/08/2021 05:50:00 PM EDT Stomach Pain, Chest Pain [facility] Stomach Pain, Chest Pain Patient discharged. Outpatient Attender: STEFANY Banuelos FNPAttender: DINESH ROMAConsultant: [id number] GRACE NICHOLAS PA-C 04/04/2021 01:05:00 PM EDT - 04/06/2021 12:30:00 PM EDT [facility] Patient discharged. Outpatient Attender: Ministerio LOVINGCAttender: Stefany Rosas PAAttender: Deonna ANDERS 02/19/2021 01:46:45 PM EDT - 02/19/2021 03:26:54 PM EDT [facility] ([facility] ) [place] [address] [address] 02/01/2021 12:00:00 AM EDT eCW1 ([facility]) [place] [address] [address] 12/25/2020 12:00:00 AM EDT eCW1 ([facility]) [place] [address] [facility] [address] 12/25/2020 12:00:00 AM EDT eCW1 ([facility]) [place] [address] [facility] [address] 12/21/2020 12:00:00 AM EDT eCW1 ([facility]) [place] [address] [facility] [address] 12/07/2020 12:00:00 AM EDT eCW1 ([facility]) [place] [address] [facility] [facility] [address] 12/05/2020 12:00:00 AM EDT eCW1 ([facility]) [place] [address] [facility] [address] 11/30/2020 12:00:00 AM EDT eCW1 ([facility]) Outpatient Attender: SIMRAN OTTO MD 09/29 01:14:00 PM EDT - 10/26/2020 01:14:00 PM EDT [facility] [place] [address] [facility] [address] 10/23/2020 12:00:00 AM EDT eCW1 ([facility]) [place] [address] [facility] [address] 10/20/2020 12:00:00 AM EDT eCW1 ([facility]) [place] [address] [facility] [address] 10/18/2020 12:00:00 AM EDT eCW1 ([facility]) Outpatient Attender: VICKEY Ansari/Harman/Jose anne/Reindl 10/16/2020 01:50:00 PM EDT [facility] ([facility]) Outpatient Attender: Ministerio Rosario PA-C 10/13/2020 05:18:33 PM EDT - 10/13/2020 06:23:56 PM EDT [facility] ([facility]) Outpatient Attender: [facility] 10/07/2020 07:3 8:00 PM EDT [facility] Inpatient Attender: Anahi cam FNPAttender: JENI MCDOWELL MDAttender: EDUAR ZAPIEN MDConsultant: [id number] GRACE NICHOLAS PA-C 10/07/2020 12:46:00 PM EDT - 10/10/2020 12:35:00 PM EDT [facility] Patient discharged. Emergency Attender: DINESH Maher sultant: [phone] GRACE LOVING CConsultant: TIFFANY GARCIA 10/05/2020 05:16:00 AM EDT - 10:53:00 AM EDT [facility] Patient discharged. [place] [address] [facility] [address] 10/05/2020 12:00:00 AM EDT eCW1 ([facility]) [place] [address] [facility] [facility] [address] 10/04/2020 12:00:00 AM EDT eCW1 ([facility]) Unknown [address] [facility] [facility] [address] 10/04/2020 12:00:00 AM EDT eCW1 ([facility]) [place] [address] [facility] [facility] [address] 10/04/2020 12:00:00 AM EDT eCW1 ([facility]) [place] [address] [facility] [facility] [address] 10/04/2020 12:00:00 AM EDT eCW1 ([facility]) Outpatient [address] [facility] [facility] [address] 09/12/2020 12:00:00 AM EDT eCW1 ([facility]) Outpatient [address] [facility] [facility] [address] 09/05/2020 12:00:00 AM EST eCW1 ([facility]) [place] [address] [facility] [facility] [address] 08/20/2020 12:00:00 AM EST eCW1 ([facility]) [place] [address] [facility] [facility] [address] 08/06/2020 12:00:00 AM EST eCW1 ([facility]) Unknown [address] [facility] [facility] [address] 08/01/2020 12:00:00 AM EST eCW1 ([facility]) Outpatient [address] [facility] [facility] [address] 07/31/2020 12:00:00 AM EST eCW1 ([facility]) [place] [address] [facility] [facility] [address] 07/26/2020 12:00:00 AM EST eCW1 ([facility]) Outpatient [address] [facility] [address] 07/19/2020 12:00:00 AM EST eCW1 ([facility]) [place] [address] [facility] [address] 07/11/2020 12:00:00 AM EST eCW1 ([facility]) Unknown [address] [facility] [address] 07/10/2020 12:00:00 AM EST eCW1 ([facility]) [place] [address] [facility] [address] 07/10/2020 12:00:00 AM EST eCW1 ([facility]) Outpatient [address] [facility] [address] 06/26/2020 12:00:00 AM EST eCW1 ([facility]) Unknown [address] [facility] [address] 06/26/2020 12:00:00 AM EST eCW1 ([facility]) Outpatient Attender: TERE KATZ MD Physical Therapy 07:00:00 AM EST [facility] ([facility]) [place] [address] [facility] [facility] [address] 05/01/2020 12:00:00 AM EST eCW1 ([facility]) [facility] [address] [facility] [facility] [address] 05/01/2020 12:00:00 AM EST eCW1 ([facility]) Outpatient Attender: TERE KATZ MD Physical Therapy 08:45:00 AM EDT MED[facility] ([facility]) Outpatient Attender: HEIKE alex 03/15/2020 02:15:00 PM EDT [facility] ([facility]) Outpatient Attender: SIMRAN OTTO [facility] onsultant: [phone] GRACE ANDERS- CConsultant: TIFFANY GARCIA 01/23/2018 02:49:12 PM EDT [facility] Immunizations Vaccine Date Status Description Data Source(s) COVID-19 dose #1 given elsewhere Unspecified 09/21/2020 03:5 0:00 PM EDT completed eCW1 ([facility]) COVID-19 dose #1 given elsewhere Unspecified 09/21/2020 03:5 0:00 PM EDT completed eCW1 ([facility]) COVID-19 dose #1 given elsewhere Unspecified 09/21/2020 03:5 0:00 PM EDT completed eCW1 ([facility]) COVID-19 dose #1 given elsewhere Unspecified 09/21/2020 03:5 0:00 PM EDT completed eCW1 ([facility]) COVID-19 dose #1 given elsewhere Unspecified 09/21/2020 03:5 0:00 PM EDT completed eCW1 ([facility]) COVID-19 dose #1 given elsewhere Unspecified 09/21/2020 03:5 0:00 PM EDT completed eCW1 ([facility]) COVID-19 VACCINE Moderna 09/21/2020 12:00:00 AM EDT completed [facility] Vaccine Series Complete: NOThis Data was Submitted to [facility] Via [employer]. Medications Medication Brand Name Start Date Product Form Dose Route Admi nistrative Instructions Pharmacy Instructions Status Indications Reaction Description Data Source(s) Ondansetron 4 MG Disintegrating Oral Tablet Ondansetron 10/16/2020 12:00:00 AM EDT ORAL active MEDENT ([facility]) carvedilol 3.125 MG Oral Tablet [Coreg] Coreg 3.125mg Coreg 3.125mg 09/05/2020 12:00:00 AM EST active Coreg 3. 125mg eCW1 ([facility]) carvedilol 3.125 MG Oral Tablet [Coreg] Coreg 3.125mg Coreg 3.125mg 09/05/2020 12:00:00 AM EST active Coreg 3. 125mg eCW1 ([facility]) carvedilol 3.125 MG Oral Tablet [Coreg] Coreg 3.125mg Coreg 3.125mg 09/05/2020 12:00:00 AM EST active Coreg 3. 125mg eCW1 ([facility]) carvedilol 3.125 MG Oral Tablet [Coreg] Coreg 3.125mg Coreg 3.125mg 09/05/2020 12:00:00 AM EST active Coreg 3. 125mg eCW1 ([facility]) carvedilol 3.125 MG Oral Tablet [Coreg] Coreg 3.125mg Coreg 3.125mg 09/05/2020 12:00:00 AM EST suspended Coreg 3.125mg eCW1 ([facility]) carvedilol 3.125 MG Oral Tablet [Coreg] Coreg 3.125mg Coreg 3.125mg 09/05/2020 12:00:00 AM EST active Coreg 3. 125mg eCW1 ([facility]) carvedilol 3.125 MG Oral Tablet [Coreg] Coreg 3.125mg Coreg 3.125mg 09/05/2020 12:00:00 AM EST active Coreg 3. 125mg eCW1 ([facility]) carvedilol 3.125 MG Oral Tablet [Coreg] Coreg 3.125mg Coreg 3.125mg 09/05/2020 12:00:00 AM EST active Coreg 3. 125mg eCW1 ([facility]) carvedilol 3.125 MG Oral Tablet [Coreg] Coreg 3.125mg Coreg 3.125mg 09/05/2020 12:00:00 AM EST active Coreg 3. 125mg eCW1 ([facility]) carvedilol 3.125 MG Oral Tablet [Coreg] Coreg 3.125mg Coreg 3.125mg 09/05/2020 12:00:00 AM EST active Coreg 3. 125mg eCW1 ([facility]) carvedilol 3.125 MG Oral Tablet [Coreg] Coreg 3.125mg Coreg 3.125mg 09/05/2020 12:00:00 AM EST suspended Coreg 3.125mg eCW1 ([facility]) carvedilol 3.125 MG Oral Tablet [Coreg] Coreg 3.125mg Coreg 3.125mg 09/05/2020 12:00:00 AM EST suspended Coreg 3.125mg eCW1 ([facility]) carvedilol 3.125 MG Oral Tablet [Coreg] Coreg 3.125mg Coreg 3.125mg 09/05/2020 12:00:00 AM EST suspended Coreg 3.125mg eCW1 ([facility]) carvedilol 3.125 MG Oral Tablet [Coreg] Coreg 3.125mg Coreg 3.125mg 09/05/2020 12:00:00 AM EST suspended Coreg 3.125mg eCW1 ([facility]) carvedilol 3.125 MG Oral Tablet [Coreg] Coreg 3.125mg Coreg 3.125mg 09/05/2020 12:00:00 AM EST suspended Coreg 3.125mg eCW1 ([facility]) carvedilol 3.125 MG Oral Tablet [Coreg] Coreg 3.125mg Coreg 3.125mg 09/05/2020 12:00:00 AM EST active Coreg 3. 125mg eCW1 ([facility]) carvedilol 3.125 MG Oral Tablet [Coreg] Coreg 3.125mg Coreg 3.125mg 09/05/2020 12:00:00 AM EST active Coreg 3. 125mg eCW1 ([facility]) Paroxetine 30 MG Oral Tablet [Paxil] Paxil 30 MG Paxil 30 MG 08/01/2020 12:00:00 AM EST 1.0 {tablet_in_the_morning} active Paxil 30 MG eCW1 ([facility]) Paroxetine 30 MG Oral Tablet [Paxil] Paxil 30 MG Paxil 30 MG 08/01/2020 12:00:00 AM EST 1.0 {tablet_in_the_morning} active Paxil 30 MG eCW1 ([facility]) Paroxetine 30 MG Oral Tablet [Paxil] Paxil 30 MG Paxil 30 MG 08/01/2020 12:00:00 AM EST 1.0 {tablet_in_the_morning} active Paxil 30 MG eCW1 ([facility]) Paroxetine 30 MG Oral Tablet [Paxil] Paxil 30 MG Paxil 30 MG 08/01/2020 12:00:00 AM EST 1.0 {tablet_in_the_morning} active Paxil 30 MG eCW1 ([facility]) buspirone hydrochloride 7.5 MG Oral Tablet busPIRone H Cl 7.5 MG busPIRone HCl 7.5 MG 08/01/2020 12:00:00 AM EST 1.0 {tablet} activ e busPIRone HCl 7.5 MG eCW1 ([facility]) Paroxetine 30 MG Oral Tablet [Paxil] Paxil 30 MG Paxil 30 MG 08/01/2020 12:00:00 AM EST 1.0 {tablet_in_the_morning} active Paxil 30 MG eCW1 ([facility]) Ondansetron 4 MG Oral Tablet [Zofran] Zofran 4 MG Zofran 4 M G 08/01/2020 12:00:00 AM EST 1.0 {tablet} active Zo cameron 4 MG eCW1 ([facility]) buspirone hydrochloride 7.5 MG Oral Tablet busPIRone H Cl 7.5 MG busPIRone HCl 7.5 MG 08/01/2020 12:00:00 AM EST 1.0 {tablet} activ e busPIRone HCl 7.5 MG eCW1 ([facility]) buspirone hydrochloride 7.5 MG Oral Tablet BusPIRone H Cl 7.5 MG BusPIRone HCl 7.5 MG 08/01/2020 12:00:00 AM EST 1.0 {tablet} activ e BusPIRone HCl 7.5 MG eCW1 ([facility]) buspirone hydrochloride 7.5 MG Oral Tablet BusPIRone H Cl 7.5 MG BusPIRone HCl 7.5 MG 08/01/2020 12:00:00 AM EST 1.0 {tablet} activ e BusPIRone HCl 7.5 MG eCW1 ([facility]) buspirone hydrochloride 7.5 MG Oral Tablet BusPIRone H Cl 7.5 MG BusPIRone HCl 7.5 MG 08/01/2020 12:00:00 AM EST 1.0 {tablet} activ e BusPIRone HCl 7.5 MG eCW1 ([facility]) Ondansetron 4 MG Oral Tablet [Zofran] Zofran 4 MG Zofran 4 M G 08/01/2020 12:00:00 AM EST 1.0 {tablet} active Zo cameron 4 MG eCW1 ([facility]) buspirone hydrochloride 7.5 MG Oral Tablet busPIRone H Cl 7.5 MG busPIRone HCl 7.5 MG 08/01/2020 12:00:00 AM EST 1.0 {tablet} activ e busPIRone HCl 7.5 MG eCW1 ([facility]) Paroxetine 30 MG Oral Tablet [Paxil] Paxil 30 MG Paxil 30 MG 08/01/2020 12:00:00 AM EST 1.0 {tablet_in_the_morning} active Paxil 30 MG eCW1 ([facility]) Paroxetine 20 MG Oral Tablet [Paxil] Paxil 20 MG Paxil 20 MG 08/01/2020 12:00:00 AM EST 1.0 {tablet_in_the_morning} active Paxil 20 MG eCW1 ([facility]) Ondansetron 4 MG Oral Tablet [Zofran] Zofran 4 MG Zofran 4 M G 08/01/2020 12:00:00 AM EST 1.0 {tablet} active Zo cameron 4 MG eCW1 ([facility]) buspirone hydrochloride 7.5 MG Oral Tablet BusPIRone H Cl 7.5 MG BusPIRone HCl 7.5 MG 08/01/2020 12:00:00 AM EST 1.0 {tablet} activ e BusPIRone HCl 7.5 MG eCW1 ([facility]) Ondansetron 4 MG Oral Tablet [Zofran] Zofran 4 MG Zofran 4 M G 08/01/2020 12:00:00 AM EST 1.0 {tablet} active Zo cameron 4 MG eCW1 ([facility]) Paroxetine 20 MG Oral Tablet [Paxil] Paxil 20 MG Paxil 20 MG 08/01/2020 12:00:00 AM EST 1.0 {tablet_in_the_morning} active Paxil 20 MG eCW1 ([facility]) buspirone hydrochloride 7.5 MG Oral Tablet BusPIRone H Cl 7.5 MG BusPIRone HCl 7.5 MG 08/01/2020 12:00:00 AM EST 1.0 {tablet} activ e BusPIRone HCl 7.5 MG eCW1 ([facility]) Paroxetine 30 MG Oral Tablet [Paxil] Paxil 30 MG Paxil 30 MG 08/01/2020 12:00:00 AM EST 1.0 {tablet_in_the_morning} active Paxil 30 MG eCW1 ([facility]) Paroxetine 30 MG Oral Tablet [Paxil] Paxil 30 MG Paxil 30 MG 08/01/2020 12:00:00 AM EST 1.0 {tablet_in_the_morning} active Paxil 30 MG eCW1 ([facility]) Ondansetron 4 MG Oral Tablet [Zofran] Zofran 4 MG Zofran 4 M G 08/01/2020 12:00:00 AM EST 1.0 {tablet} active Zo cameron 4 MG eCW1 ([facility]) Ondansetron 4 MG Oral Tablet [Zofran] Zofran 4 MG Zofran 4 M G 08/01/2020 12:00:00 AM EST 1.0 {tablet} active Zo cameron 4 MG eCW1 ([facility]) buspirone hydrochloride 7.5 MG Oral Tablet BusPIRone H Cl 7.5 MG BusPIRone HCl 7.5 MG 08/01/2020 12:00:00 AM EST 1.0 {tablet} activ e BusPIRone HCl 7.5 MG eCW1 ([facility]) Paroxetine 30 MG Oral Tablet [Paxil] Paxil 30 MG Paxil 30 MG 08/01/2020 12:00:00 AM EST 1.0 {tablet_in_the_morning} active Paxil 30 MG eCW1 ([facility]) Paroxetine 30 MG Oral Tablet [Paxil] Paxil 30 MG Paxil 30 MG 08/01/2020 12:00:00 AM EST 1.0 {tablet_in_the_morning} active Paxil 30 MG eCW1 ([facility]) Paroxetine 20 MG Oral Tablet [Paxil] Paxil 20 MG Paxil 20 MG 08/01/2020 12:00:00 AM EST 1.0 {tablet_in_the_morning} active Paxil 20 MG eCW1 ([facility]) Paroxetine 30 MG Oral Tablet [Paxil] Paxil 30 MG Paxil 30 MG 08/01/2020 12:00:00 AM EST 1.0 {tablet_in_the_morning} active Paxil 30 MG eCW1 ([facility]) buspirone hydrochloride 7.5 MG Oral Tablet BusPIRone H Cl 7.5 MG BusPIRone HCl 7.5 MG 08/01/2020 12:00:00 AM EST 1.0 {tablet} activ e BusPIRone HCl 7.5 MG eCW1 ([facility]) Paroxetine 20 MG Oral Tablet [Paxil] Paxil 20 MG Paxil 20 MG 08/01/2020 12:00:00 AM EST 1.0 {tablet_in_the_morning} active Paxil 20 MG eCW1 ([facility]) Paroxetine 30 MG Oral Tablet [Paxil] Paxil 30 MG Paxil 30 MG 08/01/2020 12:00:00 AM EST 1.0 {tablet_in_the_morning} active Paxil 30 MG eCW1 ([facility]) Paroxetine 20 MG Oral Tablet [Paxil] Paxil 20 MG Paxil 20 MG 08/01/2020 12:00:00 AM EST 1.0 {tablet_in_the_morning} active Paxil 20 MG eCW1 ([facility]) Ondansetron 4 MG Oral Tablet [Zofran] Zofran 4 MG Zofran 4 M G 08/01/2020 12:00:00 AM EST 1.0 {tablet} active Zo cameron 4 MG eCW1 ([facility]) Paroxetine 30 MG Oral Tablet [Paxil] Paxil 30 MG Paxil 30 MG 08/01/2020 12:00:00 AM EST 1.0 {tablet_in_the_morning} active Paxil 30 MG eCW1 ([facility]) Paroxetine 30 MG Oral Tablet [Paxil] Paxil 30 MG Paxil 30 MG 08/01/2020 12:00:00 AM EST 1.0 {tablet_in_the_morning} active Paxil 30 MG eCW1 ([facility]) Paroxetine 30 MG Oral Tablet [Paxil] Paxil 30 MG Paxil 30 MG 08/01/2020 12:00:00 AM EST 1.0 {tablet_in_the_morning} active Paxil 30 MG eCW1 ([facility]) buspirone hydrochloride 7.5 MG Oral Tablet BusPIRone H Cl 7.5 MG BusPIRone HCl 7.5 MG 08/01/2020 12:00:00 AM EST 1.0 {tablet} activ e BusPIRone HCl 7.5 MG eCW1 ([facility]) Ondansetron 4 MG Oral Tablet [Zofran] Zofran 4 MG Zofran 4 M G 08/01/2020 12:00:00 AM EST 1.0 {tablet} active Zo cameron 4 MG eCW1 ([facility]) buspirone hydrochloride 7.5 MG Oral Tablet BusPIRone H Cl 7.5 MG BusPIRone HCl 7.5 MG 08/01/2020 12:00:00 AM EST 1.0 {tablet} activ e BusPIRone HCl 7.5 MG eCW1 ([facility]) buspirone hydrochloride 7.5 MG Oral Tablet BusPIRone H Cl 7.5 MG BusPIRone HCl 7.5 MG 08/01/2020 12:00:00 AM EST 1.0 {tablet} activ e BusPIRone HCl 7.5 MG eCW1 ([facility]) buspirone hydrochloride 7.5 MG Oral Tablet BusPIRone H Cl 7.5 MG BusPIRone HCl 7.5 MG 08/01/2020 12:00:00 AM EST 1.0 {tablet} activ e BusPIRone HCl 7.5 MG eCW1 ([facility]) buspirone hydrochloride 7.5 MG Oral Tablet BusPIRone H Cl 7.5 MG BusPIRone HCl 7.5 MG 08/01/2020 12:00:00 AM EST 1.0 {tablet} activ e BusPIRone HCl 7.5 MG eCW1 ([facility]) Ondansetron 4 MG Oral Tablet [Zofran] Zofran 4 MG Zofran 4 M G 08/01/2020 12:00:00 AM EST 1.0 {tablet} active Zo cameron 4 MG eCW1 ([facility]) buspirone hydrochloride 7.5 MG Oral Tablet BusPIRone H Cl 7.5 MG BusPIRone HCl 7.5 MG 08/01/2020 12:00:00 AM EST 1.0 {tablet} activ e BusPIRone HCl 7.5 MG eCW1 ([facility]) Paroxetine 30 MG Oral Tablet [Paxil] Paxil 30 MG Paxil 30 MG 08/01/2020 12:00:00 AM EST 1.0 {tablet_in_the_morning} active Paxil 30 MG eCW1 ([facility]) Ondansetron 4 MG Oral Tablet [Zofran] Zofran 4 MG Zofran 4 M G 08/01/2020 12:00:00 AM EST 1.0 {tablet} active Zo cameron 4 MG eCW1 ([facility]) buspirone hydrochloride 7.5 MG Oral Tablet BusPIRone H Cl 7.5 MG BusPIRone HCl 7.5 MG 08/01/2020 12:00:00 AM EST 1.0 {tablet} activ e BusPIRone HCl 7.5 MG eCW1 ([facility]) Paroxetine 30 MG Oral Tablet [Paxil] Paxil 30 MG Paxil 30 MG 08/01/2020 12:00:00 AM EST 1.0 {tablet_in_the_morning} active Paxil 30 MG eCW1 ([facility]) buspirone hydrochloride 7.5 MG Oral Tablet BusPIRone H Cl 7.5 MG BusPIRone HCl 7.5 MG 08/01/2020 12:00:00 AM EST 1.0 {tablet} activ e BusPIRone HCl 7.5 MG eCW1 ([facility]) buspirone hydrochloride 7.5 MG Oral Tablet BusPIRone H Cl 7.5 MG BusPIRone HCl 7.5 MG 08/01/2020 12:00:00 AM EST 1.0 {tablet} activ e BusPIRone HCl 7.5 MG eCW1 ([facility]) benzonatate 200 MG Oral Capsule Benzonatate 200 MG Benzonata te 200 MG 07/19/2020 12:00:00 AM EST 1.0 {capsule} suspended Benzonatate 200 MG eCW1 ([facility]) Fluconazole 150 MG Oral Tablet [Diflucan] Diflucan 150 MG Di flucan 150 MG 07/19/2020 12:00:00 AM EST 1.0 {tablet} suspended Diflucan 150 MG eCW1 ([facility]) 200 ACTUAT Albuterol 0.09 MG/ACTUAT Mete red Dose Inhaler [ProAir] ProAir HFA 108 (90 Base) MCG/ACT ProAir HFA 108 (90 Base) MCG/ACT 07/19/2020 12:00:00 AM EST 2.0 {puffs_as_needed} active Pr oAir HFA 108 (90 Base) MCG/ACT eCW1 ([facility]) Augmentin 875-125 MG UNK 07/19/2020 12:00:00 AM EST 1.0 {tab let} suspended Augmentin 875-125 MG eCW1 [facility] benzonatate 200 MG Oral Capsule Benzonatate 200 MG Benzonata te 200 MG 07/19/2020 12:00:00 AM EST 1.0 {capsule} suspended Benzonatate 200 MG eCW1 ([facility]) Augmentin 875-125 MG UNK 07/19/2020 12:00:00 AM EST 1.0 {tab let} suspended Augmentin 875-125 MG eCW1 ([facility] benzonatate 200 MG Oral Capsule Benzonatate 200 MG Benzonata te 200 MG 07/19/2020 12:00:00 AM EST 1.0 {capsule} active Benzonatate 200 MG eCW1 ([facility]) benzonatate 200 MG Oral Capsule Benzonatate 200 MG Benzonata te 200 MG 07/19/2020 12:00:00 AM EST 1.0 {capsule} suspended Benzonatate 200 MG eCW1 ([facility]) 200 ACTUAT Albuterol 0.09 MG/ACTUAT Mete red Dose Inhaler [ProAir] ProAir HFA 108 (90 Base) MCG/ACT ProAir HFA 108 (90 Base) MCG/ACT 07/19/2020 12:00:00 AM EST 2.0 {puffs_as_needed} active Pr oAir HFA 108 (90 Base) MCG/ACT eCW1 ([facility]) 200 ACTUAT Albuterol 0.09 MG/ACTUAT Mete red Dose Inhaler [ProAir] ProAir HFA 108 (90 Base) MCG/ACT ProAir HFA 108 (90 Base) MCG/ACT 07/19/2020 12:00:00 AM EST 2.0 {puffs_as_needed} active Pr oAir HFA 108 (90 Base) MCG/ACT eCW1 ([facility]) 200 ACTUAT Albuterol 0.09 MG/ACTUAT Mete red Dose Inhaler [ProAir] ProAir HFA 108 (90 Base) MCG/ACT ProAir HFA 108 (90 Base) MCG/ACT 07/19/2020 12:00:00 AM EST 2.0 {puffs_as_needed} active Pr oAir HFA 108 (90 Base) MCG/ACT eCW1 ([facility]) benzonatate 200 MG Oral Capsule Benzonatate 200 MG Benzonata te 200 MG 07/19/2020 12:00:00 AM EST 1.0 {capsule} suspended Benzonatate 200 MG eCW1 ([facility]) 200 ACTUAT Albuterol 0.09 MG/ACTUAT Mete red Dose Inhaler [ProAir] ProAir HFA 108 (90 Base) MCG/ACT ProAir HFA 108 (90 Base) MCG/ACT 07/19/2020 12:00:00 AM EST 2.0 {puffs_as_needed} active Pr oAir HFA 108 (90 Base) MCG/ACT eCW1 ([facility]) Augmentin 875-125 MG UNK 07/19/2020 12:00:00 AM EST 1.0 {tablet } active Augmentin 875-125 MG eCW1 ([facility]) Fluconazole 150 MG Oral Tablet [Diflucan] Diflucan 150 MG Di flucan 150 MG 07/19/2020 12:00:00 AM EST 1.0 {tablet} suspended Diflucan 150 MG eCW1 ([facility]) benzonatate 200 MG Oral Capsule Benzonatate 200 MG Benzonata te 200 MG 07/19/2020 12:00:00 AM EST 1.0 {capsule} suspended Benzonatate 200 MG eCW1 ([facility]) Augmentin 875-125 MG UNK 07/19/2020 12:00:00 AM EST 1.0 {tab let} suspended Augmentin 875-125 MG eCW1 [facility] Fluconazole 150 MG Oral Tablet [Diflucan] Diflucan 150 MG Di flucan 150 MG 07/19/2020 12:00:00 AM EST 1.0 {tablet} suspended Diflucan 150 MG eCW1 ([facility]) Fluconazole 150 MG Oral Tablet [Diflucan] Diflucan 150 MG Di flucan 150 MG 07/19/2020 12:00:00 AM EST 1.0 {tablet} suspended Diflucan 150 MG eCW1 ([facility]) Fluconazole 150 MG Oral Tablet [Diflucan] Diflucan 150 MG Di flucan 150 MG 07/19/2020 12:00:00 AM EST 1.0 {tablet} suspended Diflucan 150 MG eCW1 ([facility]) 200 ACTUAT Albuterol 0.09 MG/ACTUAT Mete red Dose Inhaler [ProAir] ProAir HFA 108 (90 Base) MCG/ACT ProAir HFA 108 (90 Base) MCG/ACT 07/19/2020 12:00:00 AM EST 2.0 {puffs_as_needed} active Pr oAir HFA 108 (90 Base) MCG/ACT eCW1 ([facility]) Augmentin 875-125 MG UNK 07/19/2020 12:00:00 AM EST 1.0 {tab let} suspended Augmentin 875-125 MG eCW1 [facility] Augmentin 875-125 MG UNK 07/19/2020 12:00:00 AM EST 1.0 {tab let} suspended Augmentin 875-125 MG eCW1 ([facility]) 200 ACTUAT Albuterol 0.09 MG/ACTUAT Mete red Dose Inhaler [ProAir] ProAir HFA 108 (90 Base) MCG/ACT ProAir HFA 108 (90 Base) MCG/ACT 07/19/2020 12:00:00 AM EST 2.0 {puffs_as_needed} active Pr oAir HFA 108 (90 Base) MCG/ACT eCW1 ([facility]) Fluconazole 150 MG Oral Tablet [Diflucan] Diflucan 150 MG Di flucan 150 MG 07/19/2020 12:00:00 AM EST 1.0 {tablet} active Diflucan 150 MG eCW1 ([facility]) benzonatate 200 MG Oral Capsule Benzonatate 200 MG Benzonata te 200 MG 07/19/2020 12:00:00 AM EST 1.0 {capsule} suspended Benzonatate 200 MG eCW1 ([facility]) 200 ACTUAT Albuterol 0.09 MG/ACTUAT Mete red Dose Inhaler [ProAir] ProAir HFA 108 (90 Base) MCG/ACT ProAir HFA 108 (90 Base) MCG/ACT 07/19/2020 12:00:00 AM EST 2.0 {puffs_as_needed} active Pr oAir HFA 108 (90 Base) MCG/ACT eCW1 ([facility]) 200 ACTUAT Albuterol 0.09 MG/ACTUAT Mete red Dose Inhaler [ProAir] ProAir HFA 108 (90 Base) MCG/ACT ProAir HFA 108 (90 Base) MCG/ACT 07/19/2020 12:00:00 AM EST 2.0 {puffs_as_needed} active Pr oAir HFA 108 (90 Base) MCG/ACT eCW1 ([facility]) 200 ACTUAT Albuterol 0.09 MG/ACTUAT Mete red Dose Inhaler [ProAir] ProAir HFA 108 (90 Base) MCG/ACT ProAir HFA 108 (90 Base) MCG/ACT 07/19/2020 12:00:00 AM EST 2.0 {puffs_as_needed} active Pr oAir HFA 108 (90 Base) MCG/ACT eCW1 ([facility]) 200 ACTUAT Albuterol 0.09 MG/ACTUAT Mete red Dose Inhaler [ProAir] ProAir HFA 108 (90 Base) MCG/ACT ProAir HFA 108 (90 Base) MCG/ACT 07/19/2020 12:00:00 AM EST 2.0 {puffs_as_needed} active Pr oAir HFA 108 (90 Base) MCG/ACT eCW1 ([facility]) 200 ACTUAT Albuterol 0.09 MG/ACTUAT Mete red Dose Inhaler [ProAir] ProAir HFA 108 (90 Base) MCG/ACT ProAir HFA 108 (90 Base) MCG/ACT 07/19/2020 12:00:00 AM EST 2.0 {puffs_as_needed} active Pr oAir HFA 108 (90 Base) MCG/ACT eCW1 ([facility]) 200 ACTUAT Albuterol 0.09 MG/ACTUAT Mete red Dose Inhaler [ProAir] ProAir HFA 108 (90 Base) MCG/ACT ProAir HFA 108 (90 Base) MCG/ACT 07/19/2020 12:00:00 AM EST 2.0 {puffs_as_needed} active Pr oAir HFA 108 (90 Base) MCG/ACT eCW1 ([facility]) Augmentin 875-125 MG UNK 07/19/2020 12:00:00 AM EST 1.0 {tab let} suspended Augmentin 875-125 MG eCW1 [facility] Fluconazole 150 MG Oral Tablet [Diflucan] Diflucan 150 MG Di flucan 150 MG 07/19/2020 12:00:00 AM EST 1.0 {tablet} suspended Diflucan 150 MG eCW1 ([facility]) Fluconazole 150 MG Oral Tablet [Diflucan] Diflucan 150 MG Di flucan 150 MG 07/19/2020 12:00:00 AM EST 1.0 {tablet} suspended Diflucan 150 MG eCW1 ([facility]) Fluconazole 150 MG Oral Tablet [Diflucan] Diflucan 150 MG Di flucan 150 MG 07/19/2020 12:00:00 AM EST 1.0 {tablet} suspended Diflucan 150 MG eCW1 ([facility]) 200 ACTUAT Albuterol 0.09 MG/ACTUAT Mete red Dose Inhaler [ProAir] ProAir HFA 108 (90 Base) MCG/ACT ProAir HFA 108 (90 Base) MCG/ACT 07/19/2020 12:00:00 AM EST 2.0 {puffs_as_needed} active Pr oAir HFA 108 (90 Base) MCG/ACT eCW1 ([facility]) Augmentin 875-125 MG UNK 07/19/2020 12:00:00 AM EST 1.0 {tab let} suspended Augmentin 875-125 MG eCW1 ([facility] benzonatate 200 MG Oral Capsule Benzonatate 200 MG Benzonata te 200 MG 07/19/2020 12:00:00 AM EST 1.0 {capsule} suspended Benzonatate 200 MG eCW1 ([facility]) 200 ACTUAT Albuterol 0.09 MG/ACTUAT Mete red Dose Inhaler [ProAir] ProAir HFA 108 (90 Base) MCG/ACT ProAir HFA 108 (90 Base) MCG/ACT 07/19/2020 12:00:00 AM EST 2.0 {puffs_as_needed} active Pr oAir HFA 108 (90 Base) MCG/ACT eCW1 ([facility]) Augmentin 875-125 MG UNK 07/19/2020 12:00:00 AM EST 1.0 {tab let} suspended Augmentin 875-125 MG eCW1 ([facility] 200 ACTUAT Albuterol 0.09 MG/ACTUAT Mete red Dose Inhaler [ProAir] ProAir HFA 108 (90 Base) MCG/ACT ProAir HFA 108 (90 Base) MCG/ACT 07/19/2020 12:00:00 AM EST 2.0 {puffs_as_needed} active Pr oAir HFA 108 (90 Base) MCG/ACT eCW1 ([facility]) benzonatate 200 MG Oral Capsule Benzonatate 200 MG Benzonata te 200 MG 07/19/2020 12:00:00 AM EST 1.0 {capsule} suspended Benzonatate 200 MG eCW1 ([facility]) Fluconazole 150 MG Oral Tablet [Diflucan] Diflucan 150 MG Di flucan 150 MG 07/19/2020 12:00:00 AM EST 1.0 {tablet} suspended Diflucan 150 MG eCW1 ([facility]) Fluconazole 150 MG Oral Tablet [Diflucan] Diflucan 150 MG Di flucan 150 MG 07/19/2020 12:00:00 AM EST 1.0 {tablet} suspended Diflucan 150 MG eCW1 ([facility]) Fluconazole 150 MG Oral Tablet [Diflucan] Diflucan 150 MG Di flucan 150 MG 07/19/2020 12:00:00 AM EST 1.0 {tablet} suspended Diflucan 150 MG eCW1 ([facility]) benzonatate 200 MG Oral Capsule Benzonatate 200 MG Benzonata te 200 MG 07/19/2020 12:00:00 AM EST 1.0 {capsule} suspended Benzonatate 200 MG eCW1 ([facility]) Augmentin 875-125 MG UNK 07/19/2020 12:00:00 AM EST 1.0 {tab let} suspended Augmentin 875-125 MG eCW1 ([facility] benzonatate 200 MG Oral Capsule Benzonatate 200 MG Benzonata te 200 MG 07/19/2020 12:00:00 AM EST 1.0 {capsule} suspended Benzonatate 200 MG eCW1 ([facility]) 200 ACTUAT Albuterol 0.09 MG/ACTUAT Mete red Dose Inhaler [ProAir] ProAir HFA 108 (90 Base) MCG/ACT ProAir HFA 108 (90 Base) MCG/ACT 07/19/2020 12:00:00 AM EST 2.0 {puffs_as_needed} active Pr oAir HFA 108 (90 Base) MCG/ACT eCW1 ([facility]) Fluconazole 150 MG Oral Tablet [Diflucan] Diflucan 150 MG Di flucan 150 MG 07/19/2020 12:00:00 AM EST 1.0 {tablet} suspended Diflucan 150 MG eCW1 ([facility]) Augmentin 875-125 MG UNK 07/19/2020 12:00:00 AM EST 1.0 {tab let} suspended Augmentin 875-125 MG eCW1 ([facility] Augmentin 875-125 MG UNK 07/19/2020 12:00:00 AM EST 1.0 {tab let} suspended Augmentin 875-125 MG eCW1 ([facility]) Fluconazole 150 MG Oral Tablet [Diflucan] Diflucan 150 MG Di flucan 150 MG 07/19/2020 12:00:00 AM EST 1.0 {tablet} suspended Diflucan 150 MG eCW1 ([facility]) Augmentin 875-125 MG UNK 07/19/2020 12:00:00 AM EST 1.0 {tab let} suspended Augmentin 875-125 MG eCW1 ([facility]) benzonatate 200 MG Oral Capsule Benzonatate 200 MG Benzonata te 200 MG 07/19/2020 12:00:00 AM EST 1.0 {capsule} suspended Benzonatate 200 MG eCW1 ([facility]) Augmentin 875-125 MG UNK 07/19/2020 12:00:00 AM EST 1.0 {tab let} suspended Augmentin 875-125 MG eCW1 ([facility]) Augmentin 875-125 MG UNK 07/19/2020 12:00:00 AM EST 1.0 {tab let} suspended Augmentin 875-125 MG eCW1 ([facility]) benzonatate 200 MG Oral Capsule Benzonatate 200 MG Benzonata te 200 MG 07/19/2020 12:00:00 AM EST 1.0 {capsule} suspended Benzonatate 200 MG eCW1 ([facility]) benzonatate 200 MG Oral Capsule Benzonatate 200 MG Benzonata te 200 MG 07/19/2020 12:00:00 AM EST 1.0 {capsule} suspended Benzonatate 200 MG eCW1 ([facility]) 200 ACTUAT Albuterol 0.09 MG/ACTUAT Mete red Dose Inhaler [ProAir] ProAir HFA 108 (90 Base) MCG/ACT ProAir HFA 108 (90 Base) MCG/ACT 07/19/2020 12:00:00 AM EST 2.0 {puffs_as_needed} active Pr oAir HFA 108 (90 Base) MCG/ACT eCW1 ([facility]) Augmentin 875-125 MG UNK 07/19/2020 12:00:00 AM EST 1.0 {tab let} suspended Augmentin 875-125 MG eCW1 ([facility]) Fluconazole 150 MG Oral Tablet [Diflucan] Diflucan 150 MG Di flucan 150 MG 07/19/2020 12:00:00 AM EST 1.0 {tablet} suspended Diflucan 150 MG eCW1 ([facility]) 200 ACTUAT Albuterol 0.09 MG/ACTUAT Mete red Dose Inhaler [ProAir] ProAir HFA 108 (90 Base) MCG/ACT ProAir HFA 108 (90 Base) MCG/ACT 07/19/2020 12:00:00 AM EST 2.0 {puffs_as_needed} active Pr oAir HFA 108 (90 Base) MCG/ACT eCW1 ([facility]) 200 ACTUAT Albuterol 0.09 MG/ACTUAT Mete red Dose Inhaler [ProAir] ProAir HFA 108 (90 Base) MCG/ACT ProAir HFA 108 (90 Base) MCG/ACT 07/19/2020 12:00:00 AM EST 2.0 {puffs_as_needed} active Pr oAir HFA 108 (90 Base) MCG/ACT eCW1 ([facility]) 200 ACTUAT Albuterol 0.09 MG/ACTUAT Mete red Dose Inhaler [ProAir] ProAir HFA 108 (90 Base) MCG/ACT ProAir HFA 108 (90 Base) MCG/ACT 07/19/2020 12:00:00 AM EST 2.0 {puffs_as_needed} active Pr oAir HFA 108 (90 Base) MCG/ACT eCW1 ([facility]) 200 ACTUAT Albuterol 0.09 MG/ACTUAT Mete red Dose Inhaler [ProAir] ProAir HFA 108 (90 Base) MCG/ACT ProAir HFA 108 (90 Base) MCG/ACT 07/19/2020 12:00:00 AM EST 2.0 {puffs_as_needed} active Pr oAir HFA 108 (90 Base) MCG/ACT eCW1 ([facility]) benzonatate 200 MG Oral Capsule Benzonatate 200 MG Benzonata te 200 MG 07/19/2020 12:00:00 AM EST 1.0 {capsule} suspended Benzonatate 200 MG eCW1 ([facility]) 200 ACTUAT Albuterol 0.09 MG/ACTUAT Mete red Dose Inhaler [ProAir] ProAir HFA 108 (90 Base) MCG/ACT ProAir HFA 108 (90 Base) MCG/ACT 07/19/2020 12:00:00 AM EST 2.0 {puffs_as_needed} active Pr oAir HFA 108 (90 Base) MCG/ACT eCW1 ([facility]) Augmentin 875-125 MG UNK 07/19/2020 12:00:00 AM EST 1.0 {tab let} suspended Augmentin 875-125 MG eCW1 ([facility] benzonatate 200 MG Oral Capsule Benzonatate 200 MG Benzonata te 200 MG 07/19/2020 12:00:00 AM EST 1.0 {capsule} suspended Benzonatate 200 MG eCW1 ([facility]) Fluconazole 150 MG Oral Tablet [Diflucan] Diflucan 150 MG Di flucan 150 MG 07/19/2020 12:00:00 AM EST 1.0 {tablet} suspended Diflucan 150 MG eCW1 ([facility]) benzonatate 200 MG Oral Capsule Benzonatate 200 MG Benzonata te 200 MG 07/19/2020 12:00:00 AM EST 1.0 {capsule} suspended Benzonatate 200 MG eCW1 ([facility]) Fluconazole 150 MG Oral Tablet [Diflucan] Diflucan 150 MG Di flucan 150 MG 07/19/2020 12:00:00 AM EST 1.0 {tablet} suspended Diflucan 150 MG eCW1 ([facility]) valacyclovir 1000 MG Oral Tablet [Valtrex] Valtrex 1 GM Valt césar 1 GM 06/26/2020 12:00:00 AM EST 1.0 {tablet} suspended Valtrex 1 GM eCW1 ([facility]) valacyclovir 1000 MG Oral Tablet [Valtrex] Valtrex 1 GM Valt césar 1 GM 06/26/2020 12:00:00 AM EST 1.0 {tablet} suspended Valtrex 1 GM eCW1 ([facility]) valacyclovir 1000 MG Oral Tablet [Valtrex] Valtrex 1 GM Valt césar 1 GM 06/26/2020 12:00:00 AM EST 1.0 {tablet} active Va ltrex 1 GM eCW1 ([facility]) valacyclovir 1000 MG Oral Tablet [Valtrex] Valtrex 1 GM Valt césar 1 GM 06/26/2020 12:00:00 AM EST 1.0 {tablet} suspended Valtrex 1 GM eCW1 ([facility]) valacyclovir 1000 MG Oral Tablet [Valtrex] Valtrex 1 GM Valt césar 1 GM 06/26/2020 12:00:00 AM EST 1.0 {tablet} suspended Valtrex 1 GM eCW1 ([facility]) valacyclovir 1000 MG Oral Tablet [Valtrex] Valtrex 1 GM Valt césar 1 GM 06/26/2020 12:00:00 AM EST 1.0 {tablet} suspended Valtrex 1 GM eCW1 ([facility]) valacyclovir 1000 MG Oral Tablet [Valtrex] Valtrex 1 GM Valt césar 1 GM 06/26/2020 12:00:00 AM EST 1.0 {tablet} suspended Valtrex 1 GM eCW1 ([facility]) valacyclovir 1000 MG Oral Tablet [Valtrex] Valtrex 1 GM Valt césar 1 GM 06/26/2020 12:00:00 AM EST 1.0 {tablet} suspended Valtrex 1 GM eCW1 ([facility]) valacyclovir 1000 MG Oral Tablet [Valtrex] Valtrex 1 GM Valt césar 1 GM 06/26/2020 12:00:00 AM EST 1.0 {tablet} suspended Valtrex 1 GM eCW1 ([facility]) valacyclovir 1000 MG Oral Tablet [Valtrex] Valtrex 1 GM Valt césar 1 GM 06/26/2020 12:00:00 AM EST 1.0 {tablet} active Va ltrex 1 GM eCW1 ([facility]) valacyclovir 1000 MG Oral Tablet [Valtrex] Valtrex 1 GM Valt césar 1 GM 06/26/2020 12:00:00 AM EST 1.0 {tablet} suspended Valtrex 1 GM eCW1 ([facility]) valacyclovir 1000 MG Oral Tablet [Valtrex] Valtrex 1 GM Valt césar 1 GM 06/26/2020 12:00:00 AM EST 1.0 {tablet} suspended Valtrex 1 GM eCW1 ([facility]) valacyclovir 1000 MG Oral Tablet [Valtrex] Valtrex 1 GM Valt césar 1 GM 06/26/2020 12:00:00 AM EST 1.0 {tablet} suspended Valtrex 1 GM eCW1 ([facility]) valacyclovir 1000 MG Oral Tablet [Valtrex] Valtrex 1 GM Valt césar 1 GM 06/26/2020 12:00:00 AM EST 1.0 {tablet} active Va ltrex 1 GM eCW1 ([facility]) valacyclovir 1000 MG Oral Tablet [Valtrex] Valtrex 1 GM Valt césar 1 GM 06/26/2020 12:00:00 AM EST 1.0 {tablet} active Va ltrex 1 GM eCW1 ([facility]) valacyclovir 1000 MG Oral Tablet [Valtrex] Valtrex 1 GM Valt césar 1 GM 06/26/2020 12:00:00 AM EST 1.0 {tablet} suspended Valtrex 1 GM eCW1 ([facility]) valacyclovir 1000 MG Oral Tablet [Valtrex] Valtrex 1 GM Valt césar 1 GM 06/26/2020 12:00:00 AM EST 1.0 {tablet} active Va ltrex 1 GM eCW1 ([facility]) valacyclovir 1000 MG Oral Tablet [Valtrex] Valtrex 1 GM Valt césar 1 GM 06/26/2020 12:00:00 AM EST 1.0 {tablet} suspended Valtrex 1 GM eCW1 ([facility]) valacyclovir 1000 MG Oral Tablet [Valtrex] Valtrex 1 GM Valt césar 1 GM 06/26/2020 12:00:00 AM EST 1.0 {tablet} suspended Valtrex 1 GM eCW1 ([facility]) valacyclovir 1000 MG Oral Tablet [Valtrex] Valtrex 1 GM Valt césar 1 GM 06/26/2020 12:00:00 AM EST 1.0 {tablet} suspended Valtrex 1 GM eCW1 ([facility]) valacyclovir 1000 MG Oral Tablet [Valtrex] Valtrex 1 GM Valt césar 1 GM 06/26/2020 12:00:00 AM EST 1.0 {tablet} suspended Valtrex 1 GM eCW1 ([facility]) valacyclovir 1000 MG Oral Tablet [Valtrex] Valtrex 1 GM Valt césar 1 GM 06/26/2020 12:00:00 AM EST 1.0 {tablet} suspended Valtrex 1 GM eCW1 ([facility]) Naproxen 500 MG Oral Tablet Naproxen 03/15/2020 12:00:00 AM EDT ORAL active [facility] ([facility], [facility]) Insurance Providers Payer name Policy type / Coverage type Policy ID Covered democrat ID Covered democrat's relationship to nettles Policy Nettles Plan Information BCBS [place] PPO 302/307 [id number] SP [id number] [employer] BCBS Health Maintenance Organization (HMO) [id number] Self EXCELLUS H [id number] Self [id number] MVP H [id number] Self [id number] MVP [employer] Maintenance Organization (HMO) [id number] Se lf MVP MDCD [id number] 18 [id number] [facility] XIX [place] -PHYSICIAN [id number] 18 [id number] MVP [id number] 18 [id number] 300 Blue Cross Blue Shield CL Commercial [id number] Self VY [id number] Blue Cross Blue Shield CL Commercial [id number] Self VY [id number] Blue Cross Blue Shield CL Commercial [id number] Self VY [id number] Blue [employer] Blue Shield CL Commercial [id number] Self VY [id number] Blue [employer] Blue [employer] CL Commercial [id number] Self VY [id number] Blue Cross Blue Shield CL Commercial [id number] Self VY [id number] BCBS [facility] Other 0 [id number] Se lf 0 EXCELLUS C [id number] Self [id number] BCBS of [facility] Other 0 [id number] Se lf 0 BLUE CROSS BLUE SHIELD CL BS [id number] 18 [id number] Blue Cross Blue Shield CL Commercial [id number] Self VY [id number] Blue [employer] Blue [employer] CL Commercial [id number] Self VY [id number] BLUE CROSS BLUE SHIELD -O/P BS [id number] BCBS of [facility] Other 0 [id number] Se lf 0 Blue Cross Blue Shield CL Commercial [id number] Self VY [id number] Blue [employer] Blue [employer] CL Commercial [id number] Self VY [id number] Blue [employer] Blue [employer] CL Commercial [id number] Self VY [id number] [employer] [id number] 2.840.1.417134.3.227.99.510.8455.0 Self VY [id number] [employer] [id number] 2.840.1.232295.3.227.99.510.8455.0 Self VY [id number] [employer] [id number] 2.840.1.318907.3.227.99.510.8455.0 Self VY [id number] [employer] [id number] 2.840.1.179067.3.227.99.510.8455.0 Self V[place] [id number] [place] [id number] 2.16.840.1.071700.3.227.99.510.8455.0 Self [id number] MEDICAID -PHYSICIAN [id number] [place] [id number] 2.16.840.1.466997.3.227.99.510.8455.0 Self [id number] [place] [id number] 2.16.840.1.593091.3.227.99.510.8455.0 Self [id number] [place] [id number] 2.16.840.1.774834.3.227.99.510.8455.0 Self [id number] [place] [id number] Medicaid [place] [id number] 2.16.840.1.024053.3.227.99.510.8455.0 Self [id number] [place] [id number] 2.16.840.1.448773.3.227.99.510.8455.0 Self [id number] [place] [id number] 2.16.840.1.273022.3.227.99.510.8455.0 Self [id number] [place] [id number] 2.16.840.1.558576.3.227.99.510.8455.0 Self [id number] [place] [id number] 2.16.840.1.399923.3.227.99.510.8455.0 Self [id number] [place] [id number] 2.16.840.1.446598.3.227.99.510.8455.0 Self [id number] [place] [id number] 2.16.840.1.972338.3.227.99.510.8455.0 Self [id number] [place] [id number] 2.16.840.1.617705.3.227.99.510.8455.0 Self [id number] [place] [id number] 2.16.840.1.789219.3.227.99.510.8455.0 Self [id number] [place] [id number] 2.16.840.1.556098.3.227.99.510.8455.0 Self [id number] [place] [id number] 2.16.840.1.465596.3.227.99.510.8455.0 Self [id number] [place] [id number] 2.16.840.1.243883.3.227.99.510.8455.0 Self [id number] [place] [id number] 2.16.840.1.093961.3.227.99.510.8455.0 Self [id number] [place] [id number] 2.16.840.1.974860.3.227.99.510.8455.0 Self [id number] MEDICAID [id number] Self [id number] [employer] [place] PPO 302/307 [id number] [facility] H [id number] Self [id number] RPR- Needs Payer Match [id number] Spo use [id number] [facility] [place] Commercial Insurance Co. [id number] Self [id number] [facility] Commercial Insurance Co. [id number] Self [id number] [facility] [place] Commercial Insurance Co. [id number] Self [id number] RPR- Needs Payer Match [id number] Self [id number] BLUE CROSS BLUE SHIELD -I/P [id number] 18 [id number] BLUE CROSS BLUE SHIELD -O/P [id number] 18 [id number] MEDICAID -O/P [id number] 18 [id number] MEDICAID -O/P RAD ONLY [id number] 18 [id number] MEDICAID -PHYSICIAN [id number] Medicaid [facility] Other 0 [id number] Self 0 [facility] MEDICAID HMO -PHYSICIAN [id number] 18 [id number] [facility] [id number] 18 [id number] [facility] ([place] [facility] [place] [facility] [id number] 0 [id number] Self [id number] [facility] [id number] 1 [id number] [facility] ([place] [facility] [place] [id number] 0 [id number] Self [id number] [facility] ([place] [facility] [place] [id number] 0 [id number] Self 82 [id number] MEDICAID -I/P [id number] 18 [id number] [facility] -O/P [id number] 18 [id number] [facility] MEDICAID HMO -O/P [id number] 18 [id number] SELF PAY ONLY UNAVAILABLE UNAV AILABLE [place]BS [place] 302/307 [id number] SP [id number] [facility] [id number] SP [id number] [facility] MEDICAID O - CLINIC [id number] 18 [id number] [facility] HEALTH INSURANCE COMPANY-CLINIC [id number] 18 [id number] [facility] HEALTH INSURANCE COMPANY-O/P [id number] 18 [id number] [facility] HEALTH CARE O [id number] S [id number] SELF PAY UNAVAILABLE SP UNAVAILA BLE BCBS [place] 302/307 [id number] SP [id number] ESURANCE O [id number] S [id number] ESURANCE O [id number] S [id number] EXCELLUS BCBS B [id number] S VYS [id number] ESURANCE [id number] SP [id number] MEDICAID [id number] SP [id number] [facility] PLAN [facility] HEALTH[facility] [id number] SP [id number] Esurance Workers Compensation [id number] Self ESURANCE NF [id number] S [id number] ESURANCE NF UNAVAILABLE S UNAVAILA BLE [facility] MEDICAID MCD HMO [id number] S [id number] UN COMMUNITY PLAN MCDO [id number] SP [id number] SELF PAY SP [id number] S [id number] BLUE CROSS BLUE SHIELD -PHYSICIAN [id number] [facility] [id number] SP [id number] [facility] HEALTH INSURANCE COMPANY-O/P [id number] 18 [id number] [facility] [id number] 82 [id number] [facility] [place] [id number] 01 [id number] [facility] -PHYSICIAN [id number] 18 [id number] [facility] -I/P [id number] 18 [id number] [facility] HEALTH INSURANCE COMPANY-O [id number] 18 [id number] [facility] [place] [id number] 01 [id number] [facility] HEALTH INSURANCE COMPANY-O/P [id number] 18 [id number] [facility] HEALTH INSURANCE COMPANY-O [id number] 18 [id number] [facility] HEALTH INSURANCE COMPANY-O [id number] 18 [id number] [facility] [id number] [id number] 8 [id number] SELF PAY ONLY [id number] SP [id number] BCBS [place] PPO 302/307 [id number] HU2 [id number] BCBS [place] PPO 302/307 [id number] HU2 [id number] EXCELLUS BCBS B [id number] P [id number] MEDICAID M [id number] S [id number] EXCELLUS BCBS B [id number] S VYS [id number] [facility] [id number] SP [id number] ANSI-Not a Secondary Insurance [id number] ANSI-Commercial [id number] ANSI-Medicaid [id number] ANSI-Commercial [id number] ANSI-Not a Secondary Insurance [id number] ANSI-Medicaid [id number] ANSI-Commercial [id number] ANSI-Commercial [id number] ANSI-Not a Secondary Insurance [id number] ANSI-Medicaid [id number] ANSI-Not a Secondary Insurance [id number] ANSI-Medicaid [id number] ANSI-Medicaid [id number] ANSI-Not a Secondary Insurance [id number] ANSI-Commercial [id number] ANSI-Medicaid [id number] ANSI-Commercial [id number] ANSI-Commercial [id number] ANSI-Not a Secondary Insurance [id number] ANSI-Commercial [id number] ANSI-Medicaid [id number] ANSI-Medicaid [id number] EXCELL BC-BS PPO 306 [id number] SP [id number] MEDICAID [id number] SP [id number] ANSI-Commercial [id number] ANSI-Not a Secondary Insurance [id number] ANSI-Commercial [id number] ANSI-Medicaid [id number] ANSI-Medicaid [id number] Medicaid [facility] Other 0 [id number] Self 0 ANSI-Medicaid [id number] ANSI-Commercial [id number] ANSI-Commercial [id number] ANSI-Not a Secondary Insurance [id number] [facility]-Medicaid [id number] Medicaid of [place] Other 0 [id number] Self 0 [facility] [id number] 82 [id number] Problems, Conditions, and Diagnoses Code Display Name Description Problem Type Effective Dates Data Source(s) Stomach Pain, Chest Pain Stomach Pain, Chest Pain Diag nosis 04/08/2021 01:00:00 PM EDT [facility] K5900 Constipation, unspecified Constipation, unspecified Di agnosis 04/04/2021 01:05:00 PM EDT [facility] K2950 Unspecified chronic gastritis without bl eeding Unspecified chronic gastritis without bleeding Diagnosis 04/04/2021 01:05:00 PM EDT [facility] E876 Hypokalemia Hypokalemia Diagnosis 04/04/2021 01:05:00 PM EDT [facility] F1220 Cannabis dependence, uncomplicated Cannabis depe ndence, uncomplicated Diagnosis 04/04/2021 01:05:00 PM EDT [facility] [id number] Personal history of nicotine dependence Personal history of nicotine dependence Diagnosis 04/04/2021 01:05:00 PM T [facility] F419 Anxiety disorder, unspecified Anxiety disorder, unspec ified Diagnosis 04/04/2021 01:05:00 PM EDT [facility] K589 Irritable bowel syndrome without diarrhe a Irritable bowel syndrome without diarrhea Diagnosis 04/04/2021 01:05:00 PM EDT [facility] K219 Gastro-esophageal reflux disease without esophagitis Gastro-esophageal reflux disease without esophagitis Diagnosis 04/04/2021 01:05:00 PM ED T [facility] I10 Essential (primary) hypertension Essential (primary) h ypertension Diagnosis 04/04/2021 01:05:00 PM EDT [facility] [id number] Unspecified ovarian cyst, left side Unspecified ovarian cyst, left side Diagnosis 04/04/2021 01:05:00 PM EDT [facility] [id number] Unspecified ovarian cyst, right side Uns pecified ovarian cyst, right side Diagnosis 04/04/2021 01:05:00 PM EDT [facility] K429 Umbilical hernia without obstruction or gangrene Umbilical hernia without obstruction or gangrene Diagnosis 04/04/2021 01:05:00 PM EDT [facility] R1115 Cyclical vomiting syndrome unrelated to migraine Cyclical vomiting syndrome unrelated to migraine Diagnosis 04/04/2021 01:05:00 PM EDT [facility] Z09 Encounter for follow-up exam ination after completed treatment for conditions other than malignant neoplasm Encounter for follow-up examination afte r completed treatment for conditions other than malignant neoplasm Diagnosis 10/26/2020 01:14:00 PM EDT [facility] Z1152 ENCOUNTER FOR SCREENING FOR COVID-19 ENCOUNTER F OR SCREENING FOR COVID-19 Diagnosis 10/07/2020 12:46:00 PM EDT [facility] Z9049 Acquired absence of other specified part s of digestive tract Acquired absence of other specified parts of digestive tract Diagnosis 12:46:00 PM EDT [facility] R109 Unspecified abdominal pain Unspecified abdominal pain Diagnosis 10/07/2020 12:46:00 PM EDT [facility] R112 Nausea with vomiting, unspecified Nausea with vo miting, unspecified Diagnosis 10/07/2020 12:46:00 PM [facility] Z8719 Personal history of other diseases of th e digestive system Personal history of other diseases of the digestive system Diagnosis 01/2021 05:16:00 AM EDT [facility] E76004 Elevated white blood cell count, unspeci fied Elevated white blood cell count, unspecified Diagnosis 10/05/2020 05:16:00 AM EDT [facility] R1084 Generalized abdominal pain Generalized abdominal pain Diagnosis 10/05/2020 05:16:00 AM T [facility] [id number] Essential hypertension Essential hypertension Problem 10/16/2020 12:00:00 AM EDT [facility] ([facility], ) I11.9 [id number] Hypertensive heart disease without heart failure Problem 09/05/2020 12:00:00 AM EST eCW1 ([facility]) I11.9 [id number] Hypertensive heart disease witho ut congestive heart failure Problem 09/05/2020 12:00:00 AM EST eC ([facility]) Surgeries/Procedures Procedure Description Date Indications Data Source(s) Endoscopy Upper GI Biopsy 11/21/2020 12:00:00 AM AYDE PERALES ([facility], ) Computerized Tomography (CT Scan) of Abdomen and Pelvi s using Other Contrast Computerized Tomography (CT Scan) of Abdomen and Pelvis using Other Contrast 10/09/2020 12:00:00 AM EDT [facility] Monitoring of Cardiac Electrical Activity, External Ap proach Monitoring of Cardiac Electrical Activity, External Approach 10/09/2020 12:00:00 AM EDT [facility] Introduction of Electrolytic and Water B alance Substance into Peripheral Vein, Percutaneous Approach Introduction of Electrolytic and Water B alance Substance into Peripheral Vein, Percutaneous Approach 10/09/2020 12:00:00 AM EDT [facility] MRI Lower Extremity Any Joint 04/27/2020 12:00:00 AM Eileen PERALES ([facility] ) Results ID Date Data Source [id number] 04/09/2021 07:55:20 AM EDT [facility] Name Value Range Interpretation Code Description Data Molly rce(s) Supporting Document(s) EKG [facility]ital WAXTKn9jJvAXJtOgq2AyTtUjNTBaVT4nkgt3O8R1cIHvQ4LsiPDsl0tqO3XzK8UbEEBsSVPPFW5BdTYh jb2 [file] wNpd9gifx5GX17SY1IiPM9gD8OnQxTKTseZ1qPHIhPPVqCJqbQGbQNXz3pyEwiSnIfPIkB5OxJWh3+HELPER METAL HANGING oQ2TqQO270HINgF2CyvJFMUBVCNVh5Cu3gydrPpm9Z7A+yCisVPffWT3ONzSCYKG2SPjb9BZUUs5celM 7HC1JQdHOGoxSpZpqK0YGDenFcOjwP6TFOntOdUpiZ KdVzUIUzMa13f2X+OOVUApaYUHwO5EfI/ChlL630g4n+NPV+VPPjMbO03XLeJNryyehzRyEXdUWvML3A hIO3bhQqyZiyy1AJvx+Rz8xZx+OBEHp9quXou9m4Mu+DTL3v+NKaIO3gTM+RdTye+pudWcfjWbcex/Fl K06VyFzaDh5jNfIdqDjmN3Wfw8Rj4ccNM4eMDjr0tM l10OJY5Vz0ZzfLLAPik3qI6xnT/puSqEoZP0+1ev3khyXa3WrEBEb3Dsp82qVI04hXyw+Yf4bVGuXVyr d9JNf4S28um0mawCrDH+0dJMqtbRe13VPHw64981VEjG8TxYpvSmPOpEmER8HpMeGxkjOEUXezuoJEbX cuFMOggoULgYULgYULgYULgYULgYULgYULgYULgYUL gYULgYULgYULgYULgYULgYULgYULgYULgYULgYULgYULgYULgYULgYULgYULgYULgYULgYULgYULgYUL [file] higher level teaching assistant+NVh+CESkn4v64wN8i70NKcFbBPE1OBXpT7dSwjifisyFnMhe8o2rehA91eM1gYlNrBKeG1iPlihn nPr77sE+Pd/MzvaEQ1j5uwu3o1l0bLW5++sVExdJ0e P119htljs1s6tGj33SW8ca1C1lsEn1Q79r6aOxrC85qOU482m2078/McA3l1vcTaG2/NaWnOx9s6V4Bd [file] z/bsu9iIu3n3kN92fEiGd7EH7wxtk0xnF99ixocv6J3MS7TPS1Wxn9Eb1X1u+gusset ripper+TzNq5slbL5iBO1A QH0Y2k1+1jO+8k9uur0MZ+HT5784h8lJn2j2+TpvJx /l1hHxHwLqR9+i3mO10d/46mlDn/nY/A5jX7J8kiv37kiqe0nS/YL+1KhSfzJKK53YBLoQmFJg+dj8b+ Izww88MH/ysS3/u/Vtxm42h35WX7Is1F/o59Gv+OppQy/Hg5gRIYiLqQC+WfFV+FpTB8kel/3iuhq4fq YU9joOp/K+Z3yV/SHjq+oa79FJjoQF5zJFs3NUVpgP fXWc+QUfJx/r8+DquD3Mq6vV82hzcsY1xuw4zYP+ymd/nu99R/7Kkb/vlzAcdtseA2wPA+HpjNp8OI1g ftAxP+aBG6UOEabqF3ezvwrUQ4b8Mda0qI0uX+gNeofeoQ/oI/aaktDH64Tk48F10Mk4A/oJ/Cp8QB26 sguFufYasOjjZMjX6nN80WP00EmbG9BzjC4TwPB8Ml DZ4JFTq6LXUy/AGmY6CexM2iidZzvyoXxxo4Cnym8GfnE2RyuI7ZagR7Grzv0KqIjgeiYrt7e+bOjPhv 5s6M+G/mzoz4b+jOrYnt5mOV7PuqFigs/QD+jR1OH9bnEUat99Jru59Boo39Qwk55NdA40LtH66NQB19 DXYa/DYgp8gveq5ZZfbC/sFP2Bplk0gBp3kf3k1Q+B /hzoz4H+GZcOol8k8Y+B/hzoz4H+AJfInk3t6F+B/hzoz4H+6KG9Dzx/Rh5lk31EmfGF7fmH64Qay08B 4klz85vVm3B87nqhRjy93G941V+G+0yqupljc8h44lb/Cir9b22Jtkrq5kT7q10Ipkcj0bj/Hfe34/52 3N+O+0dorcoyv9v74yt/Nrd47U1X1F+B+hoo05M7U/ au+LxySso2lPh4HpoxRaTJXzSh3vI/Ye/A/jK3YEE7ETW/GjWaDeAmdhPQmOexUkWml44K/cNZCt26a5 ttazDZdErlTXqW5nWT5RI4Gr7KflPn45e63WWTP1V5mObd/NN8xeovvoaCcd2q57t1Sj6rVurN/W3Xub 0f98jyY/QO/bm/TmRnDc94l7x66N+w0zYu1X/oB/QT +nn0GV/tEmVZzCWx0Kl8r92JO5uPU0e4k63j8YmX+Ea9P3YTK7gJ4fqYg2NfeCDoF4n/XfnJ+u/KT67v dAdnl76r+yslqvduZSqp6C9ebd+jt6iN0GFfwgZ/UzRd+dp2f7l9vRW4mlc/uXKSTVd+kg1XaLa+WguU TgndU6lr7QUwbXScmd/O1N/5yfLPHV/d9TxX+85PWs vcs5MRwJqytz4tS0lp+Eq75u/v/OS+tjs/OTV/v74HS7/68/oWa3a+u3do5HgN0SWY+Pn5FfAOoc99+r GcYwl6w50rkbX2atcc3B3JA+153T03Nb23z7O/G/qzoT87+zFqTmx7e1V/O/sreu8uhWVc9Qv7Pf2FE1 Dj+VS2t60p2/P0Snh55Qnj83AgkC5PdDB5B/YG7A3Y G7A3YG/K7qF2BGuQ9stcBqtdrVgyzuG+1a8e9cxHS10DecKUwy10pR1U+TkhduvIhoofp9p6snK+au3E ho0dYRzXfUA+nD2e6jbF+Ul9h42x0uMuP0oJt/vw6rza79M+ucG6DnU9m4u1W89x+f3Wz/x+6wa9Q3/W e7d+5hdaP/O/rZ/9Tg8rT5rev/v44QKzuU3fC2eu3B /lPf8kEDnXC+Nzzg/m+wBcA5U7Msb/5qrDK0Jl8rGvwRhlObf/7wqUG6Lf5zMm95w7pn28XoAnjWM+Mv NdY5tkWw8CD4n02cEer6NYgasH2jp/7eGUA3vjNB/E3cL0wuzFwCsD1sSXP+U+iLbiqyvffSu+etpLn7 9Z+tyqan2vQ/nJVSmhrfjqaUPfoe/QD+pJ8YV4Kt+K B/dCa9485AR6PTcmV87X1+wrvkrb+2ib0no2UlpKsb42bV4CP+n/faLcgBq7kFo1khpYxy74GymzmIca zu3dEy5wi4T81Z6f9iNcdi9MM37+2eXs1+tt3f20Fa817/xgtld/8yq1hC347in7CSFBeTGz7Pg9F19y l8jtn5CfU/Dqch8u3mrdV43skhJvflz5Lek47o051M 0t27bmc0l94Ic7Zd/QO/QBfUDfoG/Qd+o97FP0Xj7J/qzn73a+Q5bAHpK7VvqO6qahMowM8Qae+we7wV 0ScWC5RbBg5BGUq9BFXD/TWxW1Bkzc2dyjrxfU5Rgx35549i10dU/qWH/Vsf6qY/1Vx/qrjvVXHeuvOt Zfday/6lh/1bH+fnA4Usx8q462Ef07E5knb6tz0Ge7 Xs2Wp4Ej0C22p+hkwf2GvkZS9J2NA+p36O45IZ+E0erbK4e16Id94e/tgl6gF+aEdaRhzLhzSLxZ19Fc d13Q054cbmo4e21WK0Sj0IA8zpex5k82j+P+cinbysvieD105n/H/z84ae98fgb3HO1CK5a19P8nk0Fj Grq42C8ua7IfZUrG3F8ni6SlKGht/qpj/VXH+quO9V cd66/2mS0G7f9MK1OmvK5W7f9BE8Pr5kd3dJ5AeanfnvV6xd5TC/RFxmheqtS1et1PcswfnoH4pu1C8p p5i446CN2idi5cmU39fvePSv86gaHy7YVm16zcDp2Ut0rtxpiZ/v7Z01gw6xsYYOVKj+30mL73dw/4/Z n/HRlfzdSf+LwfvkmHuehek4BfYnCjPXWF6O/9sCPj s39XMaRX3G/3utx2gpKnvx5I9hlZ5IPms2a99HjQE254NGYwZnWen3pi5++ANs0Exm1uuh2R1c1gyb7p ffvA+frG9p6H02uG1yeRpN6pOY0+qO55YE078KR+Z+jZjzOw/mro+y5zog60R98Uikz5qOfJ5d6u+Cr3 ld2EC5yw18gU3wd4civasch7xcu9+KdiTfs8wiaynl /5lYsXih88Qs58hw93xq0y0wr/2srv5W/yfS2l320bchxnPvac1q/J11ZFm8m6eGJCH6A+zWtqWt7KG1 g0avhTbhVlx6oe/kvsu5nnpWZsoy957LZY0te3jmGk37ezQ25IknFGvtXicIh+2rbk/fK05ZCpj1W48B 81RB0d5hYKpk+K405qb3W0+S7UGRIw/HwvDD/j80B8 GkyJz1RVRTh1Nr/pfPNhomxSvyOCb7KZJP/QK/QCbPHn9J/5UyJEer9BWM4LlwEmmF/zKSPOerMRA/oJ /SkbBjmQIrcyMa5MV1Nn7Hc15Cqhpv8oDe0G48Jv+W0BfYO+Qd+q78FY0Fy5E/hhrfYdcqRXihbVNy3l qsqrGoO3Xby0Ox1kAem9s8On52774H+O+4qlowuis9 u55CuvR/pzR3/u6M8d/XmgPw/054H+PNCfB/dwRE2a0/yiAB8wzL1F8ulG+GqMEz+Kro1EvkcFn+hPvD QHtLdAPVTWFMW6c45v95xvV/Lp32hFU3qNcB6fVhWgUS4fril3kaPJKTRdcDGjnCSX9P0y53AeJV/lWJ wcKrQ7iCjnwwa51Xc1m2n9+7tH5q/wKIAKkwZ9zhIE 87qgP+sJZ+rdbx5HP/RNzHCp9T/93fM6+7vnFdDn/u78/UyXYJ8hG9a2PG+T3UU3mtqy23ij2U85FR++ 78WE9ABOQww/OUWhP/y7onHh9Ijmc/jPYkXZ8ntufZdsphu16VqmuugZp41pznwA3wqGK1jXM6Y2+courier [file] 5IeWXml9jpXBWY9JdSBnVZ3qgidBUFO7OVPoXZwXiN5h1X6W+wEL57+foil stamp operator+oeJ1vnA8UGRsrqIyTKAZv [file] NhqwB5brKyOcMyYZi5ScBsVF3E ID Date Data Source [id number] 04/08/2021 05:21:41 PM EDT [facility] Name Value Range Interpretation Code Description Data Molly rce(s) Supporting Document(s) ED Provider Note [facility] WYFGMi4tHhBUPoOj69/DCHetYYKgr3YqHJxaTEo7WQgsVUIwA5LaQPV3tV9pGSB3WGvESaNxEiHwOBBj lbm [file] [id number]mKqHF5JTZg= ID Date Data Source [id number] 04/08/2021 04:20:33 PM EDT [facility] Name Value Range Interpretation Code Description Data Molly e(s) Supporting Document(s) Leukocytes [#/volume] in Blood by Automated count 9.5 10*3/uL 4-10 [facility] Erythrocytes [#/volume] in Blood by Automated count 4.56 10*6/uL 4.1- 5.3 [facility] Hemoglobin [Mass/volume] in Blood 12.4 g/dL 11.5-15.5 [facility] Hematocrit [Volume Fraction] of Blood by Automated count 37.8 % 3 6-45 [facility] Erythrocyte mean corpuscular volume [Entitic volume] by Auto mated count 82.8 fL 80-96 [facility] Erythrocyte mean corpuscular hemoglobin [Entitic mass] by Automated count 27.3 pg 27-33 [facility] Erythrocyte mean corpuscular hemoglobin concentration [Mass/volume] by Automated count 32.9 g/dL 32.0-36.0 [facility] Erythrocyte distribution width [Ratio] by Automated count 14.4 % 11.5-14.5 [facility] Platelets [#/volume] in Blood by Automated count 204 10*3/uL 150-400 [facility] Differential cell count method - Blood [facility] Neutrophils/100 leukocytes in Blood by Automated count 72 % [facility] Lymphocytes/100 leukocytes in Blood by Automated count 22 % [facility] Monocytes/100 leukocytes in Blood by Automated count 5 % [facility] Eosinophils/100 leukocytes in Blood by Automated count 0 % [facility] Basophils/100 leukocytes in Blood by Automated count 1 % [facility] Neutrophils [#/volume] in Blood by Automated count 6.79 10*3/uL 1.8-7 .0 [facility] Lymphocytes [#/volume] in Blood by Automated count 2.04 10*3/uL 1.2-4 .0 [facility] Monocytes [#/volume] in Blood by Automated count 0.50 10*3/uL 0-0.8 [facility] Eosinophils [#/volume] in Blood by Automated count 0.03 10*3/uL 0-0.5 [facility] Basophils [#/volume] in Blood by Automated count 0.09 10*3/uL 0-0.2 [facility] Nucleated erythrocytes/100 leukocytes [Ratio] in Blood by Automated count 0 /100{WBCs} 0-0 [facility] ID Date Data Source [id number] 04/08/2021 04:53:49 PM [facility] Name Value Range Interpretation Code Description Data Molly rce(s) Supporting Document(s) Choriogonadotropin.beta subunit [Moles/volume] in Serum or Plasma <5 [facility] ID Date Data Source [id number] 04/08/2021 04:55:39 PM [facility] Name Value Range Interpretation Code Description Data Molly rce(s) Supporting Document(s) Albumin [Mass/volume] in Serum or Plasma by Bromocresol green (BCG) dye binding method 4.0 g/dL 3.5-5.2 [facility] Bilirubin.total [Mass/volume] in Serum or Plasma 0.5 mg/dL <1.2 [facility] Bilirubin.direct [Mass/volume] in Serum or Plasma <0.3 [facility] Alkaline phosphatase [Enzymatic activity/volume] in Serum or Plasma 70 U/L 35-104 [facility] Aspartate aminotransferase [Enzymatic activity/volume] in Serum or Plasma 14 U/L <32 [facility] Alanine aminotransferase [Enzymatic activity/volume] in Seru m or Plasma 6 U/L <33 [facility] Protein [Mass/volume] in Serum or Plasma 7.0 g/dL 6.4-8.3 [facility] ID Date Data Source [id number] 04/08/2021 04:55:39 PM [facility] Name Value Range Interpretation Code Description Data Molly rce(s) Supporting Document(s) Lipase [Enzymatic activity/volume] in Serum or Plasma 14 U/L 13-6 0 [facility] ID Date Data Source [id number] 04/08/2021 04:55:39 PM [facility] Value Range Interpretation Code Description Data Molly rce(s) Supporting Document(s) Magnesium [Mass/volume] in Serum or Plasma 1.8 mg/dL 1.6-2.6 [facility] ID Date Data Source [id number] 04/08/2021 04:55:39 PM [facility] Name Value Range Interpretation Code Description Data Molly rce(s) Supporting Document(s) Bicarbonate [Moles/volume] in Serum 27 mmol/L 22-29 [facility] Chloride [Moles/volume] in Serum or Plasma 97 mmol/L 98-107 L [facility] Creatinine [Mass/volume] in Serum or Plasma 0.79 mg/dL 0.50-0.90 [facility] Glucose [Mass/volume] in Serum or Plasma 80 mg/dL 70-140 [facility] Potassium [Moles/volume] in Serum or Plasma 3.1 mmol/L 3.4-5.1 L [facility] Sodium [Moles/volume] in Serum or Plasma 137 mmol/L 136-145 [facility] Urea nitrogen [Mass/volume] in Serum or Plasma 9 mg/dL 6-20 [facility] Anion gap 3 in Serum or Plasma 13 mmol/L 8-15 [facility] Osmolality of Serum or Plasma by calculation 282 mosm/kg 275-300 [facility] Creatinine/Urea nitrogen [Mass Ratio] in Serum or Plasma 11 [facility] Calcium [Mass/volume] in Serum or Plasma 9.6 mg/dL 8.6-10.0 [facility] Glomerular filtration rate/1.73 sq M pre dicted among non-blacks [Volume Rate/Area] in Serum or Plasma by Creatinine-based formula (MDRD) >6 0 [facility] Glomerular filtration rate/1.73 sq M pre dicted among blacks [Volume Rate/Area] in Serum or Plasma by Creatinine-based formula (MDRD) >60 [facility] ID Date Data Source [id number] 04/06/2021 06:35:00 AM EDT [facility] Name Value Range Interpretation Code Description Data Molly rce(s) Supporting Document(s) COMPREHENSIVE METABOLIC PANEL [facility] COMPREHENSIVE METABOLIC PANEL Sodium [Moles/volume] in Serum or Plasma 139 mEq/L 134 - 153 [facility] Potassium [Moles/volume] in Serum or Plasma 3.6 mEq/L 3.6 - 5.0 [facility] Chloride [Moles/volume] in Serum or Plasma 105 mEq/L 98 - 107 [facility] Carbon dioxide, total [Moles/volume] in Serum or Plasma 25 MEQ/L 22 - 30 [facility] Glucose [Mass/volume] in Serum or Plasma 117 MG/DL 70 - 99 H [facility] BUN 3 MG/DL 7 - [facility] Creat[facility] [Mass/volume] in Serum or Plasma 0.7 MG/DL 0.7 - 1.5 [facility] BUN/CREAT 4 8 - 27 L [facility] al Protein [Mass/volume] in Serum or Plasma 6.0 G/DL 6.3 - 8.2 L [facility] Albumin [Mass/volume] in Serum or Plasma 3.7 G/DL 3.9 - 5.0 L [facility] Globulin [Mass/volume] in Serum by calculation 2.3 GM/DL 2.4 - 3.2 L [facility] A/G RATIO 1.6 0.8 - 2.0 [facility] Calcium [Mass/volume] in Serum or Plasma 8.9 MG/DL 8.4 - 10.2 [facility] Bilirubin.total [Mass/volume] in Serum or Plasma <0.7 MG/DL 0.2 - 1.3 [facility] Alkaline phosphatase [Enzymatic activity/volume] in Serum or Plasma 57 U/L 38 - 126 [facility] Aspartate aminotransferase [Enzymatic activity/volume] in Serum or Plasma 10 U/L 5 - 40 [facility] Alanine aminotransferase [Enzymatic activity/volume] in Seru m or Plasma 5 U/L 7 - 56 L [facility] Anion gap 3 in Serum or Plasma 9.0 mmol/L 8.0 - 16.0 [facility] AGE 40 yrs [facility] al NON-AA GFR >60 mL/min [facility] Hosp ital AFR AMER GFR >60 mL/min [facility] Ho spital Male GFR In terprentation [...] >32 mL/min Normal ID Date Data Source [id number] 04/06/2021 06:01:00 AM EDT [facility] Name Value Range Interpretation Code Description Data Molly rce(s) Supporting Document(s) CBC W/AUTOMATED DIFF [facility] COMPLETE BLOOD COUNT Leukocytes [#/volume] in Blood by Automated count 9.2 10^3/uL 4.2 - 1 1.0 [facility] Erythrocytes [#/volume] in Blood by Automated count 4.27 10^6/uL 4. 20 - 5.40 [facility] Hemoglobin [Mass/volume] in Blood 11.7 g/dL 12.0 - 16.0 L [facility] Hematocrit [Volume Fraction] of Blood by Automated count 35.8 % 3 7.0 - 47.0 L [facility] Erythrocyte mean corpuscular volume [Entitic volume] by Auto mated count 83.8 fL 81.0 - 101 [facility] Erythrocyte mean corpuscular hemoglobin [Entitic mass] by Automated count 27.4 pg 27.0 - 34.0 [facility] Erythrocyte mean corpuscular hemoglobin concentration [Mass/volume] by Automated count 32.7 g/dL 31.0 - 36.0 [facility] Erythrocyte distribution width [Ratio] by Automated count 14.1 % 11.5 - 14.5 [facility] Platelets [#/volume] in Blood by Automated count 185 10^3/uL 150 - 45 0 [facility] Platelet mean volume [Entitic volume] in Blood by Automated count 11.0 fL 7.4 - 10.4 H [facility] Neutrophils/100 leukocytes in Blood by Automated count 75.5 % 37. 0 - 80.0 [facility] Lymphocytes/100 leukocytes in Blood by Manual count 17.6 % 25.0 - 40.0 L [facility] Monocytes/100 leukocytes in Blood by Automated count 6.1 % 3.0 - 8.0 [facility] Eosinophils/100 leukocytes in Blood by Automated count 0.2 % 0.0 - 7.0 [facility] Basophils/100 leukocytes in Blood by Automated count 0.3 % 0.0 - 2.5 [facility] %IG 0.3 % 0.0 - 0.0 H [facility] al %NRBC 0.0 % 0.0 - 0.0 [facility] al Neutrophils [#/volume] in Blood by Automated count 6.91 10^3/uL 2.00 - 6.90 H [facility] Lymphocytes [#/volume] in Blood by Automated count 1.61 10^3/uL 0.60 - 3.40 [facility] Monocytes [#/volume] in Blood by Automated count 0.56 10^3/uL 0.00 - 0.90 [facility] Eosinophils [#/volume] in Blood by Automated count 0.02 10^3/uL 0.00 - 0.70 [facility] Basophils [#/volume] in Blood by Automated count 0.03 10^3/uL 0.00 - 0.20 [facility] #IG 0.03 10^3/uL 0.00 - 0.10 [facility] ospital #NRBC 0.00 10^3/uL 0.00 - 0.00 [facility] ospital MANUAL DIFF NOT INDICATED [facility] RBC MORPH NOT INDICATED [facility] spital ID Date Data Source [id number] 04/05/2021 08:42:00 AM EDT [facility] [address] [place] [address] PHONE: [phone] FAX: [phone] Name .................. : SERA Cagle Acct Number.................. : [id number] ROOM. ................. : 109-1 MR Number ................... : [id number] Stay type ............. : O/P Discharge Date......... ... : Admit Date ......... : 04/04/21 Admit Phys .................... : AARON Cox Date of ....... : 1980 Family Phys ................... : LAURA NICHOLAS Phone .................. : [phone] Age ................................ : 40 Film# .................. .:[id number] Sex ................................. : F Unsigned transcriptions are preliminary reports and do not represent a medical or legal document CT ABD & PELVIS W/ IV ONLY [id number] COMPLETE:04/04/21 18:59 MAGDA [id number] Reason(s): epigastric pain, vomiting, x 24 hrs [...] lobulated margin. It Page 1 of 2 [place] [address] PHONE: [phone] FAX: [phone] Name .................. [id number] ROOM. ................. : 109-1 MR Number ................... : [id number] Stay type ............. : O/P Discharge Date......... ... : Admit Date ......... : 04/04/21 Admit Phys .................... : AARON J Date of ....... : 1980 Family Phys ................... : LAURA NICHOLAS Phone .................. : [phone] Age ................................ : 40 Film# .................. .:[id number] Sex ................................. : F Unsigned transcriptions are preliminary reports and do not represent a medical or legal document CT ABD & PELVIS W/ IV ONLY [id number] COMPLETE:04/04/21 18:59 MAGDA [id number] Reason(s): epigastric pain, vomiting, x 24 hrs [...] for: EMERGENCY DEPT via modem Copy for: [address] [place] [address] REC Page 2 of 2 Name Value Range Interpretation Code Description Data Molly rce(s) Supporting Document(s) ID Date Data Source [id number] 04/05/2021 07:52:00 AM EDT [facility] Name Value Range Interpretation Code Description Data Molly rce(s) Supporting Document(s) CBC W/AUTOMATED DIFF [facility] COMPLETE BLOOD COUNT Leukocytes [#/volume] in Blood by Automated count 10.2 10^3/uL 4.2 - 11.0 [facility] Erythrocytes [#/volume] in Blood by Automated count 4.65 10^6/uL 4. 20 - 5.40 [facility] Hemoglobin [Mass/volume] in Blood 12.3 g/dL 12.0 - 16.0 [facility] Hematocrit [Volume Fraction] of Blood by Automated count 39.0 % 3 7.0 - 47.0 [facility] Erythrocyte mean corpuscular volume [Entitic volume] by Auto mated count 83.9 fL 81.0 - 101 [facility] Erythrocyte mean corpuscular hemoglobin [Entitic mass] by Automated count 26.5 pg 27.0 - 34.0 L [facility] Erythrocyte mean corpuscular hemoglobin concentration [Mass/volume] by Automated count 31.5 g/dL 31.0 - 36.0 [facility] Erythrocyte distribution width [Ratio] by Automated count 14.5 % 11.5 - 14.5 [facility] Platelets [#/volume] in Blood by Automated count 193 10^3/uL 150 - 45 0 [facility] Platelet mean volume [Entitic volume] in Blood by Automated count 11.7 fL 7.4 - 10.4 H [facility] Neutrophils/100 leukocytes in Blood by Automated count 78.0 % 37. 0 - 80.0 [facility] Lymphocytes/100 leukocytes in Blood by Manual count 14.4 % 25.0 - 40.0 L [facility] Monocytes/100 leukocytes in Blood by Automated count 6.8 % 3.0 - 8.0 [facility] Eosinophils/100 leukocytes in Blood by Automated count 0.1 % 0.0 - 7.0 [facility] Basophils/100 leukocytes in Blood by Automated count 0.4 % 0.0 - 2.5 [facility] %IG 0.3 % 0.0 - 0.0 [facility] 0.[facility] % 0.0 - 0.0 [facility] Neutrophils [#/volume] in Blood by Automated count 7.94 10^3/uL 2.00 - 6.90 H [facility] Lymphocytes [#/volume] in Blood by Automated count 1.47 10^3/uL 0.60 - 3.40 [facility] Monocytes [#/volume] in Blood by Automated count 0.69 10^3/uL 0.00 - 0.90 [facility] Eosinophils [#/volume] in Blood by Automated count 0.01 10^3/uL 0.00 - 0.70 [facility] Basophils [#/volume] in Blood by Automated count 0.04 10^3/uL 0.00 - 0.20 [facility] #IG 0.03 10^3/uL 0.00 - 0.10 [facility] ospital #NRBC 0.00 10^3/uL 0.00 - 0.00 [facility] MANUAL DIFF NOT INDICATED [facility] RBC MORPH NOT INDICATED [facility] spital ID Date Data Source [id number] 04/05/2021 07:20:00 AM EDT [facility] Name Value Range Interpretation Code Description Data Molly rce(s) Supporting Document(s) COMPREHENSIVE METABOLIC PANEL [facility] COMPREHENSIVE METABOLIC PANEL Sodium [Moles/volume] in Serum or Plasma 144 mEq/L 134 - 153 [facility] Potassium [Moles/volume] in Serum or Plasma 3.6 mEq/L 3.6 - 5.0 [facility] Chloride [Moles/volume] in Serum or Plasma 109 mEq/L 98 - 107 H [facility] Carbon dioxide, total [Moles/volume] in Serum or Plasma 25 MEQ/L 22 - 30 [facility] Glucose [Mass/volume] in Serum or Plasma 113 MG/DL 70 - 99 H [facility] BUN 4 MG/DL 7 - 21 [facility] Creatinine [Mass/volume] in Serum or Plasma 0.7 MG/DL 0.7 - 1.5 [facility] BUN/CREAT 6 8 - 27 L [facility] Protein [Mass/volume] in Serum or Plasma 6.4 G/DL 6.3 - 8.2 [facility] Albumin [Mass/volume] in Serum or Plasma 3.9 G/DL 3.9 - 5.0 [facility] Globulin [Mass/volume] in Serum by calculation 2.5 GM/DL 2.4 - 3.2 [facility] A/G RATIO 1.6 0.8 - 2.0 [facility] Calcium [Mass/volume] in Serum or Plasma 9.0 MG/DL 8.4 - 10.2 [facility] Bilirubin.total [Mass/volume] in Serum or Plasma <0.7 MG/DL 0.2 - 1.3 [facility] Alkaline phosphatase [Enzymatic activity/volume] in Serum or Plasma 65 U/L 38 - 126 [facility] Aspartate aminotransferase [Enzymatic activity/volume] in Serum or Plasma 11 U/L 5 - 40 [facility] Alanine aminotransferase [Enzymatic activity/volume] in Seru m or Plasma 8 U/L 7 - 56 [facility] Anion gap 3 in Serum or Plasma 10.0 mmol/L 8.0 - 16.0 [facility] AGE 40 yrs [facility] al NON-AA GFR >60 mL/min [facility] ital AFR AMER GFR >60 mL/min [facility] Ho spital Male GFR In terprentation [...] >32 mL/min Normal ID Date Data Source [id number] 04/05/2021 07:03:00 AM EDT [facility] Name Value Range Interpretation Code Description Data Molly rce(s) Supporting Document(s) Magnesium [Mass/volume] in Serum or Plasma 1.7 MG/DL 1.7 - 2.2 [facility] ID Date Data Source [id number] 04/04/2021 01:05:00 PM EDT [facility] 1 OrderSheet [facility] Emergency Department [address] [place] [address] Phone #: ext- [phone] 04/04/2021 12:57 Patient: [...] Laureano M.D.CMP STAT 13:12 04/04/2021 Initialed: 13:52 Juen Padron R.N., April R.N.; Cancelled: Other 13:57 Zayra Alberto R.N. Verbal order per; Dinesh Laureano M.D.CBC w Diff STAT 13:12 04/04/2021 Initialed: 13:52 June Padron R.N., April R.N.; Cancelled: Other 13:56 Zayra Alberto R.NTricia Verbal order per; Dinesh Laureano M.D.Lipase STAT 14:49 04/04/2021 14:50 Dinesh Blair RN, M.D.;UA Reflex to UA 14:49 04/04/2021 14:50 TerryCulture Dinesh Laureano RN, M.D.;Beta-HCG, Qual STAT 14:49 04/04/2021 14:50 Dinesh Lynch RN, M.D.;Lactic Acid STAT 14:49 04/04/2021 14:50 Dinesh Blair RN, M.D.; 2 OrderSheet [facility] Emergency Department [address] [place] [address] Phone #: ext- [phone] 04/04/2021 12:57 Patient: LIA HAY Sex: F [...] Dinesh Laureano R.N., M.D.;GENERAL ORDERS 3 OrderSheet [facility] Emergency Department [address] [place] [address] Phone #: ext- [phone] 04/04/2021 12:57 Patient: LIA HAY Sex: F : 1980 Age: 40yOrder Description Priority Entered Acknowledged InitialedNPO 14:49 04/04/2021 14:50 Dinesh Blair RN, M.D.;Saline Lock 14:49 04/04/2021 14:50 Dinesh Blair RN, M.D.;Consult - General 18:49 04/04/2021 19:49 StevenSurgery Dinesh Laureano RN, M.D.;Consult - 18:49 04/04/2021 19:49 StevenHospitalist Dinesh Laureano RN, M.D.;[Electronically signed by Merly Valentino R.N. (21:02 04/04/2021)][Electronically signed by Dinesh Laureano M.D. (21:06 04/04/2021)][Electronically locked by Merly Valentino R.N. (21:02 04/04/2021)] Name Value Range Interpretation Code Description Data Molly rce(s) Supporting Document(s) ID Date Data Source [id number] 04/04/2021 01:05:00 PM EDT [facility] 1 Medication Reconciliation Report [facility] Emergency Department [address] [place] [address] Phone #: ext- [phone] 04/04/2021 12:57 Patient: [...] administered: 18:10 04/04/2021 2 Medication Reconciliation Report [facility] Emergency Department [address] [place] [address] Phone #: ext- [phone] 04/04/2021 12:57 Patient: LIA HAY Sex: F : 1980 Age: 40yLR [IV] IV Fluids bolus 0, then 750 mL/hr, administered: 19:11 04/04/2021The following Medications were prescribed to the patient:None. Name Value Range Interpretation Code Description Data Molly rce(s) Supporting Document(s) ID Date Data Source [id number] 04/04/2021 01:05:00 PM EDT [facility] 1 Medication Administration Record [facility] Emergency Department [address] [place] [address] Phone #: ext- [phone] 04/04/2021 12:57 Patient: LIA HAY Sex: F : 1980 Age: 40yWeight: 72.1 kgHeight/Length: 63 inBMI: 28.2ALLERGIES: MiraLax, Sulfa Antibiotics Date/Time Medication Administered Medication OrderedStart NS [IV] NS IV 1000 mL Bolus: : Bolus 839327:15 04/04/2021 Dose: IV Fluids mL (X1)Javier Amador [...] 50 mL bagStop Site: #1 left AC16:25 04/04/2021TerNic Paniagua POTASSIUM CHLORIDE [IVPB] Potassium Chloride IVPB 1016:27 04/04/2021 Dose: 10 meq IVPB meq/100mLJavier Amador RN Rate: 100 mL/hr over 1 hour(s)---- Dispensed: 100 mL bagStop Site: #1 left AC17:45 04/04/2021Rolando Calle MORPHINE [IVP] Morphine IVP 4 mg (HIGH ALERT18:10 04/04/2021 Dose: 4 mg IVP MEDICATION)Javier Amador RN Site: #1 left ACStart LR [IV] LR IV : Bolus 750 mL, then 28571:11 04/04/2021 Dose: IV Fluids mL/hrMerly Valentino, R.NTricia Rate: 750 mL/hr over 2 hour(s)---- Dispensed: 1000 mL bagContinued Upon Admission Site: #1 left AC20:58 04/04/2021ofMerly puente RTriciaNTricia Name Value Range Interpretation Code Description Data Molly rce(s) Supporting Document(s) ID Date Data Source [id number] 04/04/2021 01:05:00 PM EDT [facility] 1 General Instructions [facility] Emergency Department [address] [place] [address] Phone #: ext- [phone] 04/04/2021 12:57 Patient: LIA HAY Sex: F : 1980 Age: 40yIntractable vomiting with nausea.Gastroesophageal reflux disease. No esophagitis.Chronic gastritis. No alcoholic gastritis or hemorrhagic gastritis.Umbilical hernia. No obstruction or gangrene.Cyclic Vomiting Syndrome.(Electronically signed by Dinesh Laureano M.D. 04/04/2021 21:06) Name Value Range Interpretation Code Description Data Molly rce(s) Supporting Document(s) ID Date Data Source [id number] 04/04/2021 01:05:00 PM EDT [facility] 1 Clinical Report - Nurses [facility] Emergency Department [address] [place] [address] Phone #: ext- [phone] 04/04/2021 12:57 Patient: [...] oralintake by patient was dinner last night.Treatment INSURANCE SERVICE REPRESENTATIVE:None.SEPSIS SCREEN: SIRS SCREEN NEGATIVE: respiratory rate greater than 20. SEPSIS SCREENNEGATIVE. No suspected or confirmed signs of infection present. --13:03 04/04/21 June Padron R.N.13:03 04/04/2021 BP: 151/88. HR: [...] Padron R.N.. 2 Clinical Report - Nurses [facility] Emergency Department [address] [place] [address] Phone #: ext- [phone] 04/04/2021 12:57 [id number] Sex: F : 1980 Age: 40y ADDITIONAL SURGERIES: C section. Cholecystectomy. Jaw surgery. --13:04/04/21 June Padron R.N. Bunion. --13:04/04/21 June Padron R.N. History 13:03 04/04/21. PAST MEDICAL HX: Last normal menstrual period- [...] To waiting room. --13:04/04/21 June Padron R.N.PHYSICAL IURKRSXJZA50:49 04/04/21. Ambulatory to room.GENERAL / NEURO / PSYCH: Alert. Oriented X 4. Appears in pain and anxious.RESPIRATORY: Respirations not labored. Breath sounds within normal limits.CVS: Capillary refill less than 2 seconds.GI / : Abdomen soft. Abdominal tenderness in the epigastric area. Bowel sounds within normal limits. 3 Clinical Report - Nurses [facility] Emergency Department [address] [place] [address] Phone #: ext- [phone] 04/04/2021 12:57 Patient: [...] RR: 20. O2 saturation: 100%. --15:27 04/04/[address] [facility] 15:15 04/04/2021 Started bag #1 1000 mL [...] RR: 16. O2 saturation: 100%. --16:14 [facility] 04/04/2021 Pepcid IVPB via IV site #1 Discontinued: bag #1 infused. Total amount infused: 50 mL. --16:26 04/04/21 Javier Amador RN 16:26 04/04/2021 IV Fluids NS via IV site #1 Bag Change: bag #1 infused. Total amount infused: 1000. STARTED bag #2 (1000 mL) at 1000 mL/hr via IV pump. Confirmed 5 rights. IV patency established. IV 4 Clinical Report - Nurses [facility] Emergency Department [address] [place] [address] Phone #: ext- [phone] 04/04/2021 12:57 Patient: LIA HAY Sex: F [...] 04/04/21. BP: 131/86. MAP: 101. --17:10 04/04/21 [facility] 04/04/2021 IV Fluids NS via IV [...] to OR by wheelchair with mask and social service technician. ([id number]). --17:57 04/04/21 TRINA Arvizu18:06 04/04/21. BP: 132/63. HR: 72. RR: 12. O2 saturation: 100%. --18:07 04/04/21 [facility] quality assurance qa lab analystCarline Akins18:10 04/04/2021 Morphine IVP 4 mg given over 1 minute(s) via site #1. Allergies verified and confirmed 5rights. IV patency established. IV site checked: no pain, redness, or swelling. IV flushed thoroughly pre-and post- medication administration. IVP given by RN. Information reviewed including sedative warning ([id number]). --18:10 04/04/21 MARC Calleatient returned from CT by wheelchair with mask and social service technician. ([id number]). --18:10 04/04/21 TRINA Arvizu19:11 04/04/2021 Started bag [...] RR: 12. O2 saturation: 100%. --19:35 04/04/21 [facility] ED 5 Clinical Report - Nurses [facility] Emergency Department [address] [place] [address] Phone #: ext- [phone] 04/04/2021 12:57 Patient: LIA HAY Sex: F : 1980 Age: 40y Fredy Akinsie 20:00 04/04/21. BP: 98/54. MAP: 68. HR: 52. RR: 12. O2 saturation: 100%. --20:18 04/04/21 [facility] The patient reports no complaints and [...] the patient and transported with the patient. --21:01 04/04/21 Merly Valentino R.N. Departure time: 21:00 04/04/2021. --21:01 04/04/21 Merly Valentino R.N.Locked/Released at 04/04/2021 21:02 by Merly Valentino R.N. Name Value Range Interpretation Code Description Data Molly rce(s) Supporting Document(s) ID Date Data Source [id number] 04/04/2021 01:05:00 PM EDT [facility] 1 Clinical Report - Physicians/Mid Levels [facility] Emergency Department [address] [place] [address] Phone #: ext- [phone] 04/04/2021 12:57 Patient: [...] surgery. 2 Clinical Report - Physicians/Mid Levels [facility] Emergency Department [address] [place] [address] Phone #: ext- [phone] 04/04/2021 12:57 Patient: [...] the 3 Clinical Report - Physicians/Mid Levels [facility] Emergency Department [address] [place] [address] Phone #: ext- [phone] 04/04/2021 12:57 Patient: [...] NEGATIVE (NORMAL: NEGAT { KIT LOT # [id number] ){ KIT EXP DATE06/29/22 ){ PROCEDURAL CONTROL [...] NONE 4 Clinical Report - Physicians/Mid Levels [facility] Emergency Department [address] [place] [address] Phone #: ext- [phone] 04/04/2021 12:57 Patient: [...] Male GFR Interprentation 20-49 yrs >60 mL/min Jvntpm41-93 yrs >56 mL/min Normal 60-69 yrs >49 mL/min Normal 70-79yrs>42 mL/min Normal 80 and above >35 mL/min Normal Female GFRInterpretation 20-39 yrs >60 mL/min Normal 40-49 yrs >58 mL/minNormal 50-59 yrs >51 mL/min Normal 60-69 yrs >45 mL/min Xojcnn30-85 yrs >39 mL/min Normal 80 and above [...] 1.5) 5 Clinical Report - Physicians/Mid Levels [facility] Emergency Department [address] [place] [address] Phone #: ext- [phone] 04/04/2021 12:57 Patient: [...] Male GFR Interprentation 20-49 yrs >60 mL/min Iwyowo05-01 yrs >56 mL/min Normal 60-69 yrs >49 mL/min Normal 70-79yrs>42 mL/min Normal 80 and above >35 mL/min Normal Female GFRInterpretation 20-39 yrs >60 mL/min Normal 40-49 yrs >58 mL/minNormal 50-59 yrs >51 mL/min Normal 60-69 yrs >45 mL/min Rtxwep64-13 yrs >39 mL/min Normal 80 and above [...] NONE 6 Clinical Report - Physicians/Mid Levels [facility] Emergency Department [address] [place] [address] Phone #: ext- [phone] 04/04/2021 12:57 Patient: LIA HAY Sex: F : 1980 Age: 40y PLT EST NORMAL (NORMAL: JUDY COMMENT: _Few_large_platelets_observed. 04/04/21.1334.MRW. . . .PROGRESS AND PROCEDURESCourse of Care: 15:56 04/04/21. workup all in and reviewed; WBC 18140, K 3.5, rest is nml, incl. lipase,lactic, [...] will be admitted; case discussed w Stefany Hill HELPER [employer] hospitalist, who will admit. Critical care performed [...] 04/04/2021 21:06) 7Clinical Report - Physicians/Mid Levels [facility] Emergency Department [address] [place] [address] Phone #: ext- [phone] 04/04/2021 12:57 Patient: LIA HAY Sex: F : 1980 Age: 40y Name Value Range Interpretation Code Description Data Molly rce(s) Supporting Document(s) ID Date Data Source [id number] 04/04/2021 01:05:00 PM EDT [facility] Addenda LIA Morton VisitID: [id number] Date: 20:41FAXED OVERVIEW AND MED REC TO [facility] AND OVERVIEW TO [facility] AT 2009(Electronically signed by Alice Lopez - 04/04/2021 20:41)04/04/2021 20:41AT THIS TIME WE ARE AWAITING A BED ASSIGNMENT(Electronically signed by Alice Lopez - 04/04/2021 20:41) Name Value Range Interpretation Code Description Data Molly rce(s) Supporting Document(s) ID Date Data Source [id number] 04/04/2021 03:12:00 PM EDT [facility] Name Value Range Interpretation Code Description Data Molly rce(s) Supporting Document(s) Lactate [Moles/volume] in Serum or Plasma 2.2 MMOL/L 0.2 - 2.2 [facility] ID Date Data Source [id number] 04/04/2021 03:32:00 PM EDT [facility] Name Value Range Interpretation Code Description Data Molly rce(s) Supporting Document(s) COMPREHENSIVE METABOLIC PANEL [facility] COMPREHENSIVE METABOLIC PANEL Sodium [Moles/volume] in Serum or Plasma 143 mEq/L 134 - 153 [facility] Potassium [Moles/volume] in Serum or Plasma 3.5 mEq/L 3.6 - 5.0 L [facility] Chloride [Moles/volume] in Serum or Plasma 103 mEq/L 98 - 107 [facility] Carbon dioxide, total [Moles/volume] in Serum or Plasma 23 MEQ/L 22 - 30 [facility] Glucose [Mass/volume] in Serum or Plasma 114 MG/DL 70 - 99 H [facility] BUN 5 MG/DL 7 - 21 L [facility] Creatinine [Mass/volume] in Serum or Plasma 0.8 MG/DL 0.7 - 1.5 [facility] BUN/CREAT 6 8 - 27 L [facility] Protein [Mass/volume] in Serum or Plasma 7.6 G/DL 6.3 - 8.2 [facility] [facility] Albumin [Mass/volume] in Serum or Plasma 4.7 G/DL 3.9 - 5.0 [facility] Globulin [Mass/volume] in Serum by calculation 2.9 GM/DL 2.4 - 3.2 [facility] A/G RATIO 1.6 0.8 - 2.0 [facility] Calcium [Mass/volume] in Serum or Plasma 10.2 MG/DL 8.4 - 10.2 [facility] Bilirubin.total [Mass/volume] in Serum or Plasma <0.7 MG/DL 0.2 - 1.3 [facility] Alkaline phosphatase [Enzymatic activity/volume] in Serum or Plasma 79 U/L 38 - 126 [facility] Aspartate aminotransferase [Enzymatic activity/volume] in Serum or Plasma 14 U/L 5 - 40 [facility] Alanine aminotransferase [Enzymatic activity/volume] in Seru m or Plasma 10 U/L 7 - 56 [facility] Anion gap 3 in Serum or Plasma 17.0 mmol/L 8.0 - 16.0 H [facility] AGE 40 yrs [facility] al NON-AA GFR >60 mL/min [facility] ital AFR AMER GFR >60 mL/min [facility] Ho spital Male GFR In terprentation [...] >32 mL/min Normal ID Date Data Source [id number] 04/04/2021 03:32:00 PM EDT [facility] Name Value Range Interpretation Code Description Data Molly rce(s) Supporting Document(s) COMPREHENSIVE METABOLIC PANEL [facility] COMPREHENSIVE METABOLIC PANEL Sodium [Moles/volume] in Serum or Plasma 143 mEq/L 134 - 153 [facility] Potassium [Moles/volume] in Serum or Plasma 3.5 mEq/L 3.6 - 5.0 L [facility] Chloride [Moles/volume] in Serum or Plasma 103 mEq/L 98 - 107 [facility] Carbon dioxide, total [Moles/volume] in Serum or Plasma 23 MEQ/L 22 - 30 [facility] Glucose [Mass/volume] in Serum or Plasma 114 MG/DL 70 - 99 H [facility] BUN 5 MG/DL 7 - 21 L [facility] Creatinine [Mass/volume] in Serum or Plasma 0.8 MG/DL 0.7 - 1.5 [facility] BUN/CREAT 6 8 - 27 L [facility] Protein [Mass/volume] in Serum or Plasma 7.6 G/DL 6.3 - 8.2 [facility] Albumin [Mass/volume] in Serum or Plasma 4.7 G/DL 3.9 - 5.0 [facility] Globulin [Mass/volume] in Serum by calculation 2.9 GM/DL 2.4 - 3.2 [facility] A/G RATIO 1.6 0.8 - 2.0 [facility] Calcium [Mass/volume] in Serum or Plasma 10.2 MG/DL 8.4 - 10.2 [facility] Bilirubin.total [Mass/volume] in Serum or Plasma <0.7 MG/DL 0.2 - 1.3 [facility] Alkaline phosphatase [Enzymatic activity/volume] in Serum or Plasma 79 U/L 38 - 126 [facility] Aspartate aminotransferase [Enzymatic activity/volume] in Serum or Plasma 14 U/L 5 - 40 [facility] Alanine aminotransferase [Enzymatic activity/volume] in Seru m or Plasma 10 U/L 7 - 56 [facility] Anion gap 3 in Serum or Plasma 17.0 mmol/L 8.0 - 16.0 H [facility] AGE 40 yrs [facility] al NON-AA GFR >60 mL/min [facility] ital AFR AMER GFR >60 mL/min [facility] Ho spital Male GFR In terprentation [...] >32 mL/min Normal ID Date Data Source [id number] 04/04/2021 03:11:00 PM EDT [facility] Name Value Range Interpretation Code Description Data Molly rce(s) Supporting Document(s) CBC W/AUTOMATED DIFF [facility] COMPLETE BLOOD COUNT Leukocytes [#/volume] in Blood by Automated count 12.1 10^3/uL 4.2 - 11.0 H [facility] Erythrocytes [#/volume] in Blood by Automated count 5.24 10^6/uL 4. 20 - 5.40 [facility] Hemoglobin [Mass/volume] in Blood 14.3 g/dL 12.0 - 16.0 [facility] Hematocrit [Volume Fraction] of Blood by Automated count 44.8 % 3 7.0 - 47.0 [facility] Erythrocyte mean corpuscular volume [Entitic volume] by Auto mated count 85.5 fL 81.0 - 101 [facility] Erythrocyte mean corpuscular hemoglobin [Entitic mass] by Automated count 27.3 pg 27.0 - 34.0 [facility] Erythrocyte mean corpuscular hemoglobin concentration [Mass/volume] by Automated count 31.9 g/dL 31.0 - 36.0 [facility] Erythrocyte distribution width [Ratio] by Automated count 14.4 % 11.5 - 14.5 [facility] Platelets [#/volume] in Blood by Automated count 172 10^3/uL 150 - 45 0 [facility] Platelet mean volume [Entitic volume] in Blood by Automated count 11.5 fL 7.4 - 10.4 H [facility] Neutrophils/100 leukocytes in Blood by Automated count 77.6 % 37. 0 - 80.0 [facility] Lymphocytes/100 leukocytes in Blood by Manual count 17.1 % 25.0 - 40.0 L [facility] Monocytes/100 leukocytes in Blood by Automated count 4.1 % 3.0 - 8.0 [facility] Eosinophils/100 leukocytes in Blood by Automated count 0.3 % 0.0 - 7.0 [facility] Basophils/100 leukocytes in Blood by Automated count 0.7 % 0.0 - 2.5 [facility] %IG 0.2 % 0.0 - 0.0 H [facility] al %NRBC 0.0 % 0.0 - 0.0 [facility] Neutrophils [#/volume] in Blood by Automated count 9.41 10^3/uL 2.00 - 6.90 H [facility] Lymphocytes [#/volume] in Blood by Automated count 2.07 10^3/uL 0.60 - 3.40 [facility] Monocytes [#/volume] in Blood by Automated count 0.50 10^3/uL 0.00 - 0.90 [facility] Eosinophils [#/volume] in Blood by Automated count 0.04 10^3/uL 0.00 - 0.70 [facility] Basophils [#/volume] in Blood by Automated count 0.08 10^3/uL 0.00 - 0.20 [facility] #IG 0.03 10^3/uL 0.00 - 0.10 [facility] H ospital #NRBC 0.00 10^3/uL 0.00 - 0.00 [facility] ospital MANUAL DIFF SEE BELOW [facility] ital Segmented neutrophils/100 leukocytes in Blood by Manual count 79 % 37 - 80 [facility] %LYMPH 14 % 25 - 40 L [facility] al %MONO 6 % 3 - 8 [facility] %EOS 1 % 0 - 7 [facility] RBC MORPH SEE BELOW [facility] Anisocytosis [Presence] in Blood by Light microscopy 1+ JUDY L: NONE SEEN A [facility] { SICKLE CELL (NORMAL: NONE SEEN ) Target cells [Presence] in Blood by Light microscopy 1+ JUDY L: NONE SEEN A [facility] Platelet adequacy [Presence] in Blood by Light microscopy NORMAL NORMAL: NORMAL [facility] COMMENT: _Few_large_platelets_observ ed. 04/04/21.MRW. . . ___ ID Date Data Source [id number] 04/04/2021 03:11:00 PM EDT [facility] Name Value Range Interpretation Code Description Data Molly rce(s) Supporting Document(s) Lipase [Enzymatic activity/volume] in Serum or Plasma 17 U/L 13 - 60 [facility] ID Date Data Source [id number] 04/04/2021 03:06:00 PM EDT [facility] Name Value Range Interpretation Code Description Data Molly rce(s) Supporting Document(s) HCG SERUM QUAL NEGATIVE NORMAL: NEGATIVE [facility] HCG SERUM QL REENTER NEGATIVE NORMAL: NEGATIVE [facility] { KIT LOT # [id number] ){ KIT EXP DATE 06/29/22 ){ PROCEDURAL CONTROL VALID ) ID Date Data Source [id number] 04/04/2021 01:34:00 PM EDT [facility] Name Value Range Interpretation Code Description Data Molly rce(s) Supporting Document(s) CBC W/AUTOMATED DIFF [facility] COMPLETE BLOOD COUNT Leukocytes [#/volume] in Blood by Automated count 12.1 10^3/uL 4.2 - 11.0 H [facility] Erythrocytes [#/volume] in Blood by Automated count 5.24 10^6/uL 4. 20 - 5.40 [facility] Hemoglobin [Mass/volume] in Blood 14.3 g/dL 12.0 - 16.0 [facility] Hematocrit [Volume Fraction] of Blood by Automated count 44.8 % 3 7.0 - 47.0 [facility] Erythrocyte mean corpuscular volume [Entitic volume] by Auto mated count 85.5 fL 81.0 - 101 [facility] Erythrocyte mean corpuscular hemoglobin [Entitic mass] by Automated count 27.3 pg 27.0 - 34.0 [facility] Erythrocyte mean corpuscular hemoglobin concentration [Mass/volume] by Automated count 31.9 g/dL 31.0 - 36.0 [facility] Erythrocyte distribution width [Ratio] by Automated count 14.4 % 11.5 - 14.5 [facility] Platelets [#/volume] in Blood by Automated count 172 10^3/uL 150 - 45 0 [facility] Platelet mean volume [Entitic volume] in Blood by Automated count 11.5 fL 7.4 - 10.4 H [facility] Neutrophils/100 leukocytes in Blood by Automated count 77.6 % 37. 0 - 80.0 [facility] Lymphocytes/100 leukocytes in Blood by Manual count 17.1 % 25.0 - 40.0 L [facility] Monocytes/100 leukocytes in Blood by Automated count 4.1 % 3.0 - 8.0 [facility] Eosinophils/100 leukocytes in Blood by Automated count 0.3 % 0.0 - 7.0 [facility] Basophils/100 leukocytes in Blood by Automated count 0.7 % 0.0 - 2.5 [facility] %IG 0.2 % 0.0 - 0.0 [facility] 0.[facility] % 0.0 - 0.0 [facility] Neutrophils [#/volume] in Blood by Automated count 9.41 10^3/uL 2.00 - 6.90 H [facility] Lymphocytes [#/volume] in Blood by Automated count 2.07 10^3/uL 0.60 - 3.40 [facility] Monocytes [#/volume] in Blood by Automated count 0.50 10^3/uL 0.00 - 0.90 [facility] Eosinophils [#/volume] in Blood by Automated count 0.04 10^3/uL 0.00 - 0.70 [facility] Basophils [#/volume] in Blood by Automated count 0.08 10^3/uL 0.00 - 0.20 [facility] #IG 0.03 10^3/uL 0.00 - 0.10 [facility] H ospital #NRBC 0.00 10^3/uL 0.00 - 0.00 [facility] H ospital MANUAL DIFF SEE BELOW [facility] Hosp ital Segmented neutrophils/100 leukocytes in Blood by Manual count 79 % 37 - 80 [facility] %LYMPH 14 % 25 - 40 L [facility] Hospit al %MONO 6 % 3 - 8 [facility] al %EOS 1 % 0 - 7 [facility] Hospit al RBC MORPH SEE BELOW [facility] Hospit al Anisocytosis [Presence] in Blood by Light microscopy 1+ JUDY L: NONE SEEN A [facility] { SICKLE CELL (NORMAL: NONE SEEN ) Target cells [Presence] in Blood by Light microscopy 1+ JUDY L: NONE SEEN A [facility] Platelet adequacy [Presence] in Blood by Light microscopy NORMAL NORMAL: NORMAL [facility] COMMENT: _Few_large_platelets_observ ed. 04/04/21.1334.MRW. . . ___ ID Date Data Source [id number] 12/25/2020 01:46:00 PM EDT [facility] Name Value Range Interpretation Code Description Data Molly rce(s) Supporting Document(s) SARS COVID ANTIGEN NEGATIVE [facility] This lab was ordered by MATT rangel nd reported by [facility]. ID Date Data Source Coronavirus 2019 Nasopharygeal (Send Out) COVID 12/25/2020 1 2:00:00 AM EDT eCW1 ([facility]) Name Value Range Interpretation Code Description Data Molly rce(s) Supporting Document(s) Coronavirus 2019 Nasophar ygeal (Send Out) COVID eCW1 ([facility]) ID Date Data Source KELLEE COVID AG (Point of Care) 12/25/2020 12:00:00 AM EDT eC W1 ([facility]) Name Value Range Interpretation Code Description Data Molly rce(s) Supporting Document(s) NEGATIVE NEGATIVE KELLEE COVID ANTIGEN eCW1 ([facility]) ID Date Data Source [id number] 11/16/2020 11:25:00 AM EDT [facility] Name Value Range Interpretation Code Description Data Molly rce(s) Supporting Document(s) SARS-CoV-2 (COVID-19) RNA [Presence] in Respiratory specimen by PRITI with probe detection Not Detected [facility] This lab was ordered by [facility] and reported by [facility]. ID Date Data Source [id number] 10/18/2020 06:30:00 AM EDT [facility] Name Value Range Interpretation Code Description Data Molly rce(s) Supporting Document(s) COVID-19 RT-PCR NASAL SWAB Not Detected Not Detected [facility] A not detected (negative) test result [...] developed and its performance characteristics determined by [employer] and verified at [employer]. It has not been cleared or approved by the U.S. Food and Drug Administration for diagnostic use. This test has been authorized by FDA under an EUA for use by authorized laboratories. Results should be used in conjunction with clinical findings, and should not form the sole basis for a diagnosis or treatment decision. Methods: SARS-CoV-2 Multiplex RT-PCR Assay ID Date Data Source [id number] 10/13/2020 05:30:00 PM EDT [facility] Name Value Range Interpretation Code Description Data Molly rce(s) Supporting Document(s) SARS-CoV-2 (COVID-19) N gene [Presence] in Respiratory specimen by PRITI with probe detection NEGATIVE [facility] This lab was ordered by Yordan Sosa [facility] and reported by [employer]. ID Date Data Source [id number] 10/13/2020 12:00:00 AM EDT [facility] Name Value Range Interpretation Code Description Data Molly rce(s) Supporting Document(s) Carestart Rapid COVID Antigen Test Negative [facility] This lab was reported by Yordan [facility], [facility]. ID Date Data Source [id number] 10/09/2020 01:20:00 [place] [address] CONSULTATIONNAME: SERA FITZGERALD Gurjit ROOM#: 100-1DATE OF : 1980 MR#: [id number] PHYS: WILI Hughes DATE: 10/07/20DATE OF CONSULTATION: 10/09/2020HIEF COMPLAINT: Intractable vomiting.HISTORY OF PRESENT ILLNESS:The patient is a 39-year-old woman who presented to [facility] and was admitted because ofintractable nausea and vomiting. She had presented to the emergency room with associated worseningabdominal pain along with the nausea and vomiting. This has been going on for approximately a week. [facility] [place] [facility] sent her to [facility] there and had a CT scan done.This [...] and Zofran on a prn basis. [address] [place] [address] CONSULTATIONNAME: SERA FITZGERALD Gurjit ROOM#: 100- 1DATE OF : 1980 MR#: [id number] PHYS: WILI Hughes DATE: 10/07/20ALLERGIES:None.PHYSICAL EXAM:GENERAL: Patient is awake, [...] asking me to see your patient. [address] [place] [address] CONSULTATIONNAME: SERA Cagle ROOM#: 100-1DATE OF : 1980 MR#: [id number] PHYS: WILI Hughes DATE: 10/07/20DD: Carlos Naidu MD 10/09/20 12:30DT: SSR 10/09/20 13:03DS: Carlos Naidu MD 10/11/20 08:05 3 Name Value Range Interpretation Code Description Data Molly rce(s) Supporting Document(s) ID Date Data Source [id number] 10/10/2020 11:24:00 [place] [address] PHONE: [phone] FAX: [phone] Name .................. : SERA Cagle Acct Number.................. : [id number] ROOM. ................. : 100-1 MR Number ................... : [id number] Stay type ............. : I/P Discharge Date......... ... : Admit Date ......... : 10/07/20 Admit Phys .................... : DONN Date of ....... : 1980 Family Phys ................... : LAURA NICHOLAS Phone .................. : [phone] Age ................................ : 39 Film# .................. .:[id number] Sex ................................. : F Unsigned transcriptions are preliminary reports and do not represent a medical or legal document CT ABD & PELV W/ORAL/IV CONTR [id number] COMPLETE:10/09/20 19:20 [facility] 8553 Reason for Exam: intractable vomiting/abd [...] Gallbladder not visualized. Page 1 of 2 [place] [address] PHONE: [phone] FAX: [phone] Name .................. : SERA Cgale Acct Number.................. : [id number] ROOM. ................. : 100 MR Number ................... : [id number] Stay type ............. : I/P Discharge Date......... ... : Admit Date ......... : 10/07/20 Admit Phys .................... : DONN Date of ....... : 1980 Family Phys ................... : LAURA NICHOLAS Phone .................. : [phone] Age ................................ : 39 Film# .................. .:[id number] Sex ................................. : F Unsigned transcriptions are preliminary reports and do not represent a medical or legal document CT ABD & PELV W/ORAL/IV CONTR [id number] COMPLETE:10/09/20 19:20 [facility] 8553 Reason for Exam: intractable vomiting/abd [...] 10/10/20 01:44, Dictation Date: Copy for: 002 [facility] Copy for: 710 [facility] REC Page 2 of 2 Name Value Range Interpretation Code Description Data Molly rce(s) Supporting Document(s) ID Date Data Source [id number] 10/10/2020 07:20:00 AM EDT [facility] Name Value Range Interpretation Code Description Data Molly rce(s) Supporting Document(s) COMPREHENSIVE METABOLIC PANEL [facility] COMPREHENSIVE METABOLIC PANEL Sodium [Moles/volume] in Serum or Plasma 143 mEq/L 134 - 153 [facility] Potassium [Moles/volume] in Serum or Plasma 3.8 mEq/L 3.6 - 5.0 [facility] Chloride [Moles/volume] in Serum or Plasma 107 mEq/L 98 - 107 [facility] Carbon dioxide, total [Moles/volume] in Serum or Plasma 30 MEQ/L 22 - 30 [facility] Glucose [Mass/volume] in Serum or Plasma 88 MG/DL 70 - 99 [facility] BUN 4 MG/DL 7 - 21 L [facility] Creatinine [Mass/volume] in Serum or Plasma 0.6 MG/DL 0.7 - 1.5 L [facility] BUN/CREAT 7 8 - 27 L [facility] Protein [Mass/volume] in Serum or Plasma 5.9 G/DL 6.3 - 8.2 L [facility] Albumin [Mass/volume] in Serum or Plasma 3.7 G/DL 3.9 - 5.0 L [facility] Globulin [Mass/volume] in Serum by calculation 2.2 GM/DL 2.4 - 3.2 L [facility] A/G RATIO 1.7 0.8 - 2.0 [facility] Calcium [Mass/volume] in Serum or Plasma 9.0 MG/DL 8.4 - 10.2 [facility] Bilirubin.total [Mass/volume] in Serum or Plasma <0.7 MG/DL 0.2 - 1.3 [facility] Alkaline phosphatase [Enzymatic activity/volume] in Serum or Plasma 69 U/L 38 - 126 [facility] Aspartate aminotransferase [Enzymatic activity/volume] in Serum or Plasma 13 U/L 5 - 40 [facility] Alanine aminotransferase [Enzymatic activity/volume] in Seru m or Plasma 19 U/L 7 - 56 [facility] Anion gap 3 in Serum or Plasma 6.0 mmol/L 8.0 - 16.0 L [facility] AGE 39 yrs [facility] al NON-AA GFR >60 mL/min [facility] ital AFR AMER GFR >60 mL/min [facility] Ho spital Male GFR In terprentation [...] >32 mL/min Normal ID Date Data Source [id number] 10/10/2020 06:57:00 AM EDT [facility] Name Value Range Interpretation Code Description Data Molly rce(s) Supporting Document(s) CBC W/AUTOMATED DIFF [facility] COMPLETE BLOOD COUNT Leukocytes [#/volume] in Blood by Automated count 6.1 10^3/uL 4.2 - 1 1.0 [facility] Erythrocytes [#/volume] in Blood by Automated count 4.33 10^6/uL 4. 20 - 5.40 [facility] Hemoglobin [Mass/volume] in Blood 12.0 g/dL 12.0 - 16.0 [facility] Hematocrit [Volume Fraction] of Blood by Automated count 36.4 % 3 7.0 - 47.0 L [facility] Erythrocyte mean corpuscular volume [Entitic volume] by Auto mated count 84.1 fL 81.0 - 101 [facility] Erythrocyte mean corpuscular hemoglobin [Entitic mass] by Automated count 27.7 pg 27.0 - 34.0 [facility] Erythrocyte mean corpuscular hemoglobin concentration [Mass/volume] by Automated count 33.0 g/dL 31.0 - 36.0 [facility] Erythrocyte distribution width [Ratio] by Automated count 13.9 % 11.5 - 14.5 [facility] Platelets [#/volume] in Blood by Automated count 207 10^3/uL 150 - 45 0 [facility] Platelet mean volume [Entitic volume] in Blood by Automated count 10.1 fL 7.4 - 10.4 [facility] Neutrophils/100 leukocytes in Blood by Automated count 58.4 % 37. 0 - 80.0 [facility] Lymphocytes/100 leukocytes in Blood by Manual count 32.2 % 25.0 - 40.0 [facility] Monocytes/100 leukocytes in Blood by Automated count 6.4 % 3.0 - 8.0 [facility] Eosinophils/100 leukocytes in Blood by Automated count 2.0 % 0.0 - 7.0 [facility] Basophils/100 leukocytes in Blood by Automated count 0.7 % 0.0 - 2.5 [facility] %IG 0.3 % 0.0 - 0.0 H [facility] Hospit al %NRBC 0.0 % 0.0 - 0.0 [facility] al Neutrophils [#/volume] in Blood by Automated count 3.55 10^3/uL 2.00 - 6.90 [facility] Lymphocytes [#/volume] in Blood by Automated count 1.96 10^3/uL 0.60 - 3.40 [facility] Monocytes [#/volume] in Blood by Automated count 0.39 10^3/uL 0.00 - 0.90 [facility] Eosinophils [#/volume] in Blood by Automated count 0.12 10^3/uL 0.00 - 0.70 [facility] Basophils [#/volume] in Blood by Automated count 0.04 10^3/uL 0.00 - 0.20 [facility] #IG 0.02 10^3/uL 0.00 - 0.10 [facility] H ospital #NRBC 0.00 10^3/uL 0.00 - 0.00 [facility] MANUAL DIFF NOT INDICATED [facility] RBC MORPH NOT INDICATED [facility] spital ID Date Data Source [id number] 10/09/2020 09:12:00 AM EDT [facility] [address] [place] [address] PHONE: [phone] FAX: [phone] Name .................. : SERA FITZGERALD Gurjit Acct Number.................. : [id number] ROOM. ................. : 100-1 Number ................... : [id number] Stay type ............. : O/P Discharge Date......... ... : Admit Date ......... : 10/07/20 Admit Phys .................... : JULY ESCUDERO Date of ....... : 1980 Family Phys ................... : LAURA NICHOLAS Phone .................. : [phone] Age ................................ : 39 Film# .................. .:[id number] Sex ................................. : F Unsigned transcriptions are preliminary reports and do not represent a medical or legal document CHEST 2 VIEWS 12219 COMPLETE:10/08/20 13:29 8489 Reason for Exam: chest [...] rce(s) Supporting Document(s) ID Date Data Source [id number] 10/05/2020 05:16:00 AM EDT [facility] 1 OrderSheet [facility] Emergency Department [address] [place] [address] Phone #: [phone] 10/05/2020 05:14 Patient: LIA HAY Sex: F : 1980 Age: 39yWEIGHT:71.4 kg (S)ALLERGIES: Sulfa AntibioticsCHIEF COMPLAINT: abdominal pain, abdominal painDIAGNOSIS: Abdominal pain, VomitingLAB ORDERSOrder Description Priority Entered Acknowledged InitialedCBC w Diff STAT 05:52 10/05/2020 05:54 Nellie Brian Laureano, Dinesh Virk R.N. M.D.;CMP STAT 05:52 10/05/2020 05:54 Nellie Dinesh Bowie.N. M.D.;Lipase STAT 05:52 10/05/2020 05:54 Nellie Brian Laureano, Dinesh Urias.N. M.D.;Urinalysis (Clean STAT 05:52 10/05/2020 05:54 Dinesh Francis R.N. M.D.;Lactic Acid STAT 05:52 10/05/2020 05:54 Nellie Dinesh Bowie.N. M.D.;Beta-HCG, Qual STAT 05:52 10/05/2020 05:54 Nellie Dinesh Kay R.N. M.D.;Culture, Urine STAT 07:00 10/05/2020 07:30 Javier(Urine, Clean Dinesh Laureano RNCat) [place];DIAGNOSTIC STUDY ORDERSOrder Description Priority Entered Acknowledged InitialedMEDICATION/IV/DRIP/FLUID ORDERSOrder Description Priority Entered Acknowledged InitialedNS IV 1000 mL 05:53 10/05/2020 Ack'd: 05:54 Nellie 06:10 Nellie TorresBolus: : Bolus 1000 [place], Dinesh Virk R.NTricia Virk R.N.mL (X1) [place];Phenergan IV 25mg 05:53 10/05/2020 Ack'd: 05:54 Nellie 06:12 Nellie Brian 2 OrderSheet [facility] Emergency Department [address] [place] [address] Phone #: ext- [phone] 10/05/2020 05:14 Patient: LIA HAY Sex: F : 1980 Age: 39yin 50mL NS, give Roma, Dinesh Virk R.N. Sully R.N.wide open: 25 mg M.D.;(NOW x1, HIGHALERTMEDICATION)Protonix IV Push 40 05:53 10/05/2020 Ack'd: 05:54 Nellie 06:11 Nellie Blairmg (in 10 mL NS, Shamarrin, Dinesh Virk R.N. Sully R.N.administer over at [...] Acknowledged InitialedNPO 05:52 10/05/2020 05:54 Dinesh Buck R.N. MRay;Saline Lock 05:52 10/05/2020 05:54 Dinesh BuckNTricia GamboaD.;[Electronically signed by Eduar Zapien (11:16 10/05/2020)][Electronically signed by Javier Amador RN (12:12 10/05/2020)][Electronically signed by Dinesh Laureano M.D. (07:21 10/09/2020)][Electronically locked by Javier Amador RN (12:12 10/05/2020)] Name Value Range Interpretation Code Description Data Molly rce(s) Supporting Document(s) ID Date Data Source [id number] 10/05/2020 05:16:00 AM EDT [facility] 1 Medication Reconciliation Report [facility] Emergency Department [address] [place] [address] Phone #: ext- [phone] 10/05/2020 05:14 Patient: [...] administered: 07:44 10/05/2020 2 Medication Reconciliation Report [facility] Emergency Department [address] [place] [address] Phone #: ext- [phone] 10/05/2020 05:14 Patient: LIA HAY Sex: F : 1980 Age: 39yZofran [IVP] IVP 4 mg, administered: 07:44 1Ativan [IVP] IVP 2 mg, administered: 07:46 10/05/2020NS [IV] IV Fluids bolus 1000 mL over 1 hour(s), administered: 08:15 10/05/2020The following Medications were prescribed to the patient:None. Name Value Range Interpretation Code Description Data Molly rce(s) Supporting Document(s) ID Date Data Source [id number] 10/05/2020 05:16:00 AM EDT [facility] 1 Medication Administration Record [facility] Emergency Department [address] [place] [address] Phone #: ext [phone] 10/05/2020 05:14 Patient: LIA HAY Sex: F : 1980 Age: 39yWeight: 71.4 kgHeight/Length: 63 inBMI: 27.9ALLERGIES: Sulfa Antibiotics Date/Time Medication Administered Medication OrderedStart IV NS NS IV 1000 mL Bolus: : Bolus 130334:00 10/05/2020 Dose: IV Fluids mL (X1)Nellie Virk RTriciaNTricia Rate: 999 mL/hr---- Dispensed: 1000 mL bagStop Site: #1 right AC07:09 10/05/2020Nellie Virk R.N.Start PHENERGAN [IVPB] Phenergan IV 25mg in 50mL NS,06:11 10/05/2020 Dose: 25 mg IVPB give wide open: 25 mg (NOW x1,Nellie Virk, R.NTricia Rate: 400 mL/hr HIGH ALERT MEDICATION)---- Dispensed: 50 mL bagStop Site: #1 right AC06:26 10/05/2020Nellie Virk R.N.Given PROTONIX [IVP] (PANTOPRAZOLE Protonix IV Push 40 [...] 10/05/2020 Dose: 4 mg IVP (NOW x1)Javier Amaodr RN Site: #1 right ACGiven ATIVAN [IVP] (LORAZEPAM) Ativan IVP 2 mg (HIGH ALERT07:46 10/05/2020 Dose: 2 mg IVP MEDICATION)Javier Amador RN Site: #1 right ACStart NS [IV] NS IV 1000 mL Bolus: : Bolus [id number]:15 10/05/2020 Dose: IV Fluids mL (X1)Javier Amador RN Bolus: 1000 mL over 1 hour(s)---- Dispensed: 1000 mL bagStop Site: #1 right AC09:19 10/05/2020Javier Amador RN Name Value Range Interpretation Code Description Data Molly rce(s) Supporting Document(s) ID Date Data Source [id number] 10/05/2020 05:16:00 AM EDT [facility] 1 General Instructions [facility] Emergency Department [address] [place] [address] Phone #: ext- [phone] 10/05/2020 05:14 Patient: [...] to patient via paper. 2 General Instructions [facility] Emergency Department [address] [place] [address] Phone #: ext- [phone] 10/05/2020 05:14 Patient: [...] may also be needed. 3 General Instructions [facility] Emergency Department [address] [place] [address] Phone #: ext- [phone] 10/05/2020 05:14 Patient: [...] begin to improve in thenext 24 hours.Call [phone] if any of these occur: Trouble breathing Confusion 4 General Instructions [facility] Emergency Department [address] [place] [address] Phone #: ext- [phone] 10/05/2020 05:14 Patient: LIA HAY Sex: F [...] or water and you are getting dehydrated [id number] [employer]. [address] [place] [address], [place] [address]. All rights reserved. This information is not intended as asubstitute for professional medical care. Always follow your healthcare professional's instructions. You have been given the following additional information: Abdominal Pain, Unknown Cause, (Female) Do not work today.(Electronically signed by Eduar Zapien 10/05/2020 11:16) Name Value Range Interpretation Code Description Data Molly rce(s) Supporting Document(s) ID Date Data Source [id number] 10/05/2020 05:16:00 AM EDT [facility] 1 Clinical Report - Nurses [facility] Emergency Department [address] [place] [address] Phone #: ext- [phone] 10/05/2020 05:14 Patient: [...] oral intake by patient was (chicken broth).Treatment INSURANCE SERVICE REPRESENTATIVE:Recently seen at another facility; seen for similar symptoms; CT done; labs done. (Friday at [facility]).--05:18 10/05/20 Nellie Virk R.N.The patient has had abdominal pain ("like someone is grabbing her"). The pain is described as located inthe upper abdomen.Treatment INSURANCE SERVICE REPRESENTATIVE:(zofran and reglan around midnight, has not helped). [...] Nellie Virk R.N.AllergiesSulfa Antibiotics.(rash) --05:35 10/05/20 Nellie iVrk R.N. 2 Clinical Report - Nurses [facility] Emergency Department [address] [place] [address] Phone #: ext- [phone] 10/05/2020 05:14 Patient: [...] 2 seconds. 3 Clinical Report - Nurses [facility] Emergency Department [address] [place] [address] Phone #: ext- [phone] 10/05/2020 05:14 Patient: [...] release of information obtained and faxed to [facility].). --05:39 10/05/20 Nellie Virk R.N. 06:00 10/05/2020 [...] Nellie Virk R.N. ( Call placed to [facility] to check status of records that were requested.). --06:24 10/05/20 Nellie Virk R.N. 06:35 10/05/20. BP: 143/90. MAP: 107. HR: 91. RR: 16. O2 saturation: 100%. Temp: 97.1 F. --06:35 10/05/20 Nellie Virk R.N. 4 Clinical Report - Nurses [facility] Emergency Department [address] [place] [address] Phone #: ext- [phone] 10/05/2020 05:14 Patient: LIA HAY Sex: F [...] --10:10 10/05/20 5 Clinical Report - Nurses [facility] Emergency Department [address] [place] [address] Phone #: ext- [phone] 10/05/2020 05:14 Patient: [...] spouse verbalized understanding. Written instructions provided in Yoruba. The patient was discharged by the physician. [...] rce(s) Supporting Document(s) ID Date Data Source [id number] 10/05/2020 05:16:00 AM EDT [facility] 1 Clinical Report - Physicians/Mid Levels [facility] Emergency Department [address] [place] [address] Phone #: ext- [phone] 10/05/2020 05:14 Patient: LIA HAY Sex: F [...] in last 2 days so went to [facility] ER on 4-6, had workup and CTAP and Tx; Sx's not better so came here today). No recent travel. Similar symptoms previously. Patient has had similar symptoms many times, chronically. Worse from previously. Recent medical care: The patient was seen recently at another facility in the emergency department. ( [facility] ER 10-03-20).REVIEW OF SYSTEMSNo constipation, black stools, [...] Gallstone(s). 2 Clinical Report - Physicians/Mid Levels [facility] Emergency Department [address] [place] [address] Phone #: ixv- [phone] 10/05/2020 05:14 Patient: LIA HAY Sex: F [...] extremity edema. 3 Clinical Report - Physicians/Mid Levels [facility] Emergency Department [address] [place] [address] Phone #: ext- [phone] 10/05/2020 05:14 Patient: [...] 3.2) 4 Clinical Report - Physicians/Mid Levels [facility] Emergency Department [address] [place] [address] Phone #: ext- [phone] 10/05/2020 05:14 Patient: [...] Male GFR Interprentation 20-49 yrs >60 mL/min Easgvo86-83 yrs >56 mL/min Normal 60-69 yrs >49 mL/min Normal 70-79yrs>42 mL/min Normal 80 and above >35 mL/min Normal Female GFRInterpretation 20-39 yrs >60 mL/min Normal 40-49 yrs >58 mL/minNormal 50-59 yrs >51 mL/min Normal 60-69 yrs >45 mL/min Vnsdue65-63 yrs >39 mL/min Normal 80 and above >32 mL/min NormalLipase: (CHERI: 10/05/2020 05:22) ( [facility] 10/05/2020 06:15) Final results Test Result Flag Units (Reference) LIPASE 16 U/L (13 - 60)Urinalysis: (CHERI: 10/05/2020 05:22) ( [facility] 10/05/2020 06:08) Final results Test Result Flag [...] (NORMAL: NONELactic Acid: (CHERI: 10/05/2020 05:22) ( [facility] 10/05/2020 06:03) Final results Test Result Flag Units (Reference) LACTIC ACID 2.2 MMOL/L (0.2 - 2.2)Beta-HCG, Qual Serum: (CHERI: 10/05/2020 05:22) ( [facility] 10/05/2020 06:04) Final results Test Result Flag Units (Reference) HCG SERUM QUAL NEGATIVE (NORMAL: NEGAT HCG SERUM QL REENTER NEGATIVE (NORMAL: NEGAT { KIT LOT # [id number] ){ KIT EXP [id number] ){ PROCEDURAL CONTROL VALID) 5 Clinical Report - Physicians/Mid Levels [facility] Emergency Department [address] [place] [address] Phone #: ext- [phone] 10/05/2020 05:14 Patient: [...] in last 2 days so went to [facility] ER on 10-03, had workup and CTAP and Tx; Sx's not better so came here today). No recent travel. Similar symptoms previously. Patient has had similar symptoms many times, chronically. Worse from previously. 6 Clinical Report - Physicians/Mid Levels [facility] Emergency Department [address] [place] [address] Phone #: ext- [phone] 10/05/2020 05:14 Patient: LIA HAY Sex: F : 1980 Age: 39y Recent medical care: The patient was seen recently at another facility in the emergency department. ( [facility] ER 10-03-20).REVIEW OF SYSTEMSNo constipation, black stools, [...] marijuana. 7 Clinical Report - Physicians/Mid Levels [facility] Emergency Department [address] [place] [address] Phone #: ext- [phone] 10/05/2020 05:14 Patient: LIA HAY Sex: F : 1980 Age: 39yADDITIONAL NOTESThe nursing notes have been reviewed with agreement regarding the chief complaint, HPI, ROS, PMH andpatient medications and allergies.PHYSICAL EXAMVital Signs: 10/05/2020 05:15 BP: 156/86. MAP: 109. HR: 62. RR: 16. O2 saturation: 100%. Temp: 98.4F. Pain level now: 1010. Have been reviewed. Oxygen saturation normal.Appearance: Alert. [...] 0.0) 8 Clinical Report - Physicians/Mid Levels [facility] Emergency Department [address] [place] [address] Phone #: ext- [phone] 10/05/2020 05:14 Patient: [...] Male GFR Interprentation 20-49 yrs >60 mL/min Vqimdr45-56 yrs >56 mL/min Normal 60-69 yrs >49 mL/min Normal 70-79yrs>42 mL/min Normal 80 and above >35 mL/min Normal Female GFRInterpretation 20-39 yrs >60 mL/min Normal 40-49 yrs >58 mL/minNormal 50-59 yrs >51 mL/min Normal 60-69 yrs >45 mL/min Btqkbj46-31 yrs >39 mL/min Normal 80 and above [...] 9) 9 Clinical Report - Physicians/Mid Levels [facility] Emergency Department [address] [place] [address] Phone #: ext- [phone] 10/05/2020 05:14 Patient: [...] NEGATIVE (NORMAL: NEGAT { KIT LOT # [id number] ){ KIT EXP DATE [id number] ){ PROCEDURAL [...] obtained the CT scan results done at [facility] on 10/03/20 which showed umbilical hernia and [...] ED. 10 Clinical Report - Physicians/Mid Levels [facility] Emergency Department [address] [place] [address] Phone #: ext- [phone] 10/05/2020 05:14 Patient: [...] 10/05/2020 11:16) 11Clinical Report - Physicians/Mid Levels [facility] Emergency Department [address] [place] [address] Phone #: ext- [phone] 10/05/2020 05:14 Patient: LIA HAY Sex: F : 1980 Age: 39y Name Value Range Interpretation Code Description Data Molly rce(s) Supporting Document(s) ID Date Data Source [id number] 10/08/2020 10:06:00 [place] [address] HISTORY AND PHYSICALNAME: SERA Cagle ROOM#: 100-1DATE OF : 1980 MR#: [id number] PHYS: Jeni Mcdowell MD DATE: 10/07/20CHIEF COMPLAINT: Intractable nausea and vomiting, abdominal pain.HISTORY OF PRESENT ILLNESS:This is a pleasant 39-year-old female who has a history of nausea and vomiting in the past who presented tot emergency room with worsening abdominal pain, nausea and vomiting over the past one week. [facility] [place] [facility] presented herself to [facility] emergency room twice and she wassent home twice per patient. She did not get better and got worse. She claims that CT was done in [facility] emergency room and showed that she [...] had nausea and vomiting in the past [id number]. She had the last episode, then she [...] patient recently had a CT scan at [facility]. I do not have the report to [...] SURGICAL HISTORY: 1. Status post cholecystectomy 1 [place] [address] HISTORY AND PHYSICALNAME: SERA Cagle ROOM#: 100-1DATE OF : 1980 MR#: [id number] PHYS: Jeni Mcdowell MD DATE: 10/07/20 2. [...] guarding.BACK: No CVA tenderness appreciated.: Deferred. 2 [place] [address] HISTORY AND PHYSICALNAME: SERA Cagle ROOM#: 100-1DATE OF : 1980 MR#: [id number] PHYS: Jeni Mcdowell MD DATE: 10/07/20EXTREMITIES: No pitting edema. Good capillary refill appreciated. Power seems to be 5/5 upper and lowerextremities. Sensation intact to all extremities.NEURO/PSYCH: Cranial nerves II-XII grossly intact. Alert and oriented x3. No focal neurological findingsappreciated.IMAGING:CT scan of the abdomen and pelvis was done at [facility]. We will try to obtain the results.LABORATORY [...] abdomen and pelvis which was done at [facility] to review. If not, we will t [...] now.DD: Jeni Mcdowell MD 10/07/20 19:38 3 [place] [address] HISTORY AND PHYSICALNAME: SERA Cagle ROOM#: 100-1DATE OF : 1980 MR#: [id number] PHYS: Jen[facility]cdowell [id number] DATE: 10/07/20DT: SHELBY 10/08/20 09:45DS: Jeni Mcdowell MD 10/09/20 06:28 4 Name Value Range Interpretation Code Description Data Molly rce(s) Supporting Document(s) ID Date Data Source [id number] 10/09/2020 11:36:00 AM EDT [facility] Name Value Range Interpretation Code Description Data Molly rce(s) Supporting Document(s) Lipase [Enzymatic activity/volume] in Serum or Plasma 22 U/L 13 - 60 [facility] ID Date Data Source [id number] 10/09/2020 07:41:00 AM EDT [facility] Name Value Range Interpretation Code Description Data Molly rce(s) Supporting Document(s) COMPREHENSIVE METABOLIC PANEL [facility] COMPREHENSIVE METABOLIC PANEL Sodium [Moles/volume] in Serum or Plasma 143 mEq/L 134 - 153 [facility] Potassium [Moles/volume] in Serum or Plasma 4.1 mEq/L 3.6 - 5.0 [facility] Chloride [Moles/volume] in Serum or Plasma 112 mEq/L 98 - 107 H [facility] Carbon dioxide, total [Moles/volume] in Serum or Plasma 25 MEQ/L 22 - 30 [facility] Glucose [Mass/volume] in Serum or Plasma 88 MG/DL 70 - 99 [facility] BUN 4 MG/DL 7 - 21 [facility] Creatinine [Mass/volume] in Serum or Plasma 0.6 MG/DL 0.7 - 1.5 L [facility] BUN/CREAT 7 8 - 27 L [facility] al Protein [Mass/volume] in Serum or Plasma 5.5 G/DL 6.3 - 8.2 L [facility] Albumin [Mass/volume] in Serum or Plasma 3.2 G/DL 3.9 - 5.0 L [facility] Globulin [Mass/volume] in Serum by calculation 2.3 GM/DL 2.4 - 3.2 L [facility] A/G RATIO 1.4 0.8 - 2.0 [facility] Calcium [Mass/volume] in Serum or Plasma 8.6 MG/DL 8.4 - 10.2 [facility] Bilirubin.total [Mass/volume] in Serum or Plasma <0.7 MG/DL 0.2 - 1.3 [facility] Alkaline phosphatase [Enzymatic activity/volume] in Serum or Plasma 57 U/L 38 - 126 [facility] Aspartate aminotransferase [Enzymatic activity/volume] in Se rum or Plasma 9 U/L 5 - 40 [facility] Alanine aminotransferase [Enzymatic activity/volume] in Seru m or Plasma 15 U/L 7 - 56 [facility] Anion gap 3 in Serum or Plasma 6.0 mmol/L 8.0 - 16.0 L [facility]GE 39 [facility] GFR >60 mL/min [facility] ital AFR AMER GFR >60 mL/min [facility] spital Male GFR In terprentation [...] >32 mL/min Normal ID Date Data Source [id number] 10/09/2020 07:18:00 AM EDT [facility] Name Value Range Interpretation Code Description Data Molly rce(s) Supporting Document(s) CBC W/AUTOMATED DIFF [facility] COMPLETE BLOOD COUNT Leukocytes [#/volume] in Blood by Automated count 5.9 10^3/uL 4.2 - 1 1.0 [facility] Erythrocytes [#/volume] in Blood by Automated count 3.98 10^6/uL 4. 20 - 5.40 L [facility] Hemoglobin [Mass/volume] in Blood 11.0 g/dL 12.0 - 16.0 L [facility] Hematocrit [Volume Fraction] of Blood by Automated count 33.7 % 3 7.0 - 47.0 L [facility] Erythrocyte mean corpuscular volume [Entitic volume] by Auto mated count 84.7 fL 81.0 - 101 [facility] Erythrocyte mean corpuscular hemoglobin [Entitic mass] by Automated count 27.6 pg 27.0 - 34.0 [facility] Erythrocyte mean corpuscular hemoglobin concentration [Mass/volume] by Automated count 32.6 g/dL 31.0 - 36.0 [facility] Erythrocyte distribution width [Ratio] by Automated count 14.0 % 11.5 - 14.5 [facility] Platelets [#/volume] in Blood by Automated count 194 10^3/uL 150 - 45 0 [facility] Platelet mean volume [Entitic volume] in Blood by Automated count 10.6 fL 7.4 - 10.4 H [facility] Neutrophils/100 leukocytes in Blood by Automated count 55.2 % 37. 0 - 80.0 [facility] Lymphocytes/100 leukocytes in Blood by Manual count 36.7 % 25.0 - 40.0 [facility] Monocytes/100 leukocytes in Blood by Automated count 5.7 % 3.0 - 8.0 [facility] Eosinophils/100 leukocytes in Blood by Automated count 1.2 % 0.0 - 7.0 [facility] Basophils/100 leukocytes in Blood by Automated count 1.0 % 0.0 - 2.5 [facility] %IG 0.2 % 0.0 - 0.0 H [facility] al %NRBC 0.0 % 0.0 - 0.0 [facility] al Neutrophils [#/volume] in Blood by Automated count 3.27 10^3/uL 2.00 - 6.90 [facility] Lymphocytes [#/volume] in Blood by Automated count 2.17 10^3/uL 0.60 - 3.40 [facility] Monocytes [#/volume] in Blood by Automated count 0.34 10^3/uL 0.00 - 0.90 [facility] Eosinophils [#/volume] in Blood by Automated count 0.07 10^3/uL 0.00 - 0.70 [facility] Basophils [#/volume] in Blood by Automated count 0.06 10^3/uL 0.00 - 0.20 [facility] #IG 0.01 10^3/uL 0.00 - 0.10 [facility] H ospital #NRBC 0.00 10^3/uL 0.00 - 0.00 [facility] ospital MANUAL DIFF NOT INDICATED [facility] RBC MORPH NOT INDICATED [facility] spital ID Date Data Source [id number] 10/08/2020 11:08:00 PM EDT [facility] [address] [place] [address] RESPIRATORY CARE REPORT ==== ---------NAME------- NUMBER SEX AGE ADMIT DISC. XRAY# F/C TYPEDAMIO FITZGERALD C [id number] F 39 10/07/20 [id number] JB1 O/P DATE OF : 1980 M/R# [id number] #: [id number] 100-1 LOCATION: EMERGENCY DEPT [facility] [id number] COMP LETE:10/08/20 12:45 [facility] [address] PHYSICIAN: JULY ESCUDERO Name Value Range Interpretation Code Description Data Molly rce(s) Supporting Document(s) ID Date Data Source [id number] 10/08/2020 01:31:00 PM EDT [facility] Name Value Range Interpretation Code Description Data Molly rce(s) Supporting Document(s) TROPONIN T <0.01 NG/ML 0.00 - 0.10 [facility] ospital TROPONIN T0.1 ng/ml Recommended as the c linical threshold value forTroponin T. ID Date Data Source [id number] 10/08/2020 07:44:00 AM EDT [facility] Name Value Range Interpretation Code Description Data Molly rce(s) Supporting Document(s) CBC W/AUTOMATED DIFF [facility] COMPLETE BLOOD COUNT Leukocytes [#/volume] in Blood by Automated count 8.7 10^3/uL 4.2 - 1 1.0 [facility] Erythrocytes [#/volume] in Blood by Automated count 4.30 10^6/uL 4. 20 - 5.40 [facility] Hemoglobin [Mass/volume] in Blood 12.0 g/dL 12.0 - 16.0 [facility] Hematocrit [Volume Fraction] of Blood by Automated count 35.4 % 3 7.0 - 47.0 L [facility] Erythrocyte mean corpuscular volume [Entitic volume] by Auto mated count 82.3 fL 81.0 - 101 [facility] Erythrocyte mean corpuscular hemoglobin [Entitic mass] by Automated count 27.9 pg 27.0 - 34.0 [facility] Erythrocyte mean corpuscular hemoglobin concentration [Mass/volume] by Automated count 33.9 g/dL 31.0 - 36.0 [facility] Erythrocyte distribution width [Ratio] by Automated count 13.6 % 11.5 - 14.5 [facility] Platelets [#/volume] in Blood by Automated count 228 10^3/uL 150 - 45 0 [facility] Platelet mean volume [Entitic volume] in Blood by Automated count 10.2 fL 7.4 - 10.4 [facility] Neutrophils/100 leukocytes in Blood by Automated count 71.5 % 37. 0 - 80.0 [facility] Lymphocytes/100 leukocytes in Blood by Manual count 21.8 % 25.0 - 40.0 L [facility] Monocytes/100 leukocytes in Blood by Automated count 5.4 % 3.0 - 8.0 [facility] Eosinophils/100 leukocytes in Blood by Automated count 0.6 % 0.0 - 7.0 [facility] Basophils/100 leukocytes in Blood by Automated count 0.5 % 0.0 - 2.5 [facility] %IG 0.2 % 0.0 - 0.0 [facility] %NRBC 0.0 % 0.0 - 0.0 [facility] al Neutrophils [#/volume] in Blood by Automated count 6.20 10^3/uL 2.00 - 6.90 [facility] Lymphocytes [#/volume] in Blood by Automated count 1.89 10^3/uL 0.60 - 3.40 [facility] Monocytes [#/volume] in Blood by Automated count 0.47 10^3/uL 0.00 - 0.90 [facility] Eosinophils [#/volume] in Blood by Automated count 0.05 10^3/uL 0.00 - 0.70 [facility] Basophils [#/volume] in Blood by Automated count 0.04 10^3/uL 0.00 - 0.20 [facility] #IG 0.02 10^3/uL 0.00 - 0.10 [facility] ospital #NRBC 0.00 10^3/uL 0.00 - 0.00 [facility] o[facility]ital MANUAL DIFF NOT INDICATED [facility] RBC MORPH NOT INDICATED [facility] spital ID Date Data Source [id number] 10/08/2020 07:50:00 AM EDT [facility] Name Value Range Interpretation Code Description Data Molly rce(s) Supporting Document(s) COMPREHENSIVE METABOLIC PANEL [facility] COMPREHENSIVE METABOLIC PANEL Sodium [Moles/volume] in Serum or Plasma 140 mEq/L 134 - 153 [facility] Potassium [Moles/volume] in Serum or Plasma 3.5 mEq/L 3.6 - 5.0 L [facility] Chloride [Moles/volume] in Serum or Plasma 108 mEq/L 98 - 107 H [facility] Carbon dioxide, total [Moles/volume] in Serum or Plasma 25 MEQ/L 22 - 30 [facility] Glucose [Mass/volume] in Serum or Plasma 89 MG/DL 70 - 99 [facility] BUN 5 MG/DL 7 - 21 [facility] Creatinine [Mass/volume] in Serum or Plasma 0.6 MG/DL 0.7 - 1.5 L [facility] BUN/CREAT 8 8 - 27 [facility] al Protein [Mass/volume] in Serum or Plasma 5.8 G/DL 6.3 - 8.2 L [facility] Albumin [Mass/volume] in Serum or Plasma 3.5 G/DL 3.9 - 5.0 L [facility] Globulin [Mass/volume] in Serum by calculation 2.3 GM/DL 2.4 - 3.2 L [facility] A/G RATIO 1.5 0.8 - 2.0 [facility] Calcium [Mass/volume] in Serum or Plasma 8.6 MG/DL 8.4 - 10.2 [facility] Bilirubin.total [Mass/volume] in Serum or Plasma <0.7 MG/DL 0.2 - 1.3 [facility] Alkaline phosphatase [Enzymatic activity/volume] in Serum or Plasma 67 U/L 38 - 126 [facility] Aspartate aminotransferase [Enzymatic activity/volume] in Serum or Plasma 10 U/L 5 - 40 [facility] Alanine aminotransferase [Enzymatic activity/volume] in Seru m or Plasma 17 U/L 7 - 56 [facility] Anion gap 3 in Serum or Plasma 7.0 mmol/L 8.0 - 16.0 L [facility] AGE 39 yrs [facility] al NON-AA GFR >60 mL/min [facility] ital AFR AMER GFR >60 mL/min [facility] Ho spital Male GFR In terprentation [...] >32 mL/min Normal ID Date Data Source [id number] 10/08/2020 07:48:00 AM EDT [facility] Name Value Range Interpretation Code Description Data Molly rce(s) Supporting Document(s) Magnesium [Mass/volume] in Serum or Plasma 1.7 MG/DL 1.7 - 2.2 [facility] ID Date Data Source [id number] 10/08/2020 07:48:00 AM EDT [facility] Name Value Range Interpretation Code Description Data Molly rce(s) Supporting Document(s) Lipase [Enzymatic activity/volume] in Serum or Plasma 17 U/L 13 - 60 [facility] ID Date Data Source [id number] 10/08/2020 07:48:00 AM EDT [facility] Name Value Range Interpretation Code Description Data Molly rce(s) Supporting Document(s) Amylase [Enzymatic activity/volume] in Serum or Plasma 36 U/L 30 - 110 [facility] ID Date Data Source [id number] 10/08/2020 12:54:00 PM EDT [facility] Name Value Range Interpretation Code Description Data Molly rce(s) Supporting Document(s) TROPONIN T <0.01 NG/ML 0.00 - 0.10 [facility]ital TROPONIN T0.1 ng/ml Recommended as the c linical threshold value forTroponin T. ID Date Data Source [id number] 10/07/2020 12:46:00 PM EDT [facility] 1 OrderSheet [facility] Emergency Department [address] [place] [address] Phone #: ext- [phone] 10/07/2020 12:43 Patient: [...] Ack'd: 13:13 15:03 Álvaro Jha) Aletha Robles R.N. PA; R.N.Lactic Acid STAT 13:11 10/07/2020 13:13 Reilly Jha R.N.;COVID-19 CAH (Not STAT 16:01 10/07/2020 16:02 Yudelka,Symptomatic as Reilly Pompa R.N.Defined by [facility]) MARTITA;(10/03/2020) (FirstTest) (Hospitalized)(Not ) (NotResident inCongregate CareSetting) (NotEmployed inHealthcare Setting)DIAGNOSTIC STUDY ORDERSOrder Description Priority Entered Acknowledged InitialedMEDICATION/IV/DRIP/FLUID ORDERS 2 OrderSheet [facility] Emergency Department [address] [place] [address] Phone #: ext- [phone] 10/07/2020 12:43 Patient: [...] Aletha Jha R.N. (17:08 10/07/2020)] 3 OrderSheet [facility] Emergency Department [address] [place] [address] Phone #: ext- [phone] 10/07/2020 12:43 Patient: LIA HAY Sex: F : 1980 Age: 39y Name Value Range Interpretation Code Description Data Molly rce(s) Supporting Document(s) ID Date Data Source [id number] 10/07/2020 12:46:00 PM EDT [facility] 1 Medication Reconciliation Report [facility] Emergency Department [address] [place] [address] Phone #: ext- [phone] 10/07/2020 12:43 [...] administered: 14:17 10/07/2020 2 Medication Reconciliation Report [facility] Emergency Department [address] [place] [address] Phone #: ext- [phone] 10/07/2020 12:43 Patient: LIA HAY Sex: F [...] rce(s) Supporting Document(s) ID Date Data Source [id number] 10/07/2020 12:46:00 PM EDT [facility] 1 Medication Administration Record [facility] Emergency Department [address] [place] [address] Phone #: ext- [phone] 10/07/2020 12:43 Patient: [...] NS IV 1000 mL Bolus: : Bolus [id number] 10/07/2020 Dose: IV Fluids mL (X1)Aletha Jha, R.N. Bolus: 1000 mL wide open---- Dispensed: 1000 mL bagContinued Upon Admission Site: #1 left AC16:43 10/07/2020Aletha Jha R.N.Start Ofirmev * Ofirmev IV 1000 mg (NOW x1,13:40 10/07/2020 Dose: 1000mg * IV Infuse over 15 minutes)Aletha Jha R.N.----Stop13:55 10/07/2020Aletha Jha R.N.Given KCL LIQUID PO KCl Liquid PO 40 meq14:17 10/07/2020 Dose: 40 meq Oral Suspension Aletha East R.N.Start KCL [IVPB] KCl IVPB 10 meq/085nU97:17 10/07/2020 Dose: 10 meq IVPBAletha hJa R.N. Rate: 100 mL/hr---- Dispensed: 100 mL [...] rce(s) Supporting Document(s) ID Date Data Source [id number] 10/07/2020 12:46:00 PM EDT [facility] 1 General Instructions [facility] Emergency Department [address] [place] [address] Phone #: ext- [phone] 10/07/2020 12:43 Patient: LIA HAY Sex: F : 1980 Age: 39yIntractable vomiting with nausea and dehydration.Hypokalemia.(Electronically signed by MARTITA Maldonado 10/07/2020 21:41) Name Value Range Interpretation Code Description Data Molly rce(s) Supporting Document(s) ID Date Data Source [id number] 10/07/2020 12:46:00 PM EDT [facility] 1 Clinical Report - Nurses [facility] Emergency Department [address] [place] [address] Phone #: ext- [phone] 10/07/2020 12:43 Patient: [...] her 3rd ER visit, 2 previous at [facility], completed labs and CT, foundumbilical hernia, and [...] some orange stuff in it"). No diarrhea.Treatment INSURANCE SERVICE REPRESENTATIVE:Symptoms did not improve after treat ment. (Reglan [...] Hidalgo R.N.Allergies 2 Clinical Report - Nurses [facility] Emergency Department [address] [place] [address] Phone #: ext- [phone] 10/07/2020 12:43 ----- Patient: LIA HAY Sex: F : 1980 Age: 39ySulfa Antibiotics.(rash) --12:57 10/07/20 Stefany Hidalgo R.N.PROBLEMS:Hypertension.Gastroesophageal Reflux Disease.Irritable bowel syndrome (disorder).Vomiting.Chronic abdominal [...] factors identified. 3 Clinical Report - Nurses [facility] Emergency Department [address] [place] [address] Phone #: ext- [phone] 10/07/2020 12:43 [id number] Sex[facility] F : 1980 Age: 39y SKIN INTEGRITY ASSESSMENT: Skin integrity risk assessment completed. No skin integrity risk identified. --13:00 10/07/20 Stefany Hidalgo R.N. Interventions Identification band on patient. --13:10/07/20 Stefany Hidalgo R.N.PHYSICAL ASSESSMENTTo room via wheelchair.GENERAL [...] Saline lock flushed with 10 mL saline. --13:10/07/20 Aletha Jha R.N. 13:22 10/07/2020 Started bag [...] Jha R.N. 4 Clinical Report - Nurses [facility] Emergency Department [address] [place] [address] Phone #: ext- [phone] 10/07/2020 12:43 Patient: LIA HAY Sex: F : 1980 Age: 39y13:55 10/07/2020 Ofirmev IV Discontinued: bag #1 infused. Total amount infused: 100ml mL. IV patencyestablished. IV site checked: no pain, redness, or swelling. IV flushed thoroughly. --14:35 10/07/20Aletha Jha R.N.late entry - 14:00 10/07/20. clinical research monitor, NIBP monitor and pulse oximeter placed on [...] of the patient. --15:04 10/07/20 Aletha Jha R.N.15:05 10/07/2020 Zofran (Ondansetron HCl) IVP 8 mg [...] precautions andsedative warning. Verbalizes understanding. --15:11 10/07/20 Aletha Jha R.N.Monitoring of patient in place. Patient [...] Jha R.N. 5 Clinical Report - Nurses [facility] Emergency Department [address] [place] [address] Phone #: ext- [phone] 10/07/2020 12:43 Patient: [...] on room air. --16:57 10/07/20 Aletha Jha RTriciaNTricia 15:03 10/07/20. BP: 152/96. MAP: 114. HR: [...] 10/07/20. Departure time: 16:50 10/07/2020. Condition at [facility]: improved and stable. Disposition: observation. Transported via [...] acknowledged and care was transferred. (Karey MENA Keron). --17:01 10/07/20 Aletha Jha R.N. 16:45 10/07/20. BP: 151/96. MAP: 114. HR: 74. RR: 13. O2 saturation: 99% on room air. --17:01 10/07/20 Aletha Jha R.N. 16:45 10/07/20. Temp: 97.9 F (oral). Pain level now: 08/09. --17:08 10/07/20 Aletha Jha R.N.Locked/Released at 10/07/2020 17:08 by Aletha Jha R.N. 6 Clinical Report - Nurses [facility] Emergency Department [address] [place] [address] Phone #: ext- [phone] 10/07/2020 12:43 Patient: LIA HAY Sex: F : 1980 Age: 39y Name Value Range Interpretation Code Description Data Molly rce(s) Supporting Document(s) ID Date Data Source [id number] 10/07/2020 12:46:00 PM EDT [facility] 1 Clinical Report - Physicians/Mid Levels [facility] Emergency Department [address] [place] [address] Phone #: ext- [phone] 10/07/2020 12:43 Patient: [...] her 3rd ER visit, 2 previous at [facility], completed labs and CT, found umbilical hernia, [...] Ligation. 2 Clinical Report - Physicians/Mid Levels [facility] Emergency Department [address] [place] [address] Phone #: ext- [phone] 10/07/2020 12:43 Patient: [...] 101) 3 Clinical Report - Physicians/Mid Levels [facility] Emergency Department [address] [place] [address] Phone #: ext- [phone] 10/07/2020 12:43 Patient: [...] Male GFR Interprentation 20-49 yrs >60 mL/min Zvlklw28-94 yrs >56 mL/min Normal 60-69 yrs >49 mL/min Normal 70-79yrs>42 mL/min Normal 80 and above >35 mL/min Normal Female GFRInterpretation 20-39 yrs >60 mL/min Normal 40-49 yrs >58 mL/minNormal 50-59 yrs >51 mL/min Normal 60-69 yrs >45 mL/min Myvbio20-85 yrs >39 mL/min Normal 80 and above >32 mL/min NormalLipase: (CHERI: 10/07/2020 13:17) ( MsgRcvd 10/07/2020 13:52) Final results Test Result Flag Units (Reference) LIPASE 15 U/L (13 - 60) 4 Clinical Report - Physicians/Mid Levels [facility] Emergency Department [address] [place] [address] Phone #: ext- [phone] 10/07/2020 12:43 Patient: LIA HAY Sex: F : 1980 Age: 39y Urinalysis: (CHERI: 10/07/2020 14:50) ( [facility] 10/07/2020 15:19) Final results Test Result Flag [...] NONE Lactic Acid: (CHERI: 10/07/2020 13:17) ( [facility] 10/07/2020 13:37) Final results Test Result Flag Units (Reference) LACTIC ACID 1.5 MMOL/L (0.2 - 2.2).PROGRESS AND CO OCEDURESCourse of Care: 15:54 Apr 10 2020. [...] Hypokalemia. 5 Clinical Report - Physicians/Mid Levels [facility] Emergency Department [address] [place] [address] Phone #: ext- [phone] 10/07/2020 12:43 Patient: LIA HAY Sex: F : 1980 Age: 39y(Electronically signed by MARTITA Maldonado 10/07/2020 21:41) Name Value Range Interpretation Code Description Data Molly rce(s) Supporting Document(s) ID Date Data Source [id number] 10/14/2020 07:37:00 AM EDT [facility] Name Value Range Interpretation Code Description Data Molly rce(s) Supporting Document(s) CULTURE BLOOD [facility] Ho spital _CULTURE BLOOD_{ PRELIM TEST PERFORMED AT [facility] [address] [place] [address] CLIA# [id number] SEE SCANNED REPORT ID Date Data Source [id number] 10/13/2020 11:55:00 AM EDT [facility] [address] Name Value Range Interpretation Code Description Data Molly rce(s) Supporting Document(s) Bacteria identified in Blood by Culture [facility] NO GROWTH AFTER 5 DAYS ID Date Data Source [id number] 10/14/2020 07:37:00 AM EDT [facility] Name Value Range Interpretation Code Description Data Molly rce(s) Supporting Document(s) CULTURE BLOOD [facility] Ho spital _CULTURE BLOOD_{ PRELIM TEST PERFORMED AT [place] [place] [id number] [place] [address] CLIA# [id number] SEE SCANNED REPORT ID Date Data Source [id number] 10/07/2020 04:00:00 PM EDT [facility] Name Value Range Interpretation Code Description Data [facility] rce(s) Supporting Document(s) COVID19 Case rprt NOT DETECTED [facility] This lab was ordered by [facility] and reported by [facility]. ID Date Data Source [id number] 10/07/2020 04:44:00 PM EDT [facility] NOT DETECTEDNOT DETECTED{ PROC EDURAL CONTROL VALID KIT LOT # _[id number] 10/07/20.4.DW . KIT EXP DATE _93-21-37 10/07/20.4.DW . NORMAL RANGE IS NOT DETECTEDNEGATIVE RESULTS [...] rce(s) Supporting Document(s) ID Date Data Source [id number] 10/07/2020 03:18:00 PM EDT [facility] Name Value Range Interpretation Code Description Data [facility] rce(s) Supporting Document(s) URINALYSIS [facility] Hospi guerita URINALYSIS SOURCE Clean Catch [facility] Hosp ital COLOR yellow NORMAL: Yellow [facility] H ospital CLARITY hazy NORMAL: Clear [facility] sp[facility] Specific gravity of Urine by Test strip 1.010 1.001 - 1.030 [facility] pH 7 5 - 9 [facility] Gl[facility] [Mass/volume] in Urine by Test strip NORM NORMAL: Negat [facility] Bilirubin.total [Presence] in Urine by Test strip NEG NORMAL: Negative [facility] Ketones [Presence] in Urine by Test strip 50 NORMAL: Negative [facility] Protein [Mass/volume] in Urine by Test strip NEG NORMAL: Negat [facility] Nitrite [Presence] in Urine by Test strip NEG NORMAL: Negative [facility] BLOOD 250 NORMAL: Negative [facility] Leukocyte esterase [Presence] in Urine by Test strip 25 JUDY L: Negative [facility] Urobilinogen [Mass/volume] in Urine by Test strip NOR less yusuf n 1.0 mg/dL [facility] MICROSCOPIC See Below [facility] ital WBC 3 - 5 NORMAL: NONE SEEN [facility] Erythrocytes [#/volume] in Urine by Test strip 1 - 3 NORMAL: NON E SEEN [facility] EPITHELIAL MODERATE NORMAL: NONE SEEN [facility] Bacteria [Presence] in Urine sediment by Light microscopy 1+ SMALL NORMAL: NONE SEEN [facility] Mucus [Presence] in Urine sediment by Light microscopy Trace NORMAL: NONE SEEN [facility] ID Date Data Source [id number] 10/07/2020 01:55:00 PM EDT [facility] Name Value Range Interpretation Code Description Data Molly rce(s) Supporting Document(s) COMPREHENSIVE METABOLIC PANEL [facility] COMPREHENSIVE METABOLIC PANEL Sodium [Moles/volume] in Serum or Plasma 143 mEq/L 134 - 153 [facility] Potassium [Moles/volume] in Serum or Plasma 3.0 mEq/L 3.6 - 5.0 L [facility] Chloride [Moles/volume] in Serum or Plasma 104 mEq/L 98 - 107 [facility] Carbon dioxide, total [Moles/volume] in Serum or Plasma 26 MEQ/L 22 - 30 [facility] Glucose [Mass/volume] in Serum or Plasma 102 MG/DL 70 - 99 H [facility] BUN 8 MG/DL 7 - 21 [facility] al Creatinine [Mass/volume] in Serum or Plasma 0.8 MG/DL 0.7 - 1.5 [facility] BUN/CREAT 10 8 - 27 [facility] al Protein [Mass/volume] in Serum or Plasma 6.8 G/DL 6.3 - 8.2 [facility] Albumin [Mass/volume] in Serum or Plasma 4.2 G/DL 3.9 - 5.0 [facility] Globulin [Mass/volume] in Serum by calculation 2.6 GM/DL 2.4 - 3.2 [facility] A/G RATIO 1.6 0.8 - 2.0 [facility] Calcium [Mass/volume] in Serum or Plasma 9.3 MG/DL 8.4 - 10.2 [facility] Bilirubin.total [Mass/volume] in Serum or Plasma <0.7 MG/DL 0.2 - 1.3 [facility] Alkaline phosphatase [Enzymatic activity/volume] in Serum or Plasma 79 U/L 38 - 126 [facility] Aspartate aminotransferase [Enzymatic activity/volume] in Serum or Plasma 16 U/L 5 - 40 [facility] Alanine aminotransferase [Enzymatic activity/volume] in Seru m or Plasma 22 U/L 7 - 56 [facility] Anion gap 3 in Serum or Plasma 13.0 mmol/L 8.0 - 16.0 [facility] AGE 39 yrs [facility] al NON-AA GFR >60 mL/min [facility] ital AFR AMER GFR >60 mL/min [facility] Male GFR In terprentation [...] >32 mL/min Normal ID Date Data Source [id number] 10/07/2020 01:52:00 PM EDT [facility] Name Value Range Interpretation Code Description Data Molly rce(s) Supporting Document(s) Lipase [Enzymatic activity/volume] in Serum or Plasma 15 U/L 13 - 60 [facility] ID Date Data Source [id number] 10/07/2020 01:52:00 PM EDT [facility] Name Value Range Interpretation Code Description Data Molly rce(s) Supporting Document(s) CBC W/AUTOMATED DIFF [facility] COMPLETE BLOOD COUNT Leukocytes [#/volume] in Blood by Automated count 13.0 10^3/uL 4.2 - 11.0 H [facility] Erythrocytes [#/volume] in Blood by Automated count 4.90 10^6/uL 4. 20 - 5.40 [facility] Hemoglobin [Mass/volume] in Blood 13.6 g/dL 12.0 - 16.0 [facility] Hematocrit [Volume Fraction] of Blood by Automated count 40.1 % 3 7.0 - 47.0 [facility] Erythrocyte mean corpuscular volume [Entitic volume] by Auto mated count 81.8 fL 81.0 - 101 [facility] Erythrocyte mean corpuscular hemoglobin [Entitic mass] by Automated count 27.8 pg 27.0 - 34.0 [facility] Erythrocyte mean corpuscular hemoglobin concentration [Mass/volume] by Automated count 33.9 g/dL 31.0 - 36.0 [facility] Erythrocyte distribution width [Ratio] by Automated count 13.7 % 11.5 - 14.5 [facility] Platelets [#/volume] in Blood by Automated count 267 10^3/uL 150 - 45 0 [facility] Platelet mean volume [Entitic volume] in Blood by Automated count 10.3 fL 7.4 - 10.4 [facility] Neutrophils/100 leukocytes in Blood by Automated count 84.6 % 37. 0 - 80.0 H [facility] Lymphocytes/100 leukocytes in Blood by Manual count 10.9 % 25.0 - 40.0 L [facility] Monocytes/100 leukocytes in Blood by Automated count 3.1 % 3.0 - 8.0 [facility] Eosinophils/100 leukocytes in Blood by Automated count 0.5 % 0.0 - 7.0 [facility] Basophils/100 leukocytes in Blood by Automated count 0.5 % 0.0 - 2.5 [facility] %IG 0.4 % 0.0 - 0.0 [facility] %NRBC 0.0 % 0.0 - 0.0 [facility] Neutrophils [#/volume] in Blood by Automated count 11.03 10^3/uL 2. 00 - 6.90 H [facility] Lymphocytes [#/volume] in Blood by Automated count 1.42 10^3/uL 0.60 - 3.40 [facility] Monocytes [#/volume] in Blood by Automated count 0.40 10^3/uL 0.00 - 0.90 [facility] Eosinophils [#/volume] in Blood by Automated count 0.07 10^3/uL 0.00 - 0.70 [facility] Basophils [#/volume] in Blood by Automated count 0.06 10^3/uL 0.00 - 0.20 [facility] #IG 0.05 10^3/uL 0.00 - 0.10 [facility] ospital #NRBC 0.00 10^3/uL 0.00 - 0.00 [facility] MANUAL DIFF NOT INDICATED [facility] RBC MORPH NOT INDICATED [facility] ID Date Data Source [id number] 10/07/2020 01:37:00 PM EDT [facility] Name Value Range Interpretation Code Description Data Molly rce(s) Supporting Document(s) Lactate [Moles/volume] in Serum or Plasma 1.5 MMOL/L 0.2 - 2.2 [facility] ID Date Data Source [id number] 10/08/2020 10:19:00 AM EDT [facility] Name Value Range Interpretation Code Description Data Molly rce(s) Supporting Document(s) CULTURE URINE [facility] sp[facility] _CULTURE URINE_$$[id number]$$[id number]$$[id number]$$[id number]$$[id number]$$[id number]$$[id number]$$189837$$102041$$ 980204$$465873$$311481$$157101$$747581$$798863$$010483$$240452$$719720$$003105$$ 096534$$708173$$888535$$536453$$038489$$886361$$702761$$[id number] -- Continued on next page --Patient: SERA Cagle Order: [id number] Page 2Culture: CULTURE URINE Status: Final ====$$[id number]$$[id number] DATE/TIME: 10/08/2020 08:06Culture: CULTURE URINE Status: FinalUrine Culture,Comprehensive: [id number] urogenital flora10,000-25,000 colony forming units per mLP1 Test performed by: [facility] #: [id number] [address] [place] [id number] [facility] [id number] Director : Erwin Coley MD NPI #:Business Consult : 10/08/20.1019.XMT.SENT REF ID Date Data Source [id number] 10/05/2020 07:20:00 AM EDT [facility] Name Value Range Interpretation Code Description Data Molly rce(s) Supporting Document(s) COMPREHENSIVE METABOLIC PANEL [facility] COMPREHENSIVE METABOLIC PANEL Sodium [Moles/volume] in Serum or Plasma 139 mEq/L 134 - 153 [facility] Potassium [Moles/volume] in Serum or Plasma 3.3 mEq/L 3.6 - 5.0 L [facility] Chloride [Moles/volume] in Serum or Plasma 103 mEq/L 98 - 107 [facility] Carbon dioxide, total [Moles/volume] in Serum or Plasma 22 MEQ/L 22 - 30 [facility] Glucose [Mass/volume] in Serum or Plasma 113 MG/DL 70 - 99 H [facility] BUN 12 MG/DL 7 - 21 [facility] Creatinine [Mass/volume] in Serum or Plasma 0.6 MG/DL 0.7 - 1.5 L [facility] BUN/CREAT 20 8 - 27 [facility] al Protein [Mass/volume] in Serum or Plasma 7.7 G/DL 6.3 - 8.2 [facility] Albumin [Mass/volume] in Serum or Plasma 4.4 G/DL 3.9 - 5.0 [facility] Globulin [Mass/volume] in Serum by calculation 3.3 GM/DL 2.4 - 3.2 H [facility] A/G RATIO 1.3 0.8 - 2.0 [facility] Calcium [Mass/volume] in Serum or Plasma 9.2 MG/DL 8.4 - 10.2 [facility] Bilirubin.total [Mass/volume] in Serum or Plasma <0.7 MG/DL 0.2 - 1.3 [facility] Alkaline phosphatase [Enzymatic activity/volume] in Serum or Plasma 85 U/L 38 - 126 [facility] Aspartate aminotransferase [Enzymatic activity/volume] in Serum or Plasma 14 U/L 5 - 40 [facility] Alanine aminotransferase [Enzymatic activity/volume] in Seru m or Plasma 14 U/L 7 - 56 [facility] Anion gap 3 in Serum or Plasma 14.0 mmol/L 8.0 - 16.0 [facility] AGE 39 yrs [facility] al NON-AA GFR >60 mL/min [facility] ital AFR AMER GFR >60 mL/min [facility] spital Male GFR In terprentation [...] >32 mL/min Normal ID Date Data Source [id number] 10/05/2020 06:15:00 AM EDT [facility] Name Value Range Interpretation Code Description Data Molly rce(s) Supporting Document(s) Lipase [Enzymatic activity/volume] in Serum or Plasma 16 U/L 13 - 60 [facility] ID Date Data Source [id number] 10/05/2020 06:07:00 AM EDT [facility] Name Value Range Interpretation Code Description Data Molly rce(s) Supporting Document(s) URINALYSIS [facility] guerita URINALYSIS SOURCE Clean Catch [facility] ital COLOR yellow NORMAL: Yellow [facility] CLARITY hazy NORMAL: Clear [facility] [facility] Specific gravity of Urine by Test strip 1.030 1.001 - 1.030 [facility] pH 5 5 - 9 [facility] Gl[facility] [Mass/volume] in Urine by Test strip NORM NORMAL: Negat roland [facility] Bilirubin.total [Presence] in Urine by Test strip NEG NORMAL: Negative [facility] Ketones [Presence] in Urine by Test strip 150 NORMAL: Negative [facility] Protein [Mass/volume] in Urine by Test strip 100 NORMAL: Negat roland [facility] Nitrite [Presence] in Urine by Test strip NEG NORMAL: Negative [facility] BLOOD 150 NORMAL: Negative [facility] Leukocyte esterase [Presence] in Urine by Test strip 25 JUDY L: Negative [facility] Urobilinogen [Mass/volume] in Urine by Test strip 1 less yusuf n 1.0 mg/dL [facility] MICROSCOPIC See Below [facility] WBC 3 - 5 NORMAL: NONE SEEN [facility] Erythrocytes [#/volume] in Urine by Test strip 0 - 1 NORMAL: NON E SEEN [facility] EPITHELIAL MODERATE NORMAL: NONE SEEN A [facility] Bacteria [Presence] in Urine sediment by Light microscopy 2+ MOD NORMAL: NONE SEEN [facility] Mucus [Presence] in Urine sediment by Light microscopy None Seen NORMAL: NONE SEEN [facility] ID Date Data Source [id number] 10/05/2020 06:04:00 AM EDT [facility] Name Value Range Interpretation Code Description Data Molly rce(s) Supporting Document(s) HCG SERUM QUAL NEGATIVE NORMAL: NEGATIVE [facility] HCG SERUM QL REENTER NEGATIVE NORMAL: NEGATIVE [id number] ){ KIT EXP DATE [id number] ){ PROCEDURAL CONTROL VALID ) ID Date Data Source [id number] 10/05/2020 06:03:00 AM EDT [facility] Name Value Range Interpretation Code Description Data Molly rce(s) Supporting Document(s) Lactate [Moles/volume] in Serum or Plasma 2.2 MMOL/L 0.2 - 2.2 [facility] ID Date Data Source [id number] 10/05/2020 06:02:00 AM EDT [facility] Name Value Range Interpretation Code Description Data Molly rce(s) Supporting Document(s) CBC W/AUTOMATED DIFF [facility] COMPLETE BLOOD COUNT Leukocytes [#/volume] in Blood by Automated count 13.3 10^3/uL 4.2 - 11.0 H [facility] Erythrocytes [#/volume] in Blood by Automated count 5.27 10^6/uL 4. 20 - 5.40 [facility] Hemoglobin [Mass/volume] in Blood 14.4 g/dL 12.0 - 16.0 [facility] Hematocrit [Volume Fraction] of Blood by Automated count 43.7 % 3 7.0 - 47.0 [facility] Erythrocyte mean corpuscular volume [Entitic volume] by Auto mated count 82.9 fL 81.0 - 101 [facility] Erythrocyte mean corpuscular hemoglobin [Entitic mass] by Automated count 27.3 pg 27.0 - 34.0 [facility] Erythrocyte mean corpuscular hemoglobin concentration [Mass/volume] by Automated count 33.0 g/dL 31.0 - 36.0 [facility] Erythrocyte distribution width [Ratio] by Automated count 14.4 % 11.5 - 14.5 [facility] Platelets [#/volume] in Blood by Automated count 288 10^3/uL 150 - 45 0 [facility] Platelet mean volume [Entitic volume] in Blood by Automated count 10.2 fL 7.4 - 10.4 [facility] Neutrophils/100 leukocytes in Blood by Automated count 85.4 % 37. 0 - 80.0 H [facility] Lymphocytes/100 leukocytes in Blood by Manual count 10.6 % 25.0 - 40.0 L [facility] Monocytes/100 leukocytes in Blood by Automated count 2.2 % 3.0 - 8.0 L [facility] Eosinophils/100 leukocytes in Blood by Automated count 1.1 % 0.0 - 7.0 [facility] Basophils/100 leukocytes in Blood by Automated count 0.4 % 0.0 - 2.5 [facility] %IG 0.3 % 0.0 - 0.0 H [facility] %NRBC 0.0 % 0.0 - 0.0 [facility] Neutrophils [#/volume] in Blood by Automated count 11.38 10^3/uL 2. 00 - 6.90 H [facility] Lymphocytes [#/volume] in Blood by Automated count 1.42 10^3/uL 0.60 - 3.40 [facility] Monocytes [#/volume] in Blood by Automated count 0.30 10^3/uL 0.00 - 0.90 [facility] Eosinophils [#/volume] in Blood by Automated count 0.15 10^3/uL 0.00 - 0.70 [facility] Basophils [#/volume] in Blood by Automated count 0.05 10^3/uL 0.00 - 0.20 [facility] #IG 0.04 10^3/uL 0.00 - 0.10 [facility] #NRBC 0.00 10^3/uL 0.00 - 0.00 [facility] MANUAL DIFF NOT INDICATED [facility] RBC MORPH NOT INDICATED [facility] ID Date Data Source H PYLORI SERUM QUANT IgG MYNOR 07/31/2020 12:00:00 AM EST eCW1 ([facility]) Name Value Range Interpretation Code Description Data Molly rce(s) Supporting Document(s) 0.79 0.00-0.79 eCW1 ([facility]) ID Date Data Source H PYLORI SERUM QUANT IGM 07/31/2020 12:00:00 AM EST eCW1 ([facility]) Name Value Range Interpretation Code Description Data Molly rce(s) Supporting Document(s) <9.0 0.0-8.9 eCW1 ([facility]) ID Date Data Source LIPID PANEL (CARDIAC RISK) 07/31/2020 12:00:00 AM EST eCW1 ( [facility]) Name Value Range Interpretation Code Description Data Molly rce(s) Supporting Document(s) Triglyceride [Mass/volume] in Serum or Plasma by calculation 297 <150 TRIGLYCERIDES LEVEL eCW1 ([facility]) Cholesterol in HDL [Moles/volume] in Serum or Plasma 30 >40 HDL CHOLESTEROL eCW1 ([facility]) Cholesterol [Moles/volume] in Serum or Plasma 205 <200 CHOLESTEROL LEVEL eCW1 ([facility]) Cholesterol in LDL [Mass/volume] in Serum or Plasma by calculation 116 <100 LDL CHOLESTEROL eCW1 ([facility]) 6.833 <5 CHOLESTEROL RISK RATIO eCW1 ([facility]) 175 NON-HDL-C eCW1 ([facility]) ID Date Data Source [id number] 07/31/2020 12:00:00 AM EST eCW1 [facility] Name Value Range Interpretation Code Description Data Molly rce(s) Supporting Document(s) Hemoglobin A1c/Hemoglobin.total in Blood 5.4 eCW1 ([facility]) ID Date Data Source FREE T4 & TSH PANEL 07/31/2020 12:00:00 AM EST eCW1 ([facility]) Name Value Range Interpretation Code Description Data Molly rce(s) Supporting Document(s) 1.520 0.358-3.740 THYROID STIMULATING HORM ONE eCW1 ([facility]) 0.79 0.76-1.46 FREE T4 eCW1 ([facility]) ID Date Data Source Comprehensive Metabolic Profile (CMP) 07/31/2020 12:00:00 AM EST eCW1 ([facility]) Name Value Range Interpretation Code Description Data Molly rce(s) Supporting Document(s) 10 7-18 BLOOD UREA NITROGEN eCW1 ([facility]) 91 70-100 GLUCOSE, FASTING eCW1 ([facility]) 0.77 0.55-1.30 CREATININE FOR GFR eCW1 ([facility]) 142 136-145 SODIUM LEVEL eCW1 ([facility]) > 60.0 >60 GLOMERULAR FILTRATION RATE eCW 1 ([facility]) 4.3 3.5-5.1 POTASSIUM SERUM eCW1 ([facility]) 9.4 8.5-10.1 CALCIUM LEVEL eCW1 ([facility]) 30 21-32 CARBON DIOXIDE LEVEL eCW1 ([facility]) 107 98-107 CHLORIDE LEVEL eCW1 ([facility]) 12 7-37 AST/SGOT eCW1 ([facility]) 17 12-78 ALT/SGPT eCW1 ([facility]) 84 45-117 ALKALINE PHOSPHATASE eCW1 ([facility]) 0.1 0.2-1.0 BILIRUBIN,TOTAL eCW1 ([facility]) 7.4 6.4-8.2 TOTAL PROTEIN eCW1 ([facility]) 3.7 3.2-5.2 ALBUMIN eCW1 ([facility]) 1.0 1.2-2.2 ALBUMIN/GLOBULIN RATIO eCW1 ([facility]) ID Date Data Source CBC - Complete Blood Count 07/31/2020 12:00:00 AM EST eCW1 ( [facility]) Name Value Range Interpretation Code Description Data Molly rce(s) Supporting Document(s) 5.14 4.00-5.40 eCW1 ([facility]) 6.8 4.0-10.0 eCW1 ([facility]) 13.5 12.0-15.5 eCW1 ([facility]) 26.3 27.0-33.0 eCW1 ([facility]) 30.5 32.0-36.5 eCW1 ([facility]) 86.2 80.0-96.0 eCW1 ([facility]) 44.3 36.0-47.0 eCW1 ([facility]) 212 150-450 eCW1 ([facility]) 14.0 11.5-14.5 eCW1 ([facility]) ID Date Data Source [id number] 07/11/2020 10:00:00 AM EST [facility] Name Value Range Interpretation Code Description Data Molly rce(s) Supporting Document(s) SARS coronavirus 2 RNA Not Detected [facility] [place] This lab was ordered by [facility] and reported by [facility]. ID Date Data Source [id number] 05/31/2020 11:15:00 AM EST [facility] Name Value Range Interpretation Code Description Data Molly rce(s) Supporting Document(s) SARS coronavirus 2 RNA [facility] This lab was ordered by [facility] and reported by [facility]. Procedure Social History Code Duration Value Status Description Data Source(s ) Smoking 12/25/2020 12:00:00 AM EDT Former Smoker completed Former Smoker eCW1 ([facility]) Smoking 12/25/2020 12:00:00 AM EDT Former Smoker completed Former Smoker eCW1 ([facility]) Smoking 12/25/2020 12:00:00 AM EDT Former Smoker completed Former Smoker eCW1 ([facility]) Smoking 12/25/2020 12:00:00 AM EDT Former Smoker completed Former Smoker eCW1 ([facility]) Smoking 12/25/2020 12:00:00 AM EDT Former Smoker completed Former Smoker eCW1 ([facility]) Smoking 12/05/2020 12:00:00 AM EDT Former Smoker completed Former Smoker eCW1 ([facility]) Smoking 09/12/2020 12:00:00 AM EDT Former Smoker completed Former Smoker eCW1 ([facility]) Smoking 09/12/2020 12:00:00 AM EDT Former Smoker completed Former Smoker eCW1 ([facility]) Smoking 09/12/2020 12:00:00 AM EDT Former Smoker completed Former Smoker eCW1 ([facility]) Smoking 09/12/2020 12:00:00 AM EDT Former Smoker completed Former Smoker eCW1 ([facility]) Smoking 09/12/2020 12:00:00 AM EDT Former Smoker completed Former Smoker eCW1 ([facility]) Smoking 09/12/2020 12:00:00 AM EDT Former Smoker completed Former Smoker eCW1 ([facility]) Smoking 09/12/2020 12:00:00 AM EDT Former Smoker completed Former Smoker eCW1 ([facility]) Smoking 09/12/2020 12:00:00 AM EDT Former Smoker completed Former Smoker eCW1 ([facility]) Smoking 09/12/2020 12:00:00 AM EDT Former Smoker completed Former Smoker eCW1 ([facility]) Smoking 09/12/2020 12:00:00 AM EDT Former Smoker completed Former Smoker eCW1 ([facility]) Smoking 09/12/2020 12:00:00 AM EDT Former Smoker completed Former Smoker eCW1 ([facility]) Smoking 07/31/2020 12:00:00 AM EST Former Smoker completed Former Smoker eCW1 ([facility]) Smoking 07/31/2020 12:00:00 AM EST Former Smoker completed Former Smoker eCW1 ([facility]) Smoking 07/31/2020 12:00:00 AM EST Former Smoker completed Former Smoker eCW1 ([facility]) Smoking 07/31/2020 12:00:00 AM EST Former Smoker completed Former Smoker eCW1 ([facility]) Smoking 07/31/2020 12:00:00 AM EST Former Smoker completed Former Smoker eCW1 ([facility]) Smoking 07/19/2020 12:00:00 AM EST Former Smoker completed Former Smoker eCW1 ([facility]) Smoking 06/26/2020 12:00:00 AM EST Former Smoker completed Former Smoker eCW1 ([facility]) Smoking 06/26/2020 12:00:00 AM EST Former Smoker completed Former Smoker eCW1 ([facility]) Smoking 06/26/2020 12:00:00 AM EST Former Smoker completed Former Smoker eCW1 ([facility]) Smoking 06/26/2020 12:00:00 AM EST Former Smoker completed Former Smoker eCW1 ([facility]) Smoking 06/26/2020 12:00:00 AM EST Former Smoker completed Former Smoker eCW1 ([facility]) Smoking 04/24/2020 12:00:00 AM EDT Patient is a former smoker completed Patient is a former smoker MEDENT ([facility]) Smoking 03/15/2020 12:00:00 AM EDT Patient is a former smoker completed Patient is a former smoker MEDENT ([facility], [facility]) Vital Signs ID Date Data Source UNK Name Value Range Interpretation Code Description Data Source(s) Body mass index (BMI) [Ratio] 29.64 kg/m2 29.64 kg/m2 eCW1 ([facility]) Body weight 170 [lb_av] 170 [lb_av] eCW1 ([facility] Heart rate 74 /min 74 /min eCW1 ([facility]) Body height 63.5 [in_i] 63.5 [in_i] eCW1 ([facility]) Diastolic blood pressure 82 mm[Hg] 82 mm[Hg] eCW1 ([facility]) Respiratory rate 18 /min 18 /min eCW1 ([facility]) Body temperature 99.9 [degF] 99.9 [degF] eCW1 ( [facility]) Systolic blood pressure 124 mm[Hg] 124 mm[Hg] e CW1 ([facility]) Body weight 170.8 [lb_av] 170.8 [lb_av] eCW1 ([facility]) Body height 63.5 [in_i] 63.5 [in_i] eCW1 ([facility]) Body mass index (BMI) [Ratio] 29.78 kg/m2 29.78 kg/m2 eCW1 ([facility]) Respiratory rate 18 /min 18 /min eCW1 ([facility]) Body temperature 97.5 [degF] 97.5 [degF] eCW1 ( [facility]) Systolic blood pressure 120 mm[Hg] 120 mm[Hg] e CW1 ([facility]) Diastolic blood pressure 74 mm[Hg] 74 mm[Hg] eCW1 ([facility]) Heart rate 95 /min 95 /min eCW1 ([facility]) Systolic blood pressure 118 mm[Hg] 118 mm[Hg] M EDENT ([facility]) Body weight 170.00 [lb_av] 170.00 [lb_av] MEDEN T ([facility]) Body weight 77.112 kg 77.112 kg [facility] Body mass index (BMI) [Ratio] 30.1 kg/m2 30.1 k g/m2 MEDENT ([facility]) [place] body weight 115 [lb_av] 115 [lb_av] MEDEN T ([facility]) Diastolic blood pressure 64 mm[Hg] 64 mm[Hg] MEDENT ([facility]) Body height 63 [in_i] 63 [in_i] [facility] ([facility]) 5'3" Body surface area Derived from formula 1.80 m2 1.80 m2 [facility] ([facility]) Body weight 173 [lb_av] 173 [lb_av] eCW1 ([facility]) Body height 63.5 [in_i] 63.5 [in_i] eCW1 ([facility]) Body mass index (BMI) [Ratio] 30.16 kg/m2 30.16 kg/m2 W1 ([facility]) Heart rate 92 /min 92 /min eCW1 ([facility]) Respiratory rate 18 /min 18 /min eCW1 ([facility]) Body temperature 96.6 [degF] 96.6 [degF] eCW1 ( [facility]) Systolic blood pressure 128 mm[Hg] 128 mm[Hg] e CW1 ([facility]) Diastolic blood pressure 82 mm[Hg] 82 mm[Hg] eCW1 ([facility]) Body weight 180.0 [lb_av] 180.0 [lb_av] eCW1 ([facility]) Body height 63.5 [in_i] 63.5 [in_i] eCW1 ([facility]) Body mass index (BMI) [Ratio] 31.38 kg/m2 31.38 kg/m2 eCW1 ([facility]) Heart rate 103 /min 103 /min eCW1 ([facility]) Respiratory rate 18 /min 18 /min eCW1 ([facility]) Body temperature 97.4 [degF] 97.4 [degF] eCW1 ( [facility]) Systolic blood pressure 138 mm[Hg] 138 mm[Hg] e CW1 ([facility]) Diastolic blood pressure 90 mm[Hg] 90 mm[Hg] eCW1 ([facility]) Body weight 189 [lb_av] 189 [lb_av] eCW1 ([facility]) Body height 63.5 [in_i] 63.5 [in_i] eCW1 ([facility]) Body mass index (BMI) [Ratio] 32.95 kg/m2 32.95 kg/m2 eCW1 ([facility]) Heart rate 92 /min 92 /min eCW1 ([facility]) Respiratory rate 18 /min 18 /min eCW1 ([facility]) Body temperature 96.7 [degF] 96.7 [degF] eCW1 ( [facility]) Systolic blood pressure 138 mm[Hg] 138 mm[Hg] e CW1 ([facility]) Diastolic blood pressure 80 mm[Hg] 80 mm[Hg] eCW1 ([facility]) Body weight 190.2 [lb_av] 190.2 [lb_av] eCW1 ([facility]) Body height 63.5 [in_i] 63.5 [in_i] eCW1 ([facility]) Body mass index (BMI) [Ratio] 33.16 kg/m2 33.16 kg/m2 eCW1 ([facility]) Heart rate 112 /min 112 /min eCW1 ([facility]) Respiratory rate 18 /min 18 /min eCW1 ([facility]) Body temperature 98 [degF] 98 [degF] eCW1 ([facility]) Systolic blood pressure 144 mm[Hg] 144 mm[Hg] e CW1 ([facility]) Diastolic blood pressure 88 mm[Hg] 88 mm[Hg] eCW1 ([facility]) Body weight 199 [lb_av] 199 [lb_av] eCW1 ([facility] Body height 63.5 [in_i] 63.5 [in_i] eCW1 ([facility]) Body mass index (BMI) [Ratio] 34.69 kg/m2 34.69 kg/m2 eCW1 ([facility]) Heart rate 85 /min 85 /min eCW1 ([facility]) Respiratory rate 18 /min 18 /min eCW1 ([facility]) Body temperature 96.1 [degF] 96.1 [degF] eCW1 ( [facility]) Systolic blood pressure 142 mm[Hg] 142 mm[Hg] e CW1 ([facility]) Diastolic blood pressure 80 mm[Hg] 80 mm[Hg] eCW1 ([facility]) Body temperature 97.0 [degF] 97.0 [degF] MEDENT ([facility] ) Body mass index (BMI) [Ratio] 35.0 kg/m2 35.0 k g/m2 MEDENT ([facility] ) Body height 63 [in_i] 63 [in_i] MEDENT ([facility] ) 5'3" Body weight 197.50 [lb_av] 197.50 [lb_av] MEDEN T ([facility] ) Systolic blood pressure 130 mm[Hg] 130 mm[Hg] M EDENT ([facility], [facility]) Diastolic blood pressure 91 mm[Hg] 91 mm[Hg] MEDENT ([facility], [facility]) Heart rate 74 /min 74 /min MEDENT ([facility], [facility]) Respiratory rate 14 /min 14 /min MEDENT ( [facility] [place], [facility]) Oxygen saturation in Arterial blood by Pulse oximetry 99 % 99 % MEDENT ([facility] [place], [facility]) Body temperature 98.7 [degF] 98.7 [degF] MEDENT ([facility], [facility]) Body weight 200.00 [lb_av] 200.00 [lb_av] [facility] ([facility], [facility]) Body height 63 [in_i] 63 [in_i] ANGELLA ([facility]) 5'3" Body mass index (BMI) [Ratio] 35.4 kg/m2 35.4 k g/m2 ANGELLA ([facility], [facility]) ID Date Data Source [id number] 04/09/2021 07:55:20 AM EDT [facility] Name Value Range Interpretation Code Description Data Source(s) WEIGHT RECORDED 155 lb 155 lb [facility] Body height Measured 63 in 63 in [facility] ID Date Data Source [id number] [facility] Interpretation Code Description Data Source(s) WEIGHT RECORDED 156.00 pounds 156.00 pounds [facility] Height 63 Inches 063 Inches [facility] ID Date Data Source [id number] 10/27/2020 12:42:41 PM EDT [facility] Name Value Range Interpretation Code Description Data Source(s) WEIGHT RECORDED 172.20 pounds 172.20 pounds [facility] Height 63 Inches 063 Inches [facility] Patient Treatment Plan of Care Planned Activity Planned Date Details Description Data Source (s) Ondansetron 4 MG Oral Tablet [Zofran] 08/01/2020 12:00:00 AM EST eCW1 ([facility]) buspirone hydrochloride 7.5 MG Oral Tablet 08/01/2020 12:00:[address] eCW1 ([facility]) Paroxetine 20 MG Oral Tablet [Paxil] 08/01/2020 12:00:00 AM EST eCW1 ([facility]) Ondansetron 4 MG Oral Tablet [Zofran] 08/01/2020 12:00:00 AM EST eCW1 ([facility]) buspirone hydrochloride 7.5 MG Oral Tablet 08/01/2020 12:00:[address] eCW1 ([facility]) Paroxetine 20 MG Oral Tablet [Paxil] 08/01/2020 12:00:00 AM EST eCW1 ([facility]) Ondansetron 4 MG Oral Tablet [Zofran] 08/01/2020 12:00:00 AM EST eCW1 ([facility]) buspirone hydrochloride 7.5 MG Oral Tablet 08/01/2020 12:00:[address] eCW1 ([facility]) Paroxetine 20 MG Oral Tablet [Paxil] 08/01/2020 12:00:00 AM EST eCW1 ([facility]) Ondansetron 4 MG Oral Tablet [Zofran] 08/01/2020 12:00:00 AM EST eCW1 ([facility]) buspirone hydrochloride 7.5 MG Oral Tablet 08/01/2020 12:00:[address] eCW1 ([facility]) Paroxetine 20 MG Oral Tablet [Paxil] 08/01/2020 12:00:00 AM EST eCW1 ([facility]) Ondansetron 4 MG Oral Tablet [Zofran] 08/01/2020 12:00:00 AM EST eCW1 ([facility]) buspirone hydrochloride 7.5 MG Oral Tablet 08/01/2020 12:00:[address] eCW1 ([facility]) Ondansetron 4 MG Oral Tablet [Zofran] 08/01/2020 12:00:00 AM EST eCW1 ([facility]) Ondansetron 4 MG Oral Tablet [Zofran] 08/01/2020 12:00:00 AM EST eCW1 ([facility]) Paroxetine 20 MG Oral Tablet [Paxil] 08/01/2020 12:00:00 AM EST eCW1 ([facility]) Ondansetron 4 MG Oral Tablet [Zofran] 08/01/2020 12:00:00 AM EST eCW1 ([facility]) 200 ACTUAT Albuterol 0.09 MG/ACTUAT Metered Dose Inhal er [ProAir] 07/19/2020 12:00:00 AM EST eCW1 ([facility]) Fluconazole 150 MG Oral Tablet [Diflucan] 07/19/2020 12:00:00 AM ES T eCW1 ([facility]) Augmentin 875-125 MG 07/19/2020 12:00:00 AM EST eCW1 ([facility]) benzonatate 200 MG Oral Capsule 07/19/2020 12:00:00 AM EST eCW1 ([facility]) valacyclovir 1000 MG Oral Tablet [Valtrex] 06/26/2020 12:00:[address] eCW1 ([facility]) valacyclovir 1000 MG Oral Tablet [Valtrex] 06/26/2020 12:00:[address] eCW1 ([facility]) valacyclovir 1000 MG Oral Tablet [Valtrex] 06/26/2020 12:00:[address] eCW1 ([facility]) valacyclovir 1000 MG Oral Tablet [Valtrex] 06/26/2020 12:00:[address] eCW1 ([facility]) valacyclovir 1000 MG Oral Tablet [Valtrex] 06/26/2020 12:00:[address] eCW1 ([facility])
[2021-04-11 15:34] LABS: BASO # 0.1 10^3/uL (0.0-0.2); BASO % 0.6 % (0.0-1.0); EOS % 0.2 % (0.0-3.0); HEMATOCRIT 39.7 % (36.0-47.0); LYMPH # 1.6 10^3/uL (1.5-5.0); LYMPH % 16.7 % (24.0-44.0); MEAN CORPUSCULAR HEMOGLOBIN 27.3 pg (27.0-33.0); MEAN CORPUSCULAR HGB CONC 32.7 g/dl (32.0-36.5); MEAN CORPUSCULAR VOLUME 83.4 fl (80.0-96.0); MONO # 0.5 10^3/uL (0.0-0.8); MONO % 4.9 % (2.0-8.0); NEUTROPHILS # 7.4 10^3/uL (1.5-8.5); NEUTROPHILS % 77.3 % (36.0-66.0); PLATELET COUNT, AUTOMATED 224 10^3/uL (150-450); RED BLOOD COUNT 4.76 10^6/uL (4.00-5.40); WHITE BLOOD COUNT 9.6 10^3/uL (4.0-10.0)
[2021-04-11 15:57] LABS: ALBUMIN 3.5 GM/DL (3.2-5.2); ALT/SGPT 22 U/L (12-78); BILIRUBIN,TOTAL 0.4 MG/DL (0.2-1.0); BLOOD UREA NITROGEN 6 MG/DL (7-18); CALCIUM LEVEL 9.2 MG/DL (8.5-10.1); CARBON DIOXIDE LEVEL 29 MEQ/L (21-32); CHLORIDE LEVEL 107 MEQ/L (98-107); CK-MB VALUE MASS < 1.0 NG/ML (<3.6); CPK CREATINE PHOSPHOKINASE 102 U/L (26-192); CREATININE FOR GFR 0.92 MG/DL (0.55-1.30); GLOMERULAR FILTRATION RATE > 60.0 (>60); GLUCOSE, FASTING 87 MG/DL (70-100); LIPASE 55 U/L (73-393); MB/CK RELATIVE INDEX 0.98 (< OR =4); POTASSIUM SERUM 3.4 MEQ/L (3.5-5.1); SODIUM LEVEL 142 MEQ/L (136-145); TOTAL PROTEIN 7.6 GM/DL (6.4-8.2); TROPONIN I < 0.02 NG/ML (< 0.10)
[2021-04-11 17:31] LABS: AMPHETAMINES LEVEL URINE NEGATIVE (NEGATIVE); BARBITURATES URINE NEGATIVE (NEGATIVE); BENZODIAZEPINES URINE NEGATIVE (NEGATIVE); CANNABINOIDS URINE POSITIVE (NEGATIVE); COCAINE METABOLITE URINE NEGATIVE (NEGATIVE); METHADONE URINE NEGATIVE (NEGATIVE); OPIATES URINE NEGATIVE (NEGATIVE); PHENCYCLIDINE URINE NEGATIVE (NEGATIVE)
[2021-04-11] MEDS ORDERED: HALOPERIDOL 5MG/ML VIAL (J1630 PER 1) IV ONE (18:00)
[2021-04-11 18:47] VITALS: BP 157/97
--- NOTE | 2021-04-12 07:38 | ECGEPIP ---
[facility] [place] - ED Test Date: 2021-04-11 Pat Name: LIA ZAMORA Department: Room: - Gender: Female [employer] Functional Analyst: JAE : 1980 Requested By: Chad Villegas Order Number: [id number] Reading MD: Chad Ewing Measurements Intervals Paul Rate: 68 P: 54 TN: 130 QRS: 58 QRSD: 86 T: 7 QT: 430 QTc: 457 Interpretive Statements Normal sinus rhythm ST & T wave abnormality, consider anterior ischemia Electronically Signed on 04-12-2021 7:38:32 EDT by Chad Ewing
== END 2021-04-11 18:50 | disposition home or self-care (01) ==
LOC: M ED 13:47
DX: F12.188 Cannabis abuse with other cannabis-induced disorder (principal); K29.70 Gastritis, unspecified, without bleeding; Z88.2 Allergy status to sulfonamides; Z88.8 Allergy status to other drugs, medicaments and biological substances; Z79.899 Other long term (current) drug therapy
CPT/HCPCS: 36415; 80053; 80307; 82550; 82553; 83690; 84484; 85025; 93005; 99284; J1630

== ENCOUNTER → 2021-04-18 | Outpatient (CLI) | payer OTHER ==
[~2021-04-18] MED LIST changes: +ALBU8.5H; +NEXI40CA PO
[2021-04-18 17:25] LABS: HEMATOCRIT 41.1 % (36.0-47.0); MEAN CORPUSCULAR HEMOGLOBIN 27.3 pg (27.0-33.0); MEAN CORPUSCULAR HGB CONC 31.6 g/dl (32.0-36.5); MEAN CORPUSCULAR VOLUME 86.2 fl (80.0-96.0); PLATELET COUNT, AUTOMATED 212 10^3/uL (150-450); RED BLOOD COUNT 4.77 10^6/uL (4.00-5.40); WHITE BLOOD COUNT 8.7 10^3/uL (4.0-10.0)
[2021-04-18 17:42] LABS: ALT/SGPT 16 U/L (12-78); BILIRUBIN,TOTAL 0.3 MG/DL (0.2-1.0); BLOOD UREA NITROGEN 6 MG/DL (7-18); CALCIUM LEVEL 9.4 MG/DL (8.5-10.1); CARBON DIOXIDE LEVEL 31 MEQ/L (21-32); CHLORIDE LEVEL 106 MEQ/L (98-107); CREATININE FOR GFR 0.86 MG/DL (0.55-1.30); GLOMERULAR FILTRATION RATE > 60.0 (>60); GLUCOSE, FASTING 86 MG/DL (70-100); POTASSIUM SERUM 4.2 MEQ/L (3.5-5.1); SODIUM LEVEL 141 MEQ/L (136-145); TOTAL PROTEIN 7.7 GM/DL (6.4-8.2)
[2021-04-20 13:07] LABS: TISSUE TRANSGLUTAMINASE IgA <2 U/mL (0-3); TISSUE TRANSGLUTAMINASE IgG 4 U/mL (0-5)
== END ==
LOC: M PLALAB 15:44
PROVIDERS: ATTEND Physician Assistant Medical
DX: K58.2 Mixed irritable bowel syndrome (principal)

== ENCOUNTER → 2021-06-01 | Outpatient (CLI) | payer OTHER ==
[~2021-06-01] MED LIST changes: +E-Z-GAS II EFFERVESCENT PACKET (SODIUM BICARB./CITRIC ACID/SIMETHICONE) As Ordered ONE; +E-Z-HD 98% w/w 340GM SUSP BTL As Ordered ONE; +E-Z-PAQUE 96% w/w SUSP 176GM BTL As Ordered ONE
--- NOTE | 2021-06-01 17:39 | REP ---
INDICATION: EPIGASTRIC PAIN, NAUSEA. COMPARISON: CT abdomen pelvis dated 02/19/2021 TECHNIQUE: This procedure was performed by ALYSSIA Mejia, under the direct supervision of Dr. Mckeon. Images were reviewed with Dr. Mckeon prior to dictation. Liquid barium and gas producing crystals were given in the erect position, as well as liquid barium in the prone oblique position in order to perform a double contrast upper GI examination. Additional liquid barium was given at the end of the examination in order to perform a small-bowel follow-through. FINDINGS: The crew foreman film shows no organomegaly or pathological masses. The intestinal gas pattern is unremarkable. The oral and pharyngeal stages of deglutition were unremarkable. Esophageal transport is prompt and efficient and there is no evidence of esophagitis, stricture, or mucosal ring. There is no evidence of a hiatal hernia. Gastroesophageal reflux was observed to below the level of the artemio. The stomach bravo are normally outlined. The rugal folds are smooth and regular. There is no gastritis, neoplasm, or ulcerative disease. The duodenal bravo are normally outlined. The mucosal folds are smooth and regular. There is no duodenitis, peptic ulcer disease or neoplasm. The visualized portion of the proximal small bowel appears normal in course and caliber. The barium column was followed through the small bowel to the level of the terminal ileum. Small bowel transit time is approximately 75 minutes. During fluoroscopy gentle palpation shows all loops are freely movable and pliable. There is no fixed angulated loops. The small bowel mucosal pattern is normal in course and caliber. There is no transition to suggest a partial small bowel obstruction. Spot filming of the terminal ileum shows it to be unremarkable. The appendix was visualized on this examination and it appears unremarkable IMPRESSION: Gastroesophageal reflux to below the level of artemio, otherwise unremarkable upper GI with small-bowel follow-through. 2.4 minutes of fluoroscopy time was utilized for this procedure. Some fluoroscopic images are performed with last image hold technology. These images require no additional radiation. <Electronically signed by Kina Bennett > 06/01/21 1700 <Electronically signed by Clarke Mckeon > 06/01/21 [id number]
== END ==
LOC: M RAD 07:54
PROVIDERS: ATTEND Internal Medicine Gastroenterology
DX: R10.13 Epigastric pain (principal); R11.0 Nausea

== ENCOUNTER → 2021-09-03 | Outpatient (CLI) | payer OTHER ==
[~2021-09-03] MED LIST changes: -DICY20TA11 PO; +DICY20TA20 PO; -E-Z-GAS II EFFERVESCENT PACKET (SODIUM BICARB./CITRIC ACID/SIMETHICONE) As Ordered ONE; -E-Z-HD 98% w/w 340GM SUSP BTL As Ordered ONE; -E-Z-PAQUE 96% w/w SUSP 176GM BTL As Ordered ONE; -LISI-898 PO; +LISI5TAB11 PO
== END ==
LOC: M RAD 08:47
PROVIDERS: ATTEND Internal Medicine Gastroenterology
DX: R97.0 Elevated carcinoembryonic antigen [CEA] (principal)
CPT/HCPCS: 78803; 78804; A9572

== ENCOUNTER → 2021-12-11 | Outpatient (CLI) | payer OTHER ==
[2021-12-11 13:25] LABS: BASO # 0.1 10^3/uL (0.0-0.2); BASO % 0.9 % (0.0-1.0); EOS # 0.1 10^3/uL (0.0-0.5); EOS % 0.8 % (0.0-3.0); HEMATOCRIT 42.9 % (36.0-47.0); HEMOGLOBIN 13.7 g/dl (12.0-15.5); LYMPH # 1.8 10^3/uL (1.5-5.0); LYMPH % 27.4 % (24.0-44.0); MEAN CORPUSCULAR HGB CONC 31.9 g/dl (32.0-36.5); MEAN CORPUSCULAR VOLUME 84.4 fl (80.0-96.0); MONO # 0.4 10^3/uL (0.0-0.8); MONO % 5.5 % (2.0-8.0); NEUTROPHILS # 4.2 10^3/uL (1.5-8.5); NEUTROPHILS % 65.2 % (36.0-66.0); PLATELET COUNT, AUTOMATED 201 10^3/uL (150-450); RED BLOOD COUNT 5.08 10^6/uL (4.00-5.40); WHITE BLOOD COUNT 6.4 10^3/uL (4.0-10.0)
[2021-12-11 13:36] LABS: ALBUMIN 3.7 GM/DL (3.2-5.2); ALT/SGPT 23 U/L (12-78); BILIRUBIN,TOTAL 0.2 MG/DL (0.2-1.0); BLOOD UREA NITROGEN 10 MG/DL (7-18); CALCIUM LEVEL 8.8 MG/DL (8.5-10.1); CARBON DIOXIDE LEVEL 28 MEQ/L (21-32); CHLORIDE LEVEL 107 MEQ/L (98-107); CHOLESTEROL LEVEL 184 MG/DL (<200); CHOLESTEROL RISK RATIO 3.471 (<5); CREATININE FOR GFR 1.01 MG/DL (0.55-1.30); GLOMERULAR FILTRATION RATE > 60.0 (>58); GLUCOSE, FASTING 80 MG/DL (70-100); HDL CHOLESTEROL 53 MG/DL (>40); LDL CHOLESTEROL 113 MG/DL (<100); NON-HDL-C 131 MG/DL; POTASSIUM SERUM 3.9 MEQ/L (3.5-5.1); SODIUM LEVEL 140 MEQ/L (136-145); TOTAL PROTEIN 7.8 GM/DL (6.4-8.2); TRIGLYCERIDES LEVEL 90 MG/DL (<150)
== END ==
LOC: M PLALAB 09:54
PROVIDERS: ATTEND Physician Assistant Medical
DX: E78.5 Hyperlipidemia, unspecified (principal); K21.9 Gastro-esophageal reflux disease without esophagitis; I11.9 Hypertensive heart disease without heart failure

== ENCOUNTER → 2022-01-21 | Outpatient (REF) | payer OTHER | LOC: M SFHCPLAZ 12:53 | PROVIDERS: ATTEND Physician Assistant Medical | DX: L72.3 Sebaceous cyst (principal) ==

== ENCOUNTER → 2022-02-26 | Outpatient (CLI) | payer OTHER ==
[2022-02-26 13:46] LABS: BASO % 0.6 % (0.0-1.0); EOS # 0.1 10^3/uL (0.0-0.5); EOS % 1.2 % (0.0-3.0); HEMATOCRIT 40.2 % (36.0-47.0); HEMOGLOBIN 12.7 g/dl (12.0-15.5); LYMPH # 1.7 10^3/uL (1.5-5.0); LYMPH % 25.3 % (24.0-44.0); MEAN CORPUSCULAR HEMOGLOBIN 27.5 pg (27.0-33.0); MEAN CORPUSCULAR HGB CONC 31.6 g/dl (32.0-36.5); MEAN CORPUSCULAR VOLUME 87.2 fl (80.0-96.0); MONO # 0.3 10^3/uL (0.0-0.8); MONO % 4.7 % (2.0-8.0); NEUTROPHILS # 4.7 10^3/uL (1.5-8.5); NEUTROPHILS % 68.1 % (36.0-66.0); PLATELET COUNT, AUTOMATED 209 10^3/uL (150-450); RED BLOOD COUNT 4.61 10^6/uL (4.00-5.40); WHITE BLOOD COUNT 6.8 10^3/uL (4.0-10.0)
[2022-02-26 14:02] LABS: INR 0.93; PROTHROMBIN TIME 12.9 SECONDS (12.7-14.5)
[2022-02-26 14:03] LABS: PARTIAL THROMBOPLASTIN TIME 34.1 SECONDS (25.9-37.0)
[2022-02-26 14:42] LABS: ALBUMIN 3.5 GM/DL (3.2-5.2); ALT/SGPT 33 U/L (12-78); BILIRUBIN,TOTAL 0.4 MG/DL (0.2-1.0); BLOOD UREA NITROGEN 7 MG/DL (7-18); CALCIUM LEVEL 9.3 MG/DL (8.5-10.1); CARBON DIOXIDE LEVEL 29 MEQ/L (21-32); CHLORIDE LEVEL 104 MEQ/L (98-107); CREATININE FOR GFR 0.88 MG/DL (0.55-1.30); GLOMERULAR FILTRATION RATE > 60.0 (>58); GLUCOSE, FASTING 72 MG/DL (70-100); NT-PRO BNP 151 PG/ML (<125); SODIUM LEVEL 139 MEQ/L (136-145); TOTAL PROTEIN 7.5 GM/DL (6.4-8.2)
[2022-02-26 19:55] LABS: HEMOGLOBIN A1c 5.4 %
== END ==
LOC: M PLALAB 12:08
PROVIDERS: ATTEND Family Medicine
DX: I10 Essential (primary) hypertension (principal)

== ENCOUNTER → 2022-03-27 | Outpatient (REF) | payer OTHER | LOC: M SFHCPLAZ 10:16 | PROVIDERS: ATTEND Physician Assistant Medical | DX: L91.8 Other hypertrophic disorders of the skin (principal) ==

== ENCOUNTER → 2022-07-19 | Outpatient (REF) | payer OTHER ==
[~2022-07-19] MED LIST changes: -PAXI30TA11 PO; +PAXI30TA12 PO
== END ==
LOC: M LAB REF 16:18
PROVIDERS: ATTEND Physician Assistant
DX: J02.9 Acute pharyngitis, unspecified (principal)

== ENCOUNTER → 2022-08-07 | Outpatient (REF) | payer OTHER | LOC: M SFHCPLAZ 12:54 | PROVIDERS: ATTEND Physician Assistant Medical | DX: A38.8 Scarlet fever with other complications (principal) ==

== ENCOUNTER → 2022-10-17 | Outpatient (REF) | payer OTHER | LOC: M SFHCPLAZ 11:11 | PROVIDERS: ATTEND Physician Assistant Medical | DX: Z53.9 Procedure and treatment not carried out, unspecified reason (principal) ==

== ENCOUNTER → 2022-12-16 | Outpatient (CLI) | payer OTHER | LOC: M PLALAB 13:46 | PROVIDERS: ATTEND Physician Assistant Medical | DX: L40.4 Guttate psoriasis (principal) ==

== ENCOUNTER → 2023-01-15 | Outpatient (CLI) | payer OTHER ==
[2023-01-15 13:08] LABS: C REACTIVE PROTEIN QUANTITATIV < 0.40 MG/DL (<1.0)
[2023-01-15 13:10] LABS: RHEUMATOID FACTOR QUANT < 3.5 IU/ML (<14)
[2023-01-15 13:12] LABS: BASO # 0.1 10^3/uL (0.0-0.2); EOS # 0.1 10^3/uL (0.0-0.5); EOS % 1.2 % (0.0-3.0); HEMATOCRIT 41.1 % (36.0-47.0); HEMOGLOBIN 12.7 g/dl (12.0-15.5); LYMPH # 1.5 10^3/uL (1.5-5.0); LYMPH % 28.4 % (24.0-44.0); MEAN CORPUSCULAR HEMOGLOBIN 27.3 pg (27.0-33.0); MEAN CORPUSCULAR HGB CONC 30.9 g/dl (32.0-36.5); MEAN CORPUSCULAR VOLUME 88.2 fl (80.0-96.0); MONO # 0.3 10^3/uL (0.0-0.8); MONO % 5.8 % (2.0-8.0); NEUTROPHILS # 3.3 10^3/uL (1.5-8.5); NEUTROPHILS % 63.4 % (36.0-66.0); PLATELET COUNT, AUTOMATED 234 10^3/uL (150-450); RED BLOOD COUNT 4.66 10^6/uL (4.00-5.40); WHITE BLOOD COUNT 5.2 10^3/uL (4.0-10.0)
[2023-01-15 14:16] LABS: ERYTHROCYTE SEDIMENTATION RATE 35 mm/hr (0-20)
[2023-01-16 23:07] LABS: ANA (HEP2) Negative (.); CYCLIC CITRULLINATED PEPTIDE 11 units (0-19)
== END ==
LOC: M PLAIMG 08:40
PROVIDERS: ATTEND Physician Assistant Medical
DX: G89.29 Other chronic pain (principal); M54.50 Low back pain, unspecified; M25.552 Pain in left hip

== ENCOUNTER → 2023-01-31 | Outpatient (CLI) | payer OTHER ==
[2023-01-31 14:44] LABS: FERRITIN 8.5 NG/ML (7.3-270.7)
[2023-02-01 14:10] LABS: H PYLORI SERUM QUANT IGM <9.0 units (0.0-8.9); H PYLORI SERUM QUANT IgG ABY 0.26 (0.00-0.79); IgG P18 AB Absent (.); IgG P23 AB Absent (.); IgG P28 AB Absent (.); IgG P30 AB Absent (.); IgG P39 AB Absent (.); IgG P41 AB Present (.); IgG P45 AB Present (.); IgG P66 AB Absent (.); IgG P93 AB Absent (.); IgM P23 AB Present (.); IgM P39 AB Absent (.); IgM P41 AB Absent (.); LYME IgG WB INTERPRETATION Negative (.); LYME IgM WB INTERPRETATION Negative (.)
== END ==
LOC: M PLALAB 09:02
PROVIDERS: ATTEND Physician Assistant Medical
DX: R71.0 Precipitous drop in hematocrit (principal); R50.9 Fever, unspecified

== ENCOUNTER → 2023-03-10 | Outpatient (CLI) | payer OTHER | LOC: M WHC 07:29 | PROVIDERS: ATTEND Obstetrics & Gynecology Obstetrics | DX: N83.202 Unspecified ovarian cyst, left side (principal) ==

== ENCOUNTER → 2023-05-09 | Outpatient (CLI) | payer OTHER ==
[2023-05-09 14:20] LABS: BASO # 0.1 10^3/uL (0.0-0.2); BASO % 0.7 % (0.0-1.0); EOS # 0.1 10^3/uL (0.0-0.5); EOS % 1.4 % (0.0-3.0); HEMATOCRIT 39.2 % (36.0-47.0); HEMOGLOBIN 12.4 g/dl (12.0-15.5); LYMPH # 1.8 10^3/uL (1.5-5.0); LYMPH % 21.6 % (24.0-44.0); MEAN CORPUSCULAR HEMOGLOBIN 27.7 pg (27.0-33.0); MEAN CORPUSCULAR HGB CONC 31.6 g/dl (32.0-36.5); MEAN CORPUSCULAR VOLUME 87.5 fl (80.0-96.0); MONO # 0.5 10^3/uL (0.0-0.8); MONO % 5.6 % (2.0-8.0); NEUTROPHILS # 5.7 10^3/uL (1.5-8.5); NEUTROPHILS % 70.5 % (36.0-66.0); PLATELET COUNT, AUTOMATED 193 10^3/uL (150-450); RED BLOOD COUNT 4.48 10^6/uL (4.00-5.40); WHITE BLOOD COUNT 8.1 10^3/uL (4.0-10.0)
[2023-05-09 14:34] LABS: FERRITIN 4.3 NG/ML (7.3-270.7)
== END ==
LOC: M PLALAB 09:19
PROVIDERS: ATTEND Physician Assistant Medical
DX: R71.0 Precipitous drop in hematocrit (principal)

== ENCOUNTER → 2023-07-29 | Outpatient (CLI) | payer OTHER | LOC: M RAD 16:13 | PROVIDERS: ATTEND Physician Assistant Medical | DX: M25.512 Pain in left shoulder (principal) ==

== ENCOUNTER → 2023-08-18 | Outpatient (CLI) | payer OTHER ==
[2023-08-18 14:31] LABS: BASO # 0.1 10^3/uL (0.0-0.2); EOS # 0.3 10^3/uL (0.0-0.5); EOS % 4.1 % (0.0-3.0); HEMATOCRIT 41.4 % (36.0-47.0); HEMOGLOBIN 13.4 g/dl (12.0-15.5); LYMPH # 2.2 10^3/uL (1.5-5.0); LYMPH % 31.2 % (24.0-44.0); MEAN CORPUSCULAR HEMOGLOBIN 28.2 pg (27.0-33.0); MEAN CORPUSCULAR HGB CONC 32.4 g/dl (32.0-36.5); MONO # 0.5 10^3/uL (0.0-0.8); MONO % 7.4 % (2.0-8.0); NEUTROPHILS % 56.2 % (36.0-66.0); PLATELET COUNT, AUTOMATED 228 10^3/uL (150-450); RED BLOOD COUNT 4.76 10^6/uL (4.00-5.40); WHITE BLOOD COUNT 7.1 10^3/uL (4.0-10.0)
[2023-08-18 14:43] LABS: ALBUMIN 3.8 G/DL (3.2-5.2); ALKALINE PHOSPHATASE 73 U/L (46-116); ALT/SGPT 16 U/L (7.0-40); AST/SGOT 13 U/L (<34); BILIRUBIN,TOTAL 0.3 MG/DL (0.3-1.2); BLOOD UREA NITROGEN 9 MG/DL (9-23); CALCIUM LEVEL 9.4 MG/DL (8.5-10.1); CARBON DIOXIDE LEVEL 30 MMOL/L (20-31); CHLORIDE LEVEL 105 MMOL/L (98-107); CREATININE FOR GFR 0.83 MG/DL (0.55-1.30); GLOMERULAR FILTRATION RATE > 60.0 (>58); GLUCOSE, FASTING 77 MG/DL (60-100); POTASSIUM SERUM 4.2 MMOL/L (3.5-5.1); SODIUM LEVEL 138 MMOL/L (136-145); TOTAL PROTEIN 7.2 G/DL (5.7-8.2)
[2023-08-18 14:47] LABS: FERRITIN 14.8 NG/ML (7.3-270.7)
== END ==
LOC: M PLALAB 11:44
PROVIDERS: ATTEND Family Medicine
DX: I10 Essential (primary) hypertension (principal); D50.9 Iron deficiency anemia, unspecified

== ENCOUNTER → 2023-09-08 | Outpatient (CLI) | payer OTHER ==
[2023-09-08 13:50] LABS: BASO # 0.1 10^3/uL (0.0-0.2); BASO % 0.8 % (0.0-1.0); EOS # 0.1 10^3/uL (0.0-0.5); EOS % 1.4 % (0.0-3.0); HEMATOCRIT 39.4 % (36.0-47.0); HEMOGLOBIN 12.5 g/dl (12.0-15.5); LYMPH # 1.7 10^3/uL (1.5-5.0); LYMPH % 18.3 % (24.0-44.0); MEAN CORPUSCULAR HEMOGLOBIN 27.8 pg (27.0-33.0); MEAN CORPUSCULAR HGB CONC 31.7 g/dl (32.0-36.5); MEAN CORPUSCULAR VOLUME 87.8 fl (80.0-96.0); MONO # 0.4 10^3/uL (0.0-0.8); MONO % 4.3 % (2.0-8.0); NEUTROPHILS % 74.9 % (36.0-66.0); PLATELET COUNT, AUTOMATED 237 10^3/uL (150-450); RED BLOOD COUNT 4.49 10^6/uL (4.00-5.40); WHITE BLOOD COUNT 9.3 10^3/uL (4.0-10.0)
== END ==
LOC: M PLALAB 09:18
PROVIDERS: ATTEND Physician Assistant Medical
DX: R71.0 Precipitous drop in hematocrit (principal)

== ENCOUNTER 2023-09-26 10:35 | Outpatient (CLI) | payer OTHER ==
[~2023-09-26] VITALS: Ht 160 cm; Wt 79.5 kg
[~2023-09-26 10:35] MED LIST changes: +ALBUTEROL SULFATE 2.5MG/0.5ML INH NEB SOLN INH PRN; +EPINEPHrine INJ 1 MG/ML 1ML AMP IM PRN; +NS 1,000 ML IV SCH; +diphenhydrAMINE 50MG/ML VIAL IV PRN; +methylPREDNISolone 125MG 2ML VIAL IV PRN
[2023-09-26 11:15] VITALS: BP 138/63; O2SAT 99
[2023-09-26] MEDS: ACETAMINOPHEN 650MG PO PRIOR TO INFUSION PO ONE (11:27)
[2023-09-26] MEDS: diphenhydrAMINE 25MG PO PRIOR TO INFUSION PO ONE (11:27)
[2023-09-26] MEDS: IRON SUCROSE 25 MG in NS 23.75 ML IV ONE (11:52)
[2023-09-26 12:15] VITALS: BP 117/71; O2SAT 99
[2023-09-26] MEDS: IRON SUCROSE 225 MG in NS 213.75 ML IV ONE (13:01)
[2023-09-26 13:07] VITALS: BP 142/80; O2SAT 100
[2023-09-26 15:05] VITALS: BP 122/62; O2SAT 100
== END 2023-09-26 15:05 | disposition home or self-care (01) ==
LOC: M INFU 10:35
PROVIDERS: ATTEND Physician Assistant Medical
DX: D50.9 Iron deficiency anemia, unspecified (principal); Z88.2 Allergy status to sulfonamides; Z88.8 Allergy status to other drugs, medicaments and biological substances
CPT/HCPCS: 96365; 96366; J1756

== ENCOUNTER 2023-10-03 10:30 | Outpatient (CLI) | payer OTHER ==
[~2023-10-03] VITALS: Ht 162.6 cm; Wt 78.6 kg
[~2023-10-03 10:30] MED LIST changes: -MINO50TA PO; +MINO50TA5 PO; -NS 1,000 ML IV SCH
[2023-10-03 10:35] VITALS: BP 140/80; O2SAT 99
[2023-10-03] MEDS: IRON SUCROSE 250 MG in NS 237.5 ML IV ONE (10:55)
[2023-10-03] MEDS: ACETAMINOPHEN 650MG PO PRIOR TO INFUSION PO ONE (10:55)
[2023-10-03] MEDS: diphenhydrAMINE 25MG PO PRIOR TO INFUSION PO ONE (10:56)
[2023-10-03] MEDS: NS 1,000 ML IV SCH (10:56)
[2023-10-03 12:35] VITALS: BP 135/77; O2SAT 100
== END 2023-10-03 12:37 ==
LOC: M INFU 10:30
PROVIDERS: ATTEND Physician Assistant Medical
DX: D50.9 Iron deficiency anemia, unspecified (principal); Z88.2 Allergy status to sulfonamides
CPT/HCPCS: 96365; 96366; J1756

== ENCOUNTER 2023-10-10 10:50 | Outpatient (CLI) | payer OTHER ==
[~2023-10-10] VITALS: Ht 160 cm; Wt 80.0 kg
[2023-10-10 10:50] VITALS: BP 130/69; O2SAT 100
[~2023-10-10 10:50] MED LIST changes: +NS 1,000 ML IV SCH
[2023-10-10] MEDS: ACETAMINOPHEN 650MG PO PRIOR TO INFUSION PO ONE (10:58)
[2023-10-10] MEDS: diphenhydrAMINE 25MG PO PRIOR TO INFUSION PO ONE (11:02)
[2023-10-10] MEDS: IRON SUCROSE 250 MG in NS 237.5 ML IV ONE (11:15)
[2023-10-10 12:40] VITALS: BP 128/78; O2SAT 100
== END 2023-10-10 12:40 | disposition home or self-care (01) ==
LOC: M INFU 10:50
PROVIDERS: ATTEND Physician Assistant Medical
DX: D50.9 Iron deficiency anemia, unspecified (principal); Z88.2 Allergy status to sulfonamides; Z88.8 Allergy status to other drugs, medicaments and biological substances
CPT/HCPCS: 96365; J1756

== ENCOUNTER → 2023-11-11 | Outpatient (CLI) | payer OTHER ==
[~2023-11-11] MED LIST changes: -ALBUTEROL SULFATE 2.5MG/0.5ML INH NEB SOLN INH PRN; -EPINEPHrine INJ 1 MG/ML 1ML AMP IM PRN; -NS 1,000 ML IV SCH; -diphenhydrAMINE 50MG/ML VIAL IV PRN; -methylPREDNISolone 125MG 2ML VIAL IV PRN
[2023-11-11 12:51] LABS: BASO # 0.1 10^3/uL (0.0-0.2); BASO % 0.9 % (0.0-1.0); EOS # 0.1 10^3/uL (0.0-0.5); EOS % 1.2 % (0.0-3.0); HEMATOCRIT 35.2 % (36.0-47.0); HEMOGLOBIN 10.8 g/dl (12.0-15.5); LYMPH # 1.5 10^3/uL (1.5-5.0); LYMPH % 23.9 % (24.0-44.0); MEAN CORPUSCULAR HEMOGLOBIN 28.4 pg (27.0-33.0); MEAN CORPUSCULAR HGB CONC 30.7 g/dl (32.0-36.5); MEAN CORPUSCULAR VOLUME 92.6 fl (80.0-96.0); MONO # 0.4 10^3/uL (0.0-0.8); MONO % 6.4 % (2.0-8.0); NEUTROPHILS # 4.3 10^3/uL (1.5-8.5); NEUTROPHILS % 67.3 % (36.0-66.0); PLATELET COUNT, AUTOMATED 380 10^3/uL (150-450); WHITE BLOOD COUNT 6.4 10^3/uL (4.0-10.0)
[2023-11-11 13:29] LABS: IRON (FE) 31 UG/DL (50-170)
[2023-11-11 13:30] LABS: ALBUMIN 3.6 G/DL (3.2-5.2); ALKALINE PHOSPHATASE 97 U/L (46-116); ALT/SGPT 23 U/L (7.0-40); AST/SGOT 17 U/L (<34); BILIRUBIN,TOTAL 0.2 MG/DL (0.3-1.2); BLOOD UREA NITROGEN 8 MG/DL (9-23); CALCIUM LEVEL 9.5 MG/DL (8.5-10.1); CARBON DIOXIDE LEVEL 28 MMOL/L (20-31); CHLORIDE LEVEL 104 MMOL/L (98-107); CREATININE FOR GFR 0.71 MG/DL (0.55-1.30); GLOMERULAR FILTRATION RATE > 60.0 (>58); GLUCOSE, FASTING 80 MG/DL (60-100); POTASSIUM SERUM 4.2 MMOL/L (3.5-5.1); SODIUM LEVEL 142 MMOL/L (136-145); TOTAL PROTEIN 7.1 G/DL (5.7-8.2)
[2023-11-11 13:31] LABS: FERRITIN 107.7 NG/ML (7.3-270.7)
== END ==
LOC: M LAB 11:07
PROVIDERS: ATTEND Physician Assistant Medical
DX: I95.1 Orthostatic hypotension (principal); R71.0 Precipitous drop in hematocrit; D50.9 Iron deficiency anemia, unspecified

== ENCOUNTER 2023-12-03 14:50 | Outpatient (CLI) | payer OTHER ==
[~2023-12-03] VITALS: Ht 160 cm; Wt 81.8 kg
[2023-12-03 13:50] VITALS: BP 121/72; O2SAT 100
[2023-12-03] MEDS: IRON SUCROSE 250 MG in NS 237.5 ML IV ONE (14:23)
[~2023-12-03 14:50] MED LIST changes: +ACETAMINOPHEN 650MG PO PRIOR TO INFUSION PO ONE; +ALBUTEROL SULFATE 2.5MG/0.5ML INH NEB SOLN INH PRN; +EPINEPHrine INJ 1 MG/ML 1ML AMP IM PRN; +NS 1,000 ML IV SCH; +diphenhydrAMINE 25MG PO PRIOR TO INFUSION PO ONE; +diphenhydrAMINE 50MG/ML VIAL IV PRN; +methylPREDNISolone 125MG 2ML VIAL IV PRN
[2023-12-03 15:50] VITALS: BP 129/75; O2SAT 100
== END 2023-12-03 16:10 ==
LOC: M INFU 14:50
PROVIDERS: ATTEND Physician Assistant Medical
DX: D50.9 Iron deficiency anemia, unspecified (principal); Z88.2 Allergy status to sulfonamides; Z88.8 Allergy status to other drugs, medicaments and biological substances; Z91.018 Allergy to other foods
CPT/HCPCS: 96365; 96366; J1756

== ENCOUNTER 2023-12-10 15:05 | Outpatient (CLI) | payer OTHER ==
[~2023-12-10 15:05] MED LIST changes: -ACETAMINOPHEN 650MG PO PRIOR TO INFUSION PO ONE; +ACETAMINOPHEN TAB 650MG DOSE (2X325MG) PO ONE; +diphenhydrAMINE 25MG CAP PO ONE; -diphenhydrAMINE 25MG PO PRIOR TO INFUSION PO ONE
[2023-12-10 15:15] VITALS: BP 130/70; O2SAT 100
[2023-12-10] MEDS: IRON SUCROSE 250 MG in NS 237.5 ML IV ONE (15:39)
== END 2023-12-10 17:10 ==
LOC: M INFU 15:05
PROVIDERS: ATTEND Physician Assistant Medical
DX: D50.9 Iron deficiency anemia, unspecified (principal); Z88.2 Allergy status to sulfonamides; Z88.8 Allergy status to other drugs, medicaments and biological substances; Z91.018 Allergy to other foods
CPT/HCPCS: 96365; J1756

== ENCOUNTER 2023-12-17 15:35 | Outpatient (CLI) | payer OTHER ==
[~2023-12-17] VITALS: Ht 160 cm; Wt 81.8 kg
[2023-12-17 15:35] VITALS: BP 117/67; O2SAT 97
[~2023-12-17 15:35] MED LIST changes: +ACETAMINOPHEN 650MG PO PRIOR TO INFUSION PO ONE; -ACETAMINOPHEN TAB 650MG DOSE (2X325MG) PO ONE; -diphenhydrAMINE 25MG CAP PO ONE; +diphenhydrAMINE 25MG PO PRIOR TO INFUSION PO ONE
[2023-12-17] MEDS: IRON SUCROSE 250 MG in NS 237.5 ML IV ONE (16:03)
[2023-12-17 17:26] VITALS: BP 124/68; O2SAT 100
== END 2023-12-17 17:30 ==
LOC: M INFU 15:35
PROVIDERS: ATTEND Physician Assistant Medical
DX: D50.9 Iron deficiency anemia, unspecified (principal); Z88.2 Allergy status to sulfonamides; Z88.8 Allergy status to other drugs, medicaments and biological substances; Z91.018 Allergy to other foods
CPT/HCPCS: 96365; 96366; J1756

== ENCOUNTER → 2024-03-30 | Outpatient (CLI) | payer OTHER ==
[~2024-03-30] MED LIST changes: -ACETAMINOPHEN 650MG PO PRIOR TO INFUSION PO ONE; -ALBUTEROL SULFATE 2.5MG/0.5ML INH NEB SOLN INH PRN; -EPINEPHrine INJ 1 MG/ML 1ML AMP IM PRN; -NS 1,000 ML IV SCH; -diphenhydrAMINE 25MG PO PRIOR TO INFUSION PO ONE; -diphenhydrAMINE 50MG/ML VIAL IV PRN; -methylPREDNISolone 125MG 2ML VIAL IV PRN
[2024-03-30 15:46] LABS: BASO # 0.1 10^3/uL (0.0-0.2); BASO % 0.8 % (0.0-1.0); EOS # 0.3 10^3/uL (0.0-0.5); EOS % 3.5 % (0.0-3.0); HEMATOCRIT 43.5 % (36.0-47.0); HEMOGLOBIN 13.6 g/dl (12.0-15.5); LYMPH # 1.6 10^3/uL (1.5-5.0); LYMPH % 20.3 % (24.0-44.0); MEAN CORPUSCULAR HEMOGLOBIN 27.6 pg (27.0-33.0); MEAN CORPUSCULAR HGB CONC 31.3 g/dl (32.0-36.5); MEAN CORPUSCULAR VOLUME 88.2 fl (80.0-96.0); MONO # 0.7 10^3/uL (0.0-0.8); MONO % 8.4 % (2.0-8.0); NEUTROPHILS # 5.2 10^3/uL (1.5-8.5); NEUTROPHILS % 66.7 % (36.0-66.0); PLATELET COUNT, AUTOMATED 206 10^3/uL (150-450); RED BLOOD COUNT 4.93 10^6/uL (4.00-5.40); WHITE BLOOD COUNT 7.8 10^3/uL (4.0-10.0)
[2024-03-30 16:13] LABS: FERRITIN 163.4 NG/ML (7.3-270.7)
[2024-03-30 16:19] LABS: ALKALINE PHOSPHATASE 92 U/L (46-116); ALT/SGPT 24 U/L (7.0-40); AST/SGOT 12 U/L (<34); BILIRUBIN,TOTAL 0.2 MG/DL (0.3-1.2); BLOOD UREA NITROGEN 8 MG/DL (9-23); CALCIUM LEVEL 9.9 MG/DL (8.5-10.1); CARBON DIOXIDE LEVEL 30 MMOL/L (20-31); CHLORIDE LEVEL 107 MMOL/L (98-107); CREATININE FOR GFR 0.81 MG/DL (0.55-1.30); GLOMERULAR FILTRATION RATE > 60.0 (>58); GLUCOSE, FASTING 81 MG/DL (60-100); IRON (FE) 26 UG/DL (50-170); POTASSIUM SERUM 4.5 MMOL/L (3.5-5.1); SODIUM LEVEL 141 MMOL/L (136-145); TOTAL PROTEIN 7.8 G/DL (5.7-8.2)
== END ==
LOC: M PLARAD 13:44
PROVIDERS: ATTEND Physician Assistant Medical
DX: R71.0 Precipitous drop in hematocrit (principal); J06.9 Acute upper respiratory infection, unspecified

== ENCOUNTER → 2024-04-23 | Outpatient (CLI) | payer OTHER | LOC: M PLAIMG 12:27 | PROVIDERS: ATTEND Student in an Organized Health Care Education/Training Program | DX: R05.8 Other specified cough (principal) ==

== ENCOUNTER → 2024-07-01 | Outpatient (CLI) | payer OTHER ==
[2024-07-01 16:11] LABS: BASO % 0.5 % (0.0-1.0); EOS # 0.2 10^3/uL (0.0-0.5); HEMATOCRIT 44.5 % (36.0-47.0); HEMOGLOBIN 14.4 g/dl (12.0-15.5); LYMPH # 0.7 10^3/uL (1.5-5.0); LYMPH % 8.4 % (24.0-44.0); MEAN CORPUSCULAR HGB CONC 32.4 g/dl (32.0-36.5); MEAN CORPUSCULAR VOLUME 89.7 fl (80.0-96.0); MONO # 0.6 10^3/uL (0.0-0.8); MONO % 6.6 % (2.0-8.0); NEUTROPHILS # 6.9 10^3/uL (1.5-8.5); NEUTROPHILS % 82.3 % (36.0-66.0); PLATELET COUNT, AUTOMATED 195 10^3/uL (150-450); RED BLOOD COUNT 4.96 10^6/uL (4.00-5.40); WHITE BLOOD COUNT 8.3 10^3/uL (4.0-10.0)
[2024-07-01 16:25] LABS: FERRITIN 100.7 NG/ML (7.3-270.7)
== END ==
LOC: M PLALAB 13:53
PROVIDERS: ATTEND Physician Assistant Medical
DX: J06.9 Acute upper respiratory infection, unspecified (principal)

== ENCOUNTER → 2024-08-11 | Outpatient (REF) | payer OTHER | LOC: M SFHCPLAZ 12:46 | PROVIDERS: ATTEND Physician Assistant Medical | DX: M94.0 Chondrocostal junction syndrome [Tietze] (principal) ==

== ENCOUNTER → 2024-08-12 | Outpatient (CLI) | payer OTHER ==
[~2024-08-12] VITALS: Ht 160 cm; Wt 81.8 kg
[~2024-08-12] MED LIST changes: +ALBUTEROL SULFATE 2.5MG/0.5ML INH NEB SOLN INH PRN; +EPINEPHrine INJ 1 MG/ML 1ML AMP IM PRN; +diphenhydrAMINE 50MG/ML VIAL IV PRN; +methylPREDNISolone 125MG 2ML VIAL IV PRN
[2024-08-12] MEDS: diphenhydrAMINE 25MG CAP PO ONE (14:26)
[2024-08-12] MEDS: ACETAMINOPHEN 650 MG PO ONE (14:26)
[2024-08-12] MEDS: IRON SUCROSE 300 MG in NS 250 ML OVER 90 MIN. IV ONE (14:31)
[2024-08-12 15:00] VITALS: BP 129/71; O2SAT 96
[2024-08-12 16:15] VITALS: BP 141/75; O2SAT 95
== END ==
LOC: M INFU 14:05
PROVIDERS: ATTEND Physician Assistant Medical
DX: D50.9 Iron deficiency anemia, unspecified (principal); Z88.2 Allergy status to sulfonamides; Z88.8 Allergy status to other drugs, medicaments and biological substances; Z91.018 Allergy to other foods
CPT/HCPCS: 96365; J1756

== ENCOUNTER 2024-08-19 15:08 | Outpatient (CLI) | payer OTHER ==
[2024-08-19 15:17] VITALS: BP 131/73; O2SAT 98
[2024-08-19] MEDS: diphenhydrAMINE 25MG CAP PO ONE (15:20)
[2024-08-19] MEDS: IRON SUCROSE 300 MG in NS 250 ML OVER 90 MIN. IV ONE (15:43)
[2024-08-19] MEDS: ACETAMINOPHEN 650 MG PO ONE (15:45)
[2024-08-19 17:20] VITALS: BP 128/71; O2SAT 99
== END 2024-08-19 17:20 ==
LOC: M INFU 15:08
PROVIDERS: ATTEND Physician Assistant Medical
DX: D50.9 Iron deficiency anemia, unspecified (principal); Z88.2 Allergy status to sulfonamides; Z88.8 Allergy status to other drugs, medicaments and biological substances; Z91.018 Allergy to other foods
CPT/HCPCS: 71101; 96365; 96366; J1756

== ENCOUNTER → 2024-10-04 | Outpatient (CLI) | payer OTHER ==
[~2024-10-04] MED LIST changes: -ALBUTEROL SULFATE 2.5MG/0.5ML INH NEB SOLN INH PRN; -EPINEPHrine INJ 1 MG/ML 1ML AMP IM PRN; -diphenhydrAMINE 50MG/ML VIAL IV PRN; -methylPREDNISolone 125MG 2ML VIAL IV PRN
[2024-10-04 15:55] LABS: BASO % 0.5 % (0.0-1.0); EOS # 0.1 10^3/uL (0.0-0.5); HEMATOCRIT 43.7 % (36.0-47.0); LYMPH # 1.7 10^3/uL (1.5-5.0); LYMPH % 26.1 % (24.0-44.0); MEAN CORPUSCULAR HEMOGLOBIN 29.1 pg (27.0-33.0); MEAN CORPUSCULAR VOLUME 90.9 fl (80.0-96.0); MONO # 0.4 10^3/uL (0.0-0.8); NEUTROPHILS # 4.2 10^3/uL (1.5-8.5); NEUTROPHILS % 65.1 % (36.0-66.0); PLATELET COUNT, AUTOMATED 205 10^3/uL (150-450); RED BLOOD COUNT 4.81 10^6/uL (4.00-5.40); WHITE BLOOD COUNT 6.5 10^3/uL (4.0-10.0)
[2024-10-04 16:23] LABS: PERCENT SATURATION 16.4 % (13.2-45.0)
== END ==
LOC: M PLALAB 12:26
PROVIDERS: ATTEND Internal Medicine Gastroenterology
DX: R19.5 Other fecal abnormalities (principal)

== ENCOUNTER → 2024-11-05 | Outpatient (CLI) | payer OTHER ==
[2024-11-05 11:37] LABS: BASO # 0.1 10^3/uL (0.0-0.2); BASO % 0.9 % (0.0-1.0); EOS # 0.3 10^3/uL (0.0-0.5); EOS % 3.8 % (0.0-3.0); HEMOGLOBIN 14.2 g/dl (12.0-15.5); LYMPH # 1.8 10^3/uL (1.5-5.0); LYMPH % 20.7 % (24.0-44.0); MEAN CORPUSCULAR HEMOGLOBIN 28.4 pg (27.0-33.0); MEAN CORPUSCULAR HGB CONC 31.6 g/dl (32.0-36.5); MONO # 0.5 10^3/uL (0.0-0.8); MONO % 5.8 % (2.0-8.0); NEUTROPHILS # 6.1 10^3/uL (1.5-8.5); NEUTROPHILS % 68.5 % (36.0-66.0); PLATELET COUNT, AUTOMATED 235 10^3/uL (150-450); WHITE BLOOD COUNT 8.8 10^3/uL (4.0-10.0)
[2024-11-05 12:08] LABS: FERRITIN 238.9 NG/ML (7.3-270.7)
== END ==
LOC: M PLALAB 08:54
PROVIDERS: ATTEND Physician Assistant Medical
DX: D50.9 Iron deficiency anemia, unspecified (principal)

== ENCOUNTER → 2024-11-18 | Outpatient (CLI) | payer OTHER | LOC: M RAD 12:25 | PROVIDERS: ATTEND Physician Assistant Medical | DX: M25.611 Stiffness of right shoulder, not elsewhere classified (principal) ==

== ENCOUNTER → 2025-01-25 | Outpatient (CLI) | payer OTHER | LOC: M RAD 07:22 | PROVIDERS: ATTEND Orthopaedic Surgery | DX: M54.12 Radiculopathy, cervical region (principal); M47.12 Other spondylosis with myelopathy, cervical region; M99.62 Osseous and subluxation stenosis of intervertebral foramina of thoracic region ==

== ENCOUNTER → 2025-01-25 | Outpatient (CLI) | payer OTHER ==
[2025-01-25 15:45] LABS: BASO # 0.1 10^3/uL (0.0-0.2); BASO % 0.7 % (0.0-1.0); EOS # 0.2 10^3/uL (0.0-0.5); EOS % 2.0 % (0.0-3.0); LYMPH # 1.9 10^3/uL (1.5-5.0); LYMPH % 21.6 % (24.0-44.0); MONO # 0.5 10^3/uL (0.0-0.8); MONO % 5.8 % (2.0-8.0); NEUTROPHILS # 6.1 10^3/uL (1.5-8.5); NEUTROPHILS % 68.7 % (36.0-66.0); PLATELET COUNT, AUTOMATED 230 10^3/uL (150-450)
[2025-01-25 16:03] LABS: ALT/SGPT 20.0 U/L (7.0-40); AST/SGOT 16.0 U/L (<34); CALCIUM LEVEL 9.7 MG/DL (8.5-10.1); CARBON DIOXIDE LEVEL 30.0 MMOL/L (20-31); CHLORIDE LEVEL 103.0 MMOL/L (98-107); CREATININE FOR GFR 0.85 MG/DL (0.55-1.30); GLOMERULAR FILTRATION RATE 87.1 (>58); POTASSIUM SERUM 4.7 MMOL/L (3.5-5.1); SODIUM LEVEL 144.0 MMOL/L (136-145)
== END ==
LOC: M PLALAB 12:12
PROVIDERS: ATTEND Family Medicine
DX: I10 Essential (primary) hypertension (principal); D50.9 Iron deficiency anemia, unspecified

== ENCOUNTER 2025-02-21 22:08 | Emergency (ER) | payer OTHER ==
[~2025-02-21] VITALS: Ht 160 cm; Wt 84.1 kg
[~2025-02-21 22:08] MED LIST changes: -ALBU8.5H; +ALBU8.5H PO
[2025-02-22 00:12] LABS: ALT/SGPT 17 U/L (7.0-40); AST/SGOT 14 U/L (<34); CALCIUM LEVEL 9.7 MG/DL (8.5-10.1); CARBON DIOXIDE LEVEL 28 MMOL/L (20-31); CHLORIDE LEVEL 107 MMOL/L (98-107); CREATININE FOR GFR 0.87 MG/DL (0.55-1.30); GLOMERULAR FILTRATION RATE 84.7 (>58); POTASSIUM SERUM 3.3 MMOL/L (3.5-5.1); SODIUM LEVEL 145 MMOL/L (136-145)
[2025-02-22 00:14] LABS: BASO # 0.1 10^3/uL (0.0-0.2); BASO % 0.4 % (0.0-1.0); EOS # 0.1 10^3/uL (0.0-0.5); EOS % 0.5 % (0.0-3.0); LYMPH # 1.4 10^3/uL (1.5-5.0); LYMPH % 10.7 % (24.0-44.0); MONO # 0.6 10^3/uL (0.0-0.8); MONO % 4.5 % (2.0-8.0); NEUTROPHILS # 10.7 10^3/uL (1.5-8.5); NEUTROPHILS % 83.4 % (36.0-66.0); PLATELET COUNT, AUTOMATED 238 10^3/uL (150-450)
[2025-02-22] MEDS ORDERED: ISOVUE-370 76% 100 ML VIAL As Ordered ONE (02:52)
[2025-02-22] MEDS: KETOROLAC 30 MG/ML 1 ML VIAL IV ONE (02:55)
[2025-02-22] MEDS: NS (Normal Saline) 0.9% 1,000 ML IV ONE (02:56)
[2025-02-22 03:44] LABS: KETONE, URINE AUTO RFX TRACE mg/dL (NEGATIVE); LEUKOCYTE ESTERASE UR AUTO RFX NEGATIVE (NEGATIVE); NITRITE, URINE AUTO RFX NEGATIVE (NEGATIVE); RBC, URINE AUTO RFX 2 /HPF (0-3); SQUAM EPITHELIAL CELL UR AURFX 1 /HPF (0-6); WBC, URINE AUTO RFX 2 /HPF (0-3)
[2025-02-22 04:00] VITALS: TEMP 97.3
[2025-02-22 06:00] VITALS: BP 120/67; O2SAT 98
[2025-02-22] MEDS ORDERED: KETO-204 PO (06:28)
[2025-02-22] MEDS ORDERED: REGL10TA6 PO (06:28)
[2025-02-22] MEDS ORDERED: VALI2TAB PO (06:28)
[2025-02-22] MEDS ORDERED: NITR-67 PO (06:28)
[2025-02-22] MEDS: NITROFURANTOIN 100 MG CAP PO ONE (06:46)
== END 2025-02-22 06:48 | disposition home or self-care (01) ==
LOC: M ED 22:08
DX: R10.9 Unspecified abdominal pain (principal); R11.2 Nausea with vomiting, unspecified; R55 Syncope and collapse; Z88.2 Allergy status to sulfonamides; Z88.1 Allergy status to other antibiotic agents; Z88.8 Allergy status to other drugs, medicaments and biological substances; K21.9 Gastro-esophageal reflux disease without esophagitis; Z90.49 Acquired absence of other specified parts of digestive tract; Z90.710 Acquired absence of both cervix and uterus; Z79.899 Other long term (current) drug therapy
CPT/HCPCS: 74177; 80048; 80076; 81001; 83690; 85025; 93005; 96361; 96374; 96375; 99284; J1885; J3360; Q9967

== ENCOUNTER 2025-02-24 22:30 | Observation (INO) | payer OTHER ==
[~2025-02-24] VITALS: Ht 160 cm; Wt 84.3 kg
[~2025-02-24 22:30] MED LIST changes: +KETO-204 PO; +NITR-67 PO; +VALI2TAB PO
[2025-02-24 23:08] LABS: ABG pH (ARTERIAL) 7.432 UNITS (7.350-7.450)
[2025-02-24 23:09] LABS: ABG BASE EXCESS 3.4 (-2.0-2.0); ABG HCO3 28.1 MMOL/L (22.0-26.0); ABG O2 SATURATION 98.8 % (95.0-99.0); ABG PARTIAL PRESSURE CO2 43.1 mmHg (35.0-45.0); ABG PARTIAL PRESSURE O2 153.4 mmHg (75.0-100.0); ABG STANDARD HCO3 27.5 MMOL/L. (22.0-26.0); ABG TOTAL CO2 29.4 MMOL/L (22.0-29.0)
[2025-02-24 23:20] LABS: BASO # 0.1 10^3/uL (0.0-0.2); BASO % 0.5 % (0.0-1.0); EOS # 0.0 10^3/uL (0.0-0.5); EOS % 0.1 % (0.0-3.0); LYMPH # 1.4 10^3/uL (1.5-5.0); LYMPH % 11.2 % (24.0-44.0); MONO # 0.7 10^3/uL (0.0-0.8); MONO % 6.0 % (2.0-8.0); NEUTROPHILS # 9.9 10^3/uL (1.5-8.5); NEUTROPHILS % 81.9 % (36.0-66.0); PLATELET COUNT, AUTOMATED 221 10^3/uL (150-450)
[2025-02-24 23:44] LABS: CK-MB VALUE MASS 1.2 NG/ML (<3.6)
[2025-02-24 23:46] LABS: ALT/SGPT 14 U/L (7.0-40); AST/SGOT 13 U/L (<34); CALCIUM LEVEL 9.3 MG/DL (8.5-10.1); CARBON DIOXIDE LEVEL 29 MMOL/L (20-31); CHLORIDE LEVEL 103 MMOL/L (98-107); CPK CREATINE PHOSPHOKINASE 90 U/L (34-145); CREATININE FOR GFR 0.70 MG/DL (0.55-1.30); GLOMERULAR FILTRATION RATE > 90.0 (>58); MB/CK RELATIVE INDEX 1.33 (< OR =4); POTASSIUM SERUM 3.2 MMOL/L (3.5-5.1); SODIUM LEVEL 143 MMOL/L (136-145)
[2025-02-25] MEDS: NS (Normal Saline) 0.9% 1,000 ML IV ONE (01:38)
[2025-02-25 02:01] LABS: VENOUS BASE EXCESS 1.5 (-2.0-2.0); VENOUS HCO3 26.4 MMOL/L (23.0-27.0); VENOUS O2 SATURATION 78.2 % (60.0-80.0); VENOUS PARTIAL PRESSURE CO2 42.9 mmHg (38.0-50.0); VENOUS PARTIAL PRESSURE O2 42.4 mmHg (30.0-50.0); VENOUS PH 7.407 UNITS (7.330-7.430); VENOUS STANDARD HCO3 25.3 MMOL/L; VENOUS TOTAL CO2 27.7 MMOL/L (24.0-28.0)
[2025-02-25 02:39] LABS: CPK CREATINE PHOSPHOKINASE 69 U/L (34-145)
[2025-02-25 02:42] LABS: MAGNESIUM LEVEL 1.9 MG/DL (1.8-2.4)
[2025-02-25 03:37] LABS: AMPHETAMINES LEVEL URINE NEGATIVE (NEGATIVE); BARBITURATES URINE NEGATIVE (NEGATIVE); BENZODIAZEPINES URINE POSITIVE (NEGATIVE); CANNABINOIDS URINE POSITIVE (NEGATIVE); COCAINE METABOLITE URINE NEGATIVE (NEGATIVE); METHADONE URINE NEGATIVE (NEGATIVE); OPIATES URINE NEGATIVE (NEGATIVE); PHENCYCLIDINE URINE NEGATIVE (NEGATIVE)
[2025-02-25 04:24] LABS: ABG BASE EXCESS 0.7 (-2.0-2.0); ABG HCO3 24.3 MMOL/L (22.0-26.0); ABG O2 SATURATION 98.6 % (95.0-99.0); ABG PARTIAL PRESSURE CO2 36.0 mmHg (35.0-45.0); ABG PARTIAL PRESSURE O2 126.4 mmHg (75.0-100.0); ABG STANDARD HCO3 25.1 MMOL/L. (22.0-26.0); ABG TOTAL CO2 25.5 MMOL/L (22.0-29.0); ABG pH (ARTERIAL) 7.448 UNITS (7.350-7.450)
[2025-02-25 05:10] LABS: ETHYL ALCOHOL (ETHANOL) < 0.003 % (0.000-0.010)
[2025-02-25 05:12] LABS: SALICYLATE LEVEL < 3.0 MG/DL (<30)
[2025-02-25] MEDS ORDERED: MOM 30 ML SUSPENSION UDC PO PRN (05:40)
[2025-02-25] MEDS: PANTOPRAZOLE 40MG VIAL IV ONE (07:10)
[2025-02-25] MEDS ORDERED: BENA1TAB23 PO (08:55)
[2025-02-25] MEDS ORDERED: PARO5TAB PO (08:55)
[2025-02-25] MEDS ORDERED: METO10TA3 PO (08:55)
[2025-02-25] MEDS ORDERED: BUPR-71 PO (08:55)
[2025-02-25] MEDS ORDERED: ESTR25TD TOP (08:55)
[2025-02-25] MEDS ORDERED: OMEP40CA5 PO (08:55)
[2025-02-25] MEDS ORDERED: DIAZ2TAB PO (08:55)
[2025-02-25] MEDS ORDERED: KETO-204 PO (08:55)
[2025-02-25] MEDS ORDERED: PROM25TA12 PO (08:55)
[2025-02-25] MEDS ORDERED: NITR-67 PO (08:55)
[2025-02-25] MEDS ORDERED: MUPI2OI TOP (08:55)
[2025-02-25 09:00] VITALS: BP 142/85; TEMP 99.9; O2SAT 100
[2025-02-25] MEDS ORDERED: HOME MED LIST COMPLETE! XX SCH (09:00)
[2025-02-25] MEDS ORDERED: PILL CUTTER 1 EACH XX PRN (09:35)
[2025-02-25] MEDS: ONDANSETRON 4MG 2ML VIAL IV PRN (09:52)
[2025-02-25] MEDS: POTASSIUM CHLORIDE 10% LIQ 20MEQ/15ML UDC PO SCH (09:54)
[2025-02-25] MEDS: DOCUSATE SODIUM 100 MG CAPSULE PO SCH (09:54)
[2025-02-25] MEDS: LORATADINE 10 MG TAB PO SCH (09:54)
[2025-02-25] MEDS: KETOROLAC 30 MG/ML 1 ML VIAL IV PRN (09:54)
[2025-02-25] MEDS: ENOXAPARIN 40 MG/0.4 ML SYRINGE (J1650 PER 10MG) SC SCH (09:54)
[2025-02-25] MEDS: busPIRone 5 MG TAB PO SCH (09:55)
[2025-02-25 10:00] VITALS: BP 155/89
[2025-02-25] MEDS: buPROPion **SR** 150 MG TABLET PO SCH (10:08)
[2025-02-25] MEDS: PARoxetine 10MG TABLET PO SCH (10:08)
[2025-02-25 10:18] VITALS: BP 151/83
[2025-02-25 12:00] VITALS: BP 124/68; TEMP 97.8; O2SAT 100
[2025-02-25] MEDS: ACETAMINOPHEN 325 MG TAB PO PRN (14:14)
[2025-02-25 16:00] VITALS: BP 128/71; TEMP 99.4; O2SAT 98
[2025-02-25] MEDS ORDERED: PANTOPRAZOLE 40MG VIAL IV SCH (21:00)
== END 2025-02-25 17:35 | disposition home or self-care (01) ==
LOC: M ED 22:30 → M ED INP 22:31 → M ICU 02-25 08:54
PROVIDERS: ADMIT Student in an Organized Health Care Education/Training Program; ATTEND Student in an Organized Health Care Education/Training Program
DX: R55 Syncope and collapse (principal); R11.2 Nausea with vomiting, unspecified; K44.9 Diaphragmatic hernia without obstruction or gangrene; Z98.890 Other specified postprocedural states; R11.15 Cyclical vomiting syndrome unrelated to migraine; F12.90 Cannabis use, unspecified, uncomplicated; K58.9 Irritable bowel syndrome, unspecified; F41.9 Anxiety disorder, unspecified; G89.29 Other chronic pain; Z87.19 Personal history of other diseases of the digestive system; Z88.2 Allergy status to sulfonamides; Z88.8 Allergy status to other drugs, medicaments and biological substances; Z91.018 Allergy to other foods; Z79.899 Other long term (current) drug therapy; Z79.890 Hormone replacement therapy
CPT/HCPCS: 36415; 36600; 70450; 71045; 74018; 80048; 80076; 80143; 80307; 82077; 82140; 82550; 82553; 82803; 83605; 83735; 84443; 84484; 85025; 87040; 93041; 93306; 94760; 96372; 96374; 96375; 96376; 99285; J1650; J1885; J2405; J2470; S0106

== ENCOUNTER → 2025-03-11 | Outpatient (CLI) | payer OTHER ==
[~2025-03-11] MED LIST changes: +BENA1TAB23 PO; +BUPR-71 PO; +DIAZ2TAB PO; +E-Z-GAS II EFFERVESCENT PACKET (SODIUM BICARB./CITRIC ACID/SIMETHICONE) As Ordered ONE; +E-Z-HD 98% w/w 340 GM SUSP BTL As Ordered ONE; +E-Z-PAQUE 96% w/w SUSP 176 GM BTL As Ordered ONE; +ESTR25TD TOP; +METO10TA3 PO; +MUPI2OI TOP; +OMEP40CA5 PO; +PARO5TAB PO
== END ==
LOC: M RAD 09:41
PROVIDERS: ATTEND Physician Assistant
DX: K44.9 Diaphragmatic hernia without obstruction or gangrene (principal); Z48.89 Encounter for other specified surgical aftercare; W19.XXXA Unspecified fall, initial encounter

== ENCOUNTER → 2025-06-17 | Outpatient (CLI) | payer OTHER ==
[~2025-06-17] MED LIST changes: -E-Z-GAS II EFFERVESCENT PACKET (SODIUM BICARB./CITRIC ACID/SIMETHICONE) As Ordered ONE; -E-Z-HD 98% w/w 340 GM SUSP BTL As Ordered ONE; -E-Z-PAQUE 96% w/w SUSP 176 GM BTL As Ordered ONE
[2025-06-17 13:47] LABS: C REACTIVE PROTEIN QUANTITATIV 0.82 MG/DL (<1.0); RHEUMATOID FACTOR QUANT 4.7 IU/ML (<14)
== END ==
LOC: M PLALAB 09:53
PROVIDERS: ATTEND Physician Assistant Medical
DX: M25.561 Pain in right knee (principal)